=== PATIENT | male | born 1955 | race Caucasian/White ===

== ENCOUNTER 2017-05-02 22:32 | Emergency (ER) | payer OTHER ==
[~2017-05-02] VITALS: Ht 180.3 cm; Wt 87.6 kg
[2017-05-02 22:32] VITALS: Ht 180.3 cm; Wt 87.6 kg
[~2017-05-02 22:32] MED LIST: ASPEC325 PO; ATEN-173 PO; CLB200 PO
[2017-05-02] MEDS ORDERED: HYG/25 PO (23:12)
[2017-05-02] MEDS ORDERED: ATEN50TA PO (23:12)
[2017-05-02] MEDS ORDERED: GABA-113 PO (23:12)
[2017-05-02] MEDS ORDERED: FENTANYL CITRATE INJ 50 MCG/1 ML 2 ML VIAL IV STA (23:24)
[2017-05-02 23:48] VITALS: BP 122/68; PULSE 61; TEMP 36.6; O2SAT 94
[2017-05-03] MEDS ORDERED: MoRPHine SULFATE 4 MG/ML 1 ML CARP\\VIAL IV STA (01:00)
[2017-05-03] MEDS ORDERED: ONDANSETRON INJ 2 MG/ML 2 ML VIAL IV STA (01:00)
[2017-05-03] MEDS ORDERED: PROPOFOL IV EMULSION 10 MG/ML 20 ML VIAL IV STA (01:30)
--- NOTE | 2017-05-03 01:31 | EMERGENCY ROOM VISIT NOTE ---
Pre-Mod Sedation Assessment General Date of Moderate Sedation: May 03, 2017. Vital Signs: Vital Signs Past 12 Hours Date Time Temp Pulse Resp B/P (MAP) Pulse Ox O2 Delivery O2 Flow Rate FiO2 05/03/17 00:45 59 20 131/73 96 Room Air 05/02/17 23:48 36.6 61 16 122/68 94 Room Air 05/02/17 23:47 65 20 122/68 95 Room Air 05/02/17 22:37 60 05/02/17 22:32 36.6 63 12 142/79 94 Room Air Review Cardiovascular: regular rate, rhythm Abdomen: normal bowel sounds Lungs: normal breath sounds Airway Class: I Pre-Sedation Airway Assessment Oral Cavity: Dentures Short Thick Neck: No Hx of Sleep Apnea: No Smoking Status: Never Smoker Mallampati Classification: Class I (Sft palate,uvula,fauces,pillar) ASA Classification: Class I Procedure Planning Contraindications-for Mod Sed: None Notes The planned sedation has been discussed with the patient and consent obtained. I have identified the patient, determined the appropriateness of sedation and have assessed the patient immediately prior to the procedure. All medicine(s) and interventions are by my order.
[2017-05-03 01:51] VITALS: BP 114/59; PULSE 62; O2SAT 98
[2017-05-03 01:59] VITALS: BP 100/62; PULSE 59; O2SAT 99
[2017-05-03 02:01] VITALS: O2SAT 99
[2017-05-03 02:04] VITALS: BP 133/77; PULSE 62; O2SAT 99
[2017-05-03 02:10] VITALS: BP 152/80; PULSE 61; O2SAT 99
[2017-05-03 02:22] VITALS: BP 150/81; PULSE 66; PULSE 67; O2SAT 99
--- NOTE | 2017-05-03 02:57 | EMERGENCY ROOM VISIT NOTE ---
History First contact with patient: 22:50 Chief Complaint: HIP PAIN Stated Complaint: R HIP DISLOCATION History of Present Illness The patient is a 61 year old male who presents to the Emergency Room with complaints of severe right hip pain after he bent over and twisted to feed the dog. Patient heard a thump and was unable to get up. He lowered himself to the ground. He did not fall directly to the ground. He has had bilateral hip replacements by Dr. Hodge. No history of hip dislocation in the past. Patient arrived by EMS and was given fentanyl. Pain is currently 5 or 10. Worse with movement and better with rest. Patient denies numbness, tingling, chest pain, dyspnea, abdominal pain, back pain, fever, chills. No other complains per patient. Review of Systems See HPI for pertinent positives & negatives. A total of 10 systems reviewed and were otherwise negative. Past Medical/Surgical History hip replacement B Social History Smoking Status: Never Smoker Alcohol Use: occasionally Drug Use: none Marital Status: Housing Status: lives with family Occupation Status: retired Current/Historical Medications Scheduled Atenolol (Tenormin), 50 MG PO HS Chlorthalidone (Hygroton), 25 MG PO DAILY Gabapentin (Neurontin), 300 MG PO TID Physical Exam Vital Signs Date Time Temp Pulse Resp B/P (MAP) Pulse Ox O2 Delivery O2 Flow Rate FiO2 05/03/17 02:22 66 05/03/17 02:22 67 18 150/81 99 Room Air 05/03/17 02:10 61 18 152/80 99 Room Air 05/03/17 02:04 62 18 133/77 99 Room Air 05/03/17 02:01 59 18 109/69 99 Room Air 05/03/17 01:59 59 18 100/62 99 Room Air 05/03/17 01:51 99 Nasal Cannula 2.0 05/03/17 01:51 62 16 114/59 98 Nasal Cannula 4.0 05/03/17 01:49 99 Nasal Cannula 2.0 05/03/17 01:32 58 12 112/69 92 Room Air 05/03/17 00:45 59 20 131/73 96 Room Air 05/02/17 23:48 36.6 61 16 122/68 94 Room Air 05/02/17 23:47 65 20 122/68 95 Room Air 05/02/17 22:37 60 05/02/17 22:32 36.6 63 12 142/79 94 Room Air Physical Exam VITALS: Vitals are noted on the nurse's note and reviewed by myself. Vital signs stable. GENERAL: Pleasant male with right leg shortened and internally rotated, in no acute distress, nondiaphoretic, well-developed well-nourished. SKIN: The skin was without rashes, erythema, edema, or bruising. There is no tenting of the skin. Capillary reflex less than 2 seconds. HEAD: Normocephalic atraumatic. EARS: External auditory canals clear, tympanic membranes pearly james without erythema or effusion bilaterally. EYES: Pupils equal round and reactive to light and accommodation. Conjunctivae without injection, sclerae without icterus. NOSE: Patent, turbinates without inflammation or discharge. MOUTH: Mucous membranes moist. Pharynx without erythema or exudate. Uvula midline. Airway patent. Tongue does not deviate. NECK: Supple without nuchal rigidity. No lymphadenopathy. No thyromegaly. Cervical spine is nontender. No JVD. HEART: Regular rate and rhythm without murmurs gallops or rubs. LUNGS: Clear to auscultation bilaterally without wheezes, rales or rhonchi. No dullness to percussion. No retractions or accessory muscle use. ABDOMEN: Positive bowel sounds x 4. Normal tympanic percussion. Soft, nontender, without masses or organomegaly. Macdonald sign negative. No guarding or rebound tenderness. MUSCULOSKELETAL: No muscle atrophy, erythema, or edema noted. Right hip shortened and internally rotated and tender to palpation right femur, knee, lizarraga and foot nontender to palpation. Pedal pulses +2 equal present bilaterally. NEURO: Patient was alert and oriented to person place and time. Normal sensation to light and sharp touch. No focal neurological deficits. Medical Decision & Procedures Medications Administered Medications (Trade) Dose Ordered Sig/Stephen Route Start Time Stop Time Status Last Admin Dose Admin Fentanyl Citrate (Fentanyl Inj) 100 mcg NOW STAT IV 05/02/17 23:24 05/02/17 23:26 DC 05/02/17 23:30 100 MCG Morphine Sulfate (MoRPHine SULFATE INJ) 4 mg NOW STAT IV 05/03/17 01:00 05/03/17 01:01 DC 05/03/17 01:05 4 MG Ondansetron HCl (Zofran Inj) 4 mg NOW STAT IV 05/03/17 01:00 05/03/17 01:01 DC 05/03/17 01:05 4 MG Procedure Right prosthetic hip Dislocation Reduction Indication: Hip dislocation Verbal consent obtained. Conscious sedation was performed by my attending. Risks and benefits were explained with the usual customary discussion. A time out was taken. Neurovascular examination before the procedure revealed intact. The right hip dislocation was reduced by placing the patient supine and stabilizing the pelvis by grasping the bilateral anterior superior iliac spines and applying gentle posterior force by the nurse and I brought the hip to 90 of flexion while allowing the ipsilateral knee to flex passively. I Gently abducted, externally rotated, and extended the hip while distracting the femoral head anteriorly This resulted in an easy reduction without complication. Neurovascular examination after the procedure revealed intact. The patient had significant pain relief and tolerated the procedure well. ED Course Prior records/ancillary studies reviewed. Triage Nursing notes reviewed. Additional history obtained from family. The patient's history was concerning for right hip pain. Differential diagnosis: Etiologies such as dislocation, musculoskeletal, disc herniation, fracture, metastatic disease, cord compression, discitis, infection, acute exacerbation of chronic back pain, as well as others were entertained. Physical findings: As above. No focal neurologic findings noted. ER treatment provided: Hip was reduced as above On reassessment the patient felt better. Diagnostics interpreted by me: Imaging studies: Right hip x-ray showed dislocation of the prosthetic hip without fracture. Postreduction films show proper realignment per my interpretation This appears to be consistent with hip dislocation that was reduced. Patient tolerated procedure well. He was advised to use his walker for inhalation until cleared by his orthopedist. He is advised light activity only. He was advised to return to the ER immediately for severe pain, dyspnea dislocation, fevers, numbness, tingling, worsening signs or symptoms or as needed. Patient was neurovascularly neurologic intact. He is well-appearing.. By the evaluation outlined above emergent etiologies such as fracture, aortic disease, metastatic disease, infection, as well as others were deemed relatively unlikely. The pt informed about the findings as listed above. All questions were answered and pleased with the treatment. Return instructions were outlined and the patient was discharged in stable condition. Referral: The patient was referred back to his orthopedist, Dr. Hodge for follow-up in 2 to 3 days for a recheck of the current condition. Case reviewed with my attending Medical Decision As above Medication Reconcilliation Current Medication List: was personally reviewed by me Blood Pressure Screening Patient's blood pressure: Normal blood pressure Impression Primary Impression: Dislocation of hip, right, closed Departure Information Dispostion Home / Self-Care Condition GOOD Referrals Jacoby Jefferson M.D. (PCP) Forms WORK / SCHOOL INSTRUCTIONS, HOME CARE DOCUMENTATION FORM, IMPORTANT VISIT INFORMATION Patient Instructions Sedation Procedural, My [facility], ED Dislocation Hip Traumatic Redu Additional Instructions DO NOT drive, drink alcohol, operate machinery, or perform dangerous activities today. You were given medications in the ER that can affect your ability to safely function or operate a vehicle. Light activity only until cleared by orthopedic doctor. Ibuprofen(Motrin, Advil) may be used for fever or pain. Use 600mg every six hours as needed. Take with food. Avoid using more than 2400mg in a 24 hour period. Do not use 2400mg per day for more than three consecutive days without physician direction. Prolonged inappropriate use can lead to stomach upset or ulcers. This medication can be taken if you need to drive, work, or perform activities which may be dangerous when taking narcotic pain medication. (AND/OR) Acetaminophen(Tylenol) may be used for fever or pain. Use 1000mg every six hours as needed. Avoid using more than 3000mg in a 24 hour period. This medication can be taken if you need to drive, work, or perform activities which may be dangerous when taking narcotic pain medication. Ice compresses for 20 minutes at a time four times daily for 2-3 days. Use the walker until cleared by your orthopedic doctor. Rest and elevate your injury. Continue current medications. Return to the ER immediately for any numbness, tingling, severe pain, extreme swelling in the extremity or as needed. Call your Orthopedics tomorrow to arrange follow up for your injury. Problem Qualifiers Primary Impression: Dislocation of hip, right, closed Encounter type: initial encounter Qualified Codes: S73.004A - Unspecified dislocation of right hip, initial encounter
--- NOTE | 2017-05-03 04:01 | EMERGENCY ROOM VISIT NOTE ---
Post-Moderate Sedation Plan General Date of Moderate Sedation May 03, 2017. Vital Signs: Vital Signs Past 12 Hours Date Time Temp Pulse Resp B/P (MAP) Pulse Ox O2 Delivery O2 Flow Rate FiO2 05/03/17 02:22 66 05/03/17 02:22 67 18 150/81 99 Room Air 05/03/17 02:10 61 18 152/80 99 Room Air 05/03/17 02:04 62 18 133/77 99 Room Air 05/03/17 02:01 59 18 109/69 99 Room Air 05/03/17 01:59 59 18 100/62 99 Room Air 05/03/17 01:51 99 Nasal Cannula 2.0 05/03/17 01:51 62 16 114/59 98 Nasal Cannula 4.0 05/03/17 01:49 99 Nasal Cannula 2.0 05/03/17 01:32 58 12 112/69 92 Room Air 05/03/17 00:45 59 20 131/73 96 Room Air 05/02/17 23:48 36.6 61 16 122/68 94 Room Air 05/02/17 23:47 65 20 122/68 95 Room Air 05/02/17 22:37 60 05/02/17 22:32 36.6 63 12 142/79 94 Room Air Review - Discharge Plan Post Moderate Sedation Plan: On clinical assessment, the patient appears to have tolerated the conscious sedation without complications. Patient is recovering as anticipated. Patient will continue to be monitored by nursing and may be discharged when conscious sedation discharge criteria are met.
--- NOTE | 2017-05-03 04:04 | EMERGENCY ROOM VISIT NOTE ---
ED Visit Note First contact with patient: 23:26 I have personally seen and evaluated the patient with the PA. I agree with the diagnosis and management decisions and have been personally involved in the case. Please see Dana Joseph PA-C's notes for further details of the history, physical and visit. Procedural Sedation Indication right hip dislocation Total time: 16 minutes. Written consent was obtained after the risks and benefits were explained to the patient, including, but not limited to aspiration, allergic reaction, breathing difficulties, cardiac complications, vomiting, pain, event recall, bleeding, and /or infection. Pre-sedation examination and paperwork completed. The patient was on 100% oxygen via NRB prior to the procedure. Continuous end tidal CO2 monitoring, pulse oximetry, and cardiac monitoring were utilized. Suction, airway equipment, medications, respiratory equipment, and appropriate personnel were prepared prior to the initiation of the procedure. A time out was taken. Sedation was achieved utilizing a total of 100 mg of propofol, administered in 2 separate boluses. After I observed the patient had reached the appropriate level of sedation the hip reduction was performed by Dana Joseph PA-C without complication. Sedation was discontinued and the monitoring continued. The patient recovered quickly from the effects of the medication without complication or adverse event.
--- NOTE | 2017-05-03 06:38 | DIAGNOSTIC IMAGING REPORT ---
RIGHT HIP UNILATERAL 2 VIEWS CLINICAL HISTORY: post reduction Right COMPARISON: None. DISCUSSION: The bones and joint spaces appear intact. There is no evidence of fracture, dislocation or bony disease. Anatomic alignment status post closed reduction. Pre-existing total hip arthroplasty. IMPRESSION: Anatomic alignment status post closed reduction The above report was generated using voice recognition software. It may contain grammatical, syntax or spelling errors. Electronically signed by: Zain Penn M.D. 05/03/2017 6:37 AM Dictated Date/Time: 05/03/2017 6:35 AM
--- NOTE | 2017-05-03 06:45 | DIAGNOSTIC IMAGING REPORT ---
RIGHT HIP UNILATERAL 2 VIEWS CLINICAL HISTORY: right hip injury Right trauma. Pain. COMPARISON: None. DISCUSSION: Evidence for dislocation of the patient's hip arthroplasty. The acetabular prosthetic appears to be aligned appropriately. No evidence for acetabular protrusion. There is no evidence for soft tissue swelling. IMPRESSION: Dislocation right hip arthroplasty. The above report was generated using voice recognition software. It may contain grammatical, syntax or spelling errors. Electronically signed by: Zain Penn M.D. 05/03/2017 6:43 AM Dictated Date/Time: 05/03/2017 6:43 AM
== END 2017-05-03 02:46 | disposition home or self-care (01) ==
LOC: EDBD 22:32 → C.EDA 22:33 → C.EDB 05-03 02:46
DX: T84.020A Dislocation of internal right hip prosthesis, initial encounter (principal); X58.XXXA Exposure to other specified factors, initial encounter; Z96.643 Presence of artificial hip joint, bilateral; Z79.899 Other long term (current) drug therapy

== ENCOUNTER 2017-11-07 17:11 | Emergency (ER) | payer OTHER ==
[~2017-11-07] VITALS: Ht 182.9 cm; Wt 84.7 kg
[~2017-11-07 17:11] MED LIST changes: -ASPEC325 PO; -ATEN-173 PO; +ATEN50TA PO; -CLB200 PO; +GABA-113 PO; +HYG/25 PO
[2017-11-07 17:16] VITALS: Ht 182.9 cm; Wt 84.7 kg
[2017-11-07] MEDS ORDERED: ONDANSETRON INJ 2 MG/ML 2 ML VIAL IV STA (17:16)
--- NOTE | 2017-11-07 17:20 | EMERGENCY ROOM VISIT NOTE ---
History Report prepared by Nick: Wing Mckoy Under the Supervision of: Dr. Anibal Gloria D.O. First contact with patient: 17:14 Chief Complaint: HIP PAIN Stated Complaint: HIP OUT History of Present Illness The patient is a 62 year old male with a history of a right hip dislocation who presents to the Emergency Room with complaints of a sudden right hip dislocation that occurred prior to arrival this evening. He states that he was bending over to reach a box, and felt the right hip "pop out". The patient says that this happened to the same hip in 2013, and had to have surgery with Dr. Hodge. The patient says that the hip almost popped out a month ago, but he caught it and it did not happen. He states that he is currently in extreme pain , but denies falling or having any other injuries other than the right hip. The patient says that he is not on any blood thinners. 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 Denies any other pain or injuries. Review of Systems See HPI for pertinent positives & negatives. A total of 10 systems reviewed and were otherwise negative. Past Medical & Surgical Medical Problems: (1) HTN (hypertension) Family History No pertinent family history Social History Smoking Status: Never Smoker Alcohol Use: occasionally Drug Use: none Marital Status: Housing Status: lives with family Occupation Status: retired Current/Historical Medications Scheduled Atenolol (Tenormin), 50 MG PO HS Chlorthalidone (Hygroton), 25 MG PO HS Furosemide (Lasix), 10 MG PO QAM Gabapentin (Neurontin), 300 MG PO TID Allergies Coded Allergies: No Known Allergies (Verified , `, 11/07/17) Physical Exam Vital Signs Date Time Temp Pulse Resp B/P (MAP) Pulse Ox O2 Delivery O2 Flow Rate FiO2 11/07/17 19:43 71 20 137/77 96 11/07/17 18:39 36.8 67 20 152/75 97 Room Air 11/07/17 18:20 36.8 69 18 138/69 96 Room Air 11/07/17 18:18 36.8 69 18 142/78 96 Room Air 11/07/17 18:10 36.8 71 18 155/96 92 Room Air 11/07/17 18:02 70 16 94/61 97 Nasal Cannula 2.0 11/07/17 17:56 68 18 133/65 98 Room Air 11/07/17 17:25 71 11/07/17 17:16 36.8 77 20 130/69 98 Room Air Physical Exam GENERAL: Patient is awake, alert, very anxious appearing and appears to be in significant pain. EYES: The conjunctivae are clear. The pupils are round and reactive. EARS, NOSE, MOUTH AND THROAT: The nose is without any evidence of any deformity. Mucous membranes are moist tongue is midline NECK: The neck is nontender and supple. RESPIRATORY: Normal respiratory effort is noted there is no evidence of wheezing rhonchi or rales CARDIOVASCULAR: Regular rate and rhythm noted there no murmurs rubs or gallops normal S1 normal S2 GASTROINTESTINAL: The abdomen is soft. Bowel sounds are present in all quadrants. Abdomen is nontender MUSCULOSKELETAL/EXTREMITIES: Right lower extremity is internally rotated and shortened. Patient resists any range of motion testing with right hip. SKIN: There is no obvious evidence of any rash. There are no petechiae, pallor or cyanosis noted. NEUROLOGIC: Patient is awake alert and oriented x3. Medical Decision & Procedures ER Provider Diagnostic Interpretation: X-ray results as stated below per interpretation by me and the radiologist. R HIP UNILATERAL 2 VIEWS CLINICAL HISTORY: right hip pin pain COMPARISON: None. DISCUSSION: Dislocation right hip. Patient has a total right hip prosthetic. The femoral prosthetic is displaced superiorly in relation acetabular cup. No well-defined fracture. IMPRESSION: Dislocation of the patient's total right hip prosthetic. Mild superior migration of the right femoral shaft and femoral prosthetic. The above report was generated using voice recognition software. It may contain grammatical, syntax or spelling errors. Electronically signed by: Zain Penn M.D. 11/07/2017 5:38 PM Dictated Date/Time: 11/07/2017 5:37 PM R HIP UNILATERAL 2 VIEWS CLINICAL HISTORY: post reduction dislocation COMPARISON: 11/07/2017 5:21 PM DISCUSSION: Anatomic alignment status post closed reduction. No evidence for acetabular protrusion. Good contact between prosthetic and underlying bone. There is no evidence for soft tissue swelling. IMPRESSION: Anatomic alignment status post closed reduction. The above report was generated using voice recognition software. It may contain grammatical, syntax or spelling errors. Electronically signed by: Zain Penn M.D. 11/07/2017 6:45 PM Dictated Date/Time: 11/07/2017 6:42 PM Laboratory Results 11/07/17 17:20 Red Blood Count 4.25, Mean Corpuscular Volume 91.5, Mean Corpuscular Hemoglobin 33.6, Mean Corpuscular Hemoglobin Concent 36.8, Mean Platelet Volume 9.0, Neutrophils (%) (Auto) 71.3, Lymphocytes (%) (Auto) 12.5, Monocytes (%) (Auto) 14.5, Eosinophils (%) (Auto) 0.7, Basophils (%) (Auto) 0.2, Neutrophils # (Auto ) 7.56, Lymphocytes # (Auto) 1.32, Monocytes # (Auto) 1.53, Eosinophils # (Auto ) 0.07, Basophils # (Auto) 0.02 11/07/17 17:20 Test 11/07/17 17:20 White Blood Count 10.58 K/uL (4.8-10.8) Red Blood Count 4.25 M/uL (4.7-6.1) Hemoglobin 14.3 g/dL (14.0-18.0) Hematocrit 38.9 % (42-52) Mean Corpuscular Volume 91.5 fL (80-100) Mean Corpuscular Hemoglobin 33.6 pg (25-34) Mean Corpuscular Hemoglobin Concent 36.8 g/dl (32-36) Platelet Count 394 K/uL (130-400) Mean Platelet Volume 9.0 fL (7.4-10.4) Neutrophils (%) (Auto) 71.3 % Lymphocytes (%) (Auto) 12.5 % Monocytes (%) (Auto) 14.5 % Eosinophils (%) (Auto) 0.7 % Basophils (%) (Auto) 0.2 % Neutrophils # (Auto) 7.56 K/uL (1.4-6.5) Lymphocytes # (Auto) 1.32 K/uL (1.2-3.4) Monocytes # (Auto) 1.53 K/uL (0.11-0.59) Eosinophils # (Auto) 0.07 K/uL (0-0.5) Basophils # (Auto) 0.02 K/uL (0-0.2) RDW Standard Deviation 41.3 fL (36.4-46.3) RDW Coefficient of Variation 12.3 % (11.5-14.5) Immature Granulocyte % (Auto) 0.8 % Immature Granulocyte # (Auto) 0.08 K/uL (0.00-0.02) Prothrombin Time 10.4 SECONDS (9.0-12.0) Prothromb Time International Ratio 1.0 (0.9-1.1) Activated Partial Thromboplast Time 27.0 SECONDS (21.0-31.0) Partial Thromboplastin Ratio 1.0 Anion Gap 13.0 mmol/L (3-11) Est Creatinine Clear Calc Drug Dose 86.2 ml/min Estimated GFR () 94.4 Estimated GFR (Non- 81.4 BUN/Creatinine Ratio 11.5 (10-20) Calcium Level 9.4 mg/dl (8.5-10.1) Total Bilirubin 0.5 mg/dl (0.2-1) Direct Bilirubin 0.2 mg/dl (0-0.2) Aspartate Amino Transf (AST/SGOT) 20 U/L (15-37) Alanine Aminotransferase (ALT/SGPT) 47 U/L (12-78) Alkaline Phosphatase 103 U/L (45-117) Total Protein 7.6 gm/dl (6.4-8.2) Albumin 3.6 gm/dl (3.4-5.0) Laboratory results per my review. Medications Administered Medications (Trade) Dose Ordered Sig/Stephen Route Start Time Stop Time Status Last Admin Dose Admin Morphine Sulfate (MoRPHine SULFATE INJ) 4 mg Q15M PRN IV 11/07/17 17:30 11/07/17 20:01 DC 11/07/17 17:33 4 MG Ondansetron HCl (Zofran Inj) 4 mg NOW STAT IV 11/07/17 17:16 11/07/17 17:19 DC 11/07/17 17:32 4 MG Potassium Chloride (Klor-Con M10) 10 meq NOW STAT PO 11/07/17 18:26 11/07/17 18:27 DC 11/07/17 18:35 10 MEQ Procedure Procedure right hip reduction-closed Indication right hip dislocation-prosthetic Please see Dr. Casanova's note for sedation details The patient was properly sedated once the sedation was reached the patient was reevaluated. The right hip was brought into flexion and then internally rotated. The right lower extremity was then distracted with good reduction noted. Post reduction x-ray reveals anatomic alignment of right hip prosthesis. Patient tolerated procedure well. He was reevaluated multiple times. He was feeling much better. He already has an adduction pillow at home. ED Course 171: The patient was evaluated in room A1. A complete history and physical examination were performed. 171: Ordered Zofran Inj 4 mg IV. 173: Ordered Morphine Sulfate Inj 4 mg IV PRN. 1815: I discussed the patient with Dr. [facility]. 182: Ordered Klor-Con M10 10 meq PO. 184: Ordered Roxicodone Immediate Rel 5MG Home Pack 1 homepack PO. 1909: Upon reevaluation, the patient is resting. I discussed the results and treatment plan with him. He verbalized agreement of the treatment plan. He is ready for discharge. Medical Decision Differential diagnosis: Etiologies such as fracture, dislocation, intra-abdominal, pneumothorax, intrathoracic , intracranial, neurologic, as well as other traumatic pathologies were entertained. Nursing notes reviewed. Additional history is obtained for the patient's significant other. The patient is a 62-year-old male who presented to the emergency department with right hip pain. The patient had flexed forward to pick something up when he felt his right hip come out of place. He has had a similar episode in the past. He does have a hip replacement. The patient was sedated in the usual fashion. He met criteria for procedural sedation in the emergency department. I discussed his case with his covering orthopedic group. The patient was encouraged to continue all medications as prescribed. He was reevaluated multiple times. On final reevaluation he was awake alert and no longer sedated. He was discharged with his . He was encouraged to follow-up with his primary orthopedic physician soon as possible but return to the emergency department immediately if symptoms change or worsen or the need arises. Medication Reconcilliation Current Medication List: was personally reviewed by me Blood Pressure Screening Patient's blood pressure: Elevated blood pressure Blood pressure disposition: Elevated BP felt to be situational Consults Time Called: 1809 Consulting Physician: Dr. [facility] Returned Call: 1815 I discussed the patient with Dr. [facility]. Impression Primary Impression: Hip dislocation, right Additional Impression: Hypokalemia Scribe Attestation The scribe's documentation has been prepared under my direction and personally reviewed by me in its entirety. I confirm that the note above accurately reflects all work, treatment, procedures, and medical decision making performed by me. Departure Information Dispostion Home / Self-Care Referrals Jacoby Jefferson M.D. (PCP) Patient Instructions ED Dislocation Hip Traumatic Redu, ED Sedation Procedural Discon, [facility] Additional Instructions Call your primary care physician to schedule a follow-up appointment. Call your primary orthopedic physician to schedule a follow-up appointment as well. Continue using the pillow between her thighs as instructed. Continue all other medications as prescribed. Your potassium was low in the emergency department today. Be sure to have that rechecked with your family doctor. Return the emergency department immediately if symptoms change worsening the need arises. Problem Qualifiers Primary Impression: Hip dislocation, right Encounter type: initial encounter Qualified Codes: S73.004A - Unspecified dislocation of right hip, initial encounter
[2017-11-07] MEDS ORDERED: MoRPHine SULFATE 4 MG/ML 1 ML CARP\\VIAL IV PRN (17:30)
[2017-11-07 17:36] LABS: BASO % 0.2 %; BASO ABS # 0.02 K/uL (0-0.2); EOS % 0.7 %; EOS ABS # 0.07 K/uL (0-0.5); HEMATOCRIT 38.9 % (42-52); HEMOGLOBIN 14.3 g/dL (14.0-18.0); IG# 0.08 K/uL (0.00-0.02); LYMPH % 12.5 %; LYMPH ABS # 1.32 K/uL (1.2-3.4); MEAN CELL VOLUME 91.5 fL (80-100); MEAN CORPUSCULAR HEMOGLOBIN 33.6 pg (25-34); MEAN CORPUSCULAR HGB CONC 36.8 g/dl (32-36); MONO % 14.5 %; MONO ABS # 1.53 K/uL (0.11-0.59); NEUT % 71.3 %; NEUT ABS # 7.56 K/uL (1.4-6.5); PLATELET COUNT 394 K/uL (130-400); RED CELL DISTRIBUTION WIDTH CV 12.3 % (11.5-14.5); RED CELL DISTRIBUTION WIDTH SD 41.3 fL (36.4-46.3); WHITE BLOOD COUNT 10.58 K/uL (4.8-10.8)
--- NOTE | 2017-11-07 17:40 | DIAGNOSTIC IMAGING REPORT ---
R HIP UNILATERAL 2 VIEWS CLINICAL HISTORY: right hip pin pain COMPARISON: None. DISCUSSION: Dislocation right hip. Patient has a total right hip prosthetic. The femoral prosthetic is displaced superiorly in relation acetabular cup. No well-defined fracture. IMPRESSION: Dislocation of the patient's total right hip prosthetic. Mild superior migration of the right femoral shaft and femoral prosthetic. The above report was generated using voice recognition software. It may contain grammatical, syntax or spelling errors. Electronically signed by: Zain Penn M.D. 11/07/2017 5:38 PM Dictated Date/Time: 11/07/2017 5:37 PM
[2017-11-07] MEDS ORDERED: PROPOFOL IV EMULSION 10 MG/ML 20 ML VIAL IV ONE ×2 (17:41→18:00)
--- NOTE | 2017-11-07 17:53 | EMERGENCY ROOM VISIT NOTE ---
Pre-Mod Sedation Assessment General Date of Moderate Sedation: Nov 07, 2017. Vital Signs: Vital Signs Past 12 Hours Date Time Temp Pulse Resp B/P (MAP) Pulse Ox O2 Delivery O2 Flow Rate FiO2 11/07/17 17:25 71 11/07/17 17:16 36.8 77 20 130/69 98 Room Air Review Cardiovascular: regular rate, rhythm Abdomen: normal bowel sounds Lungs: lungs clear Pre-Sedation Airway Assessment Oral Cavity: Dentures Able to Visualize Vocal Cords: No Short Thick Neck: No Hx of Sleep Apnea: No Smoking Status: Former Smoker Mallampati Classification: Class II Procedure Planning Contraindications-for Mod Sed: None Yes Notes The planned sedation has been discussed with the patient and consent obtained. I have identified the patient, determined the appropriateness of sedation and have assessed the patient immediately prior to the procedure. All medicine(s) and interventions are by my order.
[2017-11-07 18:02] VITALS: BP 94/61; PULSE 70; O2SAT 97
[2017-11-07 18:10] VITALS: BP 155/96; PULSE 71; TEMP 36.8; O2SAT 92
--- NOTE | 2017-11-07 18:11 | EMERGENCY ROOM VISIT NOTE ---
Post-Moderate Sedation Plan General Date of Moderate Sedation Nov 07, 2017. Vital Signs: Vital Signs Past 12 Hours Date Time Temp Pulse Resp B/P (MAP) Pulse Ox O2 Delivery O2 Flow Rate FiO2 11/07/17 17:56 68 18 133/65 98 Room Air 11/07/17 17:25 71 11/07/17 17:16 36.8 77 20 130/69 98 Room Air Review - Discharge Plan Post Moderate Sedation Plan: Conscious sedation Conscious sedation was performed after consent. The patient was placed on a monitor that monitored rhythm, blood pressure, oxygen saturation and end tidal CO2. The patient has not eaten for > 8 hours. Propofol 125mg IV was given total. 50+25 (x3). Reason for conscious sedation: Hip dislocation right Total conscious sedation time: 20 minutes The patient tolerated the procedure well without any alteration in vital signs or issues with airway. The patient awoke without deficit or complaint. On clinical assessment, the patient appears to have tolerated the conscious sedation without complications. Patient is recovering as anticipated. Patient will continue to be monitored by nursing and may be discharged when conscious sedation discharge criteria are met.
[2017-11-07 18:18] VITALS: BP 142/78; PULSE 69; TEMP 36.8; O2SAT 96
[2017-11-07 18:20] VITALS: BP 138/69; PULSE 69; TEMP 36.8; O2SAT 96
[2017-11-07 18:25] LABS: ALBUMIN 3.6 gm/dl (3.4-5.0); CALCIUM 9.4 mg/dl (8.5-10.1); POTASSIUM 2.3 mmol/L (3.5-5.1); TOTAL PROTEIN 7.6 gm/dl (6.4-8.2)
[2017-11-07] MEDS ORDERED: FURO20TA PO (18:26)
[2017-11-07] MEDS ORDERED: POTASSIUM CHLORIDE 10 MEQ TABCR PO STA (18:26)
[2017-11-07 18:39] VITALS: BP 152/75; PULSE 67; TEMP 36.8; O2SAT 97
[2017-11-07] MEDS ORDERED: OXYCODONE IR HOME PACK PO ONE (18:45)
--- NOTE | 2017-11-07 18:47 | DIAGNOSTIC IMAGING REPORT ---
R HIP UNILATERAL 2 VIEWS CLINICAL HISTORY: post reduction dislocation COMPARISON: 11/07/2017 5:21 PM DISCUSSION: Anatomic alignment status post closed reduction. No evidence for acetabular protrusion. Good contact between prosthetic and underlying bone. There is no evidence for soft tissue swelling. IMPRESSION: Anatomic alignment status post closed reduction. The above report was generated using voice recognition software. It may contain grammatical, syntax or spelling errors. Electronically signed by: Zain Penn M.D. 11/07/2017 6:45 PM Dictated Date/Time: 11/07/2017 6:42 PM
[2017-11-07 19:43] VITALS: BP 137/77; PULSE 71; O2SAT 96
== END 2017-11-07 19:43 | disposition home or self-care (01) ==
LOC: C.EDB 17:12 → C.EDA 19:43
DX: T84.020A Dislocation of internal right hip prosthesis, initial encounter (principal); X50.9XXA Other and unspecified overexertion or strenuous movements or postures, initial encounter; E87.6 Hypokalemia; I10 Essential (primary) hypertension

== ENCOUNTER 2020-02-16 10:25 | Inpatient (IN) ==
--- NOTE | 2019-12-15 13:32 | Anesthesiology Consultation ---
Date of Service December 15, 2019 Assessment & Plan (1) Encounter for pre-operative examination: Chart Review Chart Review: Pending: Refer to Additional Notes / Consult section (updated/repeat labs, final PCP clearance, and possible repeat EKG) and Patient NOT seen in Pre Admission Testing Will await repeat labs (PCP repeating BMP) but patient will need updated preop labs due to surgery date change. Will await final PCP clearance. Will attempt to get repeat EKG Seen by PCP 12/07/19- seen for preop evaluation for previously scheduled surgery that was rescheduled. Initialy pre op labs showed Na of 125, K of 3.3 and Hgb of 13.2. Feels electrolyte abnormality secondary to chlorthalidone. Chlorthalidone d/c'ed. Has f/u in two weeks to recheck labs- unsure if abnormal labs affected EKG (next appt scheduled 12/21/19) History Surgery Operation Date: 02/16/20 07:15 Proposed Procedures p Left Total Hip Arthroplasty Revision - Jose Enrique Garza DO Height/Weight Height: 5 ft 11.5 in Weight: 82.4 kg Allergies Allergy/AdvReac Type Severity Reaction Status Date / Time No Known Allergies Allergy ` Verified 12/15/19 09:04 Medications Home Medications Medication Instructions Recorded Confirmed Last Taken atenolol-chlorthalidone 1 tab PO HS 03/13/19 12/15/19 08/11/19 20:30 gabapentin 400 mg PO TID 03/13/19 12/15/19 08/11/19 09:00 ibuprofen 800 mg PO TIDM PRN 08/12/19 12/15/19 Unknown meloxicam 15 mg PO PM 11/27/19 12/15/19 Unknown Potassium 1 tab PO DAILY 12/02/19 12/15/19 Unknown Past Medical History Medical History HTN (hypertension) (Chronic) Osteoarthritis Past Family History Family History Other No significant family history Past Surgical History Surgical History History of colonoscopy History of hip replacement (Chronic) R/L History of tonsillectomy History of tooth extraction Hx of inguinal hernia repair Social History Smoking Status: Former smoker Do You Dip or Chew Tobacco: No Smoking End Date: 13 yr ago Hx Alcohol Use: Yes Alcohol type: beer alcohol intake frequency: 3 or more drinks per day Hx Substance Use: No substance use type: does not use Testing Electrocardiogram Date: 12/02/19 SB at 56bpm. Peaked T waves (consider ischemia, hyperkalemia, etc). T waves more peaked, otherwise no significant change compared to 03/03/14 per cardiology. Potassium 3.3 on preop labs from same day. Chest X-Ray Date: 12/02/19 Findings: + NAD
--- NOTE | 2020-02-11 10:56 | Anesthesiology Consultation ---
Date of Service February 11, 2020 Travel assessment/history reviewed - low risk at this time - will be reviewed the morning of surgery. No preop covid testing done. Assessment & Plan Chart Review Chart Review: Acceptable Risk for Surgery and Patient NOT seen in Pre Admission Testing History Surgery Operation Date: 02/16/20 11:40 Proposed Procedures p Left Total Hip Arthroplasty Revision - Jose Enrique Garza DO Height/Weight Height: 5 ft 11.5 in Weight: 82.4 kg Allergies Allergy/AdvReac Type Severity Reaction Status Date / Time No Known Allergies Allergy ` Verified 02/10/20 12:21 Medications Home Medications Medication Instructions Recorded Confirmed Last Taken atenolol-chlorthalidone 1 tab PO HS 03/13/19 02/10/20 08/11/19 20:30 ibuprofen 800 mg PO TIDM PRN 08/12/19 02/10/20 Unknown meloxicam 15 mg PO PM 11/27/19 02/10/20 Unknown zsxnwqclsvzi-tgmblzru-kdwnem 1 tab PO QPM 02/10/20 02/10/20 Unknown [Multivitamin 50 Plus] potassium gluconate 595 mg PO QAM 02/10/20 02/10/20 Unknown Past Medical History Medical History Hip dislocation, left HTN (hypertension) (Chronic) Osteoarthritis Past Family History Family History Other No significant family history Past Surgical History Surgical History History of colonoscopy History of hip replacement (Chronic) R/L History of tonsillectomy History of tooth extraction Hx of inguinal hernia repair Social History Smoking Status: Former smoker tobacco type: cigarettes Do You Dip or Chew Tobacco: No Smoking End Date: 13 yr ago Hx Alcohol Use: Yes Alcohol type: beer alcohol intake frequency: 3 or more drinks per day Alcohol Intake Frequency Comment: 5-6 BEERS DAILY Hx Substance Use: No substance use type: does not use Testing Electrocardiogram Date: 12/02/19 SB at 56bpm. Peaked T waves (consider ischemia, hyperkalemia, etc). T waves more peaked, otherwise no significant change compared to 03/03/14 per cardiology. Potassium 3.3 on preop labs from same day. Chest X-Ray Date: 12/02/19 Findings: + NAD
--- NOTE | 2020-02-14 18:19 | History & Physical Report ---
Date of Service February 16, 2020 Assessment & Plan (1) Failure of left total hip arthroplasty with dislocation of hip: I have indicated the patient for revision left total hip replacement, head and liner exchange, constrained liner, possible revision acetabular and femoral components. The risks, benefits and complications of surgery were explained to the patient which include but not limited to infection, acute blood loss, DVT/PE, injury to nerves, vessels, bone, soft tissue, arthrofibrosis, chronic pain, failure of the prosthesis, hip dislocation, leg length discrepancy, need for additional surgery, cardiac and pulmonary events and . The patient wished to proceed with surgery and informed consent was obtained at this time. We will plan for ASA BID post-operatively for DVT prophylaxis. Upon discharge the patient will be discharged home with home health services. Appropriate clearances by PCP were obtained. 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 Most recent dislocation 08/12/2019. Principle surgery performed 04/01/[address] Hodge. The patient has failed outpatient conservative treatments to this point which included physical therapy, home exercise program, NSAIDS and bracing. The patient's pain and limited function have progressed to the point where they severely hinder their activities of daily living and they no longer tolerate exercise programs. They are requesting to proceed with revision total hip replacement surgery. Allergies Allergy/AdvReac Type Severity Reaction Status Date / Time No Known Allergies Allergy ` Verified 02/16/20 10:37 Home Medications Home Medications Medication Instructions Recorded Confirmed Type ibuprofen 800 mg PO TIDM PRN 08/12/19 02/16/20 History meloxicam 15 mg PO PM 11/27/19 02/16/20 History wbqvwlrjrmap-icfztgej-khjxll 1 tab PO QPM 02/10/20 02/16/20 History [Multivitamin 50 Plus] potassium gluconate 595 mg PO QAM 02/10/20 02/16/20 History atenolol 100 mg PO HS 02/16/20 02/16/20 History Past Med/Surg History Medical History Hip dislocation, left HTN (hypertension) (Chronic) Osteoarthritis Surgical History History of colonoscopy History of hip replacement (Chronic) R/L History of tonsillectomy History of tooth extraction Hx of inguinal hernia repair Family History Other No significant family history Social History Preferred Language: Greenlandic Communication Ability: Effective Trolley Car Operator Required: No Beliefs That Will Affect Care: None Current Living Situation: Significant Other Other Information That Helps Us Care for You: No Feels Safe at Home: Yes Safety Concerns: Feels Safe At This Time Smoking Status: Former smoker Tobacco Type: cigarettes ; Do You Dip or Chew Tobacco: No ; Smoking End Date: 13 yr ago ; Second Hand Exposure: Yes ; Tobacco Cessation Education Requested by Patient: No Hx Alcohol Use: Yes Alcohol type: beer Hx Substance Use: No Review of Systems Review of Systems: All systems reviewed & are unremarkable except as noted in HPI & below Constitutional: as per Subjective / HPI Physical Exam Physical Exam: LLE NVSI +EHL/FHL/TA/GS SILT grossly, +2 DP pulse, compartments soft NT, surgical scar cdi. Constitutional: WD/WN, vitals as above Eyes: PERRL, conjunctivae normal, anicteric sclerae ENMT: external ear and nose normal, oropharynx normal Neck: trachea midline, no thyromegaly Respiratory: normal respiratory effort, lungs clear to auscultation Cardiovascular: RRR, no murmur, no edema Gastrointestinal (Abdomen): normal bowel sounds, soft, nontender, no hepatosplenomegaly Musculoskeletal: no cyanosis or clubbing, extremities motor strength 5/5 Skin: no rashes, warm and dry Neurologic: patellar DTR's 2+ bilat, sensation intact Psychiatric: A+Ox3, euthymic affect Lymphatic: no cervical or axillary lymphadenopathy Results & Data Results & Data ([facility]) Diagnostic Findings XRs of the left hip demonstrates a well aligned well fixed total hip prothesis without loosening, subsidence, fracture or dislocation.
[~2020-02-16 10:25] MED LIST changes: +ACETAMINOPHEN 500 MG TAB PO SCH; -ATEN50TA PO; +BUPIVACAINE 0.5 % 5 MG/1 ML PF 10ML VIAL ONE; +CEFAZOLIN 2000MG 2,000 MG/15 ML SYR IV SCH; +CeleBREX 200 MG CAP PO SCH; +FAMOTIDINE 20 MG TAB PO SCH; -GABA-113 PO; +GABAPENTIN 600 MG DOSE PO SCH; -HYG/25 PO; +LR 500ML BOLUS, THEN 15ML/HR IV SCH; +METOCLOPRAMIDE HCL 10 MG TABLET PO SCH; +ROPIVACAINE 0.5% HCL/PF 150 MG, BUPIVACAINE 0.5% MPF 30 ML, EPINEPHrine 30MG/30ML (OR U... INFIL SCH; +TRANEXAMIC ACID 1,000 MG **IV Intra-op IV SCH; +TRANEXAMIC ACID 1,000 MG **IV Pre-op IV SCH; +dexAMETHasone 4 MG TAB PO SCH
[2020-02-16] MEDS ORDERED: PHENYLEPHRINE HCL 10 MG/ML VIAL ONE (10:29)
[2020-02-16] MEDS ORDERED: LIDOCAINE HCL 2% 2 ML VIAL/AMP(20MG/ML) INFIL ONE (10:29)
[2020-02-16] MEDS ORDERED: ePHEDrine sulfate 50 MG/ML SYR ONE (10:29)
[2020-02-16] MEDS ORDERED: PROPOFOL IV EMULSION 10 MG/ML 20 ML VIAL IV ONE ×2 (10:29→13:34)
[2020-02-16] MEDS ORDERED: MIDAZOLAM HCL 1 MG/ML 2ML VIAL ONE (10:30)
[2020-02-16] MEDS ORDERED: fentaNYL citrate 100 MCG/2 ML VIAL ONE (10:30)
[2020-02-16 11:01] LABS: BUN Creatinine Ratio 8.6 (10-20); Calcium 9.6 mg/dl (8.5-10.1); Creatinine Clr Calc Pharmacy 76.7 ml/min; Est GFR (African American) 84.8; Est GFR (Non-African American) 73.2; Potassium 4.4 mmol/L (3.5-5.1)
[2020-02-16] MEDS ORDERED: ATROPINE SULFATE 0.1 MG/ML 10ML SYR IV PRN (11:29)
[2020-02-16] MEDS ORDERED: ONDANSETRON INJ 2 MG/ML 2 ML VIAL IV PRN ×2 (11:29→16:06)
[2020-02-16] MEDS ORDERED: ePHEDrine sulfate 50 MG/ML AMP IV PRN (11:29)
[2020-02-16] MEDS ORDERED: fentaNYL citrate 100 MCG/2 ML VIAL IV PRN (11:29)
--- NOTE | 2020-02-16 12:13 | History & Physical Bridge Note ---
Date of Service February 16, 2020 History & Physical Bridge Note I have examined the patient, reviewed the History & Physical and in the interval since the performance of the History & Physical I have noted the following changes of clinical significance: no changes noted
[2020-02-16] MEDS ORDERED: ORTHO JOINT ANESTHETIC ONE (12:24)
[2020-02-16] MEDS ORDERED: BACITRACIN INJ 50,000 UNIT VIAL ONE (12:24)
--- NOTE | 2020-02-16 14:26 | Post Operative Brief Note ---
Immediate Post Op Note v1 Date of Surgery February 16, 2020 Pre & Post Diagnosis Operation Date: 02/16/20 12:30 Pre-Op Diagnosis: Failed left total hip arthroplasty, recurrent instability Post-Op Diagnosis: Failed left total hip arthroplasty, recurrent instability I identified the patient and participated in the time-out.: Yes Procedure Operation Date: 02/16/20 12:30 Actual Procedures p Left Total Hip Arthroplasty Revision(Left) - Jose Enrique Garza DO Surgeon Jose Enrique Garza DO Personal Financial Counselor Bhupinder Mckay Estimated Blood Loss 150 Findings Consistent with Post-Op Diagnosis Fluids 1600 cc LR Specimens liner, femoral head, trunion Anesthesia Type Spinal MAC Complications none Disposition Disposition: Recovery Room Overlapping Procedure I was present for: the critical portions of procedure. I was immediately available: during the entire case. Back up surgeon: was not required during procedure.
--- NOTE | 2020-02-16 14:27 | Operative Report ---
Post Operative Report Pre & Post Diagnosis Operation Date: 02/16/20 12:30 Pre-Op Diagnosis: Failed left total hip arthroplasty, recurrent instability Post-Op Diagnosis: Failed left total hip arthroplasty, recurrent instability I identified the patient and participated in the time-out.: Yes Procedure Operation Date: 02/16/20 12:30 Actual Procedures p Left Total Hip Arthroplasty Revision(Left) - Jose Enrique Garza DO Surgeon Jose Enrique Garza, Senior Java Software Engineer Bhupinder Mckay Estimated Blood Loss 150 Findings Consistent with Post-Op Diagnosis Specimens liner, femoral head, trunion Anesthesia Type Spinal MAC Disposition Disposition: Recovery Room Indications The patient is a 64 year old male who presents with complaints of long standing left total hip instability with history of multiple dislocations x 3. Most recent dislocation 08/12/2019. Principle surgery performed 04/01/[address] Hodge. The patient has failed outpatient conservative treatments to this point which included physical therapy, home exercise program, NSAIDS and bracing. The patient's pain and limited function have progressed to the point where they severely hinder their activities of daily living and they no longer tolerate exercise programs. They are requesting to proceed with revision total hip replacement surgery I have indicated the patient for revision left total hip replacement, head and liner exchange, constrained liner, possible revision acetabular and femoral comp onents. The risks, benefits and complications of surgery were explained to the patient which include but not limited to infection, acute blood loss, DVT/PE, injury to nerves, vessels, bone, soft tissue, arthrofibrosis, chronic pain, failure of the prosthesis, hip dislocation, leg length discrepancy, need for additional surgery, cardiac and pulmonary events and . The patient wished to proceed with surgery and informed consent was obtained at this time. We will plan for ASA BID post-operatively for DVT prophylaxis. Upon discharge the patient will be discharged home with home health services. Appropriate clearances by PCP were obtained. Description of Procedure Following induction of adequate Spinal anesthesia, the patient was transferred to the OR table and placed in lateral decubitus position with right hip down. The left hip was prepped and draped in the typical sterile fashion and a posterolateral/Thong-Langenbeck incision was made inline with the previous incision. Subcutaneous tissue was sharply dissected. Electrocautery was utilized for hemostasis. The fascia was incised throughout the length of the wound and retracted with the Charnley retractor. The bursa was taken down and the short external rotators and capsule were identified and tagged with two #1 Vicryl sutures. The short external rotators and capsule were divided from the posterior aspect of the femur using electrocautery. Both external rotators and posterior capsule were swept posterior and protected, along with protecting the sciatic nerve. Meticulous removal of intra-articular scar tissue was performed with bovie. The hip prosthesis was dislocated by flexion and internal rotation in a controlled manner. The femoral head was removed from the trunion, and the modular neck removed from the stem, which was clean and was without signs of wear or corrosion. The femoral stem stability assessed and found to be stable without signs of loosening. Next, exposure of the acetabulum was obtained. Additional scar tissue removal and debridement of the intra-articular soft tissue was performed. Utilizing the liner extraction tool the liner was removed. Acetabular cup stability was assessed and found to be stable and without signs of loosening. Next, a 56x32 trail liner was inserted and locked into place. A Kinectiv modu lar neck D and 32+0 femoral head was placed onto the stem and a trial reduction was carried out. The hip was found to be stable in all degrees of rotation with hip flexion and extension with no impingement and leg lengths were equal. The hip was dislocated once more, trial components were removed and access to the acetabulum was re-established. The trial liner was removed and the cup was irrigated to ensure all debris was removed. A final 56x32 mm Continuum trilogy constrained liner acetabular liner was inserted and properly seated. Access to the proximal femur was once more gained and the final Kinectiv Modular Neck D and 32+0 mm femoral head was impacted into place and the hip was reduced. Next the constraining ring was seated properly on the constrained liner and impacted into place, care was taken to ensure the ring was properly seated and well fixed. Range of motion was checked once again and found to be stable. Next we performed a Betadine soak for 3 minutes. The wound was copiously irrigated with sterile saline solution with bacitracin. The lainey-incisional soft tissue was injected utilizing [place] ortho mix which includes a combination of Ropivicaine 0.5% 150mg, Bupivicaine 0.5%/Epinephrine 1:200,000 30ml, Toradol 30mg, Dexamethasone 4mg, Ketamine 10mg, Clonidine 100mcg and NSS 30ml solution. The external rotators and capsule were repaired to the greater trochanter through bone tunnels using #5 FiberWire. The fascia was closed using #1 Vicryl, subcutaneous tissue was closed using 2-0 Vicryl, and skin was closed with yovani. Sterile dressings were applied which included Silverlon dressing. A abduction pillow was placed between the legs. The patient tolerated the procedure well and was transported to PACU in stable condition. Due to the complex nature of the procedure, the entire surgery was performed with the operational assistance of Bhupinder mckay PA-C. The assistant production editor, under direct supervision, was involved in the actual performance of all aspects of the surgical procedure including patient positioning, hemostasis, tissue retraction, instrument management and wound closure. I attest to the content of the Intraoperative Record and any orders documented therein. Any exceptions are noted below.
--- NOTE | 2020-02-16 14:58 | XRay Report ---
XR hip 1V LT w pelvis CLINICAL HISTORY: IN PACU - A/P PELVIS and LATERAL HIP COMPARISON: 02/08/2020 DISCUSSION: Interval revision of the left hip prosthetic. Could contact between prosthetic and underl shalom bone. Expected soft tissue postoperative change. IMPRESSION: Anatomic alignment posttotal left hip arthroplasty revision. ACT 112: Negative or not required by law. The above report was generated using voice recognition software. It may contain grammatical, syntax or spelling errors. Electronically signed by: Zain Penn M.D. 02/16/2020 2:57 PM
[2020-02-16] MEDS ORDERED: HydrALAZINE HCL 20 MG/ML VIAL IV STA (15:16)
--- NOTE | 2020-02-16 15:38 | Anesthesiology Progress Note ---
Date of Service February 16, 2020 Anesthesia Post Procedure Vital Signs Vital Signs: Temp Pulse Pulse Resp BP BP Pulse Ox 02/16/20 15:35 97.2 F L 62 20 166/75 H 99 02/16/20 15:25 59 L 18 163/74 H 97 02/16/20 15:15 55 L 12 180/82 H 97 02/16/20 15:05 60 16 181/79 H 97 02/16/20 14:55 56 L 18 175/76 H 99 02/16/20 14:45 56 L 14 173/78 H 96 02/16/20 14:38 96.8 F L 58 L 14 175/78 H 98 02/16/20 10:40 97.7 F 65 18 189/83 H 100 Transfer of Care Handoff Completed per policy Notes Mental Status: alert / awake / arousable and participated in evaluation Patient Amnestic to Procedure: Yes Nausea / Vomiting: adequately controlled Pain: adequately controlled Airway Patency, RR, SpO2: stable & adequate BP & HR: stable & adequate Hydration State: stable & adequate Neuraxial Anesthesia: was administered and sensory block is resolving Anesthetic Complications: no major complications apparent and Pt Satisfied with anesthetic care
[2020-02-16] MEDS ORDERED: NALOXONE HCL 0.4 MG/1 ML VIAL/CARP IV PRN (16:06)
[2020-02-16] MEDS ORDERED: HYDROmorphone INJ 0.5 MG/0.5 ML SYR IV PRN (16:06)
[2020-02-16] MEDS ORDERED: METOCLOPRAMIDE HCL INJ 5 MG/ML 2 ML VIAL IV PRN (16:06)
[2020-02-16] MEDS ORDERED: MAGNESIUM HYDROXIDE SUSP 30 ML UDC PO PRN (16:06)
[2020-02-16] MEDS ORDERED: SODIUM CHLORIDE 0.9% 1000ML 1,000 ML IV SCH (16:06)
[2020-02-16] MEDS ORDERED: bisacodyL 10 MG SUPP PR PRN (16:06)
[2020-02-16] MEDS ORDERED: KETOROLAC TROMETHAMINE 15 MG/ML VIAL IV SCH (18:00)
--- NOTE | 2020-02-16 20:02 | Orthopedic Progress Note ---
Date of Service February 16, 2020 Assessment & Plan (1) Failure of left total hip arthroplasty with dislocation of hip: s/p revision left DU -Ancef x24 -DVT ppx: SCDs, TEDS, ASA BID -WBAT LLE -PT/OT -PO XR demonstrates well aligned well fixed total hip prothesis without fracture/dislocation -am labs -DC planning Admission and Anticipated Discharge Date Admission Date: February 16, 2020 Subjective Post Operative Progress Note Patient seen in PACU, comfortable, denies complaints, pain well controlled, no acute issues. Still feeling effects of spinal anesthesia. Review of Systems Review of Systems: All systems reviewed & are unremarkable except as noted in HPI & below Constitutional: as per Subjective / HPI Physical Exam Physical Exam: Limited LLE exam secondary to spinal antethesia, +2 DP pulse, compartments soft NT, compartments soft NT, dressing CDI Constitutional: WD/WN, vitals as above Results & Data ([facility]) Vital Signs (Past 12 Hours) Vital Signs Temp Pulse Pulse Pulse Resp BP BP 02/16/20 19:10 36.5 C 67 16 170/90 H 02/16/20 18:07 36.4 C L 67 18 184/78 H 02/16/20 17:05 36.8 C 75 18 193/84 H 02/16/20 16:34 36.4 C L 57 L 18 184/63 H 02/16/20 16:05 36.7 C 54 L 18 178/94 H 02/16/20 15:55 36.2 C L 57 L 14 159/76 H 02/16/20 15:45 63 18 158/89 H 02/16/20 15:35 36.2 C L 62 20 166/75 H 02/16/20 15:25 59 L 18 163/74 H 02/16/20 15:15 55 L 12 180/82 H 02/16/20 15:05 60 16 181/79 H 02/16/20 14:55 56 L 18 175/76 H 02/16/20 14:45 56 L 14 173/78 H 02/16/20 14:38 36 C L 58 L 14 175/78 H 02/16/20 10:40 36.5 C 65 18 189/83 H Pulse Ox 02/16/20 19:10 100 02/16/20 18:07 100 02/16/20 17:05 90 02/16/20 16:34 97 02/16/20 16:05 99 02/16/20 15:55 96 02/16/20 15:45 97 02/16/20 15:35 99 02/16/20 15:25 97 02/16/20 15:15 97 02/16/20 15:05 97 02/16/20 14:55 99 02/16/20 14:45 96 02/16/20 14:38 98 02/16/20 10:40 100
[2020-02-16] MEDS: CEFAZOLIN 2000MG 2,000 MG/15 ML SYR IV SCH (20:32)
[2020-02-16] MEDS: SENNA 8.6 MG TAB PO SCH (20:36)
[2020-02-16] MEDS: DOCUSATE SODIUM 100 MG CAP PO SCH (20:39)
[2020-02-16] MEDS ORDERED: ATENOLOL 50 MG TABLET PO SCH (21:00)
[2020-02-16] MEDS: OXYCODONE HCL IR 5 MG TAB (IMMEDIATE RELEASE) PO PRN (21:05)
[2020-02-16] MEDS: ACETAMINOPHEN 500 MG TAB PO SCH (22:30)
[2020-02-16 23:22] LABS: Basophils # (auto) 0.01 K/uL (0-0.2); Basophils % (auto) 0.1 %; Hematocrit (blood only) 31.9 % (42-52); Hemoglobin 11.2 g/dL (14.0-18.0); Immature Granulocytes # (auto) 0.02 K/uL (0.00-0.02); Immature Granulocytes % (auto) 0.2 %; Lymphocytes # (auto) 0.42 K/uL (1.2-3.4); Lymphocytes % (auto) 3.7 %; Mean Corpuscular Hemoglobin 33.2 pg (25-34); Mean Corpuscular Hgb Conc 35.1 g/dL (32-36); Mean Corpuscular Volume 94.7 fL (80-100); Mean Platelet Volume 8.2 fL (7.4-10.4); Monocytes # (auto) 0.45 K/uL (0.11-0.59); Neutrophils # (auto) 10.33 K/uL (1.4-6.5); Platelet Count 299 K/uL (130-400); RDW Coefficient of Variation 13.3 % (11.5-14.5); RDW Standard Deviation 45.9 fL (36.4-46.3); Red Blood Count 3.37 M/uL (4.7-6.1); White Blood Count 11.23 K/uL (4.8-10.8)
[2020-02-16 23:23] LABS: Partial Thromboplastin Ratio 1.1; Partial Thromboplastin Time 30.7 Seconds (21.0-31.0)
[2020-02-16 23:37] LABS: Albumin Level 3.2 gm/dl (3.4-5.0); BUN Creatinine Ratio 10.3 (10-20); Calcium 8.6 mg/dl (8.5-10.1); Creatinine Clr Calc Pharmacy 61.3 ml/min; Est GFR (African American) 64.8; Est GFR (Non-African American) 55.9; Magnesium 1.8 mg/dl (1.8-2.4); Potassium 3.7 mmol/L (3.5-5.1)
--- NOTE | 2020-02-16 23:37 | Hospitalist Consultation ---
Date of Consultation February 16, 2020 Assessment & Plan (1) Failure of left total hip arthroplasty with dislocation of hip: Final Assessment and Recommendations as follows : Hypertensive urgency Multifactorial : NSAID rx Ongoing NSS IVF ? Alcohol withdrawal Acute on chronic hyponatremia IVF, NSAID Rx possibly contributory chronic anemia, hemoglobin at baseline Steroid-induced hyperglycemia, recent outpatient hemoglobin A1c of 5.1 this month past tobacco abuse Medical telemetry transfer for closer monitoring Hold IVF, NSAID Rx Continue patient's home beta-sean and ACEI Rx Lasix 1 dose now Fluid restriction 2 L daily Hyponatremia work-up Nephrology consult RE hyponatremia DT precautions DVT prophylaxis. Postop aspirin BID as per Ortho orders Case discussed with Dr. Zaman ([facility] surgeon elevator constructor electric) who is in agreement with plan of care. Thank you very much for this consultation. Dr. Norwood will follow patient's progress. Text document was generated using [employer] voice recognition software. It may contain grammatical or spelling errors. Kindly contact undersigned for clarification of any documentation item in question. History of Present Illness Reason for Consultation: Hypertension Requesting Physician: Dr. Garza Attending Physician: Jose Enrique Garza DO History of Present Illness PCP : Dr. Jefferson History obtained from patient and records. Medical history significant for hypertension, chronic hyponatremia, daily alcohol intake, chronic anemia (baseline hemoglobin 12), past tobacco abuse. Patient underwent revision left total hip surgery today. Perioperative SBP 1 50-1 80s. Postprocedure discomfort tolerable as per patient. No chest pain, no S OB, no headache. Usual SBP at home 120s as per patient Medical History as above Surgical History : Hip surgeries, hand wound surgery. Family History : Heart disease Personal/Social history : Past tobacco abuse, daily alcohol intake (8 beers a night ) although denies abuse, disabled Allergies Allergy/AdvReac Type Severity Reaction Status Date / Time No Known Allergies Allergy ` Verified 02/16/20 10:37 Home Medications Home Medications Medication Instructions Recorded Confirmed Type ibuprofen 800 mg PO TIDM PRN 08/12/19 02/16/20 History meloxicam 15 mg PO PM 11/27/19 02/16/20 History wjwkylithpcy-jsuhtyjx-jylvkf 1 tab PO QPM 02/10/20 02/16/20 History [Multivitamin 50 Plus] potassium gluconate 595 mg PO QAM 02/10/20 02/16/20 History acetaminophen 1,000 mg PO Q8 PRN #90 tab 02/16/20 Rx aspirin 325 mg PO BID #56 tab 02/16/20 Rx atenolol 100 mg PO HS 02/16/20 02/16/20 History celecoxib [Celebrex] 200 mg PO BID PRN #28 cap 02/16/20 Rx oxycodone 5 mg PO Q6H PRN #30 tab MDD 4 02/16/20 Rx sennosides [Senokot] 17.2 mg PO HS PRN #28 tab 02/16/20 Rx Patient History Medical History Hip dislocation, left HTN (hypertension) (Chronic) Osteoarthritis Surgical History History of colonoscopy History of hip replacement (Chronic) R/L History of tonsillectomy History of tooth extraction Hx of inguinal hernia repair Family History Other No significant family history Social History Preferred Language: Icelandic Communication Ability: Effective Frame Table Operator Required: No Beliefs That Will Affect Care: None Current Living Situation: Significant Other Other Information That Helps Us Care for You: No Feels Safe at Home: Yes Safety Concerns: Feels Safe At This Time Smoking Status: Former smoker Tobacco Type: cigarettes ; Do You Dip or Chew Tobacco: No ; Smoking End Date: 13 yr ago ; Second Hand Exposure: Yes ; Tobacco Cessation Education Requested by Patient: No Hx Alcohol Use: Yes Alcohol type: beer Hx Substance Use: No Review of Systems Review of Systems: As per HPI, all 10 systems reviewed, all other ROS negative Physical Exam Physical Exam: GENERAL: Comfortable, pleasant, jovial, no respiratory distress SKIN: Pallor , warm HEENT: Pale palpebral conjunctivae, no ptosis, dry buccal mucosa NECK : Supple, no tenderness CHEST : Decreased breath sounds, occasional expiratory wheezes , no tenderness HEART : RRR, no obvious murmurs ABDOMEN: Some distention, nontender EXTREMITIES : Left eft hip tenderness, no other conspicuous deformities noted NEUROLOGIC : Coherent, no facial asymmetry, no other gross focality Results & Data Results & [facility] ([facility]) Vital Signs (Past 12 Hours) Vital Signs Temp Pulse Pulse Pulse Resp BP BP 02/16/20 19:10 36.5 C 67 16 170/90 H 02/16/20 18:07 36.4 C L 67 18 184/78 H 02/16/20 17:05 36.8 C 75 18 193/84 H 02/16/20 16:34 36.4 C L 57 L 18 184/63 H 02/16/20 16:05 36.7 C 54 L 18 178/94 H 02/16/20 15:55 36.2 C L 57 L 14 159/76 H 02/16/20 15:45 63 18 158/89 H 02/16/20 15:35 36.2 C L 62 20 166/75 H 02/16/20 15:25 59 L 18 163/74 H 02/16/20 15:15 55 L 12 180/82 H 02/16/20 15:05 60 16 181/79 H 02/16/20 14:55 56 L 18 175/76 H 02/16/20 14:45 56 L 14 173/78 H 02/16/20 14:38 36 C L 58 L 14 175/78 H Pulse Ox 02/16/20 19:10 100 02/16/20 18:07 100 02/16/20 17:05 90 02/16/20 16:34 97 02/16/20 16:05 99 02/16/20 15:55 96 02/16/20 15:45 97 02/16/20 15:35 99 02/16/20 15:25 97 02/16/20 15:15 97 02/16/20 15:05 97 02/16/20 14:55 99 02/16/20 14:45 96 02/16/20 14:38 98 Laboratory Results Laboratory Results WBC 11.23 K/uL (4.8-10.8) H 02/16/20 23:01 RBC 3.37 M/uL (4.7-6.1) L 02/16/20 23:01 Hgb 11.2 g/dL (14.0-18.0) L 02/16/20 23:01 Hct 31.9 % (42-52) L 02/16/20 23:01 MCV 94.7 fL (80-100) 02/16/20 23:01 MCH 33.2 pg (25-34) 02/16/20 23: MCHC 35.1 g/dL (32-36) 02/16/20: RDW Std Deviation 45.9 fL (36.4-46.3) 02/16/20: RDW Coeff of Jamila 13.3 % (11.5-14.5) 02/16/20 Plt Count 299 K/uL (130-400) 02/16/20: MPV 8.2 fL (7.4-10.4) 02/16/20: Immature Gran % (Auto) 0.2 % 02/16/20: Neut % (Auto) 92.0 % 02/16/20: Lymph % (Auto) 3.7 % 02/16/20: [place] % (Auto) 4.0 % 02/16/20: Eos % (Auto) 0.0 % 02/16/20: Baso % (Auto) 0.1 % 02/16/20: Immature Gran # (Auto) 0.02 K/uL (0.00-0.02) 02/16/20: Neut # (Auto) 10.33 K/uL (1.4-6.5) H 02/16/20: Lymph # (Auto) 0.42 K/uL (1.2-3.4) L 02/16/20: [place] # (Auto) 0.45 K/uL (0.11-0.59) 02/16/20: Eos # (Auto) 0.00 K/uL (0-0.5) 02/16/20: Baso # (Auto) 0.01 K/uL (0-0.2) 02/16/20: APTT 30.7 Seconds (21.0-31.0) 02/16/20: PTT Ratio 1.1 02/16/20 23: Sodium 126 mmol/L (136-145) L 02/16/20: Potassium 3.7 mmol/L (3.5-5.1) D 02/16/20: Chloride 91 mmol/L (98-107) L 05/26/20 23:01 Carbon Dioxide 24 mmol/L (21-32) 02/16/20 23:01 Anion Gap 11.0 (3-11) 02/16/20 23:01 BUN 14 mg/dl (7-18) D 02/16/20 23:01 Creatinine 1.35 mg/dl (0.6-1.4) 02/16/20 23:01 Est Cr Clr Drug Dosing 61.3 ml/min 02/16/20 23:01 Est GFR ( Amer) 64.8 02/16/20 23:01 Est GFR (Non-Af Amer) 55.9 02/16/20 23:01 BUN/Creatinine Ratio 10.3 (10-20) 02/16/20 23: Glucose 155 mg/dl (70-99) H 02/16/20 23:01 Calcium 8.6 mg/dl (8.5-10.1) 02/16/20 23:01 Magnesium 1.8 mg/dl (1.8-2.4) 02/16/20 23:01 AST 27 U/L (15-37) 02/16/20 23:01 ALT 24 U/L (12-78) 02/16/20 23:01 Albumin 3.2 gm/dl (3.4-5.0) L 02/16/20 23:01 Hepatitis C Ab Screen Neg (Neg) 02/16/20 10:33 Blood Type A Positive 02/16/20 10:33 Antibody Screen NEGATIVE 02/16/20 10:33 Crossmatch See Detail 02/16/20 10:33 Diagnostic Findings Chest x-ray as per my interpretation cardiomegaly, congestion EKG as per my interpretation : Rate 60, NSR, normal axis, incomplete RBBB, no ischemia
[2020-02-16] MEDS ORDERED: THIAMINE HCL 100 MG in SYRINGE 9 ML IV STA (23:39)
[2020-02-16 23:45] LABS: Albumin Globulin Ratio 0.9 (0.9-2); Bilirubin,Total 0.3 mg/dl (0.2-1); Globulin 3.4 gm/dl (2.5-4.0); Thyroid Stimulating Hormone 0.944 uIu/ml (0.300-4.500); Total Protein 6.6 gm/dl (6.4-8.2)
[2020-02-17] MEDS ORDERED: FUROSEMIDE 20 MG in SYRINGE 0 ML IV ONE (00:28)
[2020-02-17 01:00] LABS: Appearance Urine Clear (Clear); Bacteria Urine Automated Negative (Negative); Bilirubin Urine Negative (Negative); Blood Urine Trace (Negative); Color Urine Yellow; Epithelial Cell Urine Auto 0-5 /lpf (0-5); Glucose Urine UA 1+ (Negative); Ketones Urine Negative (Negative); Leukocyte Esterase Urine Negative (Negative); Nitrite Urine Negative (Negative); Protein Urine Negative (Negative); RBC Urine Automated 0-4 /hpf (0-4); Urobilinogen Urine Negative (Negative); WBC Urine Automated 0 /hpf (0-5)
[2020-02-17 01:20] LABS: Amphetamines+Metham, Urine Neg (Neg); Barbiturates, Urine Neg (Neg); Benzodiazepine, Urine Pos (Neg); Cocaine, Urine Neg (Neg); MDMA (Ecstacy), Urine Neg (Neg); Methadone, Urine Neg (Neg); Opiate, Urine Neg (Neg); Phencyclidine, Urine Neg (Neg)
[2020-02-17] MEDS ORDERED: PROMETHAZINE HCL 12.5 MG in SODIUM CHLORIDE 0.9% 50 ML IV PRN (03:59)
[2020-02-17] MEDS ORDERED: LORazepam 2 MG/4 ML VIAL IV PRN (03:59)
[2020-02-17] MEDS ORDERED: ALBUT/IPRATROP 3MG/0.5MG NEB 3 ML VIAL NEB PRN (03:59)
[2020-02-17] MEDS ORDERED: GABAPENTIN 1200MG ALCOHOL WITHDRAWAL LOAD PO STA (03:59)
[2020-02-17] MEDS ORDERED: LORazepam 3 MG/6 ML VIAL IV PRN (03:59)
[2020-02-17] MEDS ORDERED: ATIVAN IV ALCOHOL WITHDRAWL IV PRN (03:59)
[2020-02-17] MEDS ORDERED: LORazepam 1 MG/2 ML VIAL IV PRN (03:59)
[2020-02-17] MEDS ORDERED: GABAPENTIN 600 MG TAB PO SCH (04:00)
[2020-02-17] MEDS: CEFAZOLIN 2000MG 2,000 MG/15 ML SYR IV SCH (04:12)
[2020-02-17] MEDS: OXYCODONE HCL IR 5 MG TAB (IMMEDIATE RELEASE) PO PRN ×2 (04:16→15:42)
[2020-02-17] MEDS: ACETAMINOPHEN 500 MG TAB PO SCH ×3 (05:59→21:03)
--- NOTE | 2020-02-17 06:59 | XRay Report ---
XR chest 1V portable CLINICAL HISTORY: wheeze dyspnea COMPARISON STUDY: 12/02/2019 FINDINGS: Unchanged superior mediastinal prominence. Mild cardiomegaly. Moderate prominence of pulmon andrew vasculature. No focal infiltrate. IMPRESSION: 1. Unchanged superior mediastinal prominence. 2. Mild pulmonary vascular congestion. ACT 112: Negative or not required by law. The above report was generated using voice recognition software. It may contain grammatical, syntax or spelling errors. Electronically signed by: Zain Penn M.D. 02/17/2020 6:58 AM
[2020-02-17 07:01] LABS: Basophils # (auto) 0.01 K/uL (0-0.2); Basophils % (auto) 0.1 %; Immature Granulocytes # (auto) 0.03 K/uL (0.00-0.02); Immature Granulocytes % (auto) 0.3 %; Lymphocytes % (auto) 6.1 %; Mean Corpuscular Hemoglobin 33.5 pg (25-34); Mean Corpuscular Hgb Conc 35.5 g/dL (32-36); Mean Corpuscular Volume 94.5 fL (80-100); Mean Platelet Volume 8.8 fL (7.4-10.4); Monocytes % (auto) 7.8 %; Neutrophils # (auto) 9.91 K/uL (1.4-6.5); Neutrophils % (auto) 85.7 %; Platelet Count 343 K/uL (130-400); RDW Coefficient of Variation 13.2 % (11.5-14.5); Red Blood Count 3.28 M/uL (4.7-6.1); White Blood Count 11.55 K/uL (4.8-10.8)
[2020-02-17 07:28] LABS: BUN Creatinine Ratio 10.1 (10-20); Calcium 8.8 mg/dl (8.5-10.1); Creatinine Clr Calc Pharmacy 67.9 ml/min; Est GFR (African American) 73.2; Est GFR (Non-African American) 63.1; Potassium 3.7 mmol/L (3.5-5.1)
--- NOTE | 2020-02-17 07:57 | Orthopedic Progress Note ---
Date of Service February 17, 2020 Assessment & Plan (1) Failure of left total hip arthroplasty with dislocation of hip: s/p revision left DU POD#1 -Medical recs for hypertensive urgency appreciated, blood pressure improved 156/76 overnight -Ancef x24 -DVT ppx: SCDs, TEDS, ASA BID -WBAT LLE -PT/OT -PO XR demonstrates well aligned well fixed total hip prothesis without fracture/dislocation -am labs -11.0 -DC planning -home with home health Admission and Anticipated Discharge Date Admission Date: February 16, 2020 Subjective Post Operative Progress Note Patient seen sitting in bed, comfortable, denies pain, denies fevers, chills, nausea, diarrhea, shortness of breath or chest pain. Patient experienced elevated blood pressure overnight and was seen by the medical hospitalist team and transferred to telemetry for further monitoring. Patient reports history of elevated blood pressure which is being treated by PCP, reports systolic flexures in the 200s previously. Current blood pressure 156/76. Review of Systems Review of Systems: All systems reviewed & are unremarkable except as noted in HPI & below Constitutional: as per Subjective / HPI Physical Exam Physical Exam: LLE NVSI +EHL/FHL/TA/GS SILT grossly, +2 DP pulse, compartments soft NT, moderate drainage under [place]. Constitutional: WD/WN, vitals as above Eyes: PERRL, conjunctivae normal, anicteric sclerae ENMT: external ear and nose normal, oropharynx normal Neck: trachea midline, no thyromegaly Respiratory: normal respiratory effort, lungs clear to auscultation Cardiovascular: RRR, no murmur, no edema Gastrointestinal (Abdomen): normal bowel sounds, soft, nontender, no hepatosplenomegaly Musculoskeletal: no cyanosis or clubbing, extremities motor strength 5/5 Skin: no rashes, warm and dry Neurologic: patellar DTR's 2+ bilat, sensation intact Psychiatric: A+Ox3, euthymic affect Lymphatic: no cervical or axillary lymphadenopathy Results & Data ([facility]) Vital Signs (Past 12 Hours) Vital Signs Temp Pulse Pulse Resp BP Pulse Ox 02/17/20 07:34 36.5 C 65 20 156/76 H 96 02/17/20 07:01 66 02/17/20 03:15 36.3 C L 70 67 18 176/72 H 98 02/16/20 23:15 36.4 C L 62 16 146/75 H 95 Laboratory Results 02/17/20 02/17/20 02/17/20 Range/Units 06:29 06:29 00:47 WBC 11.55 H (4.8-10.8) K/uL RBC 3.28 L (4.7-6.1) M/uL Hgb 11.0 L (14.0-18.0) g/dL Hct 31.0 L (42-52) % MCV 94.5 (80-100) fL MCH 33.5 (25-34) pg MCHC 35.5 (32-36) g/dL RDW Std Deviation 46.0 (36.4-46.3) fL RDW Coeff of Jamila 13.2 (11.5-14.5) % Plt Count 343 (130-400) K/uL MPV 8.8 (7.4-10.4) fL Immature Gran % (Auto) 0.3 % Neut % (Auto) 85.7 % Lymph % (Auto) 6.1 % [place] % (Auto) 7.8 % Eos % (Auto) 0.0 % Baso % (Auto) 0.1 % Immature Gran # (Auto) 0.03 H (0.00-0.02) K/uL Neut # (Auto) 9.91 H (1.4-6.5) K/uL Lymph # (Auto) 0.70 L (1.2-3.4) K/uL [place] # (Auto) 0.90 H (0.11-0.59) K/uL Eos # (Auto) 0.00 (0-0.5) K/uL Baso # (Auto) 0.01 (0-0.2) K/uL APTT (21.0-31.0) Seconds PTT Ratio Sodium 127 L (136-145) mmol/L Potassium 3.7 (3.5-5.1) mmol/L Chloride 92 L (98-107) mmol/L Carbon Dioxide 23 (21-32) mmol/L Anion Gap 12.0 H (3-11) BUN 12 (7-18) mg/dl Creatinine 1.22 (0.6-1.4) mg/dl Est Cr Clr Drug Dosing 67.9 ml/min Est GFR ( Amer) 73.2 Est GFR (Non-Af Amer) 63.1 BUN/Creatinine Ratio 10.1 (10-20) Glucose 117 H (70-99) mg/dl Osmolality (280-300) mOsm/kg Calcium 8.8 (8.5-10.1) mg/dl Magnesium (1.8-2.4) mg/dl Total Bilirubin (0.2-1) mg/dl AST (15-37) U/L ALT (12-78) U/L Alkaline Phosphatase (45-117) U/L NT-Pro-B Natriuret Pep (0-900) pg/ml Total Protein (6.4-8.2) gm/dl Albumin (3.4-5.0) gm/dl Globulin (2.5-4.0) gm/dl Albumin/Globulin Ratio (0.9-2) TSH (0.300-4.500) uIu/ml Urine Color Urine Appearance (Clear) Urine pH (4.5-7.5) Ur Specific [place] (1.000-1.030) Urine Protein (Negative) Urine Glucose (UA) (Negative) Urine Ketones (Negative) Urine Blood (Negative) Urine Nitrite (Negative) Urine Bilirubin (Negative) Urine Urobilinogen (Negative) Ur Leukocyte Esterase (Negative) Urine WBC (Auto) (0-5) /hpf Urine RBC (Auto) (0-4) /hpf U Hyaline Cast (Auto) (0-5) /lpf U Epithel Cells (Auto) (0-5) /lpf Urine Bacteria (Auto) (Negative) Urine Osmolality (500-800) mOsm/kg Ur Random Sodium mmol/L Urine Opiates Screen (Neg) Ur Methadone, Qual (Neg) Urine Barbiturates (Neg) Ur Phencyclidine (PCP) (Neg) U Amphetamin/Meth Scrn (Neg) MDMA (Ecstasy) Screen (Neg) U OH-Alprazolam Confrm Pending U Benzodiazepines Scrn (Neg) 7-Amino Clonazepam Pending Ur Nordiazepam Confirm Pending U OH-ethylflurazepam Pending U Lorazepam Cnf GC/MS Pending U Oxazepam Confm GC/MS Pending Ur Temazepam Confirm Pending U OH-Triazolam Confirm Pending U OH-Midazolam Confirm Pending Ur Cocaine Metabolite (Neg) U Marijuana (THC) Screen (Neg) U Marijuana THC Carboxy Pending Drug Screen Comment Pending Hepatitis C Ab Screen (Neg) Blood Type Antibody Screen Crossmatch 02/17/20 02/17/20 02/17/20 Range/Units 00:47 00:47 00:47 WBC (4.8-10.8) K/uL RBC (4.7-6.1) M/uL Hgb (14.0-18.0) g/dL Hct (42-52) % MCV (80-100) fL MCH (25-34) pg MCHC (32-36) g/dL RDW Std Deviation (36.4-46.3) fL RDW Coeff of Jamila (11.5-14.5) % Plt Count (130-400) K/uL MPV (7.4-10.4) fL Immature Gran % (Auto) % Neut % (Auto) % Lymph % (Auto) % [place] % (Auto) % Eos % (Auto) % Baso % (Auto) % Immature Gran # (Auto) (0.00-0.02) K/uL Neut # (Auto) (1.4-6.5) K/uL Lymph # (Auto) (1.2-3.4) K/uL [place] # (Auto) (0.11-0.59) K/uL Eos # (Auto) (0-0.5) K/uL Baso # (Auto) (0-0.2) K/uL APTT (21.0-31.0) Seconds PTT Ratio Sodium (136-145) mmol/L Potassium (3.5-5.1) mmol/L Chloride (98-107) mmol/L Carbon Dioxide (21-32) mmol/L Anion Gap (3-11) BUN (7-18) mg/dl Creatinine (0.6-1.4) mg/dl Est Cr Clr Drug Dosing ml/min Est GFR ( Amer) Est GFR (Non-Af Amer) BUN/Creatinine Ratio (10-20) Glucose (70-99) mg/dl Osmolality (280-300) mOsm/kg Calcium (8.5-10.1) mg/dl Magnesium (1.8-2.4) mg/dl Total Bilirubin (0.2-1) mg/dl AST (15-37) U/L ALT (12-78) U/L Alkaline Phosphatase (45-117) U/L NT-Pro-B Natriuret Pep (0-900) pg/ml Total Protein (6.4-8.2) gm/dl Albumin (3.4-5.0) gm/dl Globulin (2.5-4.0) gm/dl Albumin/Globulin Ratio (0.9-2) TSH (0.300-4.500) uIu/ml Urine Color Yellow Urine Appearance Clear (Clear) Urine pH 6.0 (4.5-7.5) Ur Specific [place] 1.010 (1.000-1.030) Urine Protein Negative (Negative) Urine Glucose (UA) 1+ H (Negative) Urine Ketones Negative (Negative) Urine Blood Trace H (Negative) Urine Nitrite Negative (Negative) Urine Bilirubin Negative (Negative) Urine Urobilinogen Negative (Negative) Ur Leukocyte Esterase Negative (Negative) Urine WBC (Auto) 0 (0-5) /hpf Urine RBC (Auto) 0-4 (0-4) /hpf U Hyaline Cast (Auto) 1-5 (0-5) /lpf U Epithel Cells (Auto) 0-5 (0-5) /lpf Urine Bacteria (Auto) Negative (Negative) Urine Osmolality 266 L (500-800) mOsm/kg Ur Random Sodium 41 mmol/L Urine Opiates Screen (Neg) Ur Methadone, Qual (Neg) Urine Barbiturates (Neg) Ur Phencyclidine (PCP) (Neg) U Amphetamin/Meth Scrn (Neg) MDMA (Ecstasy) Screen (Neg) U OH-Alprazolam Confrm U Benzodiazepines Scrn (Neg) 7-Amino Clonazepam Ur Nordiazepam Confirm U OH-ethylflurazepam U Lorazepam Cnf GC/MS U Oxazepam Confm GC/MS Ur Temazepam Confirm U OH-Triazolam Confirm U OH-Midazolam Confirm Ur Cocaine Metabolite (Neg) U Marijuana (THC) Screen (Neg) U Marijuana THC Carboxy Drug Screen Comment Hepatitis C Ab Screen (Neg) Blood Type Antibody Screen Crossmatch 02/17/20 02/16/20 02/16/20 Range/Units 00:47 23:01 23:01 WBC (4.8-10.8) K/uL RBC (4.7-6.1) M/uL Hgb (14.0-18.0) g/dL Hct (42-52) % MCV (80-100) fL MCH (25-34) pg MCHC (32-36) g/dL RDW Std Deviation (36.4-46.3) fL RDW Coeff of Jamila (11.5-14.5) % Plt Count (130-400) K/uL MPV (7.4-10.4) fL Immature Gran % (Auto) % Neut % (Auto) % Lymph % (Auto) % [place] % (Auto) % Eos % (Auto) % Baso % (Auto) % Immature Gran # (Auto) (0.00-0.02) K/uL Neut # (Auto) (1.4-6.5) K/uL Lymph # (Auto) (1.2-3.4) K/uL [place] # (Auto) (0.11-0.59) K/uL Eos # (Auto) (0-0.5) K/uL Baso # (Auto) (0-0.2) K/uL APTT (21.0-31.0) Seconds PTT Ratio Sodium 126 L (136-145) mmol/L Potassium 3.7 D (3.5-5.1) mmol/L Chloride 91 L (98-107) mmol/L Carbon Dioxide 24 (21-32) mmol/L Anion Gap 11.0 (3-11) BUN 14 D (7-18) mg/dl Creatinine 1.35 (0.6-1.4) mg/dl Est Cr Clr Drug Dosing 61.3 ml/min Est GFR ( Amer) 64.8 Est GFR (Non-Af Amer) 55.9 BUN/Creatinine Ratio 10.3 (10-20) Glucose 155 H (70-99) mg/dl Osmolality 317 H (280-300) mOsm/kg Calcium 8.6 (8.5-10.1) mg/dl Magnesium 1.8 (1.8-2.4) mg/dl Total Bilirubin 0.3 (0.2-1) mg/dl AST 27 (15-37) U/L ALT 24 (12-78) U/L Alkaline Phosphatase 99 (45-117) U/L NT-Pro-B Natriuret Pep 1010 H (0-900) pg/ml Total Protein 6.6 (6.4-8.2) gm/dl Albumin 3.2 L (3.4-5.0) gm/dl Globulin 3.4 (2.5-4.0) gm/dl Albumin/Globulin Ratio 0.9 (0.9-2) TSH 0.944 (0.300-4.500) uIu/ml Urine Color Urine Appearance (Clear) Urine pH (4.5-7.5) Ur Specific [place] (1.000-1.030) Urine Protein (Negative) Urine Glucose (UA) (Negative) Urine Ketones (Negative) Urine Blood (Negative) Urine Nitrite (Negative) Urine Bilirubin (Negative) Urine Urobilinogen (Negative) Ur Leukocyte Esterase (Negative) Urine WBC (Auto) (0-5) /hpf Urine RBC (Auto) (0-4) /hpf U Hyaline Cast (Auto) (0-5) /lpf U Epithel Cells (Auto) (0-5) /lpf Urine Bacteria (Auto) (Negative) Urine Osmolality (500-800) mOsm/kg Ur Random Sodium mmol/L Urine Opiates Screen Neg (Neg) Ur Methadone, Qual Neg (Neg) Urine Barbiturates Neg (Neg) Ur Phencyclidine (PCP) Neg (Neg) U Amphetamin/Meth Scrn Neg (Neg) MDMA (Ecstasy) Screen Neg (Neg) U OH-Alprazolam Confrm U Benzodiazepines Scrn Pos H (Neg) 7-Amino Clonazepam Ur Nordiazepam Confirm U OH-ethylflurazepam U Lorazepam Cnf GC/MS U Oxazepam Confm GC/MS Ur Temazepam Confirm U OH-Triazolam Confirm U OH-Midazolam Confirm Ur Cocaine Metabolite Neg (Neg) U Marijuana (THC) Screen Pos H (Neg) U Marijuana THC Carboxy Drug Screen Comment Hepatitis C Ab Screen (Neg) Blood Type Antibody Screen Crossmatch 02/16/20 02/16/20 02/16/20 Range/Units 23:01 23:01 10:33 WBC 11.23 H (4.8-10.8) K/uL RBC 3.37 L (4.7-6.1) M/uL Hgb 11.2 L (14.0-18.0) g/dL Hct 31.9 L (42-52) % MCV 94.7 (80-100) fL MCH 33.2 (25-34) pg MCHC 35.1 (32-36) g/dL RDW Std Deviation 45.9 (36.4-46.3) fL RDW Coeff of Jamila 13.3 (11.5-14.5) % Plt Count 299 (130-400) K/uL MPV 8.2 (7.4-10.4) fL Immature Gran % (Auto) 0.2 % Neut % (Auto) 92.0 % Lymph % (Auto) 3.7 % [place] % (Auto) 4.0 % Eos % (Auto) 0.0 % Baso % (Auto) 0.1 % Immature Gran # (Auto) 0.02 (0.00-0.02) K/uL Neut # (Auto) 10.33 H (1.4-6.5) K/uL Lymph # (Auto) 0.42 L (1.2-3.4) K/uL [place] # (Auto) 0.45 (0.11-0.59) K/uL Eos # (Auto) 0.00 (0-0.5) K/uL Baso # (Auto) 0.01 (0-0.2) K/uL APTT 30.7 (21.0-31.0) Seconds PTT Ratio 1.1 Sodium (136-145) mmol/L Potassium (3.5-5.1) mmol/L Chloride (98-107) mmol/L Carbon Dioxide (21-32) mmol/L Anion Gap (3-11) BUN (7-18) mg/dl Creatinine (0.6-1.4) mg/dl Est Cr Clr Drug Dosing ml/min Est GFR ( Amer) Est GFR (Non-Af Amer) BUN/Creatinine Ratio (10-20) Glucose (70-99) mg/dl Osmolality (280-300) mOsm/kg Calcium (8.5-10.1) mg/dl Magnesium (1.8-2.4) mg/dl Total Bilirubin (0.2-1) mg/dl AST (15-37) U/L ALT (12-78) U/L Alkaline Phosphatase (45-117) U/L NT-Pro-B Natriuret Pep (0-900) pg/ml Total Protein (6.4-8.2) gm/dl Albumin (3.4-5.0) gm/dl Globulin (2.5-4.0) gm/dl Albumin/Globulin Ratio (0.9-2) TSH (0.300-4.500) uIu/ml Urine Color Urine Appearance (Clear) Urine pH (4.5-7.5) Ur Specific [place] (1.000-1.030) Urine Protein (Negative) Urine Glucose (UA) (Negative) Urine Ketones (Negative) Urine Blood (Negative) Urine Nitrite (Negative) Urine Bilirubin (Negative) Urine Urobilinogen (Negative) Ur Leukocyte Esterase (Negative) Urine WBC (Auto) (0-5) /hpf Urine RBC (Auto) (0-4) /hpf U Hyaline Cast (Auto) (0-5) /lpf U Epithel Cells (Auto) (0-5) /lpf Urine Bacteria (Auto) (Negative) Urine Osmolality (500-800) mOsm/kg Ur Random Sodium mmol/L Urine Opiates Screen (Neg) Ur Methadone, Qual (Neg) Urine Barbiturates (Neg) Ur Phencyclidine (PCP) (Neg) U Amphetamin/Meth Scrn (Neg) MDMA (Ecstasy) Screen (Neg) U OH-Alprazolam Confrm U Benzodiazepines Scrn (Neg) 7-Amino Clonazepam Ur Nordiazepam Confirm U OH-ethylflurazepam U Lorazepam Cnf GC/MS U Oxazepam Confm GC/MS Ur Temazepam Confirm U OH-Triazolam Confirm U OH-Midazolam Confirm Ur Cocaine Metabolite (Neg) U Marijuana (THC) Screen (Neg) U Marijuana THC Carboxy Drug Screen Comment Hepatitis C Ab Screen Neg (Neg) Blood Type Antibody Screen Crossmatch 02/16/20 02/16/20 Range/Units 10:33 10:33 WBC (4.8-10.8) K/uL RBC (4.7-6.1) M/uL Hgb (14.0-18.0) g/dL Hct (42-52) % MCV (80-100) fL MCH (25-34) pg MCHC (32-36) g/dL RDW Std Deviation (36.4-46.3) fL RDW Coeff of Jamila (11.5-14.5) % Plt Count (130-400) K/uL MPV (7.4-10.4) fL Immature Gran % (Auto) % Neut % (Auto) % Lymph % (Auto) % [place] % (Auto) % Eos % (Auto) % Baso % (Auto) % Immature Gran # (Auto) (0.00-0.02) K/uL Neut # (Auto) (1.4-6.5) K/uL Lymph # (Auto) (1.2-3.4) K/uL [place] # (Auto) (0.11-0.59) K/uL Eos # (Auto) (0-0.5) K/uL Baso # (Auto) (0-0.2) K/uL APTT (21.0-31.0) Seconds PTT Ratio Sodium 128 L (136-145) mmol/L Potassium 4.4 (3.5-5.1) mmol/L Chloride 91 L (98-107) mmol/L Carbon Dioxide 32 (21-32) mmol/L Anion Gap 5.0 (3-11) BUN 9 (7-18) mg/dl Creatinine 1.08 (0.6-1.4) mg/dl Est Cr Clr Drug Dosing 76.7 ml/min Est GFR ( Amer) 84.8 Est GFR (Non-Af Amer) 73.2 BUN/Creatinine Ratio 8.6 L (10-20) Glucose 116 H (70-99) mg/dl Osmolality (280-300) mOsm/kg Calcium 9.6 (8.5-10.1) mg/dl Magnesium (1.8-2.4) mg/dl Total Bilirubin (0.2-1) mg/dl AST (15-37) U/L ALT (12-78) U/L Alkaline Phosphatase (45-117) U/L NT-Pro-B Natriuret Pep (0-900) pg/ml Total Protein (6.4-8.2) gm/dl Albumin (3.4-5.0) gm/dl Globulin (2.5-4.0) gm/dl Albumin/Globulin Ratio (0.9-2) TSH (0.300-4.500) uIu/ml Urine Color Urine Appearance (Clear) Urine pH (4.5-7.5) Ur Specific [place] (1.000-1.030) Urine Protein (Negative) Urine Glucose (UA) (Negative) Urine Ketones (Negative) Urine Blood (Negative) Urine Nitrite (Negative) Urine Bilirubin (Negative) Urine Urobilinogen (Negative) Ur Leukocyte Esterase (Negative) Urine WBC (Auto) (0-5) /hpf Urine RBC (Auto) (0-4) /hpf U Hyaline Cast (Auto) (0-5) /lpf U Epithel Cells (Auto) (0-5) /lpf Urine Bacteria (Auto) (Negative) Urine Osmolality (500-800) mOsm/kg Ur Random Sodium mmol/L Urine Opiates Screen (Neg) Ur Methadone, Qual (Neg) Urine Barbiturates (Neg) Ur Phencyclidine (PCP) (Neg) U Amphetamin/Meth Scrn (Neg) MDMA (Ecstasy) Screen (Neg) U OH-Alprazolam Confrm U Benzodiazepines Scrn (Neg) 7-Amino Clonazepam Ur Nordiazepam Confirm U OH-ethylflurazepam U Lorazepam Cnf GC/MS U Oxazepam Confm GC/MS Ur Temazepam Confirm U OH-Triazolam Confirm U OH-Midazolam Confirm Ur Cocaine Metabolite (Neg) U Marijuana (THC) Screen (Neg) U Marijuana THC Carboxy Drug Screen Comment Hepatitis C Ab Screen (Neg) Blood Type A Positive Antibody Screen NEGATIVE Crossmatch See Detail
[2020-02-17] MEDS: lisinopriL 10 MG TAB PO SCH (08:15)
[2020-02-17] MEDS: MULTIVITAMIN TAB PO SCH (08:15)
[2020-02-17] MEDS: DOCUSATE SODIUM 100 MG CAP PO SCH ×2 (08:15→20:09)
[2020-02-17] MEDS: ASPIRIN 325 MG ECTAB PO SCH ×2 (08:15→20:08)
[2020-02-17] MEDS: FOLIC ACID 1 MG TAB PO SCH (08:16)
[2020-02-17] MEDS: THIAMINE HCL 100 MG TAB PO SCH (08:16)
[2020-02-17] MEDS ORDERED: lisinopriL 10 MG TAB PO SCH (09:00)
[2020-02-17] MEDS ORDERED: NON-FORMULARY MEDICATION (Potassium Gluconate 595 MG) PO SCH (09:00)
[2020-02-17] MEDS: GABAPENTIN 600 MG TAB PO SCH ×2 (10:14→15:40)
--- NOTE | 2020-02-17 14:10 | Consultation Report ---
DATE OF CONSULTATION: 02/17/2020 NEPHROLOGY CONSULTATION REASON FOR CONSULT: Hyponatremia. HISTORY OF PRESENT ILLNESS: The patient is a 64-year-old male who has alcohol abuse disorder, who drinks at least 12 beers every evening and has history of chronic mild hyponatremia dating as far back as 2018 on our record. The patient was admitted yesterday for hip surgery, which he did have yesterday. sodium was 128, and since admission, he has had multiple blood tests done, which show pretty tight range of the serum sodium between 126 and 128. He briefly received normal saline, which has since been stopped. He is otherwise asymptomatic. His blood pressure is running high, but was not getting his medication as well as was getting IV fluid. Urine osmolality was 266 and a urine sodium of 41. Up until the surgery, he was having normal appetite. Did not have any nausea, vomiting, diarrhea or really any acute issues. He does take a lot of NSAIDs as well as Celebrex at home as well as, as an inpatient. PAST SURGICAL HISTORY: Hip surgery, hindfoot surgery. PAST MEDICAL HISTORY: Includes hypertension, chronic hyponatremia, alcohol abuse disorder with at least 12 beers every day, chronic anemia, past tobacco abuse. FAMILY HISTORY: Negative for renal disease. SOCIAL HISTORY: Past tobacco use, daily alcohol intake, admitted to drinking at least 12 beers every night. ALLERGIES: None. HOME MEDICATIONS: List was reviewed and is as per the reconciliation list. However, there seems to be a discrepancy as the patient keeps saying he does take a water pill every evening, but I do not see that in the medication list, patient history. REVIEW OF SYSTEMS: Unless detailed otherwise in HPI, full systems reviewed and negative. Total of 12 systems reviewed. PHYSICAL EXAMINATION: GENERAL: A middle-aged white male who is not in any distress. He is awake, alert and oriented. HEENT: Mucous membrane is moist. NECK: Supple. No jugular venous distention. CHEST: Bilaterally clear to auscultation. CARDIOVASCULAR: S1 and S2 regular. ABDOMEN: Soft, nontender. Did not appreciate ascites. EXTREMITIES: No edema noted. NEUROLOGICAL: Normal speech. Moving all 4 extremities. LABORATORY TESTS: Urine test showed urine osmolality of 266, urine sodium 41. Sodium 127, potassium 3.7, chloride 92, BUN 12, creatinine 1.22, glucose 117. Serum osmolality was 317 yesterday. Albumin 3.2. Chest x-ray was unremarkable. ASSESSMENT AND PLAN: A 64-year-old male with chronic mild hyponatremia with heavy daily alcohol use of at least 12 beers every night, admitted for elective hip surgery. I have been consulted for chronic mild hyponatremia. As stated, this is chronic and seems to be mild for at least 2-3 years. He is drinking a lot of liquids, about 8 liters per day including almost 4 liters of beer every day. This is a very massive amount of fluid intake. He definitely has some urinary dilution problem limiting the maximal urinary dilution, and as a result has chronic mild hyponatremia. Given that the hyponatremia is fairly mild, I would not recommend any special treatment other than decreasing his daily fluid intake by 50%. Since this is an ongoing problem both as an outpatient as well as inpatient for many years, I do not see the need of aggressive treatment. He can have normal diet with extra protein, but the pham thing is to limit the fluid intake. Unless he decreases the fluid intake by at least 50%, he will never have a normal serum sodium. Thank you very much. J LUIS
--- NOTE | 2020-02-17 14:20 | Electrocardiogram Report ---
Test Reason : Blood Pressure : / mmHG Vent. Rate : 059 BPM Atrial Rate : 059 BPM P-R Int : 206 ms QRS Dur : 094 ms QT Int : 462 ms P-R-T Axes : 075 060 059 degrees QTc Int : 457 ms Sinus bradycardia Otherwise normal ECG When compared with ECG of 02-DEC-2019 13:07, No significant change was found Confirmed by Anibal Garcia ([id number]) on 02/17/2020 2:20:14 PM Referred By: Jose Enrique Garza Confirmed By:Anibal Garcia
--- NOTE | 2020-02-17 16:35 | Hospitalist Progress Note ---
Date of Service February 17, 2020 Assessment & Plan (1) Failure of left total hip arthroplasty with dislocation of hip: Final Assessment and Recommendations as follows : Hypertensive urgency Multifactorial : NSAID rx Ongoing NSS IVF ? Alcohol withdrawal Acute on chronic hyponatremia IVF, NSAID Rx possibly contributory chronic anemia, hemoglobin at baseline Steroid-induced hyperglycemia, recent outpatient hemoglobin A1c of 5.1 this month past tobacco abuse Medical telemetry transfer for closer monitoring Hold IVF, NSAID Rx Continue patient's home beta-sean and ACEI Rx Lasix 1 dose now Fluid restriction 2 L daily Hyponatremia work-up Nephrology consult RE hyponatremia DT precautions DVT prophylaxis. Postop aspirin BID as per Ortho orders Case discussed with Dr. Zaman ([facility] [place] information technology professor[place] who is in agreement with plan of care. Labs checked ROS-No Headache, No Visual Changes, No Nausea, No Vomiting, No Fever, No Chills, No Neck Pain or Stiffness, No Chest Pain, No Palpitations, No SOB, No URENA, No Cough, No Sputum, No Wheezing, No Abdominal Pain, No Diarrhea, No Hematemesis, No Hemoptysis, No Unexpected Weight Loss, No Flank pain, No Melena, No Hematochezia, No Frequency, No Urgency, No Burning, No Hematuria, No Rashes, No Diaphoresis. Appetite is Normal, Sore Hip Physical Exam Gen-AAO x 3, NAD, Afebrile Head-NCAT, EOMI, PERRLA, Anicteric Sclera, No Posterior Pharyngeal Erythema Neck-Supple, No JVD, No Thyromegaly, No Masses, No LAD, No Bruits Lungs-Clear to Auscultation Bilaterally, No Rales, No Rhonchi, No Wheezing, No Crepitus Chest-No S4, +S1, +S2, No S3, No Murmurs, No Rubs, No Gallops, No Ectopy Abdomen-Soft, Bowel Sounds Present, Non Tender, Non Distended, No Hepatomegaly, No Splenomegaly, No Palpable Masses, No Rebound, No Rigidity, No Guarding Musculoskeletal-No CVAT Extremities-No Cyanosis, No Clubbing, No Edema Nuero-Cranial Nerves II-XII grossly intact, Motor WNL, DTRs WNL, Strength WNL, Non Focal Psych-Normal Mood Admission and Anticipated Discharge Date Admission Date: February 16, 2020 Results & Data Results & Data ([facility]) Vital Signs (Past 12 Hours) Vital Signs Temp Pulse Pulse Resp BP Pulse Ox 02/17/20 15:29 36.5 C 58 L 18 169/78 H 100 02/17/20 15:09 73 02/17/20 11:47 36.7 C 64 18 176/77 H 98 02/17/20 07:34 36.5 C 65 20 156/76 H 96 02/17/20 07:01 66
[2020-02-17] MEDS ORDERED: ATENOLOL 50 MG TABLET PO ONE (16:37)
[2020-02-17] MEDS: SENNA 8.6 MG TAB PO SCH (20:08)
[2020-02-17] MEDS ORDERED: CeleBREX 200 MG CAP PO SCH (21:00)
[2020-02-18] MEDS ORDERED: GABAPENTIN 600 MG TAB PO SCH
[2020-02-18] MEDS: ACETAMINOPHEN 500 MG TAB PO SCH ×2 (06:07→13:57)
[2020-02-18 07:00] LABS: Hematocrit (blood only) 32.3 % (42-52); Hemoglobin 11.1 g/dL (14.0-18.0); Mean Corpuscular Hemoglobin 33.4 pg (25-34); Mean Corpuscular Hgb Conc 34.4 g/dL (32-36); Mean Corpuscular Volume 97.3 fL (80-100); Mean Platelet Volume 8.6 fL (7.4-10.4); Platelet Count 317 K/uL (130-400); RDW Coefficient of Variation 13.7 % (11.5-14.5); RDW Standard Deviation 48.3 fL (36.4-46.3); Red Blood Count 3.32 M/uL (4.7-6.1)
[2020-02-18 07:28] LABS: BUN Creatinine Ratio 12.8 (10-20); Calcium 9.1 mg/dl (8.5-10.1); Est GFR (African American) 74.7; Est GFR (Non-African American) 64.4; Potassium 3.7 mmol/L (3.5-5.1)
[2020-02-18] MEDS: lisinopriL 10 MG TAB PO SCH (07:47)
[2020-02-18] MEDS: THIAMINE HCL 100 MG TAB PO SCH (07:49)
[2020-02-18] MEDS: ASPIRIN 325 MG ECTAB PO SCH (07:49)
[2020-02-18] MEDS: MULTIVITAMIN TAB PO SCH (07:49)
[2020-02-18] MEDS: FOLIC ACID 1 MG TAB PO SCH (07:50)
[2020-02-18] MEDS: DOCUSATE SODIUM 100 MG CAP PO SCH (07:51)
--- NOTE | 2020-02-18 08:51 | Hospitalist Progress Note ---
Date of Service February 18, 2020 Assessment & Plan (1) Failure of left total hip arthroplasty with dislocation of hip: Hypertensive urgency Multifactorial : NSAID rx Ongoing NSS IVF ? Alcohol withdrawal Add scheduled Ativan and DC later today on Serax 15 q6 for 4-5 days for Alcohol WD if BP comes down ~ 150 systolic Acute on chronic hyponatremia Decrease fluids by 50% Chronic anemia, hemoglobin at baseline Steroid-induced hyperglycemia, recent outpatient hemoglobin A1c of 5.1 this month Past tobacco abuse Hold IVF, NSAID Rx Continue patient's home beta-sean and ACEI Rx, Norvasc 5 mg added today DVT prophylaxis. Postop aspirin BID as per Ortho orders OK to DC later today from IM Standpoint if SBP~160 or less, Scripts sent and med rec filled out Oxazepam 15 mg PO Q6H x 4-5 days for Alcohol WD Norvasc 5 mg daily Atenolol 100 mg Daily ASA 325 BID x 6 weeks Hold Mobic/Celebrex Labs checked ROS-No Headache, No Visual Changes, No Nausea, No Vomiting, No Fever, No Chills, No Neck Pain or Stiffness, No Chest Pain, No Palpitations, No SOB, No URENA, No Cough, No Sputum, No Wheezing, No Abdominal Pain, No Diarrhea, No Hematemesis, No Hemoptysis, No Unexpected Weight Loss, No Flank pain, No Melena, No Hematochezia, No Frequency, No Urgency, No Burning, No Hematuria, No Rashes, No Diaphoresis. Appetite is Normal, Sore Hip Physical Exam Gen-AAO x 3, NAD, Afebrile Head-NCAT, EOMI, PERRLA, Anicteric Sclera, No Posterior Pharyngeal Erythema Neck-Supple, No JVD, No Thyromegaly, No Masses, No LAD, No Bruits Lungs-Clear to Auscultation Bilaterally, No Rales, No Rhonchi, No Wheezing, No Crepitus Chest-No S4, +S1, +S2, No S3, No Murmurs, No Rubs, No Gallops, No Ectopy Abdomen-Soft, Bowel Sounds Present, Non Tender, Non Distended, No Hepatomegaly, No Splenomegaly, No Palpable Masses, No Rebound, No Rigidity, No Guarding Musculoskeletal-No CVAT Extremities-No Cyanosis, No Clubbing, No Edema Nuero-Cranial Nerves II-XII grossly intact, Motor WNL, DTRs WNL, Strength WNL, Non Focal Psych-Normal Mood Admission and Anticipated Discharge Date Admission Date: February 16, 2020 Anticipated date of discharge: 02/18/20 Results & Data Results & Data ([facility]) Vital Signs (Past 12 Hours) Vital Signs Temp Pulse Pulse Resp BP Pulse Ox 02/18/20 07:40 36.5 C 52 L 16 175/83 H 100 02/18/20 04:00 36.6 C 61 18 152/64 H 98 02/18/20 00:28 59 L 02/17/20 23:56 36.6 C 60 18 173/72 H 100
[2020-02-18] MEDS ORDERED: AMLODIPINE BESYLATE 5 MG TAB PO SCH (09:00)
[2020-02-18] MEDS ORDERED: ATENOLOL 50 MG TABLET PO SCH (09:00)
--- NOTE | 2020-02-18 09:36 | Orthopedic Progress Note ---
Date of Service February 18, 2020 Assessment & Plan (1) Failure of left total hip arthroplasty with dislocation of hip: s/p revision left DU POD#1 -Medical recs for hypertensive urgency appreciated. Per Dr. Trotter, patient improved. If blood pressure remains 160 or less, plan for discharge today. -Progressing well with PT. -DVT ppx: SCDs, TEDS, ASA BID -WBAT LLE -PT/OT -am labs - hemoglobin 11.1 -DC planning -home with home health Admission and Anticipated Discharge Date Admission Date: February 16, 2020 Anticipated date of discharge: 02/18/20 Subjective Postop day 2 status post left total hip arthroplasty. Patient is currently sitting in his chair at the bedside. He easily gets out of his chair to check his incision. He has no complaints this morning and is hoping to go home today. Physical Exam Physical Exam: Silverlon dressing is saturated and has some reinforced ABDs on it. Thigh is soft and nontender. Calves are soft nontender. Neurovascular intact. Toes are mobile. Leg lengths appear equal. Results & Data ([facility]) Vital Signs (Past 12 Hours) Vital Signs Temp Pulse Pulse Resp BP Pulse Ox 02/18/20 07:40 36.5 C 52 L 16 175/83 H 100 02/18/20 04:00 36.6 C 61 18 152/64 H 98 02/18/20 00:28 59 L 02/17/20 23:56 36.6 C 60 18 173/72 H 100
[2020-02-18] MEDS: LORazepam 0.5 MG TAB PO SCH ×2 (09:55→13:57)
--- NOTE | 2020-02-18 14:00 | Orthopedic Progress Note ---
Date of Service February 18, 2020 Assessment & Plan (1) Failure of left total hip arthroplasty with dislocation of hip: s/p revision left DU POD#2 -Medical recs for hypertensive urgency appreciated. Per Dr. Trotter, patient improved. If blood pressure remains 160 or less, plan for discharge today. Nephrology recs appreciated, fluid restrictions, hyponatremia, chronic, mild, stable. -Progressing well with PT. -DVT ppx: SCDs, TEDS, ASA BID -WBAT LLE -PT/OT -am labs - hemoglobin 11.1 -DC planning -home with home health Admission and Anticipated Discharge Date Admission Date: February 16, 2020 Anticipated date of discharge: 02/18/20 Subjective Post Operative Progress Note Patient seen sitting in chair at bedside, comfortable, denies complaints, pain well controlled, no acute issues. Denies F/C/N/V/SOB/CP. Review of Systems Review of Systems: All systems reviewed & are unremarkable except as noted in HPI & below Constitutional: as per Subjective / HPI Physical Exam Physical Exam: LLE NVSI +EHL/FHL/TA/GS SILT grossly, +2 DP pulse, compartments soft NT, dressing cdi. Constitutional: WD/WN, vitals as above Results & Data ([facility]) Vital Signs (Past 12 Hours) Vital Signs Temp Pulse Resp BP Pulse Ox 02/18/20 07:40 36.5 C 52 L 16 175/83 H 100 02/18/20 04:00 36.6 C 61 18 152/64 H 98 Laboratory Results 02/18/20 02/18/20 02/17/20 Range/Units 06:41 06:41 17:56 WBC 12.80 H (4.8-10.8) K/uL RBC 3.32 L (4.7-6.1) M/uL Hgb 11.1 L (14.0-18.0) g/dL Hct 32.3 L (42-52) % MCV 97.3 (80-100) fL MCH 33.4 (25-34) pg MCHC 34.4 (32-36) g/dL RDW Std Deviation 48.3 H (36.4-46.3) fL RDW Coeff of Jamila 13.7 (11.5-14.5) % Plt Count 317 (130-400) K/uL MPV 8.6 (7.4-10.4) fL Sodium 130 L 128 L (136-145) mmol/L Potassium 3.7 (3.5-5.1) mmol/L Chloride 94 L (98-107) mmol/L Carbon Dioxide 30 (21-32) mmol/L Anion Gap 6.0 (3-11) BUN 15 (7-18) mg/dl Creatinine 1.20 (0.6-1.4) mg/dl Est Cr Clr Drug Dosing 69.0 ml/min Est GFR ( Amer) 74.7 Est GFR (Non-Af Amer) 64.4 BUN/Creatinine Ratio 12.8 (10-20) Glucose 104 H (70-99) mg/dl Calcium 9.1 (8.5-10.1) mg/dl Crossmatch 02/16/20 Range/Units 10:33 WBC (4.8-10.8) K/uL RBC (4.7-6.1) M/uL Hgb (14.0-18.0) g/dL Hct (42-52) % MCV (80-100) fL MCH (25-34) pg MCHC (32-36) g/dL RDW Std Deviation (36.4-46.3) fL RDW Coeff of Jamila (11.5-14.5) % Plt Count (130-400) K/uL MPV (7.4-10.4) fL Sodium (136-145) mmol/L Potassium (3.5-5.1) mmol/L Chloride (98-107) mmol/L Carbon Dioxide (21-32) mmol/L Anion Gap (3-11) BUN (7-18) mg/dl Creatinine (0.6-1.4) mg/dl Est Cr Clr Drug Dosing ml/min Est GFR ( Amer) Est GFR (Non-Af Amer) BUN/Creatinine Ratio (10-20) Glucose (70-99) mg/dl Calcium (8.5-10.1) mg/dl Crossmatch See Detail
--- NOTE | 2020-02-18 14:04 | Discharge Summary ---
Date of Service February 18, 2020 Admission HPI Per Admitting Provider The patient is a 64 year old male who presents with complaints of long standing left total hip instability with history of multiple dislocations x 3. Most recent dislocation 08/12/2019. Principle surgery performed 04/01/[address] Hodge. The patient has failed outpatient conservative treatments to this point which included physical therapy, home exercise program, NSAIDS and bracing. The patient's pain and limited function have progressed to the point where they severely hinder their activities of daily living and they no longer tolerate exercise programs. They are requesting to proceed with revision total hip replacement surgery. 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 Constitutional WD/WN, vitals as above Discharge Data Allergies Allergy/AdvReac Type Severity Reaction Status Date / Time No Known Allergies Allergy ` Verified 02/16/20 10:37 Consultations 02/16/20 22:46 Consult Hospitalist Routine 02/17/20 03:59 Consult Nephrology Routine 02/17/20 08:00 Consult Case Management - Discharge Planning Routine Procedures Performed Operation Date: 02/16/20 12:30 Actual Procedures p Left Total Hip Arthroplasty Revision(Left) - Jose Enrique Garza DO Hospital Course (1) Failure of left total hip arthroplasty with dislocation of hip: The patient is a 64 -year-old male who presents with long standing history of recurrent instability of left total hip with multiple dislocations x 3 and failed outpatient conservative treatments. The patient's symptoms have progressed to the point where it has been difficult to perform even normal activities of daily living. I indicated the patient for a revision left total hip arthroplasty, the risks, benefits and complications of the procedure include but not limited to infection, bleeding, damage to bone, nerves, vessels, surrounding soft tissue, may develop blood clots, loss of function, leg length discrepancy, dislocation, failure of the components, loosening of the components, the need for additional surgery and . The patient wished to proceed with surgery at this time and informed consent was obtained. Hospital Course: On 02/16/20 the patient was taken to the operating room, adequate anesthesia administered and underwent a revision left total hip arthroplasty. The patient tolerated the procedure well and was taken to the PACU in stable condition. Post-operatively the patient was started on a DVT ppx medication and given appropriate IV antibiotics. Consults were placed to medical hospitalist, nephrology, physical therapy, occupational therapy and case management. Patient had elevated BP upon admission ranging from 140's-190's systolic over 70's-90's diastolic. The patients blood pressure medication was adjusted by the medical hospitalist team, nephrology was consulted for work up for chronic hyponatremia, patent was transferred to [facility] for close monitoring due to reporting 12 alcoholic beverages per day. The patient reported 5-6 beers per week on his pre-operative medical history questionnaire. On POD#1, the patient did well overnight and their pain was well controlled. Labs were drawn and the Hgb was 11.0, Na 128. Nephrology rec fluid restriction, did not see any need for further work up or intervention at this time due to mild chronic nature of patient's hyponatremia. BP 150s-170s/70s-80s. The patient progressed well with PT. On POD#2, The patient continued to progress well with PT. Labs were drawn, hgb 11.1, Na 130. BP continued to improve to patient's baseline. Dressings were changed at this time and the incision was clean, dry and intact. The patient was deemed stable by the orthopedic team and consultants to be discharged home with on 02/18/20. Discharge Instructions: Upon discharge the patient may weight bear as tolerates through their operative extremity. They were instructed to keep the incision clean and dry at all times. The patient may shower but should not submerge the incision, avoid bathing, pools and hot tubes. The patient was given a script for pain medication and should take as instructed. The patient was given a script for DVT ppx ASA 325mg BID and should take as directed. The patient was instructed to not drive or travel for long distances until cleared to do so. If the patient develops any symptoms of fevers, chills, nausea, vomiting, increased redness, swelling, pain or drainage from the surgical site, they should notify the office and/or proceed to the nearest emergency room. The patient should follow up in 10-14 days after surgery for their routine post-operative follow-up appointment and should call the office to confirm the date and time. s/p revision left DU POD#2 -Medical recs for hypertensive urgency appreciated. Per Dr. Trotter, patient improved. If blood pressure remains 160 or less, plan for discharge today. Nephrology recs appreciated, fluid restrictions, hyponatremia, chronic, mild, stable. -Progressing well with PT. -DVT ppx: SCDs, TEDS, ASA BID -WBAT LLE -PT/OT -am labs - hemoglobin 11.1 -DC planning -home with home health POD#1 -Medical recs for hypertensive urgency appreciated, blood pressure improved 156/76 overnight -Ancef x24 -DVT ppx: SCDs, TEDS, ASA BID -WBAT LLE -PT/OT -PO XR demonstrates well aligned well fixed total hip prothesis without fracture/dislocation -am labs -11.0 -DC planning -home with home health Total Time Total Time Spent Total Time Spent (In Minutes): 60 Discharge Plan Discharge Items Patient Disposition: Home - Home Health Services Reason For Visit: Failed left total hip arthroplastyrecurrent instability Discharge Diagnosis: Revision left total hip replacement -Failed left total hip with recurrent instability Condition on Discharge: Good Health Concerns: Be careful taking narcotics and Oxazepam-May be too sedating Activity: Per Instructions section Lifting: Wait until after follow-up appointment Bathing: Keep incision dry Bathing Comment: No bathing, pools or hot tubs Sexual Activity: Wait until after follow-up appointment Exercise/Sports: Wait until after follow-up appointment Driving/Machine Use: No driving Weightbearing: Full weightbearing Non-emergency contact: Surgeon Call non-emergency contact if: you have any medication questions, your symptoms worsen, your pain is not controlled, your pain is worsening, your pain is unusual for you, your pain is concerning for you, you have a fever, your temperature is above 101, your wound has increased redness, your wound has increased drainage and your wound pain has increased Follow-up/Referrals: Jacoby Jefferson MD [Primary Care Provider] - Diet: Regular Addtl Attending Provider Instructions: ACTIVITY RECOMMENDATIONS: SELF CARE INSTRUCTIONS AFTER TOTAL HIP REPLACEMENT Until the incision and soft tissues around your hip have healed, there is a possibility that the hip prosthesis could dislocate. A. Observe the following precautions to prevent dislocation: 1. Don't bend your hip greater than 90 degrees. 2. Avoid crossing your legs or ankles while standing or lying. 3. Sit with your feet placed 6 inches apart. 4. When sitting, keep your knees below your hips. Sit on a firm surface, avoid deep, soft chairs and couches. Use an elevated toilet seat in the bathroom. 5. Don't bend over at the waist. Use a long handled shoehorn and a sock aid to help you put on your shoes and socks. A dipper and drier can help you pickle sorter objects that are too high or too low to reach. 6. Keep car riding to a minimum for at least one month after surgery. B. Your balance may be shaky for a while. Use crutches or a walker until directed by your doctor. C. Use hand rails when walking on stairs. D. Wear low heeled shoes with non-slip soles. E. Be sure that your floors are free of things that could trip you - throw rugs, electrical cords, small objects. Avoid wet and waxed floors, especially with crutches and canes. F. Try to walk several times a day with rest periods between. G. Continue with all the exercises taught to you in the hospital. Again, make walking a part of your daily routine. SPECIAL CARE INSTRUCTIONS: VERY IMPORTANT TO READ AND REVIEW A. You may still be at risk for phlebitis and blood clots. 1. Wear surgical stockings (JESUS hose) for 2 weeks after surgery to improve circulation and reduce swelling. 2. Take Aspirin 325mg twice daily for 4 weeks or as directed by your doctor. This is your blood thinner. 3. High risk patients may be prescribed a stronger blood thinner if necessary. 4. If you are on Coumadin normally, your family doctor/deliverer pharmacy should monitor your blood work. Expect a phone call the day of or the day after bloodwork is drawn to adjust your dosage. B. You must take antibiotics before having dental work, bladder, bowel and other surgery. Your doctor will provide you with a permanent card to carry describing precautions. C. Call [facility] if you have a fever, redness or swelling around the incision, cloudy drainage from incision, or sudden increase in pain in your hip, not relieved by your regular pain medication. D. Please call the office at if you have any concerns or questions about your operation or recovery. * YOU MAY SHOWER, NO TUB BATHS UNTIL CLEARED BY YOUR DOCTOR. * WEAR JESUS HOSE 20 HOURS PER DAY FOR 2 WEEKS. * YOU SHOULD USE A WALKER OR CRUTCHES FOR 2-4 WEEKS. THIS WILL HELP PREVENT STRAIN ON YOUR HIP MUSCLE AND ALLOW IT TO HEAL PROPERLY. YOU MAY WEAN TO A CANE TOLERATED. * MOST PATIENTS WILL HAVE HOME NURSING FOR THERAPY. IF YOU DECIDE TO DO OUTPATIENT PHYSICAL THERAPY, PLEASE SCHEDULE THIS 3 TIMES PER WEEK. * YOU MAY HAVE A LARGE, BAND-LUZMARIA LIKE DRESSING (SILVERON). THIS WILL REMAIN ON YOUR INCISION FOR 7 DAYS, THEN CAN BE REMOVED. IF INCISION IS LEAKING THROUGH DRESSING, PLEASE CALL THE OFFICE . FOLLOW UP VISIT: If appointment is not already scheduled: Please call [facility] to make a follow-up appointment for 2 weeks after your surgery at . Please follow up with your PCP within 7 days of discharge regarding hypertension and changes to your blood pressure medication. Do not take multiple pain medications together Do no drink alcohol and take your pain medications at the same time. Pending Studies at Discharge: No Stand-Alone Forms: [facility] Medications and DC Order Prescriptions: New acetaminophen 500 mg Tablet 1,000 mg PO Q8 PRN (Reason: pain and/or fevers) Qty: 90 RF: 0 aspirin 325 mg Tablet,Delayed Release (Dr/Ec) 325 mg PO BID Qty: 56 RF: 0 oxycodone 5 mg Tablet 5 mg PO Q6H MDD 4 PRN (Reason: pain) Qty: 30 RF: 0 sennosides [Senokot] 8.6 mg Tablet 17.2 mg PO HS PRN (Reason: constipation) Qty: 28 RF: 0 amlodipine [Norvasc] 5 mg Tablet 5 mg PO QAM Qty: 30 RF: 0 lisinopril 10 mg Tablet 10 mg PO QAM Qty: 30 RF: 0 multivitamin [Daily-Eric] Tablet 1 tab PO QAM Qty: 100 RF: 0 thiamine HCl (vitamin B1) [Vitamin B-1] 100 mg Tablet 100 mg PO QAM Qty: 10 RF: 0 folic acid 1 mg Tablet 1 mg PO QAM Qty: 10 RF: 0 oxazepam 15 mg capsule 15 mg PO Q6H Qty: 20 RF: 0 Continued Multivitamin 50 Plus Tablet 1 tab PO QPM RF: 0 potassium gluconate 595 mg (99 mg) Tablet 595 mg PO QAM RF: 0 atenolol 100 mg Tablet 100 mg PO HS RF: 0 Discontinued ibuprofen 800 mg tablet 800 mg PO TIDM PRN (Reason: Pain) RF: 0 meloxicam 15 mg Tablet 15 mg PO PM RF: 0 Discharge Orders: Discharge Order (Routine); Ordered 02/18/20 Ordered By: Jose Enrique Garza Admission Data Admit Date/Time: 02/16/20 14:41 Attending Provider: Jose Enrique Garza Admit Provider: Jose Enrique Garza Primary Care Provider: Jacoby Jefferson Other Providers: Dawn Morin ; Kan Vaughan ; Yi Harrington ; Myriam Montesinos Japheth E. ; Corey Norwood Other Interventions: Discharge Summary Assessment (RN) Last Done: 02/18/20 14:13 DC Date/Time DO NOT enter until pt leaves facility: 02/18/20 15:30
[2020-02-19] MEDS ORDERED: GABAPENTIN 600 MG TAB PO SCH (04:00)
[2020-02-19 05:55] LABS: 7-Aminoclonaz, Confirm NEGATIVE ng/mL (<25); Hydro-Alp Ur, GC/MS NEGATIVE ng/mL (<25); Hydroxyethylflurazepam, Conf NEGATIVE ng/mL (<50); Hydroxymidazolam Ur, GC/MS 1180 ng/mL (<50); Hydroxytriazolam NEGATIVE ng/mL (<50); Lorazepam, Ur GC/MS NEGATIVE ng/mL (<50); Marijuana Quant, GCMS Urine 278 ng/mL (<5); Nordiazepam, Confirm NEGATIVE ng/mL (<50); Oxazepam Ur, GC/MS NEGATIVE ng/mL (<50); Temazepam, Confirm NEGATIVE ng/mL (<50)
[2020-02-20] MEDS ORDERED: GABAPENTIN 600 MG TAB PO SCH (16:00)
== END 2020-02-18 15:30 | disposition home health service (06) | DRG 467 ==
LOC: ASU 10:25 → 3N 14:41 → 2N 02-17 03:14

== ENCOUNTER 2020-05-24 11:14 | Inpatient (IN) ==
--- NOTE | 2020-05-13 15:26 | Anesthesiology Consultation ---
Date of Service May 13, 2020 Assessment & Plan (1) Encounter for pre-operative examination: Chart Review Chart Review: Acceptable Risk for Surgery (pending 05/19 preop Covid test results ) and Patient NOT seen in Pre Admission Testing Per nursing assessment 05/13/2020, patient resides in [facility]. Travels to [facility] for medical appointments. Wears mask in public. No known Covid positive contacts or Covid related symptoms. Scheduled for preop Covid testing 05/19/20. Revision of left total hip arthroplasty 02/16/2020 = done under MAC with SAB. Spinal block placed at L3-4. One attempt. History Surgery Operation Date: 05/24/20 10:45 Proposed Procedures p Right Total Hip Revision Head and Liner/Constrained, Possible Cup, Possible Femur - Jose Enrique Garza DO Height/Weight Height: 6 ft Weight: 79.379 kg Allergies Allergy/AdvReac Type Severity Reaction Status Date / Time No Known Allergies Allergy ` Verified 05/13/20 11:14 Medications Home Medications Medication Instructions Recorded Confirmed Last Taken potassium gluconate 595 mg PO QAM 02/10/20 05/13/20 02/15/20 08:00 acetaminophen 1,000 mg PO Q8 PRN #90 tab 02/16/20 05/13/20 Unknown atenolol 100 mg PO HS 02/16/20 05/13/20 02/15/20 22:00 multivitamin [Daily-Eric] 1 tab PO QAM #100 tab 02/18/20 05/13/20 Unknown thiamine HCl (vitamin B1) [Vitamin 100 mg PO QAM #10 tab 02/18/20 05/13/20 Unknown B-1] aspirin 325 mg PO BID PRN 05/13/20 05/13/20 Unknown Past Medical History Medical History History of gout right foot HTN (hypertension) Osteoarthritis Peripheral neuropathy Past Family History Family History Other No significant family history Past Surgical History Surgical History (Updated 05/13/20 @ 15:37 by Judit Armstrong PA-C) History of colonoscopy 2014 History of hip replacement R/L History of revision of total hip arthroplasty Left- 01/2020 History of tonsillectomy History of tooth extraction all teeth on top, only six teeth on bottom Hx of inguinal hernia repair Social History Smoking Status: Former smoker tobacco type: cigarettes Do You Dip or Chew Tobacco: No Smoking End Date: quit 12 years ago Hx Alcohol Use: Yes Alcohol type: beer alcohol intake frequency: 3 or more drinks per day Hx Substance Use: No substance use type: marijuana Last Used Substance Other:: used to smoke marijuana Testing Laboratory Results Laboratory Tests 05/09/20 05/09/20 05/09/20 12:04 12:04 12:04 WBC 9.88 Hgb 12.3 L Hct 36.4 L Plt Count 425 H PT 10.5 INR 1.0 APTT 31.5 H Sodium 131 L Potassium 3.9 Chloride 94 L Carbon Dioxide 30 BUN 6 L Creatinine 1.08 Glucose 89 Hemoglobin A1c 05/09/20 12:04 WBC Hgb Hct Plt Count PT INR APTT Sodium Potassium Chloride Carbon Dioxide BUN Creatinine Glucose Hemoglobin A1c 5.0 05/09/20= UA: 1+blood, 10-20 epithel cells Chronic hyponatremia- stable/mildly improved from previous Electrocardiogram Date: 02/17/20 Findings: + SB @ (59) Otherwise normal EKG Chest X-Ray Date: 02/16/20 Compared to study from 12/02/2019unchanged superior mediastinal prominence. Mild cardiomegaly. Mild pulmonary vascular congestion. No focal infiltrate.
--- NOTE | 2020-05-22 10:41 | History & Physical Report ---
Date of Service May 24, 2020 Assessment & Plan (1) Failure of right total hip arthroplasty with dislocation of hip: I have indicated the patient for revision right total hip replacement, head and liner exchange, constrained liner, possible revision acetabular and femoral components. The risks, benefits and complications of surgery were explained to the patient which include but not limited to infection, acute blood loss, DVT/PE, injury to nerves, vessels, bone, soft tissue, arthrofibrosis, chronic pain, failure of the prosthesis, hip dislocation, leg length discrepancy, need for additional surgery, cardiac and pulmonary events and . The patient wished to proceed with surgery and informed consent was obtained at this time. We will plan for ASA BID post-operatively for DVT prophylaxis. Upon discharge the patient will be discharged home with home health services. Appropriate clearances by PCP were obtained. History of Present Illness Chief Complaint: Failed right DU with recurrant instability Primary Care Provider: Jacoby Jefferson MD The patient is a 64 year old male who presents with complaints of 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 Principle surgery performed 07/09/[address] Hodge. The patient has failed outpatient conservative treatments to this point which included physical therapy, home exercise program, NSAIDS and bracing. The patient's pain and limited function have progressed to the point where they severely hinder their activities of daily living and they no longer tolerate exercise programs. They are requesting to proceed with revision total hip replacement surgery. Allergies Allergy/AdvReac Type Severity Reaction Status Date / Time No Known Allergies Allergy ` Verified 05/24/20 11:55 Home Medications Home Medications Medication Instructions Recorded Confirmed Type potassium gluconate 595 mg PO QAM 02/10/20 05/24/20 History acetaminophen 1,000 mg PO Q8 PRN #90 tab 02/16/20 05/24/20 Rx atenolol 100 mg PO HS 02/16/20 05/24/20 History multivitamin [Daily-Eric] 1 tab PO QAM #100 tab 02/18/20 05/24/20 Rx thiamine HCl (vitamin B1) [Vitamin 100 mg PO QAM #10 tab 02/18/20 05/24/20 Rx B-1] aspirin 325 mg PO BID PRN 05/13/20 05/24/20 History Past Med/Surg History Medical History History of gout right foot HTN (hypertension) Osteoarthritis Peripheral neuropathy Surgical History History of colonoscopy 2014 History of hip replacement R/L History of revision of total hip arthroplasty Left- 01/2020 History of tonsillectomy History of tooth extraction all teeth on top, only six teeth on bottom Hx of inguinal hernia repair Family History Other No significant family history Social History Smoking Status: Former smoker Smoking End Date: quit 12 years ago; Second Hand Exposure: Yes; Do You Dip or Chew Tobacco: No; Hx Alcohol Use: Yes Alcohol type: beer Hx Substance Use: No Preferred Language: Serbian Communication Ability: Effective Civil Defense Director Required: No Beliefs That Will Affect Care: None Current Living Situation: Significant Other Feels Safe at Home: Yes Safety Concerns: Feels Safe At This Time Review of Systems Review of Systems: All systems reviewed & are unremarkable except as noted in HPI & below Constitutional: as per Subjective / HPI Physical Exam Physical Exam: RLE NVSI +EHL/FHL/TA/GS SILT grossly, +2 DP pulse, compartments soft NT. Constitutional: WD/WN, vitals as above Eyes: PERRL, conjunctivae normal, anicteric sclerae ENMT: external ear and nose normal, oropharynx normal Neck: trachea midline, no thyromegaly Respiratory: normal respiratory effort, lungs clear to auscultation Cardiovascular: RRR, no murmur, no edema Gastrointestinal (Abdomen): normal bowel sounds, soft, nontender, no hepatosplenomegaly Musculoskeletal: no cyanosis or clubbing, extremities motor strength 5/5 Skin: no rashes, warm and dry Neurologic: patellar DTR's 2+ bilat, sensation intact Psychiatric: A+Ox3, euthymic affect Lymphatic: no cervical or axillary lymphadenopathy Results & Data Results & Data ([facility]) Diagnostic Findings XRs of right hip demonstrate well aligned well fixed total hip prothesis without fracture/dislocation/loosening.
[~2020-05-24 11:14] MED LIST changes: -ROPIVACAINE 0.5% HCL/PF 150 MG, BUPIVACAINE 0.5% MPF 30 ML, EPINEPHrine 30MG/30ML (OR U... INFIL SCH; +ROPIVACAINE 0.5% HCL/PF 150 MG, BUPIVACAINE 0.5% MPF 30 ML, EPINEPHrine 30MG/30ML (OR U... INSTIL SCH
[2020-05-24] MEDS ORDERED: ePHEDrine sulfate 50 MG/ML AMP IV PRN (11:50)
[2020-05-24] MEDS ORDERED: ATROPINE SULFATE 0.1 MG/ML 10ML SYR IV PRN (11:50)
[2020-05-24] MEDS ORDERED: fentaNYL citrate 100 MCG/2 ML VIAL IV PRN (11:50)
[2020-05-24] MEDS ORDERED: HYDROmorphone INJ 1 MG/ML SYRINGE IV PRN (11:50)
[2020-05-24] MEDS ORDERED: ONDANSETRON INJ 2 MG/ML 2 ML VIAL IV PRN ×2 (11:50→17:02)
--- NOTE | 2020-05-24 12:04 | History & Physical Bridge Note ---
Date of Service May 24, 2020 History & Physical Bridge Note I have examined the patient, reviewed the History & Physical and in the interval since the performance of the History & Physical I have noted the following changes of clinical significance: no changes noted
[2020-05-24] MEDS ORDERED: BACITRACIN INJ 50,000 UNIT VIAL ONE (12:14)
[2020-05-24] MEDS ORDERED: ORTHO JOINT ANESTHETIC ONE (12:15)
[2020-05-24] MEDS ORDERED: fentaNYL citrate 100 MCG/2 ML VIAL ONE (12:28)
[2020-05-24] MEDS ORDERED: PROPOFOL IV EMULSION 10 MG/ML 20 ML VIAL IV ONE ×2 (12:28→14:36)
[2020-05-24] MEDS ORDERED: LIDOCAINE HCL 2% 2 ML VIAL/AMP(20MG/ML) INFIL ONE (12:28)
[2020-05-24] MEDS ORDERED: MIDAZOLAM HCL 1 MG/ML 2ML VIAL ONE ×2 (12:29)
[2020-05-24] MEDS ORDERED: PHENYLEPHRINE 100MCG/ML 5ML SYR ONE (13:51)
[2020-05-24] MEDS ORDERED: ePHEDrine sulfate 50 MG/ML SYR ONE (13:51)
--- NOTE | 2020-05-24 15:35 | Post Operative Brief Note ---
Immediate Post Op Note v1 Date of Surgery May 24, 2020 Pre & Post Diagnosis Operation Date: 05/24/20 13:10 Pre-Op Diagnosis: Failure of Right Total Hip Arthroplasty with Dislocation of Hip Post-Op Diagnosis: Failure of Right Total Hip Arthroplasty with Dislocation of Hip I identified the patient and participated in the time-out.: Yes Procedure Operation Date: 05/24/20 13:10 Actual Procedures p Right Total Hip Revision Arthroplasty Head and Liner/Constrained(Right) - Jose Enrique Garza DO Surgeon Jose Enrique Garza DO Voice Studies Director Jasson Holland Estimated Blood Loss 150 Findings Consistent with Post-Op Diagnosis Fluids 1700 cc LR Anesthesia Type Spinal MAC Complications none Disposition Disposition: Recovery Room Overlapping Procedure I was present for: the critical portions of procedure. I was immediately available: during the entire case. Back up surgeon: was not required during procedure.
--- NOTE | 2020-05-24 15:36 | Operative Report ---
Post Operative Report Pre & Post Diagnosis Operation Date: 05/24/20 13:10 Pre-Op Diagnosis: Failure of Right Total Hip Arthroplasty with Dislocation of Hip Post-Op Diagnosis: Failure of Right Total Hip Arthroplasty with Dislocation of Hip I identified the patient and participated in the time-out.: Yes Procedure Operation Date: 05/24/20 13:10 Actual Procedures p Right Total Hip Revision Arthroplasty Head and Liner/Constrained(Right) - Jose Enrique Garza DO Surgeon Jose Enrique Garza DO Knitting Machine Fixer Head Jasson Holland Estimated Blood Loss 150 Findings Consistent with Post-Op Diagnosis Fluids 1700 cc LR Specimens none Anesthesia Type Spinal MAC Complications none Disposition Disposition: Recovery Room Indications The patient is a 64 year old male who presents with complaints of 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 Principle surgery performed 07/09/[address] Hodge. The patient has failed outpatient conservative treatments to this point which included physical therapy, home exercise program, NSAIDS and bracing. The patient's pain and limited function have progressed to the point where they severely hinder their activities of daily living and they no longer tolerate exercise programs. They are requesting to proceed with revision total hip replacement surgery. I have indicated the patient for revision right total hip replacement, head and liner exchange, constrained liner, possible revision acetabular and femoral components. The risks, benefits and complications of surgery were explained to the patient which include but not limited to infection, acute blood loss, DVT/PE, injury to nerves, vessels, bone, soft tissue, arthrofibrosis, chronic pain, failure of the prosthesis, hip dislocation, leg length discrepancy, need for additional surgery, cardiac and pulmonary events and . The patient wished to proceed with surgery and informed consent was obtained at this time. We will plan for ASA BID post-operatively for DVT prophylaxis. Upon discharge the patient will be discharged home with home health services. Appropriate clearances by PCP were obtained. Description of Procedure Following induction of adequate Spinal anesthesia, the patient was transferred to the OR table and placed in lateral decubitus position with right hip down. The right hip was prepped and draped in the typical sterile fashion. A timeout was performed, patient identified and site valencia verified. Appropriate IV antibiotics were verified and given. A posterolateral/Thong-Langenbeck incision was made inline with the previous incision. Subcutaneous tissue was sharply dissected. Electrocautery was utilized for hemostasis. The fascia was incised throughout the length of the wound and retracted with the Charnley retractor. The bursa was taken down and the short external rotators and capsule were identified and tagged with two #1 Vicryl sutures. The short external rotators and capsule were divided from the posterior aspect of the femur using electrocautery. Both external rotators and posterior capsule were swept posterior and protected, along with protecting the sciatic nerve. Meticulous removal of intra-articular scar tissue was performed with bovie. The hip prosthesis was dislocated by flexion and internal rotation in a controlled manner. The femoral head was removed from the trunion, and the modular neck removed from the stem, which was clean and was without signs of wear or corrosion. The femoral stem stability assessed and found to be stable without signs of loosening. Next, exposure of the acetabulum was obtained. Additional scar tissue removal and debridement of the intra-articular soft tissue was performed. Utilizing the liner extraction tool the liner was removed. Acetabular cup stability was assessed and found to be stable and without signs of loosening. Next, a 58x32 trail liner was inserted and locked into place. A Kinectiv modular neck D and 32+0 femoral head was placed onto the stem and a trial reduction was carried out. The hip was found to be stable in all degrees of rotation with hip flexion and extension with no impingement and leg lengths were equal. The hip was dislocated once more, trial components were removed and access to the acetabulum was re-established. The trial liner was removed and the cup was irrigated to ensure all debris was removed. A final 58x32 mm Continuum trilogy constrained acetabular liner was inserted and properly seated. Access to the proximal femur was once more gained and the final Kinectiv Modular Neck D and 32+0 mm femoral head was impacted into place and the hip was reduced. Next the constraining ring was seated properly on the constrained liner and impacted into place, care was taken to ensure the ring was properly seated and well fixed. Range of motion was checked once again and found to be stable. Next we performed a Betadine soak for 3 minutes. The wound was copiously irrigated with sterile saline solution with bacitracin. The lainey- incisional soft tissue was injected utilizing [place] ortho mix which includes a combination of Ropivicaine 0.5% 150mg, Bupivicaine 0.5%/Epinephrine 1:200,000 30ml, Toradol 30mg, Dexamethasone 4mg, Ketamine 10mg, Clonidine 100mcg and NSS 30ml solution. The external rotators and capsule were repaired to the greater trochanter through bone tunnels using #5 FiberWire. The fascia was closed using #1 Vicryl, subcutaneous tissue was closed using 2-0 Vicryl, and skin was closed with yovani. Sterile dressings were applied which included Silverlon dressing. A abduction pillow was placed between the legs. The patient tolerated the procedure well and was transported to PACU in stable condition. Due to the complex nature of the procedure, the entire surgery was performed with the operational assistance of Jasson Holland PA-C. The melter assistant, under direct supervision, was involved in the actual performance of all aspects of the surgical procedure including patient positioning, hemostasis, tissue retraction, instrument management and wound closure. I attest to the content of the Intraoperative Record and any orders documented therein. Any exceptions are noted below.
--- NOTE | 2020-05-24 16:15 | XRay Report ---
XR hip 1V RT w pelvis HISTORY: 64 years-old Male IN PACU - A/P PELVIS and LATERAL HIP right hip total joint arthroplasty COMPARISON: Pelvis and left hip radiographs 02/16/2020 TECHNIQUE: AP view of the pelvis with crosstable lateral view of the right hip FINDINGS: Right hip total joint arthroplasty appears to be in satisfactory alignment. There is no acute fractur e or unexpected retained foreign body. Expected postsurgical soft tissue swelling and deep tissue air with lateral skin yovani. Arterial calcifications. Unchanged left hip total joint arthroplasty. IMPRESSION: Right hip total joint arthroplasty with expected postoperative changes. ACT 112: Negative or not required by law. The above report was generated using voice recognition software. It may contain grammatical, syntax o r spelling errors. Electronically signed by: Hunter Tanner M.D. 05/24/2020 4:13 PM
--- NOTE | 2020-05-24 16:34 | Anesthesiology Progress Note ---
Date of Service May 24, 2020 Anesthesia Post Procedure Vital Signs Vital Signs: Temp Pulse Pulse Resp BP Pulse Ox 05/24/20 16:25 36.8 C 63 15 146/71 H 98 05/24/20 16:15 36.8 C 66 16 146/79 H 99 05/24/20 16:05 66 20 144/71 H 100 05/24/20 15:55 71 15 153/80 H 100 05/24/20 15:48 36.5 C 67 14 137/72 100 05/24/20 13:01 37.1 C 05/24/20 12:53 65 20 152/74 H 98 05/24/20 12:01 36.5 C 68 20 168/76 H 99 Pain Intensity Right Hip: Pain Intensity: 0 Transfer of Care Handoff Completed per policy Notes Mental Status: alert / awake / arousable and participated in evaluation Patient Amnestic to Procedure: Yes Nausea / Vomiting: adequately controlled Pain: adequately controlled Airway Patency, RR, SpO2: stable & adequate BP & HR: stable & adequate Hydration State: stable & adequate Neuraxial Anesthesia: was administered and sensory block is resolving Anesthetic Complications: no major complications apparent and Pt Satisfied with anesthetic care
[2020-05-24] MEDS ORDERED: METOCLOPRAMIDE HCL INJ 5 MG/ML 2 ML VIAL IV PRN (17:02)
[2020-05-24] MEDS ORDERED: NALOXONE HCL 0.4 MG/1 ML VIAL/CARP IV PRN (17:02)
[2020-05-24] MEDS ORDERED: HYDROmorphone INJ 0.5 MG/0.5 ML SYR IV PRN (17:02)
[2020-05-24] MEDS ORDERED: MAGNESIUM HYDROXIDE SUSP 30 ML UDC PO PRN (17:02)
[2020-05-24] MEDS ORDERED: bisacodyL 10 MG SUPP PR PRN (17:02)
[2020-05-24] MEDS: SODIUM CHLORIDE 0.9% 1000ML 1,000 ML IV SCH (17:59)
[2020-05-24] MEDS: CEFAZOLIN 2000MG 2,000 MG/15 ML SYR IV SCH (18:52)
[2020-05-24] MEDS: KETOROLAC TROMETHAMINE 15 MG/ML VIAL IV SCH ×2 (18:53→23:17)
[2020-05-24] MEDS ORDERED: ATENOLOL 50 MG TABLET PO SCH ×2 (19:00→21:00)
--- NOTE | 2020-05-24 19:50 | Orthopedic Progress Note ---
Date of Service May 24, 2020 Assessment & Plan (1) Failure of right total hip arthroplasty with dislocation of hip: Status post revision right total hip arthroplasty, constrained head and liner -Ancef x24 DVT prophylaxis: SCDs, teds, ASA twice daily Weight-bear as tolerated right lower extremity Posterior hip precautions Postoperative x-ray demonstrates a well aligned well fixed prosthesis without evidence of fracture or dislocation A.m. labs Discharge planning Admission and Anticipated Discharge Date Admission Date: May 24, 2020 Subjective Post Operative Progress Note Patient seen sitting up in bed, comfortable, denies complaints, pain well controlled, no acute issues. Review of Systems Review of Systems: All systems reviewed & are unremarkable except as noted in HPI & below Constitutional: as per Subjective / HPI Physical Exam Physical Exam: RLE NVSI +EHL/FHL/TA/GS SILT grossly, +2 DP pulse, compartments soft NT, dressing cdi. Constitutional: WD/WN, vitals as above Results & Data ([facility]) Vital Signs (Past 12 Hours) Vital Signs Temp Pulse Pulse Pulse Resp BP Pulse Ox 05/24/20 18:48 36.3 C L 65 16 158/79 H 100 05/24/20 17:51 36.3 C L 65 18 176/77 H 100 05/24/20 17:15 36.2 C L 65 16 180/82 H 2 L 05/24/20 16:45 36.6 C 65 16 161/77 H 05/24/20 16:35 36.8 C 65 17 135/70 99 05/24/20 16:25 36.8 C 63 15 146/71 H 98 05/24/20 16:15 36.8 C 66 16 146/79 H 99 05/24/20 16:05 66 20 144/71 H 100 05/24/20 15:55 71 15 153/80 H 100 05/24/20 15:48 36.5 C 67 14 137/72 100 05/24/20 13:01 37.1 C 05/24/20 12:53 65 20 152/74 H 98 05/24/20 12:01 36.5 C 68 20 168/76 H 99
[2020-05-24] MEDS: DOCUSATE SODIUM 100 MG CAP PO SCH (20:23)
[2020-05-24] MEDS: OXYCODONE HCL IR 5 MG TAB (IMMEDIATE RELEASE) PO PRN (20:30)
[2020-05-24] MEDS ORDERED: CeleBREX 200 MG CAP PO SCH (21:00)
[2020-05-24] MEDS ORDERED: SENNA 8.6 MG TAB PO SCH (21:00)
[2020-05-24] MEDS: ACETAMINOPHEN 500 MG TAB PO SCH (21:54)
[2020-05-25] MEDS: CEFAZOLIN 2000MG 2,000 MG/15 ML SYR IV SCH (01:28)
[2020-05-25] MEDS: SODIUM CHLORIDE 0.9% 1000ML 1,000 ML IV SCH (03:12)
[2020-05-25] MEDS: ACETAMINOPHEN 500 MG TAB PO SCH ×2 (05:40→13:36)
[2020-05-25] MEDS: KETOROLAC TROMETHAMINE 15 MG/ML VIAL IV SCH ×2 (05:41→11:37)
[2020-05-25 06:08] LABS: Eosinophils # (auto) 0.01 K/uL (0-0.5); Eosinophils % (auto) 0.1 %; Hemoglobin 11.7 g/dL (14.0-18.0); Immature Granulocytes # (auto) 0.05 K/uL (0.00-0.02); Immature Granulocytes % (auto) 0.4 %; Lymphocytes # (auto) 0.65 K/uL (1.2-3.4); Lymphocytes % (auto) 4.9 %; Mean Corpuscular Hemoglobin 32.2 pg (25-34); Mean Corpuscular Hgb Conc 33.4 g/dL (32-36); Mean Corpuscular Volume 96.4 fL (80-100); Mean Platelet Volume 8.8 fL (7.4-10.4); Monocytes # (auto) 1.06 K/uL (0.11-0.59); Neutrophils # (auto) 11.46 K/uL (1.4-6.5); Neutrophils % (auto) 86.6 %; Platelet Count 388 K/uL (130-400); RDW Coefficient of Variation 12.3 % (11.5-14.5); RDW Standard Deviation 43.3 fL (36.4-46.3); Red Blood Count 3.63 M/uL (4.7-6.1); White Blood Count 13.23 K/uL (4.8-10.8)
[2020-05-25 06:41] LABS: BUN Creatinine Ratio 9.8 (10-20); Calcium 8.7 mg/dl (8.5-10.1); Creatinine Clr Calc Pharmacy 62.7 ml/min; Est GFR (African American) 65.3; Est GFR (Non-African American) 56.4; Potassium 3.1 mmol/L (3.5-5.1)
[2020-05-25] MEDS: OXYCODONE HCL IR 5 MG TAB (IMMEDIATE RELEASE) PO PRN (07:27)
[2020-05-25] MEDS: DOCUSATE SODIUM 100 MG CAP PO SCH (08:08)
--- NOTE | 2020-05-25 08:31 | Orthopedic Progress Note ---
Date of Service May 25, 2020 Assessment & Plan (1) Failure of right total hip arthroplasty with dislocation of hip: Status post revision right total hip arthroplasty, constrained head and liner POD#1 -Ancef x24 DVT prophylaxis: SCDs, teds, ASA twice daily Weight-bear as tolerated right lower extremity Posterior hip precautions Postoperative x-ray demonstrates a well aligned well fixed prosthesis without evidence of fracture or dislocation A.m. labs - as above, hgb 11.7 Discharge planning - home with Admission and Anticipated Discharge Date Admission Date: May 24, 2020 Subjective Post Operative Progress Note Patient seen sitting up in bed, comfortable, denies complaints, pain well controlled, no acute issues. Denies F/C/N/V/SOB/CP. Review of Systems Review of Systems: All systems reviewed & are unremarkable except as noted in HPI & below Constitutional: as per Subjective / HPI Physical Exam Physical Exam: RLE NVSI +EHL/FHL/TA/GS SILT grossly, +2 DP pulse, compartments soft NT, dressing cdi. Constitutional: WD/WN, vitals as above Results & Data ([facility]) Vital Signs (Past 12 Hours) Vital Signs Temp Pulse Resp BP Pulse Ox 05/25/20 07:59 36.6 C 60 16 160/73 H 99 05/25/20 03:43 36.4 C L 73 20 152/67 H 100 05/24/20 22:56 36.3 C L 59 L 15 160/72 H 98 Laboratory Results 05/25/20 05/25/20 05/24/20 Range/Units 05:12 05:12 11:49 WBC 13.23 H (4.8-10.8) K/uL RBC 3.63 L (4.7-6.1) M/uL Hgb 11.7 L (14.0-18.0) g/dL Hct 35.0 L (42-52) % MCV 96.4 (80-100) fL MCH 32.2 (25-34) pg MCHC 33.4 (32-36) g/dL RDW Std Deviation 43.3 (36.4-46.3) fL RDW Coeff of Jamila 12.3 (11.5-14.5) % Plt Count 388 (130-400) K/uL MPV 8.8 (7.4-10.4) fL Immature Gran % (Auto) 0.4 % Neut % (Auto) 86.6 % Lymph % (Auto) 4.9 % Winston % (Auto) 8.0 % Eos % (Auto) 0.1 % Baso % (Auto) 0.0 % Neut # (Auto) 11.46 H (1.4-6.5) K/uL Lymph # (Auto) 0.65 L (1.2-3.4) K/uL Winston # (Auto) 1.06 H (0.11-0.59) K/uL Eos # (Auto) 0.01 (0-0.5) K/uL Baso # (Auto) 0.00 (0-0.2) K/uL Immature Gran # (Auto) 0.05 H (0.00-0.02) K/uL Sodium 127 L (136-145) mmol/L Potassium 3.1 L (3.5-5.1) mmol/L Chloride 88 L (98-107) mmol/L Carbon Dioxide 29 (21-32) mmol/L Anion Gap 10.0 (3-11) BUN 13 (7-18) mg/dl Creatinine 1.34 (0.6-1.4) mg/dl Est Cr Clr Drug Dosing 62.7 ml/min Est GFR ( Amer) 65.3 Est GFR (Non-Af Amer) 56.4 BUN/Creatinine Ratio 9.8 L (10-20) Glucose 135 H (70-99) mg/dl Calcium 8.7 (8.5-10.1) mg/dl Blood Type A Positive Antibody Screen NEGATIVE Crossmatch See Detail
[2020-05-25] MEDS ORDERED: MULTIVITAMIN TAB PO SCH (09:00)
[2020-05-25] MEDS ORDERED: THIAMINE HCL 100 MG TAB PO SCH (09:00)
[2020-05-25] MEDS ORDERED: NON-FORMULARY MEDICATION (Potassium Gluconate 595 MG) PO SCH (09:00)
[2020-05-25] MEDS ORDERED: ASPIRIN 325 MG ECTAB PO SCH (09:00)
--- NOTE | 2020-05-25 19:50 | Discharge Summary ---
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 Principle surgery performed 07/09/[address] Hodge. The patient has failed outpatient conservative treatments to this point which included physical therapy, home exercise program, NSAIDS and bracing. The patient's pain and limited function have progressed to the point where they severely hinder their activities of daily living and they no longer tolerate exercise programs. They are requesting to proceed with revision total hip replacement surgery. 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 Constitutional WD/WN, vitals as above Discharge Data Allergies Allergy/AdvReac Type Severity Reaction Status Date / Time No Known Allergies Allergy ` Verified 05/24/20 11:55 Consultations 05/25/20 08:00 Consult Case Management - Discharge Planning Routine Procedures Performed Operation Date: 05/24/20 13:10 Actual Procedures p Right Total Hip Revision Arthroplasty Head and Liner/Constrained(Right) - Jose Enrique Garza DO Ordered Studies 05/24/20 11:51 US - OR guided needle placemen Routine Hospital Course (1) Failure of right total hip arthroplasty with dislocation of hip: Hospital Course: On 05/24/20 the patient was taken to the operating room, adequate anesthesia administered and underwent a revision right total hip arthroplasty, constrained head and liner. The patient tolerated the procedure well and was taken to the PACU in stable condition. Post-operatively the patient was started on a DVT ppx medication and given appropriate IV antibiotics. Consults were placed to physical therapy, occupational therapy and case management. On POD#1, the patient did well overnight and their pain was well controlled. Labs were drawn and the Hgb was 11.7. The patient progressed well with PT. Dressings were changed at this time and the incision was clean, dry and intact. The patients hospital stay was relatively uneventful and they were deemed stable by the orthopedic team and consultants to be discharged home with on 05/25/20. Discharge Instructions: Upon discharge the patient may weight bear as tolerates through their operative extremity. They were instructed to keep the incision clean and dry at all times. The patient may shower but should not submerge the incision, avoid bathing, pools and hot tubes. The patient was given a script for pain medication and should take as instructed. The patient was given a script for DVT ppx 325mg ASA BID and should take as directed. The patient was instructed to not drive or travel for long distances until cleared to do so. If the patient develops any symptoms of fevers, chills, nausea, vomiting, increased redness, swelling, pain or drainage from the surgical site, they should notify the office and/or proceed to the nearest emergency room. The patient should follow up in 10-14 days after surgery for their routine post-operative follow-up appointment and should call the office to confirm the date and time. Status post revision right total hip arthroplasty, constrained head and liner POD#1 -Ancef x24 DVT prophylaxis: SCDs, teds, ASA twice daily Weight-bear as tolerated right lower extremity Posterior hip precautions Postoperative x-ray demonstrates a well aligned well fixed prosthesis without evidence of fracture or dislocation A.m. labs - as above, hgb 11.7 Discharge planning - home with Total Time Total Time Spent Total Time Spent (In Minutes): 30 Discharge Plan Discharge Items Patient Disposition: Home - Home Health Services Reason For Visit: Failed right total hip arthroplasty, instability Discharge Diagnosis: Revision right total hip replacement, constrained head and liner Condition on Discharge: Good Activity: Per Instructions section Lifting: Wait until after follow-up appointment Bathing: Keep incision dry Sexual Activity: Wait until after follow-up appointment Exercise/Sports: Wait until after follow-up appointment Driving/Machine Use: No driving Weightbearing: Full weightbearing Non-emergency contact: Primary Care Provider and Surgeon Call non-emergency contact if: you have any medication questions, your symptoms worsen, your pain is not controlled, your pain is worsening, your pain is unusual for you, your pain is concerning for you, you have a fever, your temperature is above 101, your wound has increased redness, your wound has increased drainage and your wound pain has increased Follow-up/Referrals: Jacoby Jefferson MD [Primary Care Provider] - Diet: Regular Addtl Attending Provider Instructions: ACTIVITY RECOMMENDATIONS: SELF CARE INSTRUCTIONS AFTER REVISION TOTAL HIP REPLACEMENT Until the incision and soft tissues around your hip have healed, there is a possibility that the hip prosthesis could dislocate. A. Observe the following precautions to prevent dislocation: 1. Don't bend your hip greater than 90 degrees. 2. Avoid crossing your legs or ankles while standing or lying. 3. Sit with your feet placed 6 inches apart. 4. When sitting, keep your knees below your hips. Sit on a firm surface, avoid deep, soft chairs and couches. Use an elevated toilet seat in the bathroom. 5. Don't bend over at the waist. Use a long handled shoehorn and a sock aid to help you put on your shoes and socks. A administrative analyst can help you vegetable picker objects that are too high or too low to reach. 6. Keep car riding to a minimum for at least one month after surgery. B. Your balance may be shaky for a while. Use crutches or a walker until directed by your doctor. C. Use hand rails when walking on stairs. D. Wear low heeled shoes with non-slip soles. E. Be sure that your floors are free of things that could trip you - throw rugs, electrical cords, small objects. Avoid wet and waxed floors, especially with crutches and canes. F. Try to walk several times a day with rest periods between. G. Continue with all the exercises taught to you in the hospital. Again, make walking a part of your daily routine. SPECIAL CARE INSTRUCTIONS: VERY IMPORTANT TO READ AND REVIEW A. You may still be at risk for phlebitis and blood clots. 1. Wear surgical stockings (JESUS hose) for 2 weeks after surgery to improve circulation and reduce swelling. 2. Take Aspirin 325mg twice daily for 4 weeks or as directed by your doctor. This is your blood thinner. 3. High risk patients may be prescribed a stronger blood thinner if necessary. 4. If you are on Coumadin normally, your family doctor/digital sales assistant should monitor your blood work. Expect a phone call the day of or the day after bloodwork is drawn to adjust your dosage. B. You must take antibiotics before having dental work, bladder, bowel and other surgery. Your doctor will provide you with a permanent card to carry describing precautions. C. Call [facility] if you have a fever, redness or swelling around the incision, cloudy drainage from incision, or sudden increase in pain in your hip, not relieved by your regular pain medication. D. Please call the office at if you have any concerns or questions about your operation or recovery. * YOU MAY SHOWER, NO TUB BATHS UNTIL CLEARED BY YOUR DOCTOR. * WEAR JESUS HOSE 20 HOURS PER DAY FOR 2 WEEKS. * YOU SHOULD USE A WALKER OR CRUTCHES FOR 2-4 WEEKS. THIS WILL HELP PREVENT STRAIN ON YOUR HIP MUSCLE AND ALLOW IT TO HEAL PROPERLY. YOU MAY WEAN TO A CANE TOLERATED. * MOST PATIENTS WILL HAVE HOME NURSING FOR THERAPY. IF YOU DECIDE TO DO OUTPATIENT PHYSICAL THERAPY, PLEASE SCHEDULE THIS 3 TIMES PER WEEK. * YOU MAY HAVE A LARGE, BAND-LUZMARIA LIKE DRESSING (SILVERON). THIS WILL REMAIN ON YOUR INCISION FOR 7 DAYS, THEN CAN BE REMOVED. IF INCISION IS LEAKING THROUGH DRESSING, PLEASE CALL THE OFFICE . FOLLOW UP VISIT: If appointment is not already scheduled: Please call [facility] to make a follow-up appointment for 2 weeks after your surgery at . Please follow up with your PCP within 1 week of discharge. Pending Studies at Discharge: No Stand-Alone Forms: My [facility] [employer], Smoking Cessation Medications and DC Order Prescriptions: New celecoxib [Celebrex] 200 mg Capsule 200 mg PO BID PRN (Reason: pain/inflammation) Qty: 28 RF: 0 acetaminophen 500 mg Tablet 1,000 mg PO Q8 PRN (Reason: pain/fevers) Qty: 90 RF: 0 aspirin [Ecotrin] 325 mg Tablet,Delayed Release (Dr/Ec) 325 mg PO BID Qty: 56 RF: 0 oxycodone 5 mg Tablet 5 mg PO Q6H MDD 4 PRN (Reason: pain) Qty: 30 RF: 0 sennosides [Senokot] 8.6 mg Tablet 17.2 mg PO HS PRN (Reason: constipation) Qty: 28 RF: 0 Continued potassium gluconate 595 mg (99 mg) Tablet 595 mg PO QAM RF: 0 atenolol 100 mg Tablet 100 mg PO HS RF: 0 multivitamin [Daily-Eric] Tablet 1 tab PO QAM Qty: 100 RF: 0 thiamine HCl (vitamin B1) [Vitamin B-1] 100 mg Tablet 100 mg PO QAM Qty: 10 RF: 0 Discontinued aspirin 325 mg tablet,delayed release (DR/EC) 325 mg PO BID PRN (Reason: Pain) RF: 0 ibuprofen 800 mg Tablet 800 mg PO QID PRN (Reason: Pain) RF: 0 acetaminophen 500 mg Tablet 1,000 mg PO Q8 PRN (Reason: pain and/or fevers) Qty: 90 RF: 0 Discharge Orders: Discharge Order (Routine); Ordered 05/25/20 Ordered By: Jose Enrique Garza Admission Data Admit Date/Time: 05/24/20 15:53 Attending Provider: Jose Enrique Garza Admit Provider: Jose Enrique Garza Primary Care Provider: Jacoby Jefferson Other Providers: [facility],Home Health Other Interventions: Discharge Summary Assessment (RN) Last Done: 05/25/20 13:33
[2020-05-25] MEDS ORDERED: CeleBREX 200 MG CAP PO SCH (21:00)
== END 2020-05-25 14:40 | disposition home health service (06) | DRG 468 ==
LOC: ASU 11:14 → 3E 15:53

== ENCOUNTER 2020-11-11 09:42 | Observation (INO) ==
[2020-11-11] MEDS ORDERED: MIDAZOLAM HCL 5 MG/ML 1 ML VIAL ONE ×2 (11:02→12:42)
[2020-11-11] MEDS ORDERED: HEPARIN (PORCINE) 1000 UNIT/ML 10 ML (CATH LAB USE ONLY) ONE ×2 (11:02→13:23)
[2020-11-11] MEDS ORDERED: fentaNYL citrate 100 MCG/2 ML VIAL ONE ×3 (11:02→14:07)
[2020-11-11] MEDS ORDERED: NITROGLYCERIN/D5W 100MCG/ML 20ML SYR ONE (11:03)
--- NOTE | 2020-11-11 11:12 | Pre Anesthesia Assessment ---
Date of Service November 11, 2020 Pre Sedation Assessment Vital Signs Temp Pulse Resp BP Pulse Ox 11/11/20 10:04 36.8 C 60 18 177/81 H 100 Cardiovascular RRR, no murmur, no edema Respiratory normal respiratory effort, lungs clear to auscultation Pre-Sedation Airway Assessment Smoking Status: Former smoker Hx Sleep Apnea: No Hx Difficult Intubation: No Short, Thick Neck: No Thyromental Distance: > or= 3.5 Finger Breadths Oral Cavity: + WNL Mallampati Class: II ASA: ASA2 NPO Status Date of Last Intake of Fluids: 11/11/20 Time of Last Intake of Fluids: 06:00 Date of Last Intake of Solid Food: 11/10/20 Time of Last Intake of Solid Foods: 18:00 Procedure Planning Contraindications for Sedation: none Current Medications Reviewed: Yes Notes The planned sedation has been discussed with the patient. Informed Consent was obtained. I have identified the patient, determined the appropriateness of sedation and have assessed the patient immediately prior to the procedure. All medicine(s) and interventions are by my order.
--- NOTE | 2020-11-11 11:12 | History & Physical Bridge Note ---
Date of Service November 11, 2020 History & Physical Bridge Note I have examined the patient, reviewed the History & Physical and in the interval since the performance of the History & Physical I have noted the following changes of clinical significance: no changes noted
[2020-11-11] MEDS ORDERED: CLOPIDOGREL BISULFATE 300 MG TAB ONE (14:12)
[2020-11-11] MEDS ORDERED: hydrALAZINE HCL 20 MG/ML VIAL ONE (14:33)
[2020-11-11] MEDS ORDERED: HYDROCODONE/ACETAMOPHEN 5/325MG TAB PO PRN (16:14)
[2020-11-11] MEDS ORDERED: ACETAMINOPHEN 325 MG TAB PO PRN (16:17)
[2020-11-11] MEDS ORDERED: ONDANSETRON INJ 2 MG/ML 2 ML VIAL IV PRN (16:17)
[2020-11-11] MEDS ORDERED: SODIUM CHLORIDE 0.9% 1000ML 1,000 ML IV SCH (16:30)
[2020-11-11] MEDS: amLODIPine BESYLATE 5 MG TAB PO SCH (17:21)
--- NOTE | 2020-11-11 17:49 | Endovascular Procedure Note ---
PG Endovascular Procedure Rpt Pre & Post Diagnosis Peripheral arterial disease I identified the patient and participated in the time-out.: Yes Procedure Operation Date: 11/11/20 11:00 Actual Procedures p Angio Extremity Unilateral - MD wilberto Ag Tibial Peroneal Balloon - MD wilberto Ag Femoral Popliteal Balloon - MD wilbetro Ag Ultrasound Vascular Access - MD wilberto Ag Placement Art Occlusive Device - MD wilberto Ag SC Select Cath ALEP 3rd Order - Fernando Mayorga MD Surgeon Lion Mayorga MD Cross Roller Adriana Tilley Estimated Blood Loss 20 Findings See Below Aortadistal ascending aorta without significant aneurysmal or stenotic disease Right lower extremity Common iliac, external, internal iliac without significant disease SAMPLE PASTER heavily calcified with 50-60% diffuse disease. Profunda with mild diffuse disease SFA calcified mild diffuse disease up to 40% in the distal segment Popliteal calcified, 100% mid segment occlusion. Distal popliteal at bifurcation with KARI reconstitutes via collaterals. KARI widely patent to the foot. Peroneal patent to the ankle. HOUSEKEEPING ROOM ATTENDANT occluded proximally DPA patent to the toes. Collaterals partially fill HOUSEKEEPING ROOM ATTENDANT in the foot. Deep plantar arch occluded. Left lower extremity Common iliac, external, internal iliac calcified without significant disease SAMPLE PASTER heavily calcified with mild to moderate disease. Suitable for closure device. Anesthesia Type RN Sedation Radiation Exposure (mGv) Radiation (mGy): 477 Contrast Contrast: 135 Complications none Disposition Accompanied Patient To Recovery: Yes Disposition: Functional Analyst Holding Description of Procedure Left common femoral access obtained with micropuncture needle under ultrasound guidance, short 5Fr sheath placed Aortogram and right lower extremity proximal angiogram performed with RIM catheter Quick cross catheter placed to mid SFA to visualize distal extremity 6 Fr 65 cm destination sheath placed from left SAMPLE PASTER to right SFA Attempted to cross mid popliteal occlusion with V 18 wire and 0.18 support catheter but unable to cross calcified aspect of mid occlusion Right anterior tibial artery access obtained at the level of the ankle under ultrasound guidance with placement of 4 Fr sheath 014 command wire and 0.18 support catheter navigated through KARI to popliteal occlusion Eventually able to cross popliteal occlusion retrograde via V 18 wire V 18 wire directed into angled glide catheter and SFA and externalized through left SAMPLE PASTER sheath V18 exchanged for 0.14 command wire From antegrade direction 3.0 balloon used to dilate popliteal occlusion 4.0 x 120 mm Lutonix drug-eluting balloon used to treat KARI ostial disease and popliteal artery Moderate residual stenosis and proximal popliteal redilated with 5.0 balloon Post angioplasty, popliteal well-expanded with no flow-limiting dissection. Had brisk single-vessel runoff via KARI to foot. Pulsatile waveforms via KARI sheath with systolic pressures in the mid 70s. Contrast used: 135 Access closure: Star close Summary: 1. Right lower [id number] to 60% heavily calcified SAMPLE PASTER, mild diffuse SFA disease, 100% mid popliteal occlusion with reconstitution via collaterals at takeoff of KARI. Occluded HOUSEKEEPING ROOM ATTENDANT. KARI widely patent into the foot with direct flow to ulcer bed. 2. Left lower extremitywidely patent iliacs, heavily calcified SAMPLE PASTER with mild to moderate disease 3. Successful angioplasty of occluded popliteal into anterior tibial artery with 4.0 x 120 mm Lutonix drug-eluting balloon. Proximal popliteal post-dilated with 5.0 compliant balloon. Recommendations: Continue DAPT with ASA/Clopidogrel for 1 months Transition to PAD dose to Xarelto 2.5 mg BID on follow-up Follow-up non-invasive vascular testing 2-3 weeks. I attest to the content of the Intraoperative Record and any orders documented therein. Any exceptions are noted below. Vascular Charges Angiography/Venography Procedure 1: Angiography/Venography charges: [id number] Initial 3rd order or selective abd, pelvic, or LE branch Procedure 2: Angiography/Venography charges: [id number] Aortography, abd + b/l iliofem LE, catheter, radiological S&I Lower Extremity Interventions Procedure 1: Lower Extremity Intervention charges: [id number] Angioplasty, femoral, popliteal artery(s), unilateral Procedure 2: Lower Extremity Intervention charges: [id number] Angioplasty, tibial, peroneal artery, unilateral, initial vessel Additional Services Procedure 1: Additional Services Charges: 69262 Ultrasound guidance - vascular access Procedure 2: Additional Services Charges: 53052 Ultrasound guidance - vascular access Procedure 3: Additional Services Charges: 14211 Moderate sedation initial 15 min Procedure 4: Additional Services Charges: 32341 Moderate sedation, each additional 15 min
[2020-11-11] MEDS: GABAPENTIN 400 MG CAP PO SCH (20:28)
[2020-11-11] MEDS ORDERED: ATENOLOL 50 MG TABLET PO SCH (21:00)
[2020-11-11] MEDS ORDERED: ATORVASTATIN 40 MG TAB PO SCH (21:00)
[2020-11-12] MEDS ORDERED: ASPIRIN 81 MG ECTAB PO SCH (09:00)
[2020-11-12] MEDS ORDERED: VITAMIN B COMPLEX TAB PO SCH (09:00)
[2020-11-12] MEDS ORDERED: CALCIUM 600MG + VIT D 400 IU TAB PO SCH (09:00)
[2020-11-12] MEDS ORDERED: MULTIVITAMIN TAB PO SCH (09:00)
[2020-11-12] MEDS ORDERED: CLOPIDOGREL BISULFATE 75 MG TAB PO SCH (09:00)
[2020-11-12] MEDS: amLODIPine BESYLATE 5 MG TAB PO SCH (09:38)
[2020-11-12] MEDS: GABAPENTIN 400 MG CAP PO SCH (09:38)
[2020-11-12] MEDS ORDERED: ENOXAPARIN INJ 30 MG/0.3 ML SYR SQ SCH (12:00)
--- NOTE | 2020-11-12 14:36 | Discharge Summary ---
Date of Service November 12, 2020 Admission HPI Per Admitting Provider Mr. Richmond Rosenberg is a-year-old man referred by the wound clinic lower extremity ulceration in the setting of PAD. Prior medical history remarkable for hypertension, dyslipidemia, osteoarthritis post bilateral hip replacement. Former smoker, quit 12 years ago, [id number] history. No prior vascular interventions. Reports progressive, intermittent pain in his right foot over the last year. Describes symptoms worse when he lies flat sometimes making it difficult for him to sleep. Has been associated with swelling since the summer. Reports first noted skin breakdown about 3 months ago. Initially diagnosed and treated for gout. More recently has been treated at the [facility] wound care center starting 10/31/2020 in the setting of right second toe ulceration. Wound culture growing MRSA, currently on Bactrim. Plain film suggestive of osteomyelitis involving second metatarsal head. Recent vascular testing: Arterial duplex 10/26/2020: Right PATSY FITNESS SPECIALIST 0.59 (DP 0.71), left PATSY 1.09. Short mid to distal popliteal occlusion. Severe right HAND SPRING REPAIRER stenosis, occluded FITNESS SPECIALIST with distal reconstitution Discharge Data Procedures Performed Operation Date: 11/11/20 11:00 Actual Procedures p Angio Extremity Unilateral - Fernando Mayorga MD s Tibial Peroneal Balloon - Fernando Mayorga MD s Femoral Popliteal Balloon - Fernando Mayorga MD s Ultrasound Vascular Access - Fernando Mayorga MD s Placement Art Occlusive Device - Fernando Mayorga MD s SC Select Cath ALEP 3rd Order - Fernando Mayorga MD Hospital Course (1) Peripheral arterial disease: Patient underwent right lower extremity angiography and endovascular intervention 11/11/2020: 1. Right lower [id number] to 60% heavily calcified HAND SPRING REPAIRER, mild diffuse SFA disease, 100% mid popliteal occlusion with reconstitution via collaterals at takeoff of KARI. Occluded FITNESS SPECIALIST. KARI widely patent into the foot with direct flow to ulcer bed. 2. Left lower extremitywidely patent iliacs, heavily calcified HAND SPRING REPAIRER with mild to moderate disease 3. Successful angioplasty of occluded popliteal into anterior tibial artery with 4.0 x 120 mm Lutonix drug-eluting balloon. Proximal popliteal post-dilated with 5.0 compliant balloon. Post procedure admitted for observation. Noted to have palpable popliteal, anterior tibial pulse. No apparent left HAND SPRING REPAIRER access site complications. Initially hypertensive overnight but blood pressures improved on home antihypert ensive regimen. Discharged to home on hospital day 2. Plan to continue DAPT with aspirin, clopidogrel for least 1 month. Likely transition to PAD Xarelto at that time. Scheduled follow-up with wound clinic on Saturday. Follow-up with me with repeat noninvasive vascular testing in 1 to 2 weeks. Discharge Instructions Home Medications potassium gluconate 595 mg PO QAM 02/10/20 [History Confirmed 11/11/20] atenolol 100 mg PO HS 02/16/20 [History Confirmed 11/11/20] multivitamin [Daily-Eric] 1 tab PO QAM #100 tab 02/18/20 [Rx Confirmed 11/11/20] amlodipine 5 mg tablet 5 mg PO DAILY #90 tab 10/19/20 [Rx Confirmed 11/11/20] gabapentin 400 mg capsule 400 mg PO TID 10/19/20 [History Confirmed 11/11/20] vitamin B complex 1 tab PO DAILY 10/19/20 [History Confirmed 11/11/20] aspirin 81 mg tablet,delayed release 81 mg PO DAILY #30 tab 10/28/20 [Rx Confirmed 11/11/20] atorvastatin 40 mg tablet 40 mg PO QPM #30 tab 10/28/20 [Rx Confirmed 11/11/20] calcium carb-vit D3-minerals 600 mg calcium-400 unit tablet 1 tab PO DAILY tab 10/31/20 [History Confirmed 11/11/20] hydrocodone 5 mg-acetaminophen 325 mg tablet 1 tab PO Q8H PRN #30 tab 11/01/20 [Rx Confirmed 11/11/20] clopidogrel 75 mg PO QAM #30 tab 11/12/20 [Rx] Coding Level of Care Code 65998 OBS Care - Discharge Diagnoses Peripheral arterial disease I73.9
== END 2020-11-12 13:31 | disposition home or self-care (01) ==
LOC: 2S 09:42 → CC 09:42 → 2S 11-12 07:48
PROC: CLB.AEU (2020-11-11 11:00)

== ENCOUNTER 2020-12-14 08:42 | Inpatient (IN) ==
--- NOTE | 2020-12-07 16:12 | PAT Medication Instructions ---
Medication Instructions Date of Service December 07, 2020 Home Medications Medication Instructions Recorded clopidogrel 75 mg PO QAM #30 tab 11/12/20 hydrocodone 5 mg-acetaminophen 325 1 tab PO DAILY PRN 30 Days #30 tab 11/16/20 mg tablet potassium gluconate 595 mg PO QPM atenolol 100 mg PO HS gabapentin 400 mg capsule 400 mg PO TID vitamin B complex 1 tab PO QPM calcium carb-vit D3-minerals 600 mg calcium-400 unit tablet 1 tab PO QDL clopidogrel 75 mg PO QAM hydrocodone 5 mg-acetaminophen 325 mg tablet 1 tab PO DAILY PRN amlodipine 5 mg PO QAM aspirin [Aspirin Low Dose] 81 mg PO QDL atorvastatin 40 mg PO HS doxycycline hyclate 100 mg PO BID multivitamin [Daily-Eric] 1 tab PO QPM ASK your surgeon for instructions clopidogrel 75 mg PO QAM aspirin [Aspirin Low Dose] 81 mg PO QDL Take morning of surgery With a small sip of water, OTHERWISE NOTHING TO EAT OR DRINK AFTER MIDNIGHT: gabapentin 400 mg capsule 400 mg PO TID hydrocodone 5 mg-acetaminophen 325 mg tablet 1 tab PO DAILY PRN (if needed, may be taken up to four hours before surgery) amlodipine 5 mg PO QAM Take evening before surgery potassium gluconate 595 mg PO QPM atenolol 100 mg PO HS gabapentin 400 mg capsule 400 mg PO TID vitamin B complex 1 tab PO QPM calcium carb-vit D3-minerals 600 mg calcium-400 unit tablet 1 tab PO QDL hydrocodone 5 mg-acetaminophen 325 mg tablet 1 tab PO DAILY PRN (if needed) atorvastatin 40 mg PO HS doxycycline hyclate 100 mg PO BID multivitamin [Daily-Eric] 1 tab PO QPM Other Notes If you have any questions please call us at [phone] or [phone] or [phone] or [phone]
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
--- NOTE | 2020-12-09 15:14 | XRay Report ---
XR chest Pre-admission PA/Lat HISTORY: Preop. COMPARISON: 02/16/2020. FINDINGS: There is again noted a right-sided aortic arch. The heart is normal in size. No pleural eff usions. No pneumothorax. The lungs are clear. Mild degenerative disc disease within the thoracic spin e with minimal anterior wedging at the mid thoracic spine. This remains unchanged. IMPRESSION: No significant change compared to the prior study. No acute process. A right-sided aortic arch is aga in noted. ACT 112: Negative or not required by law. Electronically signed by: Nilton Del Toro M.D. 12/09/2020 3:12 PM
[2020-12-09 15:15] LABS: Basophils # (auto) 0.04 K/uL (0-0.2); Basophils % (auto) 0.6 %; Eosinophils # (auto) 0.16 K/uL (0-0.5); Eosinophils % (auto) 2.3 %; Hematocrit (blood only) 34.7 % (42-52); Hemoglobin 12.4 g/dL (14.0-18.0); Immature Granulocytes # (auto) 0.01 K/uL (0.00-0.02); Immature Granulocytes % (auto) 0.1 %; Lymphocytes % (auto) 14.6 %; Mean Corpuscular Hemoglobin 35.2 pg (25-34); Mean Corpuscular Hgb Conc 35.7 g/dL (32-36); Mean Corpuscular Volume 98.6 fL (80-100); Monocytes # (auto) 1.11 K/uL (0.11-0.59); Monocytes % (auto) 16.2 %; Neutrophils # (auto) 4.52 K/uL (1.4-6.5); Neutrophils % (auto) 66.2 %; Platelet Count 331 K/uL (130-400); RDW Standard Deviation 46.7 fL (36.4-46.3); Red Blood Count 3.52 M/uL (4.7-6.1); White Blood Count 6.84 K/uL (4.8-10.8)
[2020-12-09 15:24] LABS: BUN Creatinine Ratio 10.5 (10-20); Calcium 9.5 mg/dl (8.5-10.1); Creatinine Clr Calc Pharmacy 81.4 ml/min; Est GFR (African American) 90.2; Est GFR (Non-African American) 77.9; Potassium 3.9 mmol/L (3.5-5.1)
[2020-12-09 15:33] LABS: INR 1.1 (0.9-1.1); Partial Thromboplastin Ratio 1.1; Partial Thromboplastin Time 28.1 Seconds (21.0-31.0)
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
[~2020-12-14 08:42] MED LIST changes: -ACETAMINOPHEN 500 MG TAB PO SCH; -BUPIVACAINE 0.5 % 5 MG/1 ML PF 10ML VIAL ONE; +CEFAZOLIN 2,000 MG/15 ML SYR IV SCH; -CEFAZOLIN 2000MG 2,000 MG/15 ML SYR IV SCH; -CeleBREX 200 MG CAP PO SCH; -FAMOTIDINE 20 MG TAB PO SCH; -GABAPENTIN 600 MG DOSE PO SCH; +LACTATED RINGER'S 1,000 ML IV SCH; -LR 500ML BOLUS, THEN 15ML/HR IV SCH; -METOCLOPRAMIDE HCL 10 MG TABLET PO SCH; -ROPIVACAINE 0.5% HCL/PF 150 MG, BUPIVACAINE 0.5% MPF 30 ML, EPINEPHrine 30MG/30ML (OR U... INSTIL SCH; -TRANEXAMIC ACID 1,000 MG **IV Intra-op IV SCH; -TRANEXAMIC ACID 1,000 MG **IV Pre-op IV SCH; -dexAMETHasone 4 MG TAB PO SCH
--- NOTE | 2020-12-14 09:00 | History & Physical Bridge Note ---
Date of Service December 14, 2020 History & Physical Bridge Note I have examined the patient, reviewed the History & Physical and in the interval since the performance of the History & Physical I have noted the following changes of clinical significance: no changes noted
[2020-12-14] MEDS ORDERED: ONDANSETRON INJ 2 MG/ML 2 ML VIAL IV PRN ×2 (09:41→15:10)
[2020-12-14] MEDS ORDERED: ePHEDrine sulfate 50 MG/ML AMP IV PRN (09:41)
[2020-12-14] MEDS ORDERED: ATROPINE SULFATE 0.1 MG/ML 10ML SYR IV PRN (09:41)
[2020-12-14] MEDS ORDERED: MIDAZOLAM HCL 1 MG/ML 2ML VIAL ONE ×2 (10:42→12:25)
[2020-12-14] MEDS ORDERED: LIDOCAINE HCL 2% 2 ML VIAL/AMP(20MG/ML) INFIL ONE (10:42)
[2020-12-14] MEDS ORDERED: fentaNYL citrate 100 MCG/2 ML VIAL ONE ×3 (10:42→14:28)
[2020-12-14] MEDS ORDERED: ONDANSETRON INJ 2 MG/ML 2 ML VIAL ONE (10:42)
[2020-12-14] MEDS ORDERED: PROPOFOL IV EMULSION 10 MG/ML 20 ML VIAL IV ONE ×2 (10:42→12:35)
[2020-12-14] MEDS ORDERED: HEPARIN (PORCINE) 1000 UNIT/ML 10 ML (CATH LAB USE ONLY) ONE (12:07)
[2020-12-14] MEDS ORDERED: BUPIVACAINE/EPINEPHRINE 0.5% MPF 1:200,000 30 ML VIAL ONE (12:07)
[2020-12-14] MEDS ORDERED: PAPAVERINE HCL INJ 30 MG/ML 2 ML VIAL ONE (12:07)
[2020-12-14] MEDS ORDERED: LIDOCAINE HCL 1% 20 ML VIAL ONE (12:07)
[2020-12-14] MEDS ORDERED: THROMBIN 5000 UNITS KIT ONE (12:08)
[2020-12-14] MEDS ORDERED: GELATIN SPONGE SZ 100 ONE (12:08)
[2020-12-14] MEDS ORDERED: THROMBIN FOR SOLN 20000 UNIT KIT ONE (12:09)
[2020-12-14] MEDS ORDERED: HEPARIN SOD (PORCINE) 1000 UNIT/ML ONE ×3 (12:17→14:02)
[2020-12-14] MEDS ORDERED: ROCURONIUM BROMIDE 10 MG/ML 5 ML VIAL IV ONE ×2 (12:17→12:51)
[2020-12-14] MEDS ORDERED: VISIPAQUE IV ONE (14:43)
[2020-12-14] MEDS ORDERED: NEOSTIGMINE METHYLSULFATE 5 MG/5 ML SYR ONE (15:08)
[2020-12-14] MEDS ORDERED: GLYCOPYRROLATE 0.2 MG/ML VIAL ONE (15:08)
[2020-12-14] MEDS ORDERED: MoRPHine SULFATE 4 MG/ML 1 ML CARP\\VIAL IV PRN (15:10)
[2020-12-14] MEDS ORDERED: SURGICEL ABSORB HEMOSTAT 2IN X 14IN TOP ONE (15:13)
--- NOTE | 2020-12-14 15:18 | Post Operative Brief Note ---
Immediate Post Op Note v1 Date of Surgery December 14, 2020 Pre & Post Diagnosis Operation Date: 12/14/20 10:30 Pre-Op Diagnosis: Right Common Femoral Artery Stenosis with Non Healing Ulcer Post-Op Diagnosis: Right Common Femoral Artery Stenosis with Non Healing Ulcer I identified the patient and participated in the time-out.: Yes Procedure Operation Date: 12/14/20 10:30 Actual Procedures p Right Common Femoral Artery Endarterectomy(Right) - Sachin Valencia MD s Right Lower Extremity Angiogram(Right) - Sachin Valencia MD Surgeon Sachin Valencia MD Back Facer MD Karol LIvetteMinarchemperatriz,PAC Estimated Blood Loss 50 Findings Consistent with Post-Op Diagnosis Drains Story Catheter Anesthesia Type General Complications none Disposition Accompanied Patient To Recovery: No Disposition: Recovery Room
--- NOTE | 2020-12-14 15:33 | Procedure Note ---
Angiogram Post Procedure Fluoroscopy Time (minutes): 0.1 Radiation (mGy): 0 Contrast: 8cc Post Operative Report Pre & Post Diagnosis Operation Date: 12/14/20 10:30 Pre-Op Diagnosis: Right Common Femoral Artery Stenosis Post-Op Diagnosis: Right Common Femoral Artery Stenosis with Non Healing Ulcer I identified the patient and participated in the time-out.: Yes Procedure Operation Date: 12/14/20 10:30 Actual Procedures p Right Common Femoral Artery Endarterectomy(Right) - Sachin Valencia MD s Right Lower Extremity Angiogram(Right) - Sachin Valencia MD Surgeon Sachin Valencia MD Lead Sales Consultant MD Kavya [facility],PAC Estimated Blood Loss 50 Findings See Below Specimens Right common femoral endarterectomy plaque sent for pathology. Right groin lymph nodes also sent for pathology. Anesthesia Type General Complications none Disposition Accompanied Patient To Recovery: No Disposition: Recovery Room Indications This is a 65-year-old male with history of critical limb ischemia with non- healing wounds of the right foot. He presents for right femoral endarterectomy and right lower extremity angiography. Description of Procedure The patient was taken to the operating suite. The patient's name and surgical procedure were verified. The patient was transferred to the operating room table and placed in the supine position. He was placed under general anesthesia by our anesthesia colleagues. His bilateral groins were prepped and draped in the usual sterile fashion. A team timeout was performed, including confirmation of the patient's identity, surgical procedure, and surgical site. A longitudinal incision was made in the right groin over the right common femoral artery. The common femoral artery was dissected out and controlled with vessel loops. The proximal superficial femoral artery and proximal profunda femoris arteries were dissected out and controlled with vessel loops. During the dissection, several large, matted lymph nodes were encountered. We carefully dissected around these and tied off the surrounding tissue as we were dissecting around these areas in order to help prevent lymph leak. We did send one mat of lymph nodes (2-3 lymph nodes which were densely adhesed) for pathology. The common femoral artery was dissected throughout its length as there was dense calcific plaque present along its length. We ultimately had to free up the distal external iliac artery for an area that was adequate for clamping. For this, we dissected under and retracted the inguinal ligament, but we did not divide the inguinal ligament. The patient was heparinized. The distal external iliac artery, superficial femoral artery, and profunda femoris arteries were closed with vascular clamps. Sidebranches were closed off with the aid of vessel loops. An 11-blade was used to create an arteriotomy in the anterior aspect of the common femoral artery. This was extended proximally and distally using Rod scissors, such that the arteriotomy extended the entire length of the common femoral artery and into the proximal first few centimeters of the superficial femoral artery. Endarterectomy was performed along the length of the opened artery. In the superficial femoral artery we did get to a point past the dense calcifications at the origin of the vessel, but there was no nice feathering endpoint so the endarterectomy plaque was incised transversely at its distal endpoint. This was fixed in place with several 7-0 prolene sutures. We did remove the calcific plaque that we could reach in the proximal profunda from our arteriotomy. Along the remaining surface of the endarterectomized artery we removed the debris that was loose. A 9x2cm bovine pericardial patch was trimmed down a bit in terms of width. This was sewn into place over our arteriotomy with 6-0 prolene suture. Prior to completion of our anastomosis all clamped vessels were flushed and the vessel was flushed with heparinized saline. After the anastomosis was completed, a few 7-0 prolene repair sutures were repaired, and our patch was hemostatic. Using a micropuncture needle we then accessed the mid-portion of the patch. A mandrel wire was advanced through the needle, then a micropuncture sheath was placed. Using hand injection the patient's above and below knee popliteal artery were examined with arteriography. This was the area of the patient's prior endovascular interventions. The popliteal artery was patent through its length. A 6-0 prolene was used to repair our access site in the patch. Hemostasis was obtained and the wound was closed with 2-0 vicryl for the femoral sheath, 3-0 vicryl for the dermis, and 4-0 vicryl for the subcuticular layer. Surgical glue was applied over the incision. At the conclusion of the case, all instrument, sponge, and needle counts were correct. The patient tolerated the procedure without immediate complication and was taken to the recovery room in satisfactory condition. Dr. Valencia was present and scrubbed for the entire procedure. I attest to the content of the Intraoperative Record and any orders documented therein. Any exceptions are noted below.
[2020-12-14 16:21] LABS: Basophils # (auto) 0.03 K/uL (0-0.2); Basophils % (auto) 0.4 %; Eosinophils # (auto) 0.16 K/uL (0-0.5); Eosinophils % (auto) 2.2 %; Hemoglobin 10.1 g/dL (14.0-18.0); Immature Granulocytes # (auto) 0.01 K/uL (0.00-0.02); Immature Granulocytes % (auto) 0.1 %; Lymphocytes # (auto) 0.83 K/uL (1.2-3.4); Lymphocytes % (auto) 11.4 %; Mean Corpuscular Hemoglobin 34.5 pg (25-34); Mean Platelet Volume 8.6 fL (7.4-10.4); Monocytes # (auto) 0.93 K/uL (0.11-0.59); Monocytes % (auto) 12.8 %; Neutrophils # (auto) 5.33 K/uL (1.4-6.5); Neutrophils % (auto) 73.1 %; Platelet Count 248 K/uL (130-400); RDW Coefficient of Variation 13.3 % (11.5-14.5); RDW Standard Deviation 47.8 fL (36.4-46.3); Red Blood Count 2.93 M/uL (4.7-6.1); White Blood Count 7.29 K/uL (4.8-10.8)
[2020-12-14] MEDS: fentaNYL citrate 100 MCG/2 ML VIAL IV PRN ×2 (16:23→16:31)
--- NOTE | 2020-12-14 16:59 | Anesthesiology Progress Note ---
Date of Service December 14, 2020 Anesthesia Post Procedure Vital Signs Vital Signs: Temp Pulse Pulse Resp BP Pulse Ox 12/14/20 16:50 63 15 133/57 L 100 12/14/20 16:40 36.2 C L 69 18 119/52 L 100 12/14/20 16:30 67 15 125/55 L 100 12/14/20 16:20 69 15 130/62 95 12/14/20 16:10 72 12 123/63 95 12/14/20 16:00 69 12 128/78 100 12/14/20 15:51 36.1 C L 75 15 151/66 H 100 12/14/20 09:26 37 C 73 20 153/69 H 99 Pain Intensity Right Foot: Pain Intensity: 5 Right Groin: Pain Intensity: 4 Transfer of Care Handoff Completed per policy Notes Mental Status: alert / awake / arousable Patient Amnestic to Procedure: Yes Nausea / Vomiting: adequately controlled Pain: adequately controlled Airway Patency, RR, SpO2: stable & adequate BP & HR: stable & adequate Hydration State: stable & adequate Anesthetic Complications: no major complications apparent and see Notes below Notes: iv site was noted to be infiltrated on induction. some induction medications had been pushed thru the infiltrated IV. a warm compressed had been placed on the arm and there was no erythema, swelling, or distal perfusion issues noted in pacu.
[2020-12-14 17:55] LABS: Mean Corpuscular Hgb Conc 34.8 g/dL (32-36)
[2020-12-14] MEDS: D5W AND 1/2NSS 1,000 ML IV SCH (18:29)
[2020-12-14] MEDS: oxyCODONE/ACETAMINOPHEN 5mg/325mg TAB PO PRN (20:50)
[2020-12-14] MEDS: GABAPENTIN 400 MG CAP PO SCH (20:51)
[2020-12-14] MEDS: DOXYCYCLINE HYCLATE 100 MG CAP PO SCH (20:51)
[2020-12-14] MEDS ORDERED: ATORVASTATIN 40 MG TAB PO SCH (21:00)
[2020-12-14] MEDS ORDERED: MULTIVITAMIN TAB PO SCH (21:00)
[2020-12-14] MEDS ORDERED: ATENOLOL 50 MG TABLET PO SCH (21:00)
[2020-12-14] MEDS ORDERED: NON-FORMULARY MEDICATION (Potassium Gluconate 595 mg (99 mg) Tablet) PO SCH (21:00)
[2020-12-14] MEDS ORDERED: VITAMIN B COMPLEX TAB PO SCH (21:00)
[2020-12-14] MEDS: ceFAZolin 1000MG 1,000 MG/7.5 ML SYR IV SCH (23:38)
[2020-12-15] MEDS: D5W AND 1/2NSS 1,000 ML IV SCH ×2 (02:37→10:31)
[2020-12-15] MEDS: oxyCODONE/ACETAMINOPHEN 5mg/325mg TAB PO PRN ×3 (02:38→14:39)
[2020-12-15] MEDS: ceFAZolin 1000MG 1,000 MG/7.5 ML SYR IV SCH (06:01)
[2020-12-15] MEDS ORDERED: ENOXAPARIN INJ 30 MG/0.3 ML SYR SQ SCH (08:00)
[2020-12-15 08:17] LABS: Basophils # (auto) 0.02 K/uL (0-0.2); Basophils % (auto) 0.3 %; Eosinophils # (auto) 0.47 K/uL (0-0.5); Hematocrit (blood only) 27.6 % (42-52); Hemoglobin 9.4 g/dL (14.0-18.0); Immature Granulocytes # (auto) 0.02 K/uL (0.00-0.02); Immature Granulocytes % (auto) 0.3 %; Lymphocytes # (auto) 0.59 K/uL (1.2-3.4); Lymphocytes % (auto) 8.8 %; Mean Corpuscular Hemoglobin 34.3 pg (25-34); Mean Corpuscular Hgb Conc 34.1 g/dL (32-36); Mean Corpuscular Volume 100.7 fL (80-100); Mean Platelet Volume 9.2 fL (7.4-10.4); Monocytes # (auto) 0.91 K/uL (0.11-0.59); Monocytes % (auto) 13.6 %; Neutrophils # (auto) 4.69 K/uL (1.4-6.5); Platelet Count 246 K/uL (130-400); RDW Coefficient of Variation 13.5 % (11.5-14.5); RDW Standard Deviation 49.6 fL (36.4-46.3); Red Blood Count 2.74 M/uL (4.7-6.1)
[2020-12-15] MEDS: DOXYCYCLINE HYCLATE 100 MG CAP PO SCH (08:29)
[2020-12-15] MEDS: GABAPENTIN 400 MG CAP PO SCH ×2 (08:29→14:34)
--- NOTE | 2020-12-15 08:56 | Anesthesiology Progress Note ---
Date of Service December 15, 2020 Anesthesia Post Procedure Vital Signs Vital Signs: Temp Pulse Pulse Resp BP Pulse Ox 12/15/20 05:59 36.3 C L 58 L 16 122/75 99 12/15/20 02:36 36.3 C L 54 L 16 105/63 94 12/14/20 23:21 36.5 C 55 L 16 122/65 97 12/14/20 20:48 36.6 C 62 20 154/77 H 93 12/14/20 19:28 36.4 C L 63 18 148/77 H 100 12/14/20 18:25 36.5 C 59 L 16 145/74 H 94 12/14/20 17:55 36.5 C 66 18 134/74 98 12/14/20 17:38 36.8 C 64 18 116/67 98 12/14/20 16:50 63 15 133/57 L 100 12/14/20 16:40 36.2 C L 69 18 119/52 L 100 12/14/20 16:30 67 15 125/55 L 100 12/14/20 16:20 69 15 130/62 95 12/14/20 16:10 72 12 123/63 95 12/14/20 16:00 69 12 128/78 100 12/14/20 15:51 36.1 C L 75 15 151/66 H 100 12/14/20 09:26 37 C 73 20 153/69 H 99 Pain Intensity Right Foot: Pain Intensity: 3 Right Groin: Pain Intensity: 3 Notes Mental Status: alert / awake / arousable and participated in evaluation Patient Amnestic to Procedure: Yes Nausea / Vomiting: adequately controlled Pain: adequately controlled Airway Patency, RR, SpO2: stable & adequate BP & HR: stable & adequate Hydration State: stable & adequate Anesthetic Complications: no major complications apparent
[2020-12-15 08:58] LABS: Calcium 8.2 mg/dl (8.5-10.1); Est GFR (African American) 92.4; Est GFR (Non-African American) 79.7; Potassium 3.2 mmol/L (3.5-5.1)
[2020-12-15] MEDS ORDERED: CLOPIDOGREL BISULFATE 75 MG TAB PO SCH (09:00)
[2020-12-15] MEDS ORDERED: amLODIPine BESYLATE 5 MG TAB PO SCH (09:00)
[2020-12-15] MEDS ORDERED: CALCIUM 600MG + VIT D 400 IU TAB PO SCH (11:30)
[2020-12-15] MEDS ORDERED: ASPIRIN 81 MG ECTAB PO SCH (11:30)
--- NOTE | 2020-12-15 14:50 | Surgery Progress Note ---
Date of Service December 15, 2020 Assessment & Plan (1) Peripheral arterial disease: Patient POD #1 from a right femoral artery endarterectomy. Doing well. He is ready to go home from vascular standpoint. If voids, will d/c today. If has difficulty may place shetty with a leg bag and d/c with a urology follow up Admission and Anticipated Discharge Date Admission Date: December 14, 2020 Subjective Patient with no complaints other than difficulty urinating post catheter removal. Physical Exam Constitutional: WD/WN, vitals as above Cardiovascular: Extremities: normal capillary refill good distal flow in right lower extremity Skin: + incision (dry and clean) Results & Data ([facility]) Vital Signs (Past 12 Hours) Vital Signs Temp Pulse Resp BP Pulse Ox 12/15/20 05:59 36.3 C L 58 L 16 122/75 99
--- NOTE | 2020-12-16 09:04 | Discharge Summary ---
Date of Service December 16, 2020 Admission HPI Per Admitting Provider Chief Complaint Room 5 new pt for PAD right foot ulceration History of Present Illness I the pleasure of seeing Guero today for evaluation of his right lower extremity. 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 He was found to have a popliteal artery occlusion and significant stenosis of his right common femoral artery. The popliteal artery was treated with balloon angioplasty with good results. He was sent here for possible endarterectomies, femoral artery. He did smoke in the past but no longer. He does have hypertension. Review of Systems 10 systems were reviewed. Only positive findings are as as the history of present illness. He denies any claudication. He denies any symptoms of cerebrovascular insufficiency. Physical Exam Vitals & Measurements HR: 56 (Monitored) BP: 120/66 SpO2: 98% WT: 83 kg Input and Output - Last 24 hours (Last 8 hours) No I/O Data Found: On exam he is awake and alert and oriented x3. He is in no apparent distress. His lungs are clear and his heart is a regular rate and rhythm. M exam shows the radials carotids and supratemporal are 3+2 bilaterally. Abdominal exam benign. No abnormal dilatation is appreciated. Examination right lower extremity showed a weak femoral and popliteal pulse. The right foot and lower leg was reversed as well as left. There is a large amount exfoliating skin on both lower extremities on the feet. There is a nonacute healing ulceration between the first and second toe of the right lower extremity. Assessment/Plan 1. Femoral artery stenosis, right In view of the continued ulceration of the right lower extremity and the significant stenosis of the right common femoral artery, and endarterectomy of the right common femoral artery was recommended. Being that the artery will be opened at that time we also recommended we do an arteriogram of the right lower extremity to make sure no other intervention is needed at that time of his lower extremity arterial system. We will keep you informed as to his results. Thank you very much for letting us participate in the care of this patient. Sincerely, Ambrocio Valencia MD Problem List/Past Medical History Ongoing Femoral artery stenosis, right Historical No qualifying data Procedure/Surgical History Revision of hip arthroplasty (05/24/2020) Revision of total hip arthroplasty (01/2020) Total hip replacement (03/2014) Total replacement of right hip joint (06/2013) Repair of inguinal hernia Tonsillectomy Medications Inpatient No active inpatient medications Home acetaminophen-HYDROcodone 325 mg-5 mg oral tablet amLODIPine 5 mg oral tablet, 5 mg= 1 tab, PO, Daily aspirin 81 mg oral delayed release tablet, 81 mg= 1 tab, PO, Daily atenolol 100 mg oral tablet, 100 mg= 1 tab, PO, Daily atorvastatin 20 mg oral tablet, 20 mg= 1 tab, PO, qhs calcium (as carbonate)-vitamin D 600 mg-400 intl units (10 mcg) oral tablet, 1 tab, PO, Daily clopidogrel 75 mg oral tablet, 75 mg= 1 tab, PO, Daily doxycycline hyclate 100 mg oral capsule, 100 mg= 1 cap, PO, bid gabapentin 400 mg oral capsule, 400 mg= 1 cap, PO, tid multivitamin, 1 tab, PO, Daily potassium gluconate 595 mg (99 mg elemental potassium) oral tablet, See Instructions Vitamin D3 50,000 intl units (1250 mcg) oral capsule Allergies NKA Social History Smoking Status Former Smoker, quit > 1 yr Tobacco Former smoker Family History Breast cancer: Unknown. Cancer of colon: Unknown. Cancer of ovary: Unknown. Heart attack: Unknown. Prostate carcinoma: Unknown. 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 [place], [address] [place] [address] EJS Result Type: Physician Consult Date of Service: November 24, 2020 10:08 EST Authorization Status: Final Subject: Consult Note Author or Import Date: MD Valencia Eugene J on November 24, 2020 10:10 EST Verified By: MD Valencia Eugene J on November 24, 2020 10:10 EST Encounter info: [id number], [place] [address], Clinic, 11/24/2020 - 11/24/2020 Admission Exam Per Admitting Provider On exam he is awake and alert and oriented x3. He is in no apparent distress. His lungs are clear and his heart is a regular rate and rhythm. M exam shows the radials carotids and supratemporal are 3+2 bilaterally. Abdominal exam benign. No abnormal dilatation is appreciated. Examination right lower extremity showed a weak femoral and popliteal pulse. The right foot and lower leg was reversed as well as left. There is a large amount exfoliating skin on both lower extremities on the feet. There is a nonacute healing ulceration between the first and second toe of the right lower extremity. Principal Diagnosis 1. s/p R common femoral endarterectomy with bovine patch and RLE angio without intervention 2. RLE severe PAD with rest pain/ulcers Discharge Exam Constitutional WD/WN, vitals as above Respiratory normal respiratory effort Auscultation: lungs clear to auscultation bilaterally and + diminished lung sounds Cardiovascular Rate/Rhythm: regular rate and regular rhythm Extremities: normal capillary refill Skin + incision (dry and clean) Discharge Data Allergies Allergy/AdvReac Type Severity Reaction Status Date / Time No Known Drug Allergies Allergy Mild Verified 12/14/20 09:20 Procedures Performed Operation Date: 12/14/20 10:30 Actual Procedures p Right Common Femoral Artery Endarterectomy(Right) - Sachin Valencia MD s Right Lower Extremity Angiogram(Right) - Sachin Valencia MD Ordered Studies 12/14/20 07:12 EV angio LE RT Routine Hospital Course (1) Peripheral arterial disease: Patient POD #1 from a right femoral artery endarterectomy. Doing well. He is ready to go home from vascular standpoint. If voids, will d/c today. If has difficulty may place shetty with a leg bag and d/c with a urology follow up Total Time Total Time Spent Total Time Spent (In Minutes): 0 Discharge Plan Discharge Items Patient Disposition: Home - Self-Care Reason For Visit: Right Common Femoral Artery Stenosis Discharge Diagnosis: Right common femoral artery stenosis, right common femoral artery endarterectomy Activity: Per Instructions section Bathing: May shower/bathe in 3 days Non-emergency contact: Surgeon Call non-emergency contact if: your temperature is above 101.5, your wound has increased redness, your wound has increased drainage and your wound pain has increased Follow-up/Referrals: Wing Tracey CRNP [Primary Care Provider] - 12/21/20 1:40 pm Diet: Heart Healthy Addtl Attending Provider Instructions: ACTIVITY RECOMMENDATIONS: Will send home with leg bag Call my office tomorrow so they can arrange a Urology appointment for urinary retention SPECIAL CARE INSTRUCTIONS: Call your doctor if: * Temperature above 101 degrees * Pain not relieved by pain medicine ordered * There is increased drainage or redness from any incision * You have any unanswered questions or concerns. Call [phone] to schedule a follow up appointment if one not already scheduled. Pending Studies at Discharge: No Stand-Alone Forms: My [facility] Medications and DC Order Prescriptions: New oxycodone-acetaminophen [Percocet] 5-325 mg tablet 1 tab PO Q4H PRN (Reason: pain) Qty: 30 RF: 0 tamsulosin [Flomax] 0.4 mg capsule 0.4 mg PO DAILY Qty: 20 RF: 0 Continued calcium carbonate-vit D3-min 600 mg calcium- 400 unit tablet 1 tab PO QDL RF: 0 vitamin B complex [B Complex-Vitamin B12] Tablet 1 tab PO QPM RF: 0 gabapentin 400 mg capsule 400 mg PO TID RF: 0 hydrocodone-acetaminophen 5-325 mg tablet 1 tab PO Q8H PRN (Reason: pain) Qty: 30 RF: 0 clopidogrel 75 mg Tablet 75 mg PO QAM Qty: 30 RF: 1 potassium gluconate 595 mg (99 mg) Tablet 595 mg PO QPM RF: 0 atenolol 100 mg Tablet 100 mg PO HS RF: 0 multivitamin [Daily-Eric] Tablet 1 tab PO QPM RF: 0 atorvastatin 40 mg tablet 40 mg PO HS RF: 0 amlodipine 5 mg tablet 5 mg PO QAM RF: 0 aspirin [Aspirin Low Dose] 81 mg tablet,delayed release (DR/EC) 81 mg PO QDL RF: 0 doxycycline hyclate 100 mg tablet 100 mg PO BID RF: 0 Discharge Orders: Discharge Order (Routine); Ordered 12/15/20 Ordered By: Sachin Leiva/Other Patient Handouts: Acetaminophen Oxycodone tablets, Tamsulosin capsules Admission Data Admit Date/Time: 12/14/20 15:11 Attending Provider: Sachin Valencia Admit Provider: Sachin Valencia Primary Care Provider: Wing Tracey. Other Interventions: Discharge Summary Assessment (RN) Last Done: 12/15/20 15:52
== END 2020-12-15 16:36 | disposition home or self-care (01) | DRG 253 ==
LOC: ASU 08:42 → 3N 17:38

== ENCOUNTER 2021-11-17 13:13 | Inpatient (IN) ==
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
[2021-11-17 14:30] LABS: Hematocrit (blood only) 38.4 % (42-52); Hemoglobin 13.2 g/dL (14.0-18.0); Mean Corpuscular Hemoglobin 32.6 pg (25-34); Mean Corpuscular Hgb Conc 34.4 g/dL (32-36); Mean Corpuscular Volume 94.8 fL (80-100); Platelet Count 532 K/uL (130-400); RDW Coefficient of Variation 12.9 % (11.5-14.5); RDW Standard Deviation 45.1 fL (36.4-46.3); Red Blood Count 4.05 M/uL (4.7-6.1)
[2021-11-17] MEDS ORDERED: SODIUM CHLORIDE 0.9% 1000ML 500 ML IV ONE (14:35)
[2021-11-17] MEDS ORDERED: MoRPHine SULFATE 4 MG/ML 1 ML CARP\\VIAL IV STA ×2 (14:37→17:09)
[2021-11-17 14:50] LABS: INR 1.1 (0.9-1.1)
[2021-11-17 14:55] LABS: Basophils # (auto) 0.04 K/uL (0-0.2); Basophils % (auto) 0.3 %; Eosinophils # (auto) 0.15 K/uL (0-0.5); Immature Granulocytes # (auto) 0.02 K/uL (0.00-0.02); Immature Granulocytes % (auto) 0.1 %; Lymphocytes # (auto) 1.73 K/uL (1.2-3.4); Monocytes # (auto) 1.04 K/uL (0.11-0.59); Monocytes % (auto) 7.2 %; Neutrophils # (auto) 11.42 K/uL (1.4-6.5); Neutrophils % (auto) 79.4 %
[2021-11-17 14:57] LABS: Bilirubin,Total 0.4 mg/dl (0.2-1.0); Calcium 9.5 mg/dl (8.5-10.1); Creatinine Clr Calc Pharmacy 81.9 ml/min; Est GFR (African American) 91.8 ml/min; Est GFR (Non-African American) 79.2 ml/min; Globulin 3.9 gm/dl (2.5-4.0); Potassium 3.8 mmol/L (3.5-5.1); Total Protein 7.9 gm/dl (6.0-8.3)
[2021-11-17] MEDS ORDERED: OPTIRAY 320 125ml IV ONE (16:15)
--- NOTE | 2021-11-17 16:51 | CT Scan Report ---
CTA OF THE RIGHT LOWER EXTREMITY CLINICAL HISTORY: Pain. History of peripheral vascular disease. COMPARISON STUDY: CTA with lower extremity runoff and right lower extremity arterial Doppler ultraso und December 31, 2020. MRI of the right foot April 04, 2021. Right foot radiographs October 26, 2020. TECHNIQUE: Helical axial images of the right lower extremity were obtained during arterial phase foll owing intravenous injection 116 cc of Optiray 320 IV. Sagittal and coronal reconstructions were viewe d as well as maximal intensity projections on an independent 3-D workstation. Automated exposure cont rol was utilized for the study. A dose lowering technique was utilized adhering to the principles of ALARA. FINDINGS: Images of the pelvis are degraded by streak artifact from bilateral hip arthroplasties. Lance dder wall thickening is unchanged since CT of December 31, 2020. Mildly enlarged right inguinal lymph no doreen have slightly decreased in size since prior examination. No acute fracture within the right lower extremity is noted. Amputation of the right second toe is noted. Note is made of a wound of the plan tar medial aspect of the right first toe at the level of the metatarsal head. There is associated sof t tissue thickening. No fluid collection to suggest an abscess is noted. Fragmentation of the sesamoi ds is unchanged since prior CT. Soft tissue gas adjacent to the right first metatarsal head is noted as well as a small amount of gas within the right first metatarsal head. No definite bony destruction is present. There is moderate calcified plaque within the right common iliac and external iliac arteries. There i s mild stenosis of the proximal right external iliac artery. Moderate plaque of the right common femo ral artery is noted. Vessels suboptimally assessed due to artifact. A graft within the right superfic ial femoral artery is noted. There is severe stenosis of the proximal right superficial femoral arter y. This has developed since prior CT of December 31, 2020. There is occlusion of the proximal right prof unda with distal reconstitution. Additional moderate multifocal stenoses within the right superficial femoral artery are noted. Occlusion of the right popliteal artery is noted with distal reconstitutio n at the level of the trifurcation. There is occlusion of the proximal right anterior tibial artery w ith severe multifocal stenoses within the right anterior tibial artery, suboptimally assessed given s mall vessel size. Right dorsalis pedis is also patent. There are multifocal occlusions of the right p osterior tibial artery. There is extensive atherosclerotic plaque within the right calf vessels. Thes e vessels are suboptimally assessed due to their small size. Metallic density of the medial right ank le is noted, unchanged. IMPRESSION: 1. Extensive atherosclerotic plaque within the right lower extremity, as described above. Severe sten osis of the proximal right superficial femoral artery which has developed since prior CT of December 22, 2020. Additional moderate multifocal stenosis within the right superficial femoral artery. 2. Occlusion of the right popliteal artery with reconstitution at the level of the trifurcation, incr eased in extent since prior exam. 3. Occlusion of the proximal right anterior tibial artery with reconstitution. Multifocal occlusion o f the right posterior tibial artery. Right calf vessels suboptimally assessed on this exam. 4. Wound of the plantar medial aspect of the right first toe overlying the first metatarsal head. Ass ociated cellulitis. No abscess. Gas within the adjacent osseous structures could be degenerative. How ever, an infectious process cannot be excluded. No clear bony destruction. ACT 112: Negative or not required by law. Electronically signed by: Star Dos Santos M.D. 11/17/2021 4:50 PM
[2021-11-17] MEDS ORDERED: VANCOMYCIN HCL 1,500 MG in SODIUM CHLORIDE 0.9% 500 ML IV ONE (16:59)
[2021-11-17] MEDS ORDERED: ACETAMINOPHEN 1000 MG/100 ML IV IV ONE (16:59)
[2021-11-17] MEDS ORDERED: VANCOMYCIN CONSULT ACTIVE PRN ×2 (16:59→21:35)
[2021-11-17] MEDS ORDERED: PIPERACILL/TAZOBAC CONSULT ACTIVE PRN ×2 (17:00→21:35)
[2021-11-17] MEDS ORDERED: PIPERACILLIN/TAZOBACTAM 4.5 GM/120 ML BAG IV ONE (17:00)
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
--- NOTE | 2021-11-17 18:23 | Ultrasound Report ---
RIGHT LOWER EXTREMITY VENOUS DOPPLER HISTORY: Right leg swelling eval for dvt COMPARISON STUDY: None. FINDINGS: There is normal compressibility, flow, and augmentation within the right lower extremity de ep venous system. IMPRESSION: No DVT within the right lower extremity ACT 112: Negative or not required by law. Electronically signed by: Nilton Del Toro M.D. 11/17/2021 6:22 PM
[2021-11-17] MEDS ORDERED: POLYETHYLENE (MIRALAX) 17 GM PACK PO PRN (21:35)
[2021-11-17] MEDS ORDERED: ACETAMINOPHEN 325 MG TAB PO PRN (21:35)
[2021-11-17] MEDS: MoRPHine SULFATE 2 MG/ML CARP IV PRN (22:35)
[2021-11-17 22:40] LABS: Appearance Urine Clear (Clear); Bacteria Urine Automated Negative (Negative); Bilirubin Urine Negative (Negative); Blood Urine 1+ (Negative); Cast Urine Automated 0 /lpf (0-5); Color Urine Yellow; Epithelial Cell Urine Auto 0-5 /lpf (0-5); Glucose Urine UA Negative (Negative); Ketones Urine Negative (Negative); Leukocyte Esterase Urine Negative (Negative); Nitrite Urine Negative (Negative); Protein Urine Negative (Negative); Specific Gravity Urine 1.023 (1.000-1.030); Urobilinogen Urine Negative (Negative); WBC Urine Automated 0 /hpf (0-5)
[2021-11-17] MEDS: ATORVASTATIN 40 MG TAB PO SCH (23:13)
[2021-11-17] MEDS: GABAPENTIN 600 MG TAB PO SCH (23:14)
[2021-11-17] MEDS: CLOTRIMAZOLE/BETAMETHASONE CR 15 GM TUBE EXT SCH (23:14)
[2021-11-17] MEDS: HEPARIN SOD 5,000 UNIT/0.5 ML VIAL SQ SCH (23:15)
[2021-11-17] MEDS: PIPERACILLIN/TAZOBACTAM 3.375 GM in DEXTROSE 5% 100 ML IV SCH (23:16)
[2021-11-18] MEDS: HYDROCODONE/ACETAMOPHEN 5/325MG TAB PO PRN ×3 (03:01→16:30)
[2021-11-18] MEDS: VANCOMYCIN HCL 750 MG in SODIUM CHLORIDE 0.9% 250 ML IV SCH ×2 (05:58→17:58)
[2021-11-18] MEDS: MoRPHine SULFATE 2 MG/ML CARP IV PRN ×2 (06:01→10:11)
[2021-11-18] MEDS: HEPARIN SOD 5,000 UNIT/0.5 ML VIAL SQ SCH ×2 (08:09→20:18)
[2021-11-18] MEDS: GABAPENTIN 600 MG TAB PO SCH ×3 (08:09→20:17)
[2021-11-18] MEDS: CLOPIDOGREL BISULFATE 75 MG TAB PO SCH (08:09)
[2021-11-18] MEDS: PIPERACILLIN/TAZOBACTAM 3.375 GM in DEXTROSE 5% 100 ML IV SCH ×3 (08:10→23:23)
[2021-11-18] MEDS: lisinopril 10 MG TAB PO SCH (08:11)
[2021-11-18] MEDS: CLOTRIMAZOLE/BETAMETHASONE CR 15 GM TUBE EXT SCH ×2 (08:13→20:17)
--- NOTE | 2021-11-18 08:32 | Pharmacy Report ---
Pharmacy Vanc AUC Short Note - Date of Service November 18, 2021 - Assessment & Plan Assessment 66 year old M receiving Vancomycin + Zosyn for treatment of cellulitis Day #2 of antimicrobial therapy WBC 14.4, Temp 38.3C on admission Blood cultures pending May need further imaging to r/o osteo Plan Vancomycin * AUC/KENDALL is the preferred PK/PD target for vancomycin * AUC guided dosing is effective and associated with decreased risk of nephrotoxicity compared to traditional trough targets * Vancomycin 750mg IV q12h is predicted to achieve target AUC/KENDALL of 400-600 mg/L.hr and may be associated with a 10 % risk of nephrotoxicity * Trough ordered for 11/19 @1730 Zosyn * 4.5g bolus followed by 3.375g IV q8h for eCrCl >20 ml/min Pharmacy will continue to follow and will adjust dose/frequency as necessary. Thank you.
--- NOTE | 2021-11-18 10:23 | Electrocardiogram Report ---
Test Reason : Blood Pressure : / mmHG Vent. Rate : 080 BPM Atrial Rate : 080 BPM P-R Int : 162 ms QRS Dur : 078 ms QT Int : 380 ms P-R-T Axes : 068 059 066 degrees QTc Int : 438 ms Poor data quality, interpretation may be adversely affected Normal sinus rhythm Anteroseptal infarct (cited on or before 31-DEC-2020) Abnormal ECG When compared with ECG of 31-DEC-2020 14:11, ST no longer depressed in Anterior leads T wave inversion no longer evident in Anterior leads Confirmed by Anibal Garcia ([id number]) on 11/18/2021 10:23:18 AM Referred By: REFERRED SELF Confirmed By:Anibal Garcia
[2021-11-18 12:43] LABS: Basophils # (auto) 0.03 K/uL (0-0.2); Basophils % (auto) 0.3 %; Eosinophils # (auto) 0.25 K/uL (0-0.5); Eosinophils % (auto) 2.4 %; Hematocrit (blood only) 34.4 % (42-52); Hemoglobin 11.5 g/dL (14.0-18.0); Immature Granulocytes # (auto) 0.02 K/uL (0.00-0.02); Immature Granulocytes % (auto) 0.2 %; Lymphocytes # (auto) 1.76 K/uL (1.2-3.4); Mean Corpuscular Hemoglobin 31.9 pg (25-34); Mean Corpuscular Hgb Conc 33.4 g/dL (32-36); Mean Corpuscular Volume 95.3 fL (80-100); Mean Platelet Volume 9.1 fL (7.4-10.4); Monocytes # (auto) 0.71 K/uL (0.11-0.59); Monocytes % (auto) 6.9 %; Neutrophils # (auto) 7.58 K/uL (1.4-6.5); Neutrophils % (auto) 73.2 %; Platelet Count 488 K/uL (130-400); RDW Coefficient of Variation 12.9 % (11.5-14.5); RDW Standard Deviation 44.9 fL (36.4-46.3); Red Blood Count 3.61 M/uL (4.7-6.1); White Blood Count 10.35 K/uL (4.8-10.8)
[2021-11-18 13:02] LABS: BUN Creatinine Ratio 8.9 (10-20); C Reactive Protein 22.01 mg/dl (0-0.5); Est GFR (African American) 104.2 ml/min; Est GFR (Non-African American) 89.9 ml/min; Magnesium 1.8 mg/dl (1.7-2.4); Potassium 3.5 mmol/L (3.5-5.1)
[2021-11-18] MEDS: HYDROmorphone INJ 0.5 MG/0.5 ML SYR IV PRN ×2 (13:53→19:58)
[2021-11-18] MEDS: POTASSIUM CHLORIDE CRTAB 20 MEQ TABCR PO SCH (16:31)
--- NOTE | 2021-11-18 17:20 | Hospitalist Progress Note ---
Date of Service November 18, 2021 Assessment & Plan (1) Cellulitis: Plan: Plantar medial aspect of the right first toe overlying the first metatarsal head. Associated cellulitis. No abscess. Febrile and with leukocytosis With sepsis, POA - Continue with Zosyn 3.375 GM q8 IV (day #2) - Continue with Vancomycin daily IV -Blood cultures are negative for growth x2. Procalcitonin negative is 0.16 ng/mL - Wound culture not likely to yield useful data as no overt drainage or fluctuance - CRP elevated at 22.01 and ESR elevated at 76 - PCT q72 hours and trend inflammatory markers - Tylenol, Gabapentin, Percocet, Morphine for pain - Lower extremity Doppler negative for DVT -Previous MRI of the right foot in March 2021 showed pathologic marrow edema and cortical destructive changes involving the proximal and middle phalanges of the second toe indicative of osteomyelitis -Right second toe amputation for osteomyelitis [address] Nick Cochran. -We will repeat MRI of the right foot to look for new changes (2) Right foot pain: Plan: Acute on chronic - ? plantar wart- either there is surrounding cellulitis that needs treated - Pain is more on the dorsal and lateral surface - Plantar surface with pain to the first and second metatarsal - Venous Doppler negative - CTA of the right leg as above and below. -Previous amputation of second right toe. -Repeat MRI of the right foot to rule out infectious etiology (3) Peripheral arterial disease: Plan: A graft within the right superficial femoral artery is noted. There is severe stenosis of the proximal right superficial femoral artery. There is occlusion of the proximal right profunda with distal reconstitution . Additional moderate multifocal stenoses within the right superficial femoral artery are noted. Occlusion of the right popliteal artery is noted with distal reconstitution at the level of the trifurcation. There is occlusion of the proximal right anterior tibial artery with severe multifocal stenoses within the right anterior tibial artery, here are multifocal occlusions of the right posterior tibial artery. There is extensive atherosclerotic plaque within the right calf vessels Severe PAD as noted above CT results- appreciate vascular surgery evaluation and assistance - Continue plavix - Keep legs up - Doppler with pulse checks q8 - Continue with walking - Congratulated on stop smoking - continue efforts -Vascular surgery consulted (4) MRSA (methicillin resistant staph aureus) culture positive: Plan: HX of in 2020- no other culture details since that time - Continue with MRSA precautions - Continue Vaoncomycin -Check MRSA screening (5) Hypercholesterolemia: Plan: continue atorvastatin- 40mg (6) HTN (hypertension): Plan: Cotninue ELIZABETH (7) Hyponatremia: Plan: Chronic, typically around 133, slightly low here at 131 Received 500 mL normal saline Follow BMP Admission and Anticipated Discharge Date Admission Date: November 17, 2021 Subjective Attending: Dr. Nichols Patient seen and examined in room 361. He was admitted with right foot ulceration and pain with failed outpatient treatment with oral antibiotics. CT angiogram with no acute ischemia. He reports that pain is mildly controlled with morphine. He was changed to Dilaudid 0.5 mg IV every 6 hours for pain relief. He denies any fever, chills, sweats, rigors. No chest pain or tightness. No shortness of breath. No other acute complaints. Review of Systems Review of Systems: All systems reviewed & are unremarkable except as noted in Subjective Physical Exam Physical Exam: GENERAL : No acute distress EYES: No icterus, gaze conjugate NOSE: No evidence of epistaxis MOUTH: No lesions or candidiasis NECK: Supple LUNGS: CTA B/L, no wheezes, rales or rhonchi HEART: Regular, rate controlled ABDOMEN: Soft, NT, ND, BS Present EXTREMITIES: Trace LE edema, pedal pulses intact bilaterally but weak to palpation. Doppler used to confirm pulses. Right foot remains erythematous but patient states that it seems better than yesterday. No gastrocnemius pain bilaterally. NEURO: A&OX3 Results & Data Results & Data ([facility]) Vital Signs (Past 12 Hours) Vital Signs Temp Pulse Resp BP Pulse Ox 11/18/21 16:45 37.1 C 68 18 148/77 H 97 11/18/21 09:09 36.7 C 62 18 166/70 H 97 Critical Care Results & Data Vital Signs (Past 12 Hours) Vital Signs Temp Pulse Resp BP Pulse Ox 11/18/21 16:45 37.1 C 68 18 148/77 H 97 11/18/21 09:09 36.7 C 62 18 166/70 H 97 Lab & Micro Results (Past 24 Hours) RBC 3.61 M/uL (4.7-6.1) L 11/18/21 WBC 10.35 K/uL (4.8-10.8) 11/18/21 Hgb 11.5 g/dL (14.0-18.0) L 11/18/21 Hct 34.4 % (42-52) L 11/18/21 MCV 95.3 fL (80-100) 11/18/21 MCH 31.9 pg (25-34) 11/18/21 MCHC 33.4 g/dL (32-36) 11/18/21 RDW Standard Deviation 44.9 fL (36.4-46.3) 11/18/21 RDW Coefficient of Variation 12.9 % (11.5-14.5) 11/18/21 Plt Count 488 K/uL (130-400) H 11/18/21 MPV 9.1 fL (7.4-10.4) 11/18/21 Neutrophils (%) (Auto) 73.2 % 11/18/21 Lymphocytes (%) (Auto) 17.0 % 11/18/21 Monocytes # (Auto) 0.71 K/uL (0.11-0.59) H 11/18/21 Eosinophils # (Auto) 0.25 K/uL (0-0.5) 11/18/21 Immature Granulocyte % (Auto) 0.2 % 11/18/21 Neutrophils # (Auto) 7.58 K/uL (1.4-6.5) H 11/18/21 Lymphocytes # (Auto) 1.76 K/uL (1.2-3.4) 11/18/21 Monocytes # (Auto) 0.71 K/uL (0.11-0.59) H 11/18/21 Eosinophils # (Auto) 0.25 K/uL (0-0.5) 11/18/21 Basophils # (Auto) 0.03 K/uL (0-0.2) 11/18/21 Immature Granulocyte # (Auto) 0.02 K/uL (0.00-0.02) 11/18/21 Na 132 mmol/L (136-145) L 11/18/21 K 3.5 mmol/L (3.5-5.1) 11/18/21 Cl 96 mmol/L (98-107) L 11/18/21 CO2 29 mmol/L (21-32) 11/18/21 Anion Gap 7 (3-11) 11/18/21 BUN 8 mg/dl (6-23) 11/18/21 Creatinine 0.90 mg/dl (0.6-1.4) 11/18/21 Estimated GFR ( Amer) 104.2 ml/min 11/18/21 Estimated GFR (Non-Af Amer) 89.9 ml/min 11/18/21 BUN/Creatinine Ratio 8.9 (10-20) L 11/18/21 Glu 112 mg/dl (70-99(Fasting)) H 11/18/21 Ca 9.0 mg/dl (8.5-10.1) 11/18/21 Mg 1.8 mg/dl (1.7-2.4) 11/18/21 11:46 11/18/21 Calcium Level 9.0 mg/dl (8.5-10.1) 11/18/21 11:46 11/18/21 Microbiology 11/17/21 14:55 Aerobic Blood Culture - Preliminary Blood No growth in Aerobic bottle after 24 hours. Anaerobic Blood Culture - Preliminary No growth in Anaerobic bottle after 24 hours. 11/17/21 14:51 Aerobic Blood Culture - Preliminary Blood No growth in Aerobic bottle after 24 hours. Anaerobic Blood Culture - Preliminary No growth in Anaerobic bottle after 24 hours. Diagnostic Findings (Past 24 Hours) Venous Doppler Study 11/17/21 15:22 RIGHT LOWER EXTREMITY VENOUS DOPPLER HISTORY: Right leg swelling eval for dvt COMPARISON STUDY: None. FINDINGS: There is normal compressibility, flow, and augmentation within the right lower extremity deep venous system. IMPRESSION: No DVT within the right lower extremity ACT 112: Negative or not required by law. Electronically signed by: Nilton Del Toro M.D. 11/17/2021 6:22 PM I & O Totals 24 Hours 11/17/21 11/18/21 11/19/21 06:59 06:59 06:59 Intake Total 1265 / 1265 380 / 380 Output Total 1200 / 1200 Balance 65 / 65 380 / 380 Cumulative 11/17/21 13:13 thru 11/18/21 15:33 Intake Total 1645 Output Total 1200 Balance 445 RT Ventilator Mngmt (Last Documented) Ventilator Ordered Settings Respiratory Rate 18 11/18/21 16:45 Ventilator - PT Measurements Respiratory Rate 18 PG Care Time/CCT Total # of Minutes Spent Total Time Spent with Patient: Total time spent is greater than 50% in coordination of care (as documented) at patient's floor/unit and/or counseling patient: 25 minutes Coding Level of Care Code 29008 Subseq Hosp Care Lvl 2 Diagnoses Cellulitis L03.115 Laterality: right Site of cellulitis: extremity Site of cellulitis of extremity: lower extremity Right foot pain M79.671 Peripheral arterial disease I73.9 MRSA (methicillin resistant staph aureus) culture positive Z22.322 Hypercholesterolemia E78.00 HTN (hypertension) I10 Hyponatremia E87.1 Time Spent (min) 25 (1) Cellulitis Laterality: right Site of cellulitis: extremity Site of cellulitis of extremity: lower extremity Qualified Code(s): L03.115 - Cellulitis of right lower limb
[2021-11-18] MEDS: TAMSULOSIN HCL 0.4 MG CAP PO SCH (17:58)
[2021-11-18] MEDS ORDERED: VANCOMYCIN HCL 1 MG in DEXTROSE 5% 100 ML IV SCH (18:00)
[2021-11-18] MEDS: ATORVASTATIN 40 MG TAB PO SCH (20:17)
[2021-11-18] MEDS ORDERED: HYDROCODONE/ACETAMOPHEN 5/325MG TAB PO ONE (22:58)
[2021-11-19] MEDS: HYDROmorphone INJ 0.5 MG/0.5 ML SYR IV PRN ×5 (02:01→21:04)
[2021-11-19] MEDS: VANCOMYCIN HCL 750 MG in SODIUM CHLORIDE 0.9% 250 ML IV SCH ×2 (06:00→18:26)
[2021-11-19] MEDS: HYDROCODONE/ACETAMOPHEN 5/325MG TAB PO PRN ×3 (07:25→23:09)
[2021-11-19 08:04] LABS: Basophils # (auto) 0.05 K/uL (0-0.2); Basophils % (auto) 0.5 %; Eosinophils # (auto) 0.24 K/uL (0-0.5); Eosinophils % (auto) 2.6 %; Hematocrit (blood only) 37.3 % (42-52); Hemoglobin 12.5 g/dL (14.0-18.0); Immature Granulocytes # (auto) 0.02 K/uL (0.00-0.02); Immature Granulocytes % (auto) 0.2 %; Lymphocytes # (auto) 0.82 K/uL (1.2-3.4); Lymphocytes % (auto) 8.7 %; Mean Corpuscular Hemoglobin 31.6 pg (25-34); Mean Corpuscular Hgb Conc 33.5 g/dL (32-36); Mean Corpuscular Volume 94.2 fL (80-100); Mean Platelet Volume 9.1 fL (7.4-10.4); Monocytes # (auto) 1.15 K/uL (0.11-0.59); Monocytes % (auto) 12.2 %; Neutrophils # (auto) 7.12 K/uL (1.4-6.5); Neutrophils % (auto) 75.8 %; Platelet Count 511 K/uL (130-400); RDW Coefficient of Variation 12.9 % (11.5-14.5); Red Blood Count 3.96 M/uL (4.7-6.1)
[2021-11-19 08:34] LABS: BUN Creatinine Ratio 9.5 (10-20); C Reactive Protein 16.1 mg/dl (0-0.5); Calcium 8.8 mg/dl (8.5-10.1); Creatinine Clr Calc Pharmacy 97.5 ml/min; Est GFR (African American) 107.2 ml/min; Est GFR (Non-African American) 92.5 ml/min; Magnesium 1.7 mg/dl (1.7-2.4); Potassium 3.9 mmol/L (3.5-5.1)
[2021-11-19] MEDS: PIPERACILLIN/TAZOBACTAM 3.375 GM in DEXTROSE 5% 100 ML IV SCH ×2 (08:48→15:12)
[2021-11-19] MEDS: CLOPIDOGREL BISULFATE 75 MG TAB PO SCH (08:50)
[2021-11-19] MEDS: lisinopril 10 MG TAB PO SCH (08:50)
[2021-11-19] MEDS: GABAPENTIN 600 MG TAB PO SCH ×3 (08:50→21:09)
[2021-11-19] MEDS: HEPARIN SOD 5,000 UNIT/0.5 ML VIAL SQ SCH ×2 (08:50→21:09)
[2021-11-19] MEDS: CLOTRIMAZOLE/BETAMETHASONE CR 15 GM TUBE EXT SCH ×2 (08:51→21:12)
[2021-11-19] MEDS ORDERED: GADOBUTROL 65ML VIAL IV ONE (10:14)
--- NOTE | 2021-11-19 11:06 | Magnetic Resonance Report ---
MR foot RT wo/w con HISTORY: Right foot wound. Vascular disease of right leg. R/O osteomyelitis TECHNIQUE: Multiplanar multisequence MRI of the right forefoot was performed both before and after th e intravenous administration of 7.5 cc of Gadavist contrast. COMPARISON STUDY: Right foot MRI 04/04/2021. FINDINGS: Interval right second toe amputation. Nondisplaced fracture within the head of the fifth me tatarsal with mild marrow edema. This may represent a subacute injury. Focal skin ulceration at the p lantar surface of the first MTP joint measuring 2 cm. Deep to the skin ulceration there is abnormal m arrow signal and enhancement within the medial sesamoid bone at the head of the first metatarsal. The refore, this is concerning for an osteomyelitis. Small focus of marrow edema at the base of the proxi mal phalanx of the first toe without abnormal T1 signal or enhancement. This is nonspecific and could be due to an osteitis. This is new from the prior study. No loculated fluid collections to suggest a n abscess. Bone infarct again noted within the first metatarsal. 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 Muscle atrophy and edema within the intrinsic musculature of the foot is similar to the p rior study. IMPRESSION: 1. There is a 2 cm skin ulceration along the plantar surface of the first MTP joint. Deep to the skin ulceration there is abnormal marrow signal and enhancement within the medial sesamoid bone at the he ad of the first metatarsal. This is concerning for osteomyelitis. 2. Small focus of marrow edema at the base of the proximal phalanx of the first toe which is nonspeci fic but may represent an osteitis. This is new from the prior study. 3. Nondisplaced fracture at the head of the fifth metatarsal. This appears to be acute to subacute. ACT 112: Negative or not required by law. Electronically signed by: Nilton Del Toro M.D. 11/19/2021 11:05 AM
[2021-11-19] MEDS: POTASSIUM CHLORIDE CRTAB 20 MEQ TABCR PO SCH (15:10)
[2021-11-19] MEDS: TAMSULOSIN HCL 0.4 MG CAP PO SCH (15:11)
[2021-11-19] MEDS ORDERED: VANCOMYCIN TROUGH ONE (17:30)
[2021-11-19] MEDS ORDERED: VANCOMYCIN HCL 500 MG in 0.9 % SODIUM CHLORIDE 100 ML IV SCH (20:00)
--- NOTE | 2021-11-19 20:29 | Hospitalist Progress Note ---
Date of Service November 19, 2021 Assessment & Plan (1) Cellulitis: Plan: Plantar medial aspect of the right first toe overlying the first metatarsal head. Associated cellulitis. No abscess. Febrile and with leukocytosis With sepsis, POA - Continue with Zosyn 3.375 GM q8 IV (day #2) - Continue with Vancomycin daily IV -Blood cultures are negative for growth x2. Procalcitonin negative is 0.16 ng/mL - Wound culture not likely to yield useful data as no overt drainage or fluctuance - CRP elevated at 22.01 and ESR elevated at 76 - PCT q72 hours and trend inflammatory markers - Tylenol, Gabapentin, Percocet, Morphine for pain - Lower extremity Doppler negative for DVT -Previous MRI of the right foot in March 2021 showed pathologic marrow edema and cortical destructive changes involving the proximal and middle phalanges of the second toe indicative of osteomyelitis -Right second toe amputation for osteomyelitis [address] Nick Cochran. -We will repeat MRI of the right foot to look for new changes (2) Right foot pain: Plan: Acute on chronic - ? plantar wart- either there is surrounding cellulitis that needs treated - Pain is more on the dorsal and lateral surface - Plantar surface with pain to the first and second metatarsal - Venous Doppler negative - CTA of the right leg as above and below. -Previous amputation of second right toe. -Repeat MRI of the right foot to rule out infectious etiology: this is showing osteomyelitis, will consult ortho.increase pain frequency. (3) Peripheral arterial disease: Plan: A graft within the right superficial femoral artery is noted. There is severe stenosis of the proximal right superficial femoral artery. There is occlusion of the proximal right profunda with distal reconstitution . Additional moderate multifocal stenoses within the right superficial femoral artery are noted. Occlusion of the right popliteal artery is noted with distal reconstitution at the level of the trifurcation. There is occlusion of the proximal right anterior tibial artery with severe multifocal stenoses within the right anterior tibial artery, here are multifocal occlusions of the right posterior tibial artery. There is extensive atherosclerotic plaque within the right calf vessels Severe PAD as noted above CT results- appreciate vascular surgery evaluation and assistance - Continue plavix - Keep legs up - Doppler with pulse checks q8 - Continue with walking - Congratulated on stop smoking - continue efforts -Vascular surgery consulted (4) MRSA (methicillin resistant staph aureus) culture positive: Plan: HX of in 2020- no other culture details since that time - Continue with MRSA precautions - Continue Vaoncomycin -Check MRSA screening (5) Hypercholesterolemia: Plan: continue atorvastatin- 40mg (6) HTN (hypertension): Plan: Cotninue ELIZABETH (7) Hyponatremia: Plan: Chronic, typically around 133, slightly low here at 131 Received 500 mL normal saline Follow BMP Admission and Anticipated Discharge Date Admission Date: November 17, 2021 Subjective Patient reports no new symptoms. Patient continues to have pain in his affected foot. Review of Systems Review of Systems: All systems reviewed & are unremarkable except as noted in HPI & below Physical Exam Physical Exam: PHYSICAL EXAM: General: awake, alert, no apparent distress Head: Normocephalic, atraumatic ENT: PERRL, EOMI, no pharyngeal exudate, mucous membranes moist Neuro: AAO x 3, speech clear and appropriate, strength intact bilaterally 5/5, sensation intact and equal all extremities and dermatomes, no pronator drift Chest: equal rise and fall of the chest, no accessory muscle use, no heaves or thrills, Clear to auscultation, on room air, Cardiac: Regular rate and rhythm, telemetry reviewed-NSR, skin warm dry, cap refill <3 seconds, peripheral pulses +2 no JVD, no murmur,+1 edema to right foot, dependant rubor to right lower leg, DP palpable PT dopllerable, femoral and popliteal palpable 2+ and strong. GI: NABS x 4 quadrants, soft, nontender to palpation, no rebound, guarding or tenderness : Spontaneously voiding, no pain, no CVA tenderness, Extremities: Normal inspection, no peripheral edema or erythema, calfs nontender to palpation Psych: Normal mood and affect Skin: no rash or erythema PG Care Time/CCT Total # of Minutes Spent Total Time Spent with Patient: Total time spent is greater than 50% in coordination of care (as documented) at patient's floor/unit and/or counseling patient: Coding Level of Care Code 30783 Subseq Hosp Care Lvl 2 Diagnoses Cellulitis L03.115 Laterality: right Site of cellulitis: extremity Site of cellulitis of extremity: lower extremity Right foot pain M79.671 Peripheral arterial disease I73.9 MRSA (methicillin resistant staph aureus) culture positive Z22.322 Hypercholesterolemia E78.00 HTN (hypertension) I10 Hyponatremia E87.1 (1) Cellulitis Laterality: right Site of cellulitis: extremity Site of cellulitis of extremity: lower extremity Qualified Code(s): L03.115 - Cellulitis of right lower limb
[2021-11-19] MEDS ORDERED: ACETAMINOPHEN 325 MG TAB PO PRN (20:32)
--- NOTE | 2021-11-19 20:56 | Pharmacy Report ---
Pharmacy Abx Dose Short Note - Date of Service November 19, 2021 - Assessment & Plan Assessment 66 year old M receiving [] for treatment of [] Day # []/[] of antimicrobial therapy. Plan Laboratory Tests 11/19/21 17:27 Vancomycin Trough 6.9 L Vancomycin * Trough level of [] mcg/mL is [therapeutic][subtherapeutic][supratherapeutic] * Continue dose of [] mg IV every [] hours OR Change to [] mg IV every [] hours * Goal trough level for [] : [] to [] mcg/mL * Trough or random level ordered for: []/[]/[] Pharmacy will continue to follow and will adjust dose/frequency as necessary. Thank you.
--- NOTE | 2021-11-19 21:00 | Pharmacy Report ---
Pharmacy Vanc AUC Short Note - Date of Service November 19, 2021 - Assessment & Plan Assessment 66 year old M receiving Vancomycin for treatment of cellulitis. Pertinent microbiologic data includes: Day # 3 of antimicrobial therapy. * Foot xray shows concern for osteomyelitis. Plan Laboratory Tests 11/19/21 17:27 Vancomycin Trough 6.9 L Vancomycin * AUC/KENDALL is the preferred PK/PD target for vancomycin * AUC guided dosing is effective and associated with decreased risk of nephrotoxicity compared to traditional trough targets * Trough level of 14.0 mcg/mL is predicted to achieve target AUC/KENDALL of 400-600 mg/L.hr and may be associated with a 9 % risk of nephrotoxicity * Patient had been on Vancomycin 750 mg q12h with trough level as above. * Patient had already received 750mg dose prior to assessment. I sent additional Vancomcyin 500mg to floor for total dose of 1250mg this evening. * Change to 1250 mg IV every 12 hours * Trough or random level ordered for: 11/21/21 @ 0730 Pharmacy will continue to follow and will adjust dose/frequency as necessary. Thank you.
[2021-11-19] MEDS: ATORVASTATIN 40 MG TAB PO SCH (21:09)
[2021-11-20] MEDS: HYDROmorphone INJ 0.5 MG/0.5 ML SYR IV PRN ×7 (00:29→21:26)
[2021-11-20] MEDS: PIPERACILLIN/TAZOBACTAM 3.375 GM in DEXTROSE 5% 100 ML IV SCH ×3 (00:29→16:20)
[2021-11-20] MEDS: HYDROCODONE/ACETAMOPHEN 5/325MG TAB PO PRN ×3 (06:40→20:17)
[2021-11-20 08:03] LABS: Basophils # (auto) 0.03 K/uL (0-0.2); Basophils % (auto) 0.3 %; Eosinophils % (auto) 2.1 %; Hematocrit (blood only) 37.9 % (42-52); Hemoglobin 12.6 g/dL (14.0-18.0); Immature Granulocytes # (auto) 0.04 K/uL (0.00-0.02); Immature Granulocytes % (auto) 0.4 %; Lymphocytes # (auto) 0.76 K/uL (1.2-3.4); Mean Corpuscular Hemoglobin 31.3 pg (25-34); Mean Corpuscular Hgb Conc 33.2 g/dL (32-36); Monocytes # (auto) 1.69 K/uL (0.11-0.59); Monocytes % (auto) 17.8 %; Neutrophils # (auto) 6.76 K/uL (1.4-6.5); Neutrophils % (auto) 71.4 %; Platelet Count 503 K/uL (130-400); RDW Coefficient of Variation 12.9 % (11.5-14.5); RDW Standard Deviation 44.3 fL (36.4-46.3); Red Blood Count 4.03 M/uL (4.7-6.1); White Blood Count 9.48 K/uL (4.8-10.8)
[2021-11-20] MEDS: HEPARIN SOD 5,000 UNIT/0.5 ML VIAL SQ SCH ×2 (08:06→20:17)
[2021-11-20] MEDS: GABAPENTIN 600 MG TAB PO SCH ×3 (08:06→20:18)
[2021-11-20] MEDS: CLOTRIMAZOLE/BETAMETHASONE CR 15 GM TUBE EXT SCH ×2 (08:06→20:18)
[2021-11-20] MEDS: VANCOMYCIN HCL 1,250 MG in SODIUM CHLORIDE 0.9% 250 ML IV SCH ×2 (08:07→19:55)
[2021-11-20] MEDS: CLOPIDOGREL BISULFATE 75 MG TAB PO SCH (08:15)
[2021-11-20] MEDS: lisinopril 10 MG TAB PO SCH (08:15)
[2021-11-20 08:42] LABS: BUN Creatinine Ratio 10.5 (10-20); C Reactive Protein 15.38 mg/dl (0-0.5); Calcium 8.9 mg/dl (8.5-10.1); Creatinine Clr Calc Pharmacy 86.2 ml/min; Est GFR (African American) 97.7 ml/min; Est GFR (Non-African American) 84.3 ml/min; Magnesium 1.7 mg/dl (1.7-2.4)
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
--- NOTE | 2021-11-20 15:17 | Ultrasound Report ---
BILATERAL LOWER EXTREMITY VENOUS MAPPING CLINICAL HISTORY: For femoral peroneal bypass. COMPARISON STUDY: No previous studies for comparison. TECHNIQUE: Sonography of the bilateral greater and lesser saphenous veins was performed for venous ma pping. FINDINGS: Detailed vessel calibers and depths are located within the PACS system. The right greater s aphenous vein is patent. It ranges in caliber from 3 to 4 mm. Depth ranges from 2 to 11 mm. The right lesser saphenous vein is patent. It ranges in caliber from 2 to 4 mm. Depth ranges from 1 to 3 mm. The left greater saphenous vein is patent. It ranges in caliber from 3 mm to 4 mm. The depth ranges f rom 2 mm to 7 mm. The left lesser saphenous vein is patent. It is 3 mm in caliber. Depth ranges from 2 to 11 mm. IMPRESSION: Patent bilateral greater and lesser saphenous veins, as described above. Detailed vessel calibers and depths within the PACS system. ACT 112: Negative or not required by law. Electronically signed by: Star Dos Santos M.D. 11/20/2021 3:15 PM
[2021-11-20] MEDS: POTASSIUM CHLORIDE CRTAB 20 MEQ TABCR PO SCH (16:13)
[2021-11-20] MEDS: TAMSULOSIN HCL 0.4 MG CAP PO SCH (16:13)
[2021-11-20] MEDS: ATORVASTATIN 40 MG TAB PO SCH (20:18)
--- NOTE | 2021-11-20 20:18 | Hospitalist Progress Note ---
Date of Service November 20, 2021 Assessment & Plan (1) Cellulitis: Plan: Plantar medial aspect of the right first toe overlying the first metatarsal head. Associated cellulitis. No abscess. Febrile and with leukocytosis With sepsis, POA - Continue with Zosyn 3.375 GM q8 IV (day #2) - Continue with Vancomycin daily IV -Blood cultures are negative for growth x2. Procalcitonin negative is 0.16 ng/mL - Wound culture not likely to yield useful data as no overt drainage or fluctuance - CRP elevated at 22.01 and ESR elevated at 76 - PCT q72 hours and trend inflammatory markers - Tylenol, Gabapentin, Percocet, Morphine for pain - Lower extremity Doppler negative for DVT -Previous MRI of the right foot in March 2021 showed pathologic marrow edema and cortical destructive changes involving the proximal and middle phalanges of the second toe indicative of osteomyelitis -Right second toe amputation for osteomyelitis [address] Nick Cochran. -repeat MRI showing evidence of osteomyelitis. -Consulted ortho. Plan for revascularization tomorrow. (2) Right foot pain: Plan: Acute on chronic - ? plantar wart- either there is surrounding cellulitis that needs treated - Pain is more on the dorsal and lateral surface - Plantar surface with pain to the first and second metatarsal - Venous Doppler negative - CTA of the right leg as above and below. -Previous amputation of second right toe. -Repeat MRI of the right foot to rule out infectious etiology: -this is showing osteomyelitis, will consult ortho. -increase pain frequency. (3) Peripheral arterial disease: Plan: A graft within the right superficial femoral artery is noted. There is severe stenosis of the proximal right superficial femoral artery. There is occlusion of the proximal right profunda with distal reconstitution . Additional moderate multifocal stenoses within the right superficial femoral artery are noted. Occlusion of the right popliteal artery is noted with distal reconstitution at the level of the trifurcation. There is occlusion of the proximal right anterior tibial artery with severe multifocal stenoses within the right anterior tibial artery, here are multifocal occlusions of the right posterior tibial artery. There is extensive atherosclerotic plaque within the right calf vessels Severe PAD as noted above CT results- appreciate vascular surgery evaluation and assistance - Continue plavix - Keep legs up - Doppler with pulse checks q8 - Continue with walking - Congratulated on stop smoking - continue efforts -Vascular surgery consulted (4) MRSA (methicillin resistant staph aureus) culture positive: Plan: HX of in 2020- no other culture details since that time - Continue with MRSA precautions - Continue Vaoncomycin -Check MRSA screening (5) Hypercholesterolemia: Plan: continue atorvastatin- 40mg (6) HTN (hypertension): Plan: Cotninue ELIZABETH (7) Hyponatremia: Plan: Chronic, typically around 133, slightly low here at 131 Received 500 mL normal saline Follow BMP Admission and Anticipated Discharge Date Admission Date: November 17, 2021 Subjective Patient reports no new symptoms today. Review of Systems Review of Systems: All systems reviewed & are unremarkable except as noted in HPI & below Physical Exam Physical Exam: General: awake, alert, no apparent distress Head: Normocephalic, atraumatic ENT: PERRL, EOMI, no pharyngeal exudate, mucous membranes moist Neuro: AAO x 3, speech clear and appropriate, strength intact bilaterally 5/5, sensation intact and equal all extremities and dermatomes, no pronator drift Chest: equal rise and fall of the chest, no accessory muscle use, no heaves or thrills, Clear to auscultation, on room air, Cardiac: Regular rate and rhythm, telemetry reviewed-NSR, skin warm dry, cap refill <3 seconds, peripheral pulses +2 no JVD, no murmur,+1 edema to right foot, dependant rubor to right lower leg, DP palpable PT dopllerable, femoral and popliteal palpable 2+ and strong. GI: NABS x 4 quadrants, soft, nontender to palpation, no rebound, guarding or tenderness : Spontaneously voiding, no pain, no CVA tenderness, Extremities: Normal inspection, no peripheral edema or erythema, calfs nontender to palpation Psych: Normal mood and affect Skin: no rash or erythema Results & Data Results & Data ([facility]) Vital Signs (Past 12 Hours) Vital Signs Temp Pulse Resp BP Pulse Ox 11/20/21 15:52 36.6 C 72 16 155/71 H 98 PG Care Time/CCT Total # of Minutes Spent Total Time Spent with Patient: Total time spent is greater than 50% in coordination of care (as documented) at patient's floor/unit and/or counseling patient: Coding Level of Care Code 31108 Subseq Hosp Care Lvl 2 Diagnoses Cellulitis L03.115 Laterality: right Site of cellulitis: extremity Site of cellulitis of extremity: lower extremity Right foot pain M79.671 Peripheral arterial disease I73.9 MRSA (methicillin resistant staph aureus) culture positive Z22.322 Hypercholesterolemia E78.00 HTN (hypertension) I10 Hyponatremia E87.1 (1) Cellulitis Laterality: right Site of cellulitis: extremity Site of cellulitis of extremity: lower extremity Qualified Code(s): L03.115 - Cellulitis of right lower limb
[2021-11-21] MEDS: PIPERACILLIN/TAZOBACTAM 3.375 GM in DEXTROSE 5% 100 ML IV SCH ×4 (00:25→23:23)
[2021-11-21] MEDS: HYDROmorphone INJ 0.5 MG/0.5 ML SYR IV PRN ×7 (00:25→23:36)
[2021-11-21] MEDS: HYDROCODONE/ACETAMOPHEN 5/325MG TAB PO PRN ×3 (05:39→18:50)
[2021-11-21] MEDS ORDERED: VANCOMYCIN TROUGH ONE (07:30)
[2021-11-21 08:08] LABS: Creatinine Clr Calc Pharmacy 81.1 ml/min; Est GFR (African American) 90.7 ml/min; Est GFR (Non-African American) 78.2 ml/min
[2021-11-21] MEDS: HEPARIN SOD 5,000 UNIT/0.5 ML VIAL SQ SCH ×2 (08:20→20:38)
[2021-11-21] MEDS: GABAPENTIN 600 MG TAB PO SCH ×3 (08:21→20:42)
[2021-11-21] MEDS: CLOTRIMAZOLE/BETAMETHASONE CR 15 GM TUBE EXT SCH ×2 (08:22→20:36)
[2021-11-21] MEDS: CLOPIDOGREL BISULFATE 75 MG TAB PO SCH (08:22)
[2021-11-21] MEDS: VANCOMYCIN HCL 1,250 MG in SODIUM CHLORIDE 0.9% 250 ML IV SCH ×2 (08:23→19:43)
[2021-11-21] MEDS: lisinopril 10 MG TAB PO SCH (08:23)
--- NOTE | 2021-11-21 09:09 | Pharmacy Report ---
Pharmacy Vanc AUC Short Note - Date of Service November 21, 2021 - Assessment & Plan Assessment 66 year old M receiving Vancomycin and Zosyn for treatment of right foot osteomyelitis. * Pertinent microbiologic data includes: * h/o MRSA in right foot (09/2020, 10/2020, 12/2020, 03/2021) * 11/17/21 blood cultures: no growth to date * Day #5 of antimicrobial therapy * To OR today for revascularization procedure Plan Vancomycin * AUC/KENDALL is the preferred PK/PD target for vancomycin * AUC guided dosing is effective and associated with decreased risk of nephrotoxicity compared to traditional trough targets * Trough level of 12 mcg/mL is predicted to achieve target AUC/KENDALL of 400-600 mg/L.hr and may be associated with a 10% risk of nephrotoxicity * Continue dose of 1250 mg IV every 12 hours * Trough level ordered for Saturday (11/25/21) Zosyn * Continue 3.375 g IV every 8 hours Pharmacy will continue to follow and will adjust dose/frequency as necessary. Thank you.
--- NOTE | 2021-11-21 09:37 | Hospitalist Progress Note ---
Date of Service November 21, 2021 Assessment & Plan (1) Cellulitis: Plan: Plantar medial aspect of the right first toe overlying the first metatarsal head. Associated cellulitis. No abscess. Febrile and with leukocytosis With sepsis, POA - Continue with Zosyn 3.375 GM q8 IV - Continue with Vancomycin daily IV -Blood cultures are negative for growth x2. Procalcitonin negative is 0.16 ng/mL - Wound culture not likely to yield useful data as no overt drainage or fluctu ance - CRP was elevated at 22.01 and ESR elevated at 76 - PCT q72 hours and trend inflammatory markers - Tylenol, Gabapentin, Percocet, Morphine for pain - Lower extremity Doppler negative for DVT -Previous MRI of the right foot in March 2021 showed pathologic marrow edema and cortical destructive changes involving the proximal and middle phalanges of the second toe indicative of osteomyelitis -Right second toe amputation for osteomyelitis [address] Nick Cochran. -repeat MRI showing evidence of osteomyelitis. -Consulted ortho: initially recommended surgery, however Erik will try femoral popliteal bypass first. -Plan is for an arteriogram today. Update: this was completed and showed that viable vessel with adequate size was patent and available for bypass tomorrow. (2) Right foot pain: Plan: Acute on chronic - ? plantar wart- either there is surrounding cellulitis that needs treated - Pain is more on the dorsal and lateral surface - Plantar surface with pain to the first and second metatarsal - Venous Doppler negative - CTA of the right leg as above and below. -Previous amputation of second right toe. -Repeat MRI of the right foot to rule out infectious etiology: -this is showing osteomyelitis, will consult ortho. -currently hoping that vascular intervention will help perfusion to the affected tissue so that amputation may be averted. (3) Peripheral arterial disease: Plan: A graft within the right superficial femoral artery is noted. There is severe stenosis of the proximal right superficial femoral artery. There is occlusion of the proximal right profunda with distal reconstitution . Additional moderate multifocal stenoses within the right superficial femoral artery are noted. Occlusion of the right popliteal artery is noted with distal reconstitution at the level of the trifurcation. There is occlusion of the proximal right anterior tibial artery with severe multifocal stenoses within the right anterior tibial artery, here are multifocal occlusions of the right posterior tibial artery. There is extensive atherosclerotic plaque within the right calf vessels Severe PAD as noted above CT results- appreciate vascular surgery evaluation and assistance - Continue plavix - Keep legs up - Doppler with pulse checks q8 - Continue with walking - Congratulated on stop smoking - continue efforts -Vascular surgery consulted (4) MRSA (methicillin resistant staph aureus) culture positive: Plan: HX of in 2020- no other culture details since that time - Continue with MRSA precautions - Continue Vaoncomycin -Check MRSA screening: negative. (5) Hypercholesterolemia: Plan: continue atorvastatin- 40mg (6) HTN (hypertension): Plan: Cotninue ELIZABETH (7) Hyponatremia: Plan: Chronic, typically around 133, slightly low here at 131 Received 500 mL normal saline Follow BMP Admission and Anticipated Discharge Date Admission Date: November 17, 2021 Subjective Patient is anxious about his upcoming procedure. He still has discomfort in his affected foot. He is also asking for a pizza and a beer once his procedure is done. Review of Systems Review of Systems: All systems reviewed & are unremarkable except as noted in HPI & below Physical Exam Physical Exam: General: awake, alert, no apparent distress Head: Normocephalic, atraumatic ENT: PERRL, EOMI, no pharyngeal exudate, mucous membranes moist Neuro: AAO x 3, speech clear and appropriate, strength intact bilaterally 5/5, sensation intact and equal all extremities and dermatomes, no pronator drift Chest: equal rise and fall of the chest, no accessory muscle use, no heaves or thrills, Clear to auscultation, on room air, Cardiac: Regular rate and rhythm, telemetry reviewed-NSR, skin warm dry, cap refill <3 seconds, peripheral pulses +2 no JVD, no murmur,+1 edema to right foot, dependant rubor to right lower leg, DP palpable PT dopllerable, femoral and popliteal palpable 2+ and strong. GI: NABS x 4 quadrants, soft, nontender to palpation, no rebound, guarding or tenderness : Spontaneously voiding, no pain, no CVA tenderness, Extremities: Normal inspection, no peripheral edema or erythema, calfs nontender to palpation Psych: Normal mood and affect Skin: no rash or erythema Results & Data Results & Data ([facility]) Vital Signs (Past 12 Hours) Vital Signs Temp Pulse Resp BP Pulse Ox 11/21/21 07:40 36.4 C L 69 16 136/73 100 11/20/21 22:40 36.8 C 71 20 129/74 99 PG Care Time/CCT Total # of Minutes Spent Total Time Spent with Patient: Total time spent is greater than 50% in coordination of care (as documented) at patient's floor/unit and/or counseling patient: Coding Level of Care Code 43802 Subseq Hosp Care Lvl 2 Diagnoses Cellulitis L03.115 Laterality: right Site of cellulitis: extremity Site of cellulitis of extremity: lower extremity Right foot pain M79.671 Peripheral arterial disease I73.9 MRSA (methicillin resistant staph aureus) culture positive Z22.322 Hypercholesterolemia E78.00 HTN (hypertension) I10 Hyponatremia E87.1 (1) Cellulitis Laterality: right Site of cellulitis: extremity Site of cellulitis of extremity: lower extremity Qualified Code(s): L03.115 - Cellulitis of right lower limb
--- NOTE | 2021-11-21 10:19 | History & Physical Bridge Note ---
Date of Service November 21, 2021 History & Physical Bridge Note Patient for a left lower extremity arteriogram with possible intervention. I have discussed the risks options and benefits of the procedure with the patient. The patient understands the risks options and benefits and agrees to the procedure. I have examined the patient, reviewed the History & Physical and in the interval since the performance of the History & Physical I have noted the following changes of clinical significance: no changes noted
[2021-11-21] MEDS ORDERED: fentaNYL citrate 100 MCG/2 ML VIAL ONE (10:36)
[2021-11-21] MEDS ORDERED: MIDAZOLAM HCL 1 MG/ML 2ML VIAL ONE (10:36)
[2021-11-21] MEDS ORDERED: HEPARIN SOD (PORCINE) 1000 UNIT/ML ONE (10:36)
--- NOTE | 2021-11-21 11:11 | Pre Anesthesia Assessment ---
Date of Service November 21, 2021 Pre Sedation Assessment Vital Signs Temp Pulse Pulse Resp BP Pulse Ox 11/21/21 10:58 72 20 157/70 H 100 11/21/21 10:19 36.9 C 76 18 163/95 H 11/21/21 07:40 36.4 C L 69 16 136/73 100 11/20/21 22:40 36.8 C 71 20 129/74 99 11/20/21 15:52 36.6 C 72 16 155/71 H 98 Cardiovascular RRR, no murmur, no edema Respiratory normal respiratory effort, lungs clear to auscultation Pre-Sedation Airway Assessment Smoking Status: Former smoker Hx Sleep Apnea: No Hx Difficult Intubation: No Short, Thick Neck: No Thyromental Distance: > or= 3.5 Finger Breadths Oral Cavity: + Dentures and + Dental Abnormalities Mallampati Class: II ASA: ASA3 NPO Status Date of Last Intake of Fluids: 11/21/21 Time of Last Intake of Fluids: 08:20 Last Oral Intake of Fluids Comment: sip with medication Date of Last Intake of Solid Food: 11/20/21 Time of Last Intake of Solid Foods: 13:00 Procedure Planning Contraindications for Sedation: none Current Medications Reviewed: Yes Notes The planned sedation has been discussed with the patient. Informed Consent was obtained. I have identified the patient, determined the appropriateness of sedation and have assessed the patient immediately prior to the procedure. All medicine(s) and interventions are by my order.
[2021-11-21] MEDS: fentaNYL citrate 100 MCG/2 ML VIAL ONE ×2 (11:36→11:45)
[2021-11-21] MEDS ORDERED: LIDOCAINE 1% LOCAL 20 ML VIAL INJ ONE (11:37)
[2021-11-21] MEDS ORDERED: VISIPAQUE IV PRN (11:37)
--- NOTE | 2021-11-21 11:42 | Post Operative Brief Note ---
Immediate Post Op Note v1 Date of Surgery November 21, 2021 Pre & Post Diagnosis Operation Date: 11/21/21 11:20 Pre-Op Diagnosis: Gangrene Right Great Toe Post-Op Diagnosis: Gangrene Right Great Toe Operation Date: 11/21/21 12:30 <No data on this case meets the specified criteria> Operation Date: 11/22/21 12:10 <No data on this case meets the specified criteria> I identified the patient and participated in the time-out.: Yes Procedure Operation Date: 11/21/21 11:20 Actual Procedures p Right Leg Arteriorgram, Ultrasound Localization of Left Femoral Artery, Moderate Sedation [id number](Left) - Sachin Valencia MD Operation Date: 11/21/21 12:30 <No data on this case meets the specified criteria> Operation Date: 11/22/21 12:10 <No data on this case meets the specified criteria> Surgeon Sachin Valencia MD Crisis Clinician MD Karol Estimated Blood Loss 5 Findings Consistent with Post-Op Diagnosis Anesthesia Type RN Sedation Complications none Disposition Accompanied Patient To Recovery: No Disposition: Recovery Room
--- NOTE | 2021-11-21 11:52 | Procedure Note ---
Angiogram Post Procedure Fluoroscopy Time (minutes): 1.7 Conscious Sedation Time (minutes): 40 Radiation (mGy): 21 Contrast: 35cc visipaque Post Operative Report Pre & Post Diagnosis Operation Date: 11/21/21 11:20 Pre-Op Diagnosis: Gangrene Right Great Toe Post-Op Diagnosis: Gangrene Right Great Toe Operation Date: 11/21/21 12:30 <No data on this case meets the specified criteria> Operation Date: 11/22/21 12:10 <No data on this case meets the specified criteria> I identified the patient and participated in the time-out.: Yes Procedure Operation Date: 11/21/21 11:20 Actual Procedures p Right Leg Arteriorgram, Ultrasound Localization of Left Femoral Artery, Moderate Sedation 1112-(Left) - Sachin Valencia MD Operation Date: 11/21/21 12:30 <No data on this case meets the specified criteria> Operation Date: 11/22/21 12:10 <No data on this case meets the specified criteria> Surgeon Sachin Valencia MD Publicity Expert MD Karol Estimated Blood Loss 20 Findings Consistent with Post-Op Diagnosis Specimens none Anesthesia Type RN Sedation Complications none Disposition Accompanied Patient To Recovery: No Disposition: Recovery Room Indications Mr. Guero Fragoso is a 66 year old male with history of peripheral arterial disease. He previously underwent right common femoral endarterectomy with bovine pericardial patch angioplasty. Subsequent to this he underwent balloon angioplasty with our cardiology colleagues. He has critical limb ischemia with non healing wounds of the right foot. He presents for diagnostic angiography in anticipation of bypass. Description of Procedure The patient was taken to the operating suite. The patient's identity and surgical procedure were verified. The patient was transferred over to the operating room table and placed in the supine position. The bilateral groins were prepped and draped in the usual sterile fashion. A team timeout was performed including confirmation of the patient's identity, surgical site, and surgical procedure. Lidocaine were administered to the subcutaneous tissues in the left groin in the intended puncture site. A 19G needle was used to access the common femoral artery on the left. This was diseased with both anterior and posterior plaque but there was one small segment that had less plaque burden on the anterior surface so we accessed there. A J-wire was advanced. The needle was removed and a 5Fr sheath was placed. The J-wire was removed and a glidewire was advanced into the aorta. A rim catheter was advanced over the wire into the di stal aorta. The wire was removed and aortoiliac angiography was performed. No flow-limiting stenosis was identified in the distal aorta or bilateral common or external iliac arteries. The bilateral hypogastric arteries appeared patent. The glidewire was replaced and the wire and catheter were advanced so that the catheter tip was just above the femoral head on the right. From here we obtained angiographic imaging of the rest of the right leg. This demonstrated a widely patent common femoral artery at the area of the patch. just distal to the patch the proximal SFA had a very tight stenosis. The rest of the SFA had atherosclerotic disease and calcifications but no flow-limiting stenoses. The popliteal artery also had disease and appeared to either occlude or have a very tight stenosis in the segment behind the knee. A large geniculate collateral arose just proximal to this area of narrowing and went down to the proximal AT. The distal below knee popliteal artery was patent. The anterior tibial artery was patent down to the foot. The size appeared adequate for bypass. The peroneal artery was occluded proximally but reconstituted at the mid leg and continued down to the ankle. The PT was not visualized. All wires, catheters, and sheaths were removed and manual pressure was held over the puncture site. Hemostasis was obtained. The patient tolerated the procedure well and without immediate complication. The patient was taken to the recovery room in satisfactory condition. Dr. Valencia was present and scrubbed for the entirety of the procedure. I attest to the content of the Intraoperative Record and any orders documented therein. Any exceptions are noted below.
[2021-11-21] MEDS: POTASSIUM CHLORIDE CRTAB 20 MEQ TABCR PO SCH (15:43)
[2021-11-21] MEDS: TAMSULOSIN HCL 0.4 MG CAP PO SCH (15:43)
[2021-11-21] MEDS: ATORVASTATIN 40 MG TAB PO SCH (20:42)
[2021-11-22] MEDS: HYDROCODONE/ACETAMOPHEN 5/325MG TAB PO PRN ×3 (03:26→22:25)
--- NOTE | 2021-11-22 07:38 | History & Physical Bridge Note ---
Date of Service November 22, 2021 History & Physical Bridge Note Patient for a right femoral anterior tibial bypass. I have discussed the risks options and benefits of the procedure with the patient. The patient understands the risks options and benefits and agrees to the procedure. I have examined the patient, reviewed the History & Physical and in the interval since the performance of the History & Physical I have noted the following changes of clinical significance: no changes noted
[2021-11-22] MEDS ORDERED: HEPARIN (PORCINE) 1000 UNIT/ML 10 ML (CATH LAB USE ONLY) ONE (07:53)
[2021-11-22] MEDS ORDERED: PAPAVERINE HCL INJ 30 MG/ML 2 ML VIAL ONE (07:54)
[2021-11-22] MEDS ORDERED: ceFAZolin 330 MG/ML 1 GM VIAL ONE (07:54)
[2021-11-22] MEDS ORDERED: LIDOCAINE 1% LOCAL 20 ML VIAL ONE (07:54)
[2021-11-22] MEDS ORDERED: GELATIN SPONGE SZ 100 ONE (07:54)
[2021-11-22] MEDS ORDERED: THROMBIN FOR SOLN 20000 UNIT KIT ONE (07:55)
[2021-11-22] MEDS ORDERED: EPINEPHrine INJ 1 MG/ML AMP ONE (07:55)
[2021-11-22] MEDS ORDERED: BUPIVACAINE 0.5 % 5 MG/1 ML MPF 30ML VIAL ONE (07:55)
[2021-11-22] MEDS ORDERED: MIDAZOLAM HCL 1 MG/ML 2ML VIAL ONE (08:01)
[2021-11-22] MEDS ORDERED: fentaNYL citrate 100 MCG/2 ML VIAL ONE (08:01)
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
[2021-11-22] MEDS: VANCOMYCIN HCL 1,250 MG in SODIUM CHLORIDE 0.9% 250 ML IV SCH ×2 (08:49→20:13)
[2021-11-22] MEDS: CLOTRIMAZOLE/BETAMETHASONE CR 15 GM TUBE EXT SCH ×3 (09:02→20:17)
[2021-11-22] MEDS: CLOPIDOGREL BISULFATE 75 MG TAB PO SCH ×2 (09:02→10:43)
[2021-11-22] MEDS: GABAPENTIN 600 MG TAB PO SCH ×4 (09:02→20:14)
[2021-11-22] MEDS: HEPARIN SOD 5,000 UNIT/0.5 ML VIAL SQ SCH ×3 (09:02→20:14)
[2021-11-22 09:11] LABS: BUN Creatinine Ratio 12.4 (10-20); Creatinine Clr Calc Pharmacy 84.4 ml/min; Est GFR (African American) 95.2 ml/min; Est GFR (Non-African American) 82.2 ml/min; Potassium 3.9 mmol/L (3.5-5.1)
[2021-11-22] MEDS ORDERED: HYDROmorphone INJ 1 MG/ML SYRINGE IV STA (09:29)
[2021-11-22] MEDS: PIPERACILLIN/TAZOBACTAM 3.375 GM in DEXTROSE 5% 100 ML IV SCH ×2 (10:40→16:36)
[2021-11-22] MEDS: lisinopril 10 MG TAB PO SCH (10:44)
[2021-11-22] MEDS ORDERED: SODIUM CHLORIDE 1 GM TABLET PO ONE (11:54)
[2021-11-22] MEDS: HYDROmorphone INJ 0.5 MG/0.5 ML SYR IV PRN ×5 (11:56→22:25)
[2021-11-22] MEDS: TAMSULOSIN HCL 0.4 MG CAP PO SCH (14:56)
[2021-11-22] MEDS: POTASSIUM CHLORIDE CRTAB 20 MEQ TABCR PO SCH (16:38)
--- NOTE | 2021-11-22 20:04 | Hospitalist Progress Note ---
Date of Service November 22, 2021 Assessment & Plan (1) Cellulitis: Plan: -Plantar medial aspect of the right first toe overlying the first metatarsal head. Associated cellulitis. No abscess -- With sepsis, POA - Continue with Zosyn and Vancomycin -- Has grown MRSA in the past -- currently BCx with NGTD; Procal negative - Wound culture not likely to yield useful data as no overt drainage or fluctuance - CRP was elevated at 22.01 and ESR elevated at 76 on admission -- CRP/ESR slightly improved; - Continue pain control - Lower extremity Doppler negative for DVT -Previous MRI of the right foot in March 2021 showed pathologic marrow edema and cortical destructive changes involving the proximal and middle phalanges of the second toe indicative of osteomyelitis -Right second toe amputation for osteomyelitis [address] Nick Cochran. -repeat MRI showing evidence of osteomyelitis. -Consulted ortho: initially recommended surgery, however Erik will try femoral popliteal bypass first. -- Vascular surgery canceled due to hyponatremia with plans to try on Saturday -- Arteriogram -- viable vessel with adequate size was patient and available for bypass (2) Peripheral arterial disease: Plan: A graft within the right superficial femoral artery is noted. There is severe stenosis of the proximal right superficial femoral artery. There is occlusion of the proximal right profunda with distal reconstitution . Additional moderate multifocal stenoses within the right superficial femoral artery are noted. Occlusion of the right popliteal artery is noted with distal reconstitution at t he level of the trifurcation. There is occlusion of the proximal right anterior tibial artery with severe multifocal stenoses within the right anterior tibial artery, here are multifocal occlusions of the right posterior tibial artery. There is extensive atherosclerotic plaque within the right calf vessels Severe PAD as noted above CT results- appreciate vascular surgery evaluation and assistance - Plavix held for surgical intervention - Keep legs up - Doppler with pulse checks q8 (3) MRSA (methicillin resistant staph aureus) culture positive: Plan: HX of in 2020- no other culture details since that time - Continue with MRSA precautions - Continue Vaoncomycin -Check MRSA screening: negative. (4) Hypercholesterolemia: Plan: continue atorvastatin- 40mg (5) HTN (hypertension): Plan: Continue ELIZABETH (6) Hyponatremia: Plan: Chronic, typically around 133, slightly low here at 128 Received 500 mL normal saline previously. Has stated he has been taking in more free water - appears euvolemic Add daily salt tabs and patient reports will be mindful of free water - can hold on formal fluid restriction for now Follow BMP Plan: Vascular intervention on Saturday pending Na; may need ID consultation Admission and Anticipated Discharge Date Admission Date: November 17, 2021 Subjective Patient noted to have a Na of 128 on AM labs. Asymptomatic and does tend to chronically be a bit lower. However re-vascularization surgery canceled. Patient reports he has noted taking in more free water than normal. Did discuss this and he will be mindful of his intact and only take sips when thirsty and will add salt tabs to assist. Did have worsening pain this AM but did improve in the afternoon. Review of Systems Review of Systems: All systems reviewed & are unremarkable except as noted in Subjective Physical Exam Physical Exam: PHYSICAL EXAM General Appearance: WDWN in NAD who is A&O x 3 HEENT: Head is normocephalic/atraumatic; Hearing grossly intact; Mucous mem branes moist Neck: Supple; Trachea midline; Neg JVD Heart: RRR with no M/G/R Lungs: CTA in all lung carter bilaterally; Respirations unlabored; Neg accessory muscle use Abdomen: Soft, non-tender, non-distended; Positive BS x 4 quadrants Extremities: R foot with ulcer to the R plantar 1st MTP; R great toe purple with poor refill; +some level of cyanosis more prevent with dependent hanging of R foot Neurological: Speech clear; Gross motor/sensory function intact; Neg focal neurologic deficits Psychiatric: Appropriate mood/affect Skin: Normal Color; Warm/Dry; other than mentioned above Results & Data Results & Data ([facility]) Vital Signs (Past 12 Hours) Vital Signs Temp Pulse Resp BP Pulse Ox 11/22/21 15:10 36.8 C 83 16 163/69 H 98 11/22/21 10:42 163/69 H 11/22/21 10:08 74 163/69 H 11/22/21 08:03 36.8 C 68 20 138/69 98 PG Care Time/CCT Total # of Minutes Spent Total Time Spent with Patient: Total time spent is greater than 50% in coordination of care (as documented) at patient's floor/unit and/or counseling patient: Coding Level of Care Code 87438 Subseq Hosp Care Lvl 3 Diagnoses Cellulitis L03.115 Laterality: right Site of cellulitis: extremity Site of cellulitis of extremity: lower extremity Peripheral arterial disease I73.9 MRSA (methicillin resistant staph aureus) culture positive Z22.322 Hypercholesterolemia E78.00 HTN (hypertension) I10 Hyponatremia E87.1 (1) Cellulitis Laterality: right Site of cellulitis: extremity Site of cellulitis of extremity: lower extremity Qualified Code(s): L03.115 - Cellulitis of right lower limb
[2021-11-22] MEDS: ATORVASTATIN 40 MG TAB PO SCH (20:14)
[2021-11-23] MEDS: HYDROmorphone INJ 0.5 MG/0.5 ML SYR IV PRN ×10 (00:26→21:58)
[2021-11-23] MEDS: PIPERACILLIN/TAZOBACTAM 3.375 GM in DEXTROSE 5% 100 ML IV SCH ×4 (00:30→23:36)
[2021-11-23] MEDS: HYDROCODONE/ACETAMOPHEN 5/325MG TAB PO PRN ×4 (03:52→21:18)
[2021-11-23 07:56] LABS: Hematocrit (blood only) 37.5 % (42-52); Hemoglobin 12.6 g/dL (14.0-18.0); Mean Corpuscular Hemoglobin 31.7 pg (25-34); Mean Corpuscular Hgb Conc 33.6 g/dL (32-36); Mean Corpuscular Volume 94.2 fL (80-100); Mean Platelet Volume 8.8 fL (7.4-10.4); Platelet Count 577 K/uL (130-400); RDW Coefficient of Variation 12.9 % (11.5-14.5); Red Blood Count 3.98 M/uL (4.7-6.1); White Blood Count 10.47 K/uL (4.8-10.8)
[2021-11-23] MEDS: VANCOMYCIN HCL 1,250 MG in SODIUM CHLORIDE 0.9% 250 ML IV SCH ×2 (08:14→19:57)
[2021-11-23 08:17] LABS: BUN Creatinine Ratio 13.1 (10-20); Calcium 9.2 mg/dl (8.5-10.1); Creatinine Clr Calc Pharmacy 82.7 ml/min; Est GFR (African American) 92.9 ml/min; Est GFR (Non-African American) 80.2 ml/min; Potassium 3.8 mmol/L (3.5-5.1)
[2021-11-23] MEDS: CLOPIDOGREL BISULFATE 75 MG TAB PO SCH (08:20)
[2021-11-23] MEDS: CLOTRIMAZOLE/BETAMETHASONE CR 15 GM TUBE EXT SCH ×2 (08:20→21:21)
[2021-11-23] MEDS: GABAPENTIN 600 MG TAB PO SCH ×3 (08:20→21:22)
[2021-11-23] MEDS: lisinopril 10 MG TAB PO SCH (08:20)
[2021-11-23] MEDS: SODIUM CHLORIDE 1 GM TABLET PO SCH (08:20)
[2021-11-23] MEDS: HEPARIN SOD 5,000 UNIT/0.5 ML VIAL SQ SCH ×2 (08:21→21:21)
--- NOTE | 2021-11-23 11:52 | Hospitalist Progress Note ---
Date of Service November 23, 2021 Assessment & Plan (1) Cellulitis: Plan: -Plantar medial aspect of the right first toe overlying the first metatarsal head. Associated cellulitis. No abscess -- With sepsis, POA - Continue with Zosyn and Vancomycin -- may benefit from ID consultation to see what the best option would be Abx given the concern for osteo on MRI -- ultimately if ortho does choose amputation that would be ultimate source control and without suspect 6 weeks IV Abx and likely would need MRSA coverage given history -- Has grown MRSA in the past -- currently BCx with NGTD; Procal negative - Wound culture not likely to yield useful data as no overt drainage or fluctuance at ulceration of great toe - CRP was elevated at 22.01 and ESR elevated at 76 on admission -- CRP/ESR slightly improved - Continue pain control - Lower extremity Doppler negative for DVT - Previous MRI of the right foot in March 2021 showed pathologic marrow edema and cortical destructive changes involving the proximal and middle phalanges of the second toe indicative of osteomyelitis - Right second toe amputation for osteomyelitis [address] Nick Cochran. - Repeat MRI showing evidence of osteomyelitis. - Consulted ortho/vascular: initially recommended surgery, however Dr. Valencia will try femoral popliteal bypass first. -- Vascular surgery planned for Saturday -- Arteriogram -- viable vessel with adequate size was patient and available for bypass (2) Peripheral arterial disease: Plan: A graft within the right superficial femoral artery is noted; There is severe stenosis of the proximal right superficial femoral artery; There is occlusion of the proximal right profunda with distal reconstitution; Additional moderate multifocal stenoses within the right superficial femoral artery are noted; Occlusion of the right popliteal artery is noted with distal reconstitution at the level of the trifurcation; There is occlusion of the proximal right anterior tibial artery with severe multifocal stenoses within the right anterior tibial artery, here are multifocal occlusions of the right posterior tibial artery. There is extensive atherosclerotic plaque within the right calf vessels Severe PAD as noted above CT results- appreciate vascular surgery evaluation and assistance - Plavix held for surgical intervention - Keep legs up - Doppler with pulse checks q8 (3) MRSA (methicillin resistant staph aureus) culture positive: Plan: HX of in 2020- no other culture details since that time - Continue with MRSA precautions; MRSA swap negative on this admission - Continue Vancomycin (4) Hypercholesterolemia: Plan: continue atorvastatin 40 mg daily (5) HTN (hypertension): Plan: Continue ELIZABETH (6) Hyponatremia: Plan: Chronic, typically around 133, currently at 130 Received 500 mL normal saline previously. Has stated he has been taking in more free water - appears euvolemic Add daily salt tabs and patient reports will be mindful of free water - can hold on formal fluid restriction for now Follow BMP Plan: Vascular intervention on Saturday; may need ID consultation Admission and Anticipated Discharge Date Admission Date: November 17, 2021 Subjective No acute events overnight. Reports his pain remains but is manageable with the Dilaudid. Feels the erythema of his leg is much better and the rubor improves when he is laying down. He is tolerating a diet without issue. His Na is trending up. Vascular surgery is anticipated tomorrow. Verbalizes no new complaints. Review of Systems Review of Systems: All systems reviewed & are unremarkable except as noted in Subjective Physical Exam Physical Exam: PHYSICAL EXAM General Appearance: WDWN in NAD who is A&O x 3 HEENT: Head is normocephalic/atraumatic; Hearing grossly intact; Mucous membranes moist Neck: Supple; Trachea midline; Neg JVD Heart: RRR with no M/G/R Lungs: CTA in all lung carter bilaterally; Respirations unlabored; Neg accessory muscle use Abdomen: Soft, non-tender, non-distended; Positive BS x 4 quadrants Extremities: R foot with ulcer to the R plantar 1st MTP; R great toe purple with poor refill; +some level of cyanosis more prevent with dependent hanging of R foot; not warm to touch Neurological: Speech clear; Gross motor/sensory function intact; Neg focal neurologic deficits Psychiatric: Appropriate mood/affect Skin: Normal Color; Warm/Dry; other than mentioned above Results & Data Results & Data ([facility]) Vital Signs (Past 12 Hours) Vital Signs Temp Pulse Resp BP Pulse Ox 11/23/21 07:50 36.4 C L 68 14 110/58 L 98 PG Care Time/CCT Total # of Minutes Spent Total Time Spent with Patient: Total time spent is greater than 50% in coordination of care (as documented) at patient's floor/unit and/or counseling patient: Coding Level of Care Code 77045 Subseq Hosp Care Lvl 3 Diagnoses Cellulitis L03.115 Laterality: right Site of cellulitis: extremity Site of cellulitis of extremity: lower extremity Peripheral arterial disease I73.9 MRSA (methicillin resistant staph aureus) culture positive Z22.322 Hypercholesterolemia E78.00 HTN (hypertension) I10 Hyponatremia E87.1 (1) Cellulitis Laterality: right Site of cellulitis: extremity Site of cellulitis of extremity: lower extremity Qualified Code(s): L03.115 - Cellulitis of right lower limb
--- NOTE | 2021-11-23 13:07 | Surgery Progress Note ---
Date of Service November 23, 2021 Assessment & Plan (1) Peripheral arterial disease: Plan: Patient for right femoral to ant tib bypass tomorrow. Sodium up a little from yesterday. Admission and Anticipated Discharge Date Admission Date: November 17, 2021 Subjective Patient claims pain somewhat better controlled. Physical Exam Constitutional: WD/WN, vitals as above Musculoskeletal: Right great toe unchanged on exam Results & Data ([facility]) Vital Signs (Past 12 Hours) Vital Signs Temp Pulse Resp BP Pulse Ox 11/23/21 07:50 36.4 C L 68 14 110/58 L 98
[2021-11-23] MEDS: TAMSULOSIN HCL 0.4 MG CAP PO SCH (14:14)
[2021-11-23] MEDS: POTASSIUM CHLORIDE CRTAB 20 MEQ TABCR PO SCH (16:07)
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
[2021-11-23] MEDS ORDERED: HYDROmorphone INJ 1 MG/ML SYRINGE IV STA (17:39)
[2021-11-23] MEDS: ATORVASTATIN 40 MG TAB PO SCH (21:22)
[2021-11-23] MEDS: HYDROmorphone INJ 1 MG/ML SYRINGE IV PRN (23:34)
[2021-11-24] MEDS: HYDROCODONE/ACETAMOPHEN 5/325MG TAB PO PRN ×3 (01:20→20:54)
[2021-11-24] MEDS: HYDROmorphone INJ 1 MG/ML SYRINGE IV PRN ×7 (02:19→19:25)
[2021-11-24] MEDS ORDERED: VANCOMYCIN TROUGH ONE (07:30)
[2021-11-24 08:05] LABS: Hematocrit (blood only) 37.6 % (42-52); Hemoglobin 12.4 g/dL (14.0-18.0); Mean Corpuscular Hemoglobin 31.2 pg (25-34); Mean Corpuscular Volume 94.5 fL (80-100); Mean Platelet Volume 8.8 fL (7.4-10.4); Platelet Count 600 K/uL (130-400); RDW Coefficient of Variation 12.9 % (11.5-14.5); Red Blood Count 3.98 M/uL (4.7-6.1); White Blood Count 11.67 K/uL (4.8-10.8)
[2021-11-24] MEDS: PIPERACILLIN/TAZOBACTAM 3.375 GM in DEXTROSE 5% 100 ML IV SCH ×2 (08:23→21:14)
[2021-11-24 08:30] LABS: BUN Creatinine Ratio 15.2 (10-20); Calcium 9.2 mg/dl (8.5-10.1); Est GFR (African American) 101.5 ml/min; Est GFR (Non-African American) 87.6 ml/min; Potassium 3.8 mmol/L (3.5-5.1)
[2021-11-24] MEDS: lisinopril 10 MG TAB PO SCH (08:32)
[2021-11-24] MEDS: SODIUM CHLORIDE 1 GM TABLET PO SCH (08:33)
[2021-11-24] MEDS: GABAPENTIN 600 MG TAB PO SCH ×3 (08:33→21:13)
[2021-11-24] MEDS: CLOTRIMAZOLE/BETAMETHASONE CR 15 GM TUBE EXT SCH ×2 (08:33→23:14)
--- NOTE | 2021-11-24 09:35 | History & Physical Bridge Note ---
Date of Service November 24, 2021 History & Physical Bridge Note Patient for right femoral to ant tib bypass. I have discussed the risks options and benefits of the procedure with the patient. The patient understands the risks options and benefits and agrees to the procedure. I have examined the patient, reviewed the History & Physical and in the interval since the performance of the History & Physical I have noted the following changes of clinical significance: no changes noted
[2021-11-24] MEDS ORDERED: LIDOCAINE 2% 2 ML VIAL/AMP(20MG/ML) INFIL ONE (09:47)
[2021-11-24] MEDS ORDERED: PROPOFOL IV EMULSION 10 MG/ML 20 ML VIAL IV ONE (09:47)
[2021-11-24] MEDS ORDERED: MIDAZOLAM HCL 1 MG/ML 2ML VIAL ONE (09:48)
[2021-11-24] MEDS ORDERED: fentaNYL citrate 100 MCG/2 ML VIAL ONE ×3 (09:48→14:51)
[2021-11-24] MEDS ORDERED: HEPARIN (PORCINE) 1000 UNIT/ML 10 ML (CATH LAB USE ONLY) ONE (10:06)
[2021-11-24] MEDS ORDERED: PAPAVERINE HCL INJ 30 MG/ML 2 ML VIAL ONE (10:06)
[2021-11-24] MEDS ORDERED: ceFAZolin 330 MG/ML 1 GM VIAL ONE (10:07)
[2021-11-24] MEDS ORDERED: GELATIN SPONGE SZ 100 ONE (10:07)
[2021-11-24] MEDS ORDERED: THROMBIN FOR SOLN 20000 UNIT KIT ONE (10:08)
[2021-11-24] MEDS ORDERED: BUPIVACAINE 0.5 % 5 MG/1 ML MPF 30ML VIAL ONE (10:08)
[2021-11-24] MEDS ORDERED: EPINEPHrine INJ 1 MG/ML AMP ONE (10:08)
[2021-11-24] MEDS ORDERED: HEPARIN SOD (PORCINE) 1000 UNIT/ML ONE (12:54)
[2021-11-24] MEDS: VANCOMYCIN HCL 1,250 MG in SODIUM CHLORIDE 0.9% 250 ML IV SCH (13:00)
[2021-11-24] MEDS ORDERED: ePHEDrine sulfate 50 MG/ML AMP ONE ×2 (13:06→16:45)
[2021-11-24] MEDS ORDERED: PHENYLEPHRINE HCL 10 MG/ML VIAL ONE (13:06)
[2021-11-24] MEDS ORDERED: SURGICEL ABSORB HEMOSTAT 2IN X 14IN TOP ONE (14:54)
[2021-11-24 15:13] LABS: iSTAT Creatinine 0.8 mg/dl (0.6-1.3); iSTAT Hemoglobin 11.6 g/dl (14.0-18.0); iSTAT Ionized Calcium 1.26 mmol/l (1.12-1.32); iSTAT Potassium 4.1 mmol/L (3.3-5.0)
--- NOTE | 2021-11-24 15:27 | Pharmacy Report ---
Pharmacy Vanc AUC Short Note - Date of Service November 24, 2021 - Assessment & Plan Assessment 66 year old M receiving Vancomycin 1250 mg IV Q12h for treatment of Osteomyelitis. Pertinent microbiologic data includes: History of MRSA Day #8 of antimicrobial therapy. Trough level obtained this AM before dose at 8 AM was 15.3 mcg/ml Plan Vancomycin * AUC/KENDALL is the preferred PK/PD target for vancomycin * AUC guided dosing is effective and associated with decreased risk of nephrotoxicity compared to traditional trough targets * Extrapolated Vancomycin trough level was 13 mcg/ml on current regimen with AUC/KENDALL of 453 mg/l.hr. * Since patient is being treated for Osteo, Vancomycin dose is increased to 1500 mg IV Q12h to target higher trough and AUC. * Expecting trough between 15-20 mcg/ml which is predicted to achieve target AUC/KENDALL of 400-600 mg/L.hr and may be associated with a 10% risk of nephrotoxicity * Trough level ordered for: 11/26/21 before dose at 08:30 AM after 3 maintenance doses. Pharmacy will continue to follow and will adjust dose/frequency as necessary. Thank you.
[2021-11-24] MEDS: TAMSULOSIN HCL 0.4 MG CAP PO SCH (16:45)
[2021-11-24] MEDS: HEPARIN SOD 5,000 UNIT/0.5 ML VIAL SQ SCH ×2 (16:45→21:13)
[2021-11-24] MEDS: LIDOCAINE 1% LOCAL 20 ML VIAL ONE ×2 (16:58→17:39)
--- NOTE | 2021-11-24 17:13 | Post Operative Brief Note ---
Immediate Post Op Note v1 Date of Surgery November 24, 2021 Pre & Post Diagnosis Operation Date: 11/21/21 11:20 Pre-Op Diagnosis: Gangrene Right Great Toe Post-Op Diagnosis: Gangrene Right Great Toe Operation Date: 11/21/21 12:30 <No data on this case meets the specified criteria> Operation Date: 11/22/21 10:40 <No data on this case meets the specified criteria> Operation Date: 11/24/21 11:55 Pre-Op Diagnosis: Peripheral arterial disease Right popliteal artery occlusion and Superficial femoral artery stenosis Post-Op Diagnosis: Peripheral arterial disease Right popliteal artery occlusion and Superficial femoral artery stenosis I identified the patient and participated in the time-out.: Yes Procedure Operation Date: 11/21/21 11:20 Actual Procedures p Right Leg Arteriorgram, Ultrasound Localization of Left Femoral Artery, Moderate Sedation [id number](Left) - Sachin Valencia MD Operation Date: 11/21/21 12:30 <No data on this case meets the specified criteria> Operation Date: 11/22/21 10:40 <No data on this case meets the specified criteria> Operation Date: 11/24/21 11:55 Actual Procedures p Right Leg Femoral to Anterior Tibial Prosthetic Bypass Graft, Proximal superficial femoral artery endarterectomy with bovine patch(Right) - Sachin Valencia MD Surgeon Sachin Valencia MD Deployment Technician MD Karol Estimated Blood Loss 300 Findings Consistent with Post-Op Diagnosis Drains Shetty Catheter (16 Fr shetty catheter inserted by Rae Collins RN without difficulty. Draining clear yellow urine. Anesthesia to monitor urine output. ) Anesthesia Type General Complications none Disposition Accompanied Patient To Recovery: No Disposition: Recovery Room
[2021-11-24] MEDS ORDERED: ATROPINE SULFATE 0.1 MG/ML 10ML SYR IV PRN (18:01)
[2021-11-24] MEDS ORDERED: ePHEDrine sulfate 50 MG/ML AMP IV PRN (18:01)
[2021-11-24] MEDS ORDERED: FLUMAZENIL 0.1 MG/1 ML 10 ML VIAL IV PRN (18:01)
[2021-11-24] MEDS ORDERED: LABETALOL HCL IV 5 MG/ML 20ML IV PRN (18:01)
[2021-11-24] MEDS ORDERED: ONDANSETRON INJ 2 MG/ML 2 ML VIAL IV PRN (18:01)
[2021-11-24] MEDS ORDERED: NALOXONE HCL 0.4 MG/1 ML VIAL/CARP IV PRN (18:01)
[2021-11-24] MEDS ORDERED: PROMETHAZINE HCL 12.5 MG in SODIUM CHLORIDE 0.9% 50 ML IV PRN (18:01)
--- NOTE | 2021-11-24 18:23 | Anesthesiology Progress Note ---
Date of Service November 24, 2021 Anesthesia Post Procedure Vital Signs Vital Signs: Temp Pulse Pulse Resp BP Pulse Ox 11/24/21 18:10 107 H 16 108/67 100 11/24/21 18:00 118 H 16 129/71 100 11/24/21 17:54 36.7 C 120 H 16 120/76 100 11/24/21 10:12 36.9 C 71 18 133/73 96 11/24/21 07:38 36.7 C 62 14 168/68 H 96 11/23/21 21:22 36.8 C 66 16 120/64 99 Pain Intensity Right Leg: Pain Intensity: 4 Transfer of Care Handoff Completed per policy Notes Mental Status: alert / awake / arousable Patient Amnestic to Procedure: Yes Nausea / Vomiting: adequately controlled Pain: adequately controlled Airway Patency, RR, SpO2: stable & adequate BP & HR: stable & adequate Hydration State: stable & adequate Anesthetic Complications: no major complications apparent
[2021-11-24 18:28] LABS: Basophils # (auto) 0.02 K/uL (0-0.2); Basophils % (auto) 0.1 %; Eosinophils # (auto) 0.01 K/uL (0-0.5); Eosinophils % (auto) 0.1 %; Hematocrit (blood only) 32.7 % (42-52); Hemoglobin 11.1 g/dL (14.0-18.0); Immature Granulocytes # (auto) 0.07 K/uL (0.00-0.02); Immature Granulocytes % (auto) 0.4 %; Lymphocytes # (auto) 0.93 K/uL (1.2-3.4); Lymphocytes % (auto) 4.9 %; Mean Corpuscular Hemoglobin 31.5 pg (25-34); Mean Corpuscular Volume 92.9 fL (80-100); Mean Platelet Volume 8.5 fL (7.4-10.4); Monocytes # (auto) 0.32 K/uL (0.11-0.59); Monocytes % (auto) 1.7 %; Neutrophils # (auto) 17.81 K/uL (1.4-6.5); Neutrophils % (auto) 92.8 %; Platelet Count 604 K/uL (130-400); RDW Coefficient of Variation 13.2 % (11.5-14.5); RDW Standard Deviation 44.9 fL (36.4-46.3); Red Blood Count 3.52 M/uL (4.7-6.1); White Blood Count 19.16 K/uL (4.8-10.8)
[2021-11-24 18:34] LABS: Mean Corpuscular Hgb Conc 33.9 g/dL (32-36)
[2021-11-24 18:50] LABS: Calcium 9.1 mg/dl (8.5-10.1); Creatinine Clr Calc Pharmacy 101.1 ml/min; Est GFR (African American) 108.9 ml/min; Est GFR (Non-African American) 93.9 ml/min; Potassium 3.8 mmol/L (3.5-5.1)
--- NOTE | 2021-11-24 19:18 | Hospitalist Progress Note ---
Date of Service November 24, 2021 Assessment & Plan (1) Cellulitis: Plan: -Plantar medial aspect of the right first toe overlying the first metatarsal head. Associated cellulitis. No abscess; uncertain of viability of great toe -- With sepsis, POA - Continue with Zosyn and Vancomycin -- may benefit from ID consultation to see what the best option would be Abx given the concern for osteo on MRI -- ultimately if ortho does choose amputation that would be ultimate source control and without suspect 6 weeks IV Abx and likely would need MRSA coverage given history -- Has grown MRSA in the past -- currently BCx with NGTD; Procal negative - Wound culture not likely to yield useful data as no overt drainage or fluctuance at ulceration of great toe - CRP was elevated at 22.01 and ESR elevated at 76 on admission -- CRP/ESR slightly improved - Continue pain control - Lower extremity Doppler negative for DVT - Previous MRI of the right foot in March 2021 showed pathologic marrow edema and cortical destructive changes involving the proximal and middle phalanges of the second toe indicative of osteomyelitis - Right second toe amputation for osteomyelitis [address] Nick Cochran. - Repeat MRI showing evidence of osteomyelitis. - Consulted ortho/vascular: initially recommended surgery, however Dr. Valencia will try femoral popliteal bypass first. -- Vascular surgery -- S/P R Leg Femoral to Anterior Tibial Prosthetic Bypass Graft, Proximal superficial femoral artery endarterectomy with bovine patch on 11/24 -- Arteriogram -- viable vessel with adequate size was patient and available for bypass (2) Peripheral arterial disease: Plan: A graft within the right superficial femoral artery is noted; There is severe stenosis of the proximal right superficial femoral artery; There is occlusion of the proximal right profunda with distal reconstitution; Additional moderate multifocal stenoses within the right superficial femoral artery are noted; Occlusion of the right popliteal artery is noted with distal reconstitution at the level of the trifurcation; There is occlusion of the proximal right anterior tibial artery with severe multifocal stenoses within the right anterior tibial artery, here are multifocal occlusions of the right posterior tibial artery. There is extensive atherosclerotic plaque within the right calf vessels Severe PAD as noted above CT results- appreciate vascular surgery evaluation and assistance - Resume Plavix - Keep legs up - Doppler with pulse checks q8 (3) MRSA (methicillin resistant staph aureus) culture positive: Plan: HX of in 2020- no other culture details since that time - Continue with MRSA precautions; MRSA swap negative on this admission - Continue Vancomycin (4) Hypercholesterolemia: Plan: continue atorvastatin 40 mg daily (5) HTN (hypertension): Plan: Continue ELIZABETH (6) Hyponatremia: Plan: Chronic, typically around 133, currently at 132 - Suspect lows from free water intake -- improved with 2 days of salt tabs -- can hold for now and monitor Follow BMP Plan: Will place ID consultation to be completed Saturday; will need to see if Ortho has plans for operative measures Anticipate IV Abx on D/C Admission and Anticipated Discharge Date Admission Date: November 17, 2021 Subjective Pt seen post-operatively. Reports feeling stiff and sore. Also reporting a dry mouth. Physical Exam Physical Exam: PHYSICAL EXAM General Appearance: WDWN in NAD who is A&O x 3 HEENT: Head is normocephalic/atraumatic; Hearing grossly intact; Mucous membranes moist Neck: Supple; Trachea midline; Neg JVD Heart: RRR with no M/G/R Lungs: CTA in all lung carter bilaterally; Respirations unlabored; Neg accessory muscle use Abdomen: Soft, non-tender, non-distended; Positive BS x 4 quadrants Extremities: R foot with ulcer to the R plantar 1st MTP; R great toe purple with poor refill; +some level of cyanosis more prevent with dependent hanging of R foot; not warm to touch Neurological: Speech clear; Gross motor/sensory function intact; Neg focal neurologic deficits Psychiatric: Appropriate mood/affect Skin: Normal Color; Warm/Dry; other than mentioned above Results & Data Results & Data ([facility]) Vital Signs (Past 12 Hours) Vital Signs Temp Pulse Resp BP Pulse Ox 11/24/21 18:20 36.5 C 99 H 16 118/64 100 11/24/21 18:10 107 H 16 108/67 100 11/24/21 18:00 118 H 16 129/71 100 11/24/21 17:54 36.7 C 120 H 16 120/76 100 11/24/21 10:12 36.9 C 71 18 133/73 96 11/24/21 07:38 36.7 C 62 14 168/68 H 96 PG Care Time/CCT Total # of Minutes Spent Total Time Spent with Patient: Total time spent is greater than 50% in coordination of care (as documented) at patient's floor/unit and/or counseling patient: Coding Level of Care Code 44923 Subseq Hosp Care Lvl 3 Diagnoses Cellulitis L03.115 Laterality: right Site of cellulitis: extremity Site of cellulitis of extremity: lower extremity Peripheral arterial disease I73.9 MRSA (methicillin resistant staph aureus) culture positive Z22.322 Hypercholesterolemia E78.00 HTN (hypertension) I10 Hyponatremia E87.1 (1) Cellulitis Laterality: right Site of cellulitis: extremity Site of cellulitis of extremity: lower extremity Qualified Code(s): L03.115 - Cellulitis of right lower limb
[2021-11-24] MEDS: D5W AND 1/2NSS 1,000 ML IV SCH (20:54)
[2021-11-24] MEDS: POTASSIUM CHLORIDE CRTAB 20 MEQ TABCR PO SCH (20:54)
[2021-11-24] MEDS: ATORVASTATIN 40 MG TAB PO SCH (21:13)
[2021-11-24] MEDS: VANCOMYCIN HCL 1,500 MG in SODIUM CHLORIDE 0.9% 500 ML IV SCH (21:14)
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
[2021-11-24] MEDS ORDERED: HYDROmorphone INJ 0.5 MG/0.5 ML SYR IV STA (22:35)
[2021-11-25] MEDS: PIPERACILLIN/TAZOBACTAM 3.375 GM in DEXTROSE 5% 100 ML IV SCH ×4 (01:39→22:02)
[2021-11-25] MEDS: HYDROmorphone INJ 1 MG/ML SYRINGE IV PRN ×3 (01:39→09:16)
[2021-11-25 04:42] LABS: Hematocrit (blood only) 28.4 % (42-52); Hemoglobin 9.4 g/dL (14.0-18.0); Mean Corpuscular Hemoglobin 31.3 pg (25-34); Mean Corpuscular Hgb Conc 33.1 g/dL (32-36); Mean Corpuscular Volume 94.7 fL (80-100); Mean Platelet Volume 8.4 fL (7.4-10.4); Platelet Count 490 K/uL (130-400); RDW Coefficient of Variation 13.4 % (11.5-14.5); RDW Standard Deviation 46.8 fL (36.4-46.3); White Blood Count 13.85 K/uL (4.8-10.8)
[2021-11-25 05:04] LABS: BUN Creatinine Ratio 16.9 (10-20); Calcium 7.8 mg/dl (8.5-10.1); Creatinine Clr Calc Pharmacy 98.7 ml/min; Est GFR (African American) 107.8 ml/min; Magnesium 1.6 mg/dl (1.7-2.4); Potassium 3.9 mmol/L (3.5-5.1)
[2021-11-25 05:18] LABS: Basophils # (auto) 0.01 K/uL (0-0.2); Basophils % (auto) 0.1 %; Eosinophils # (auto) 0.03 K/uL (0-0.5); Eosinophils % (auto) 0.2 %; Immature Granulocytes # (auto) 0.04 K/uL (0.00-0.02); Immature Granulocytes % (auto) 0.3 %; Lymphocytes % (auto) 13.7 %; Monocytes # (auto) 0.98 K/uL (0.11-0.59); Monocytes % (auto) 7.1 %; Neutrophils # (auto) 10.89 K/uL (1.4-6.5); Neutrophils % (auto) 78.6 %
[2021-11-25] MEDS ORDERED: MAGNESIUM SULFATE / D5W 1 GM/100 ML BAG IV ONE (06:03)
[2021-11-25] MEDS: D5W AND 1/2NSS 1,000 ML IV SCH (06:18)
[2021-11-25] MEDS: CLOPIDOGREL BISULFATE 75 MG TAB PO SCH (08:26)
[2021-11-25] MEDS: HEPARIN SOD 5,000 UNIT/0.5 ML VIAL SQ SCH ×2 (08:26→20:39)
[2021-11-25] MEDS: GABAPENTIN 600 MG TAB PO SCH ×3 (08:26→20:29)
[2021-11-25] MEDS: VANCOMYCIN HCL 1,500 MG in SODIUM CHLORIDE 0.9% 500 ML IV SCH ×2 (08:26→20:39)
[2021-11-25] MEDS: lisinopril 10 MG TAB PO SCH (08:26)
--- NOTE | 2021-11-25 09:05 | Surgery Progress Note ---
Date of Service November 25, 2021 Assessment & Plan (1) S/P femoral-tibial bypass: Plan: POD#1. Doing well. Excellent perfusion to right foot. Will tansfer to floor. Increase activity. Can have ortho do amputation this coming week. After will place on Eliquis 2.5 BID (2) Acute blood loss anemia: Plan: Hgb 9.4 post op. This is due to blood loss during surgery as well as hydration. Will follow H/H post op Admission and Anticipated Discharge Date Admission Date: November 17, 2021 Subjective Patient states his foot is feeling better than pre op. Pain controlled. Foot feel warm Physical Exam Constitutional: WD/WN, vitals as above Respiratory: normal respiratory effort, lungs clear to auscultation Cardiovascular: RRR, no murmur, no edema Vessels: posterior tibial pulses present (excellent right foot to doppler) and dorsalis pedis pulses present (excellent right foot to doppler) Extremities: normal capillary refill (except to right great toe which is unchanged) Gastrointestinal (Abdomen): Inspection/Auscultation: abdomen normal to inspection Percussion/Palpation: abdomen soft; abdomen nontender Musculoskeletal: Extremities: strength 5/5 throughout gangrene of right great toe Skin: + incision (dressing on lower leg intact. Vac on groin incision with good seal) Neurologic: CN's II-XI intact bilaterally and moves all extremities Psychiatric: Orientation: alert and oriented x 3 Results & Data ([facility]) Vital Signs (Past 12 Hours) Vital Signs Temp Pulse Resp BP Pulse Ox Pulse Ox 11/25/21 06:00 36.6 C 67 15 121/57 L 100 11/25/21 05:00 66 12 111/55 L 100 11/25/21 04:00 68 16 108/54 L 100 11/25/21 03:00 36.6 C 72 14 102/55 L 98 11/25/21 01:00 73 15 102/54 L 98 11/25/21 00:00 36.6 C 87 14 106/51 L 87 L 11/24/21 23:59 100 11/24/21 23:00 90 17 103/52 L 100 11/24/21 22:00 79 15 114/52 L 98 11/24/21 21:00 90 17 119/66 99
[2021-11-25] MEDS: HYDROCODONE/ACETAMOPHEN 5/325MG TAB PO PRN ×3 (09:16→20:22)
[2021-11-25] MEDS: CLOTRIMAZOLE/BETAMETHASONE CR 15 GM TUBE EXT SCH ×2 (10:35→20:47)
[2021-11-25] MEDS: SODIUM CHLORIDE 1 GM TABLET PO SCH (10:35)
[2021-11-25] MEDS: HYDROmorphone INJ 0.5 MG/0.5 ML SYR IV PRN ×5 (11:51→22:05)
--- NOTE | 2021-11-25 12:03 | Hospitalist Progress Note ---
Date of Service November 25, 2021 Assessment & Plan (1) Cellulitis: Plan: -Plantar medial aspect of the right first toe overlying the first metatarsal head. Associated cellulitis. No abscess; uncertain of viability of great toe and suspect ultimately needs amputation -- With sepsis, POA - Continue with Zosyn and Vancomycin -- may benefit from ID consultation to see what the best option would be Abx given the concern for osteo on MRI -- ultimately if ortho does choose amputation that would be ultimate source control and without suspect 6 weeks IV Abx and likely would need MRSA coverage given history -- Has grown MRSA in the past -- currently BCx with NGTD; Procal negative - Wound culture not likely to yield useful data as no overt drainage or fluctuance at ulceration of great toe - CRP was elevated at 22.01 and ESR elevated at 76 on admission -- CRP/ESR slightly improved - Continue pain control - Lower extremity Doppler negative for DVT - Previous MRI of the right foot in March 2021 showed pathologic marrow edema and cortical destructive changes involving the proximal and middle phalanges of the second toe indicative of osteomyelitis - Right second toe amputation for osteomyelitis [address] Nick Cochran. - Repeat MRI showing evidence of osteomyelitis. - Consulted ortho/vascular: initially recommended surgery, however Dr. Valencia will try femoral popliteal bypass first. -- Vascular surgery -- S/P R Leg Femoral to Anterior Tibial Prosthetic Bypass Graft, Proximal superficial femoral artery endarterectomy with bovine patch on 11/24 -- Arteriogram -- viable vessel with adequate size was patient and available for bypass -- Sent message to provider contracting consultant ortho to provide update to Dr. Cochran (2) Acute blood loss anemia: Plan: - In setting of vascular surgery which is to be expected -- Hgb currently 9.4 down from 11.1 - Will monitor Hbg and transfuse as necessary - no indication at this time for transfusion (3) Peripheral arterial disease: Plan: A graft within the right superficial femoral artery is noted; There is severe stenosis of the proximal right superficial femoral artery; There is occlusion of the proximal right profunda with distal reconstitution; Additional moderate multifocal stenoses within the right superficial femoral artery are noted; Occlusion of the right popliteal artery is noted with distal reconstitution at the level of the trifurcation; There is occlusion of the proximal right anterior tibial artery with severe multifocal stenoses within the right anterior tibial artery, here are multifocal occlusions of the right posterior tibial artery. There is extensive atherosclerotic plaque within the right calf vessels Severe PAD as noted above CT results- appreciate vascular surgery evaluation and assistance - Resume Plavix (will need to discuss when to stop this if surgery is anticipated) - Keep legs up - Doppler with pulse checks q8 (4) MRSA (methicillin resistant staph aureus) culture positive: Plan: HX of in 2020- no other culture details since that time - Continue with MRSA precautions; MRSA swap negative on this admission - Continue Vancomycin (5) Hypercholesterolemia: Plan: continue atorvastatin 40 mg daily (6) HTN (hypertension): Plan: Continue ELIZABETH (7) Hyponatremia: Plan: Chronic, typically around 133, currently at 128 again but is post-operative - Suspect lows from free water intake/maybe component of SIADH especially post- operatively -- can monitor with sodium tabs Follow BMP Plan: Will place ID consultation to be completed Saturday; will need to see if Ortho has plans for operative measures (message sent) Anticipate IV Abx on D/C Admission and Anticipated Discharge Date Admission Date: November 17, 2021 Subjective No acute events overnight. Doing well post-operatively. Still having pain which oral medications do not seem to help. Slightly anemic on AM labs in setting of surgical intervention but asymptomatic. He verbalizes no new complaints. Review of Systems Review of Systems: All systems reviewed & are unremarkable except as noted in Subjective Physical Exam Physical Exam: PHYSICAL EXAM General Appearance: WDWN in NAD who is A&O x 3 HEENT: Head is normocephalic/atraumatic; Hearing grossly intact; Mucous membranes moist Neck: Supple; Trachea midline; Neg JVD Heart: RRR with no M/G/R Lungs: CTA in all lung carter bilaterally; Respirations unlabored; Neg accessory muscle use Abdomen: Soft, non-tender, non-distended; Positive BS x 4 quadrants Extremities: R foot with ulcer to the R plantar 1st MTP; R great toe purple with poor refill; +some level of cyanosis more prevent with dependent hanging of R foot; not warm to touch Neurological: Speech clear; Gross motor/sensory function intact; Neg focal neurologic deficits Psychiatric: Appropriate mood/affect Skin: Normal Color; Warm/Dry; other than mentioned above Results & Data Results & Data ([facility]) Vital Signs (Past 12 Hours) Vital Signs Temp Pulse Resp BP Pulse Ox 11/25/21 10:00 68 15 118/57 L 99 11/25/21 09:00 75 21 122/57 L 100 11/25/21 08:00 78 14 108/63 99 11/25/21 07:00 65 14 91/50 L 100 11/25/21 06:45 70 15 99 11/25/21 06:00 36.6 C 67 15 121/57 L 100 11/25/21 05:00 66 12 111/55 L 100 11/25/21 04:00 68 16 108/54 L 100 11/25/21 03:00 36.6 C 72 14 102/55 L 98 11/25/21 01:00 73 15 102/54 L 98 11/25/21 00:00 36.6 C 87 14 106/51 L 87 L PG Care Time/CCT Total # of Minutes Spent Total Time Spent with Patient: Total time spent is greater than 50% in coordination of care (as documented) at patient's floor/unit and/or counseling patient: Coding Level of Care Code 59874 Subseq Hosp Care Lvl 3 Diagnoses Cellulitis L03.115 Laterality: right Site of cellulitis: extremity Site of cellulitis of extremity: lower extremity Peripheral arterial disease I73.9 MRSA (methicillin resistant staph aureus) culture positive Z22.322 Hypercholesterolemia E78.00 HTN (hypertension) I10 Hyponatremia E87.1 Acute blood loss anemia D62 (1) Cellulitis Laterality: right Site of cellulitis: extremity Site of cellulitis of extremity: lower extremity Qualified Code(s): L03.115 - Cellulitis of right lower limb
[2021-11-25] MEDS: TAMSULOSIN HCL 0.4 MG CAP PO SCH (13:46)
[2021-11-25] MEDS: POTASSIUM CHLORIDE CRTAB 20 MEQ TABCR PO SCH (13:46)
[2021-11-25] MEDS ORDERED: BACLOFEN 10 MG TAB PO STA (15:32)
[2021-11-25] MEDS: BACLOFEN 10 MG TAB PO PRN (20:27)
[2021-11-25] MEDS: ATORVASTATIN 40 MG TAB PO SCH (20:29)
[2021-11-25] MEDS ORDERED: NALOXONE HCL 0.4 MG/1 ML VIAL/CARP IV PRN (22:28)
[2021-11-25] MEDS: HYDROmorphone PCA 30 MG/30 ML IV PRN (23:43)
[2021-11-26] MEDS: SODIUM CHLORIDE 0.9% 1000ML 1,000 ML IV SCH (00:19)
[2021-11-26] MEDS: DOCUSATE SODIUM 100 MG CAP PO SCH ×3 (00:19→21:27)
[2021-11-26] MEDS: HYDROCODONE/ACETAMOPHEN 5/325MG TAB PO PRN ×3 (02:58→19:56)
[2021-11-26] MEDS: BACLOFEN 10 MG TAB PO PRN ×2 (05:32→19:57)
[2021-11-26] MEDS: PIPERACILLIN/TAZOBACTAM 3.375 GM in DEXTROSE 5% 100 ML IV SCH ×3 (05:44→21:25)
[2021-11-26] MEDS: HYDROmorphone PCA 30 MG/30 ML IV PRN ×4 (07:19→18:51)
--- NOTE | 2021-11-26 07:47 | Orthopedic Progress Note ---
Date of Service November 26, 2021 Assessment & Plan (1) Right foot ulcer: I will reach out to Dr. Valencia's team. He had a successful femoral bypass 2 days ago. The foot is improved but is still very dusky and gangrenous around the right great toe. This will likely need an amputation. It would be difficult to do a partial first ray amputation with the color of the soft tissue in the area. We may be able to do a transmetatarsal amputation if the skin quality looks good this week or if he continues to improve. I also talked to him briefly about a below-knee amputation. I told him this would be our best chance for healing and he can be more functional with a prosthesis. He certainly wanted to think about it. We will see how the foot revascularize his over the next few days. We will try to limit our level of amputation, however, we want to ensure that we get rid of the infection and we have good soft tissue healing with a functional limb. Surya Jack was seen and examined at bedside this morning. He just had his femoral bypass done on Saturday. The vascular surgeon states he got excellent perfusion to the foot. He is doing fairly well with his femoral bypass. He has a Prevena VAC dressing in place. His right foot is better since the perfusion but it still dusky around the right great toe. An amputation may still be necessary. Review of Systems All systems reviewed & are unremarkable except as noted in HPI & below. Physical Exam On physical examination of the right great toe, there is gangrene involving the entire great toe from the MTP joint to the distal tip. There is a dusky appearance of the soft tissue around that as well. He already lost his second toe to an amputation. He has a chronic ulceration on the plantar aspect of the MTP joint of the great toe and no ulcerations on his heel. The majority of the forefoot looks either red or dusky. The hindfoot and the ankle looks fine. Results & Data Results & Data Laboratory Results . Diagnostic Findings . PG Care Time/CCT Total # of Minutes Spent Total Time Spent with Patient: Total time spent is greater than 50% in coordination of care (as documented) at patient's floor/unit and/or counseling patient: Coding Level of Care Code 37694 Subseq Hosp Care Lvl 2 Diagnoses Right foot ulcer L97.519
[2021-11-26] MEDS ORDERED: VANCOMYCIN TROUGH ONE (08:30)
[2021-11-26 08:44] LABS: BUN Creatinine Ratio 13.3 (10-20); Calcium 8.4 mg/dl (8.5-10.1); Est GFR (African American) 104.2 ml/min; Est GFR (Non-African American) 89.9 ml/min; Potassium 3.8 mmol/L (3.5-5.1)
[2021-11-26 08:46] LABS: Basophils # (auto) 0.04 K/uL (0-0.2); Basophils % (auto) 0.3 %; Eosinophils # (auto) 0.31 K/uL (0-0.5); Eosinophils % (auto) 2.2 %; Hematocrit (blood only) 29.1 % (42-52); Hemoglobin 9.3 g/dL (14.0-18.0); Immature Granulocytes # (auto) 0.07 K/uL (0.00-0.02); Immature Granulocytes % (auto) 0.5 %; Lymphocytes # (auto) 1.34 K/uL (1.2-3.4); Lymphocytes % (auto) 9.6 %; Mean Corpuscular Hemoglobin 30.5 pg (25-34); Mean Corpuscular Volume 95.4 fL (80-100); Mean Platelet Volume 8.8 fL (7.4-10.4); Monocytes # (auto) 1.86 K/uL (0.11-0.59); Monocytes % (auto) 13.3 %; Neutrophils # (auto) 10.36 K/uL (1.4-6.5); Neutrophils % (auto) 74.1 %; Platelet Count 541 K/uL (130-400); RDW Coefficient of Variation 13.4 % (11.5-14.5); RDW Standard Deviation 47.3 fL (36.4-46.3); Red Blood Count 3.05 M/uL (4.7-6.1); White Blood Count 13.98 K/uL (4.8-10.8)
[2021-11-26] MEDS: VANCOMYCIN HCL 1,500 MG in SODIUM CHLORIDE 0.9% 500 ML IV SCH ×2 (09:05→21:23)
[2021-11-26] MEDS: CLOTRIMAZOLE/BETAMETHASONE CR 15 GM TUBE EXT SCH ×2 (09:06→21:28)
[2021-11-26] MEDS: GABAPENTIN 600 MG TAB PO SCH ×3 (09:06→21:26)
[2021-11-26] MEDS: lisinopril 10 MG TAB PO SCH (09:06)
[2021-11-26] MEDS: CLOPIDOGREL BISULFATE 75 MG TAB PO SCH (09:07)
[2021-11-26] MEDS: SODIUM CHLORIDE 1 GM TABLET PO SCH ×2 (09:07→21:28)
[2021-11-26] MEDS: HEPARIN SOD 5,000 UNIT/0.5 ML VIAL SQ SCH ×2 (09:07→21:27)
--- NOTE | 2021-11-26 11:30 | Pharmacy Report ---
Pharmacy Vanc AUC Short Note - Date of Service November 26, 2021 - Assessment & Plan Assessment 66 year old M receiving Vancomycin 1500 mg IV Q12h for treatment of Osteomyelitis. Pertinent microbiologic data includes: History of MRSA Day #10 of antimicrobial therapy. Trough level obtained this AM before dose at 9 AM was 17.1 mcg/ml Plan Vancomycin * AUC/KENDALL is the preferred PK/PD target for vancomycin * AUC guided dosing is effective and associated with decreased risk of nephrotoxicity compared to traditional trough targets * Continue current regimen of Vancomycin 1500mg IV Q12H * Expecting trough between 15-20 mcg/ml which is predicted to achieve target AUC/KENDALL of 400-600 mg/L.hr and may be associated with a 13% risk of nephrotoxicity Pharmacy will continue to follow and will adjust dose/frequency as necessary. Thank you.
--- NOTE | 2021-11-26 13:34 | Operative Report ---
Post Operative Report Pre & Post Diagnosis Operation Date: 11/21/21 11:20 Pre-Op Diagnosis: Gangrene Right Great Toe Post-Op Diagnosis: Gangrene Right Great Toe Operation Date: 11/21/21 12:30 <No data on this case meets the specified criteria> Operation Date: 11/22/21 10:40 <No data on this case meets the specified criteria> Operation Date: 11/24/21 11:55 Pre-Op Diagnosis: Peripheral arterial disease Right popliteal artery occlusion and Superficial femoral artery stenosis Post-Op Diagnosis: Peripheral arterial disease Right popliteal artery occlusion and Superficial femoral artery stenosis I identified the patient and participated in the time-out.: Yes Procedure Operation Date: 11/21/21 11:20 Actual Procedures p Right Leg Arteriorgram, Ultrasound Localization of Left Femoral Artery, Moderate Sedation [id number](Left) - Sachin Valencia MD Operation Date: 11/21/21 12:30 <No data on this case meets the specified criteria> Operation Date: 11/22/21 10:40 <No data on this case meets the specified criteria> Operation Date: 11/24/21 11:55 Actual Procedures p Right Leg Femoral to Anterior Tibial Bypass Graft(Right) - Sachin Valencia MD Surgeon Sachin Valencia MD Senior Wind Turbine Technician MD Karol ; Park Vázquez PA-C Estimated Blood Loss 300 Findings Consistent with Post-Op Diagnosis Specimens none Anesthesia Type General Complications none Disposition Accompanied Patient To Recovery: No Disposition: Recovery Room Indications This is a 66-year-old male with critical limb ischemia with tissue loss on the right foot. He previously underwent right common femoral endarterectomy, with post-operative course complicated by infection requiring washout and healing with wound vac placement at the surgical site. He underwent angiography a few days ago which demonstrated distal superficial femoral artery occlusion with reconstitution of tibioperoneal trunk distally and single vessel runoff to foot via the anterior tibial artery. We discussed bypass of the right lower extremity to improve blood flow to the foot to allow him to heal an amputation of the non- salvageable tissue. The patient wishes to proceed. Description of Procedure The patient was taken to the operating room and placed on the operating table in the supine position. The patient's identity, procedure site, and procedure were verified. The patient was placed under general anesthesia and underwent intubation by our anesthesia colleagues. The right leg and bilateral groins were prepped and draped in the usual sterile fashion. A team timeout was performed. A longitudinal incision was made in the anterolateral mid right leg midway between the tibia and fibula. The crural fascia was incised along the lateral border of the tibialis anterior muscle. A plane was developed between the tibialis anterior and extensor digitorum longus muscles. The neurovascular bundle containing the anterior tibial artery was encountered. There was what appeared to be a duplicated anterior tibial vein lying just anterior to the artery, a larger anterior vein was also noted running posterior to the artery. The vein overlying the anterior tibial artery was dissected away from the artery and a vessel loop was placed around this to allow the vessel to be retracted downward. The anterior artery was carefully freed up from the vein running behind it and the deep peroneal nerve. The artery was of adequate size for bypass and adequate clamp sites without significant calcification were present. Another longitudinal incision was made in the right thigh, its proximal aspect including the distal one third of the previous femoral incision, extending this downward along the thigh. In the more proximal aspect of the incision, dense sc ar tissue was encountered. The superficial femoral artery was dissected out, the most proximal part of this incision included the distal aspect of the prior endarterectomy patch. Along the medial aspect of the leg below the knee, an incision was made over the greater saphenous vein just below where it could be seen running underneath the skin on the patients surface anatomy. The greater saphenous vein was dissected out from about 10cm from the level of the medial malleolus up to about 5cm from the tibial tuberosity. The vein did appear sclerotic and the rod felt thicker than expected. The branches along this segment were ligated and at the distal aspect the vein was transected. We did try to dilate up the vein with heparin saline introduced via syringe at this distal aspect but unfortunately the vein did not dilate up. We also did explore the greater saphenous vein in the thigh however this still appeared sclerotic and small, and did not appear to be an adequate conduit. Thus we abandoned use of the vein as conduit and decided to use prosthetic conduit instead. The proximal aspect of the dissected vein in the calf was clipped and the segment of vein that had been dissected out was resected. The patient was heparinized and additional boluses were given throughout the case to mantain anticoagulation. The superficial femoral artery was clamped proximally and distally. An 11 blade was used to make a longitudinal arteriotomy in the anterior aspect of the superficial femoral artery. The arteriotomy was extended proximally and distally along the exposed segment of the superficial femoral artery. Proximally, this extended through the area of the prior endarterectomy patch, and this segment was heavily involved in scar tissue. As we did cut through the suture line from the prior patch, on either side of the arteriotomy we dissected out the end of the prolene from the patch, and used an additional 5-0 prolene to fix each of the ends to the artery. Endarterectomy was performed, and a shelf of thickened wall consistent with intimal hyperplasia was present proximally. This did appear to be well fixed however a few 6-0 prolene tacking sutures were placed. Distally, the intima lifted off the artery circumferentially. This dissection plane was tacked down using several tacking sutures. Following this, backbleeding from the superficial femoral artery was confirmed. A bovine pericardium patch was used to perform patch angioplasty on the superficial femoral artery, sewn in place in continuous fashion using 5-0 prolene suture. A tunnel was created in an anatomic plane from the anterior tibial artery to the superficial femoral artery. For this, an incision in the interosseous membrane was created and this was widened using digital manipulation so that two fingers could easily fit through the space. A 6mm ringed PTFE was passed through the tunneler. The proximal anastomosis to the newly placed endarterectomy patch was performed using 6-0 prolene in a running fashion. The clamps were removed and a few repair sutures were placed but the bypass had pulsatile outflow through its distal aspect. Additionally, a pulse was palpated along the superficial femoral artery distal to the patch. We then turned our attention to the anterior tibial artery anastomosis. Vascular clamps were placed proximally and distally along our intended arteriotomy site. Then, a 3.0 mm flow rester was passed proximally and distally inside the vessel and the clamps were removed. The distal anastomosis was performed in an end-to-side fashion using a running 7-0 prolene suture. Prior to completion of the anastomosis the graft was flushed and the flow rester was removed, with brief replacement of vascular clamps for the last few stitches. The anastomosis was completed. Pulsatile flow was palpable along the graft and distal along the anterior tibial artery. A palpable anterior tibial pulse was present and this was confirmed with excellent triphasic waveform on doppler insonation over this area. The foot felt warm. The medial calf incision was closed with interrupted 2-0 vicryl for the deep dermis and the dermis was closed with a running 3-0 vicryl. The skin was closed with yovani. The lateral calf incision was closed using interrupted 2-0 vicryl in a interrupted horizontal mattress fashion for the fascia. The dermis was closed with running 3-0 vicryl, and the skin was closed with yovani. The femoral incision was closed with several interrupted 2-0 vicryls to close down the space in the area where the greater saphenous vein was explored, and also for the femoral sheath. Two additional layers of interrupted 2-0 vicryl sutures were used to close down any space above the level of the femoral sheath given the patient's history of prior infection and presence of prosthetic material. The dermis was closed with 3-0 vicryl in a running fashion. The skin was closed with yovani. A provena wound vac was placed over the incision. Dry gauze were placed over the calf incisions and the calf was wrapped with kerlix gauze. The patient tolerated the procedure well and without immediate complication. All instrument, sponge, and needle counts were correct. At the conclusion of the case the patient had a palpable anterior tibial pulse. Dr. Valencia was present and scrubbed for the duration of the procedure. The patient was taken to the recovery room in satisfactory condition. I attest to the content of the Intraoperative Record and any orders documented therein. Any exceptions are noted below.
--- NOTE | 2021-11-26 13:46 | Hospitalist Progress Note ---
Date of Service November 26, 2021 Assessment & Plan (1) Cellulitis: Plan: -Plantar medial aspect of the right first toe overlying the first metatarsal head. Associated cellulitis. No abscess; uncertain of viability of great toe and suspect ultimately needs amputation -- With sepsis, POA - Continue with Zosyn and Vancomycin -- may benefit from ID consultation to see what the best option would be Abx given the concern for osteo on MRI -- ultimately if ortho does choose amputation that would be ultimate source control and without suspect 6 weeks IV Abx and likely would need MRSA coverage given history -- Has grown MRSA in the past -- currently BCx with NGTD; Procal negative - Wound culture not likely to yield useful data as no overt drainage or fluctuance at ulceration of great toe - CRP was elevated at 22.01 and ESR elevated at 76 on admission -- CRP/ESR slightly improved on recheck - Continue pain control -- currently on COLLECTOR monitor for oversedation - Lower extremity Doppler negative for DVT - Previous MRI of the right foot in March 2021 showed pathologic marrow edema and cortical destructive changes involving the proximal and middle phalanges of the second toe indicative of osteomyelitis - Right second toe amputation for osteomyelitis [address] Nick Cochran. - Repeat MRI showing evidence of osteomyelitis. - Consulted ortho/vascular: initially recommended surgery, however Dr. Valencia will try femoral popliteal bypass first. -- Vascular surgery -- S/P R Leg Femoral to Anterior Tibial Prosthetic Bypass Graft, Proximal superficial femoral artery endarterectomy with bovine patch on 11/24 -- Arteriogram -- viable vessel with adequate size was patient and available for bypass -- Spoke to Dr. Valerio - considering transmetatarsal amputation vs BKA -- did discuss with Dr. Valencia as well that he was able to get good perfusion and likely would not need BKA and could proceed with orthopedic procedure but recommends no tourniquet -- Per Dr. Valerio - Dr. Cochran will be out of area until but if plan for surgical intervention it could be performed by Dr. Valerio if needed; patient is also thinking about his options -- Plan to initiate Eliquis 2.5 mg BID once orthopedic procedure completed (2) Acute blood loss anemia: Plan: - In setting of vascular surgery which is to be expected -- Hgb currently 9.4 down from 11.1 and stable on AM labs at 9.3 - Will monitor Hbg and transfuse as necessary - no indication at this time for transfusion (3) Peripheral arterial disease: Plan: A graft within the right superficial femoral artery is noted; There is severe stenosis of the proximal right superficial femoral artery; There is occlusion of the proximal right profunda with distal reconstitution; Additional moderate multifocal stenoses within the right superficial femoral artery are noted; Occlusion of the right popliteal artery is noted with distal reconstitution at the level of the trifurcation; There is occlusion of the proximal right anterior tibial artery with severe multifocal stenoses within the right anterior tibial artery, here are multifocal occlusions of the right posterior tibial artery. There is extensive atherosclerotic plaque within the right calf vessels Severe PAD as noted above CT results- appreciate vascular surgery evaluation and assistance - Resume Plavix (will need to discuss when to stop this if ortho surgery is anticipated) - Keep legs up - Doppler with pulse checks q8 (4) MRSA (methicillin resistant staph aureus) culture positive: Plan: HX of in 2020- no other culture details since that time - Continue with MRSA precautions; MRSA swap negative on this admission - Continue Vancomycin (5) Hypercholesterolemia: Plan: continue atorvastatin 40 mg daily (6) HTN (hypertension): Plan: Continue ELIZABETH (7) Hyponatremia: Plan: Chronic, typically around 133, currently at 127 -- asymptomatic - Suspect lows from free water intake/maybe component of SIADH especially post- operatively -- can monitor with sodium tabs Follow BMP -- Also noticed frequent low sodiums on multiple patients - lab issue? Plan: Will place ID consultation to be completed Saturday; will need to see if Ortho has plans for operative measures based on patient preference and timing Anticipate IV Abx on D/C Admission and Anticipated Discharge Date Admission Date: November 17, 2021 Subjective No acute events overnight. Pt was started on a COLLECTOR overnight and reports pain is doing better. Was a bit worse early in morning likely due to some pain catch up. Doing better into the afternoon. Hgb is stable. Spoke with orthopedics who discussed possible options for the foot such as transmetatarsal vs BKA. Review of Systems Review of Systems: All systems reviewed & are unremarkable except as noted in Subjective Physical Exam Physical Exam: PHYSICAL EXAM General Appearance: WDWN in NAD who is A&O x 3 HEENT: Head is normocephalic/atraumatic; Hearing grossly intact; Mucous membranes moist Neck: Supple; Trachea midline; Neg JVD Heart: RRR with no M/G/R Lungs: CTA in all lung carter bilaterally; Respirations unlabored; Neg accessory muscle use Abdomen: Soft, non-tender, non-distended; Positive BS x 4 quadrants Extremities: R foot with ulcer to the R plantar 1st MTP; R great toe purple with poor refill; pulses dopplerable Neurological: Speech clear; Gross motor/sensory function intact; Neg focal neurologic deficits Psychiatric: Appropriate mood/affect Skin: Normal Color; Warm/Dry; other than mentioned above Results & Data Results & Data ([facility]) Vital Signs (Past 12 Hours) Vital Signs Temp Pulse Resp BP Pulse Ox Pulse Ox 11/26/21 11:46 36.7 C 61 14 121/67 100 11/26/21 07:29 36.4 C L 82 18 144/69 H 99 11/26/21 04:05 36.8 C 68 12 97/58 L 95 11/26/21 02:57 36.9 C 85 14 129/68 100 11/26/21 02:05 96 11/26/21 01:56 74 12 101/59 L 97 PG Care Time/CCT Total # of Minutes Spent Total Time Spent with Patient: Total time spent is greater than 50% in coordination of care (as documented) at patient's floor/unit and/or counseling patient: Coding Level of Care Code 10308 Subseq Hosp Care Lvl 3 Diagnoses Cellulitis L03.115 Laterality: right Site of cellulitis: extremity Site of cellulitis of extremity: lower extremity Acute blood loss anemia D62 Peripheral arterial disease I73.9 MRSA (methicillin resistant staph aureus) culture positive Z22.322 Hypercholesterolemia E78.00 HTN (hypertension) I10 Hyponatremia E87.1 (1) Cellulitis Laterality: right Site of cellulitis: extremity Site of cellulitis of extremity: lower extremity Qualified Code(s): L03.115 - Cellulitis of right lower limb
[2021-11-26] MEDS: TAMSULOSIN HCL 0.4 MG CAP PO SCH (15:12)
[2021-11-26] MEDS: POTASSIUM CHLORIDE CRTAB 20 MEQ TABCR PO SCH (16:48)
[2021-11-26] MEDS: ATORVASTATIN 40 MG TAB PO SCH (21:26)
[2021-11-27] MEDS: SODIUM CHLORIDE 0.9% 1000ML 1,000 ML IV SCH (01:27)
[2021-11-27] MEDS: PIPERACILLIN/TAZOBACTAM 3.375 GM in DEXTROSE 5% 100 ML IV SCH ×2 (05:28→16:45)
[2021-11-27 07:48] LABS: Basophils # (auto) 0.07 K/uL (0-0.2); Basophils % (auto) 0.6 %; Eosinophils # (auto) 0.43 K/uL (0-0.5); Eosinophils % (auto) 3.5 %; Hematocrit (blood only) 29.4 % (42-52); Hemoglobin 9.7 g/dL (14.0-18.0); Immature Granulocytes # (auto) 0.04 K/uL (0.00-0.02); Immature Granulocytes % (auto) 0.3 %; Lymphocytes # (auto) 1.11 K/uL (1.2-3.4); Lymphocytes % (auto) 9.1 %; Mean Corpuscular Hemoglobin 31.3 pg (25-34); Mean Corpuscular Volume 94.8 fL (80-100); Mean Platelet Volume 8.8 fL (7.4-10.4); Monocytes # (auto) 1.66 K/uL (0.11-0.59); Monocytes % (auto) 13.5 %; Neutrophils # (auto) 8.95 K/uL (1.4-6.5); Platelet Count 622 K/uL (130-400); RDW Coefficient of Variation 13.4 % (11.5-14.5); RDW Standard Deviation 46.8 fL (36.4-46.3); White Blood Count 12.26 K/uL (4.8-10.8)
[2021-11-27 08:06] LABS: BUN Creatinine Ratio 13.9 (10-20); Calcium 8.8 mg/dl (8.5-10.1); Creatinine Clr Calc Pharmacy 103.7 ml/min; Est GFR (Non-African American) 94.9 ml/min; Potassium 4.1 mmol/L (3.5-5.1)
--- NOTE | 2021-11-27 08:33 | Hospitalist Progress Note ---
Date of Service November 27, 2021 Assessment & Plan (1) Osteomyelitis: Plan: In patient with previous MRI of the right foot in March 2021 showed pathologic marrow edema and cortical destructive changes involving the proximal and middle phalanges of the second toe indicative of osteomyelitis - Right second toe amputation for osteomyelitis [address] Nick Cochran. Presented initially with cellulitis, --> Plantar medial aspect of the right first toe overlying the first metatarsal head. Associated cellulitis. No abscess; uncertain of viability of great toe and suspect ultimately needs amputation-- With sepsis, POA Repeat MRI showing evidence of osteomyelitis. 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 If residual bone, anticipate 4-6 weeks IV abx therapy * To obtain Cx from OR/bone cx as well Vascular surgery consulted * POD# 3 S/P R Leg Femoral to Anterior Tibial Prosthetic Bypass Graft, Proximal superficial femoral artery endarterectomy with bovine patch on 3/4 * POD #1 s/p Right Leg Arteriorgram, Ultrasound Localization of Left Femoral Artery, Moderate Sedation [id number](Left) - Sachin Valencia MD * Arteriogram -- viable vessel with adequate size was patient and available for bypass Per Dr Valencia, able to get good perfusion Today, NPO for R foot transmetatarsal amputation -- official report not yet in system Plan to initiate Eliquis 2.5 mg BID once orthopedic procedure completed Await OR cultures/OP report CM following, aware of possible need for continued IV abx therapy PT/OT consulted to be undertaken post-operatively as well (2) Cellulitis: Plan: presented w/ cellulitis,imaging with evidence for AOM on MRI (3) Acute blood loss anemia: Plan: In setting of vascular surgery which is to be expected -- Hgb currently 9.4 down from 11.1 Repeat improved to 9.7 Monitor CBC post-op (4) Peripheral arterial disease: Plan: A graft within the right superficial femoral artery is noted; There is severe stenosis of the proximal right superficial femoral artery; There is occlusion of the proximal right profunda with distal reconstitution; Additional moderate multifocal stenoses within the right superficial femoral artery are noted; Occlusion of the right popliteal artery is noted with distal reconstitution at the level of the trifurcation; There is occlusion of the proximal right anterior tibial artery with severe multifocal stenoses within the right anterior tibial artery, here are multifocal occlusions of the right posterior tibial artery. There is extensive atherosclerotic plaque within the right calf vessels Severe PAD as noted above CT results- appreciate vascular surgery evaluation and assistance - Resume Plavix (will need to discuss when to stop this if ortho surgery is anticipated -- held this morning prior to surgery) - Keep legs up - Doppler with pulse checks q8 (5) MRSA (methicillin resistant staph aureus) culture positive: Plan: HX of in 2020- no other culture details since that time - Continue with MRSA precautions; MRSA swap negative on this admission - Continue Vancomycin (6) Hypercholesterolemia: Plan: continue atorvastatin 40 mg daily (7) HTN (hypertension): Plan: Continue ELIZABETH (8) Hyponatremia: Plan: Chronic, typically around 133, currently at 127 -- asymptomatic - Suspect lows from free water intake/maybe component of SIADH especially post- operatively -- can monitor with sodium tabs Follow BMP -- Also noticed frequent low sodiums on multiple patients - lab issue? repeat improved to 134 today, ? lab error (9) S/P femoral-tibial bypass: (10) Sepsis: Plan: 2nd to above tx as outlined (11) Hypomagnesemia: Plan: low / 1.6, no replacement ordered ordered 1gm IV now this morning prior to surgery as labs pending, 1.6 and additional 1gm ordered this afternoon monitor labs in AM Plan: s/p transmetatarsal amputation today Cx from OR pending Per ID, if no ashlee residual, could consider 7-14 days tx, otherwise would need full 4-6 weeks of therapy DVT Prophylaxis --> Discussed with Dr Valerio, and will place on Eliquis 2.5mg BID starting tonight for DVT prophylaxis and discontinue Heparin SQ Also spoke with pharmacy as Cipro/Bactrim ordered by Ortho to ensure not just home meds/resume and to continue Vanco/Zosyn for now Admission and Anticipated Discharge Date Admission Date: November 17, 2021 Supervising Physician Co-Signing Physician Notes PILAR Supervision Note: I did not personally see or examine the patient today, but I verified all pham points of PILAR Castro's assessment and plan with the following exceptions/additions: None Subjective patient evaluated this afternoon following surgery in room 322. patient doing well. compared to 10 pain prior, he reports current pain 7/10, controlled with BLANKBOOK STITCHING MACHINE OPERATOR at present time. Yet to eat, but is hungry. Asked RN to call for tray. Would like ordered out and a 6pak of beer jokingly when asked. No fever/chills, chest pain, shortness of breath, abdominal pain, nausea or vomiting at this time. Last BM 3/5 and reports this isn't unusual and typically depends on what he eats. Will work on bowel regimen given pain medications and to alert of any changes/symptoms. Reviewed ID consult -- if orthopedics felt complete removal, can consider reduction in duration of treatment to 7-14 days and to monitor OR bacterial/bone culture. If residual bone infection at closure, rec 4-6 weeks IV abx. Questions/concerns addressed. Review of Systems Review of Systems: All systems reviewed & are unremarkable except as noted in HPI & below Physical Exam Physical Exam: General: WN/WD male sitting up in chair post-op, NAD HEENT: head normocephalic, atraumatic, pupils equal/reactive, mm slightly dry Neck: trachea midline, no JVD Resp: CTAB, no w/c/r, on 3L NC with SpO2 100% CV: RRR, no m/r/g, no edema/calf tenderness GI: +BS, soft, non-tender MSK/Ext: R foot with elizabeth wrap/boot post-operatively. pulses to be checked with doppler. NVI Neuro/psych: speech clear, follows commands, no focal deficit, alert/oriented x 3 Results & Data Results & Data ([facility]) Vital Signs (Past 12 Hours) Vital Signs Temp Pulse Resp BP Pulse Ox 11/27/21 07:09 36.6 C 69 12 127/70 100 11/27/21 04:00 36.6 C 65 10 L 119/64 100 11/26/21 23:39 36.5 C 70 12 111/67 100 Laboratory Results 11/27/21 11/27/21 11/26/21 Range/Units 06:41 06:41 08:08 WBC 12.26 H (4.8-10.8) K/uL RBC 3.10 L (4.7-6.1) M/uL Hgb 9.7 L (14.0-18.0) g/dL Hct 29.4 L (42-52) % MCV 94.8 (80-100) fL MCH 31.3 (25-34) pg MCHC 33.0 (32-36) g/dL RDW Std Deviation 46.8 H (36.4-46.3) fL RDW Coeff of Jamila 13.4 (11.5-14.5) % Plt Count 622 H (130-400) K/uL MPV 8.8 (7.4-10.4) fL Immature Gran % (Auto) 0.3 % Neut % (Auto) 73.0 % Lymph % (Auto) 9.1 % Chilton % (Auto) 13.5 % Eos % (Auto) 3.5 % Baso % (Auto) 0.6 % Neut # (Auto) 8.95 H (1.4-6.5) K/uL Lymph # (Auto) 1.11 L (1.2-3.4) K/uL Chilton # (Auto) 1.66 H (0.11-0.59) K/uL Eos # (Auto) 0.43 (0-0.5) K/uL Baso # (Auto) 0.07 (0-0.2) K/uL Immature Gran # (Auto) 0.04 H (0.00-0.02) K/uL Sodium 134 L (136-145) mmol/L Potassium 4.1 (3.5-5.1) mmol/L Chloride 99 (98-107) mmol/L Carbon Dioxide 27 (21-32) mmol/L Anion Gap 8 (3-11) BUN 11 (6-23) mg/dl Creatinine 0.79 (0.6-1.4) mg/dl Est Cr Clr Drug Dosing 103.7 ml/min Est GFR ( Amer) 110.0 ml/min Est GFR (Non-Af Amer) 94.9 ml/min BUN/Creatinine Ratio 13.9 (10-20) Glucose 107 H (70-99(Fasting)) mg/dl Calcium 8.8 (8.5-10.1) mg/dl Vancomycin Trough 17.1 (10-20) mcg/ml 11/26/21 11/26/21 Range/Units 08:08 08:08 WBC 13.98 H (4.8-10.8) K/uL RBC 3.05 L (4.7-6.1) M/uL Hgb 9.3 L (14.0-18.0) g/dL Hct 29.1 L (42-52) % MCV 95.4 (80-100) fL MCH 30.5 (25-34) pg MCHC 32.0 (32-36) g/dL RDW Std Deviation 47.3 H (36.4-46.3) fL RDW Coeff of Jamila 13.4 (11.5-14.5) % Plt Count 541 H (130-400) K/uL MPV 8.8 (7.4-10.4) fL Immature Gran % (Auto) 0.5 % Neut % (Auto) 74.1 % Lymph % (Auto) 9.6 % Chilton % (Auto) 13.3 % Eos % (Auto) 2.2 % Baso % (Auto) 0.3 % Neut # (Auto) 10.36 H (1.4-6.5) K/uL Lymph # (Auto) 1.34 (1.2-3.4) K/uL Chilton # (Auto) 1.86 H (0.11-0.59) K/uL Eos # (Auto) 0.31 (0-0.5) K/uL Baso # (Auto) 0.04 (0-0.2) K/uL Immature Gran # (Auto) 0.07 H (0.00-0.02) K/uL Sodium 127 L (136-145) mmol/L Potassium 3.8 (3.5-5.1) mmol/L Chloride 96 L (98-107) mmol/L Carbon Dioxide 27 (21-32) mmol/L Anion Gap 4 (3-11) BUN 12 (6-23) mg/dl Creatinine 0.90 (0.6-1.4) mg/dl Est Cr Clr Drug Dosing 91.0 ml/min Est GFR ( Amer) 104.2 ml/min Est GFR (Non-Af Amer) 89.9 ml/min BUN/Creatinine Ratio 13.3 (10-20) Glucose 114 H (70-99(Fasting)) mg/dl Calcium 8.4 L (8.5-10.1) mg/dl Vancomycin Trough (10-20) mcg/ml PG Care Time/CCT Total # of Minutes Spent Total Time Spent with Patient: Total time spent is greater than 50% in coordination of care (as documented) at patient's floor/unit and/or counseling patient: Coding Level of Care Code 04094 Subseq Hosp Care Lvl 3 Diagnoses Cellulitis L03.115 Laterality: right Site of cellulitis: extremity Site of cellulitis of extremity: lower extremity Acute blood loss anemia D62 Peripheral arterial disease I73.9 MRSA (methicillin resistant staph aureus) culture positive Z22.322 Hypercholesterolemia E78.00 HTN (hypertension) I10 Hyponatremia E87.1 S/P femoral-tibial bypass Z98.890 Osteomyelitis M86.9 Sepsis A41.9 Hypomagnesemia E83.42 (1) Cellulitis Laterality: right Site of cellulitis: extremity Site of cellulitis of extremity: lower extremity Qualified Code(s): L03.115 - Cellulitis of right lower limb
[2021-11-27] MEDS ORDERED: MAGNESIUM SULFATE / D5W 1 GM/100 ML BAG IV ONE ×2 (09:00→14:00)
[2021-11-27] MEDS: CLOTRIMAZOLE/BETAMETHASONE CR 15 GM TUBE EXT SCH ×2 (09:25→21:29)
[2021-11-27] MEDS: DOCUSATE SODIUM 100 MG CAP PO SCH ×2 (09:25→21:28)
[2021-11-27] MEDS: CLOPIDOGREL BISULFATE 75 MG TAB PO SCH (09:25)
[2021-11-27] MEDS: HEPARIN SOD 5,000 UNIT/0.5 ML VIAL SQ SCH (09:26)
[2021-11-27] MEDS: GABAPENTIN 600 MG TAB PO SCH ×3 (09:26→21:28)
[2021-11-27] MEDS: SODIUM CHLORIDE 1 GM TABLET PO SCH ×2 (09:27→21:27)
[2021-11-27] MEDS: VANCOMYCIN HCL 1,500 MG in SODIUM CHLORIDE 0.9% 500 ML IV SCH ×2 (09:47→21:28)
[2021-11-27] MEDS: lisinopril 10 MG TAB PO SCH (09:48)
--- NOTE | 2021-11-27 10:12 | Surgery Progress Note ---
Date of Service November 27, 2021 Assessment & Plan (1) S/P femoral-tibial bypass: Plan: POD#3. Doing well. Excellent perfusion to right foot. Will tansfer to floor. Increase activity. Will need d/c on Eliquis 2.5 BID (2) Acute blood loss anemia: Plan: This is due to blood loss during surgery as well as hydration. Will follow H/H post op Admission and Anticipated Discharge Date Admission Date: November 17, 2021 Subjective 66 yo m POD #3 after RLE femoral to ant tib prosthetic bypass graft and femoral artery endarterectomy, seen in f/u today. Pt admits pain in incisions, and states is scheduled for R foot surgery by orthopedics today. Denies JOINER, fever, chest pain, SOB, abd pain, N/V, other new concerns. Review of Systems Review of Systems: All systems reviewed & are unremarkable except as noted in HPI & below Physical Exam Constitutional: WD/WN, vitals as above comfortable Cardiovascular: Vessels: posterior tibial pulses present (dopplerable LLE, excellent doppler RLE), dorsalis pedis pulses present (excellent dopper RLE, +1 LLE) and radial pulses present Extremities: + edema; + abnormal capillary refill (R great toe no refill) Musculoskeletal: Extremities: + cyanosis (R great toe purple, poor refill.) Psychiatric: A+Ox3, euthymic affect Results & Data ([facility]) Vital Signs (Past 12 Hours) Vital Signs Temp Pulse Resp BP Pulse Ox 11/27/21 07:09 36.6 C 69 12 127/70 100 11/27/21 04:00 36.6 C 65 10 L 119/64 100 11/26/21 23:39 36.5 C 70 12 111/67 100
[2021-11-27] MEDS ORDERED: fentaNYL citrate 100 MCG/2 ML VIAL ONE ×2 (12:36→13:21)
[2021-11-27] MEDS ORDERED: LIDOCAINE 2% 2 ML VIAL/AMP(20MG/ML) INFIL ONE (12:36)
[2021-11-27] MEDS ORDERED: DEXAMETHASONE SOD INJ 4 MG/ML VIAL ONE (12:36)
[2021-11-27] MEDS ORDERED: MIDAZOLAM HCL 1 MG/ML 2ML VIAL ONE (12:36)
[2021-11-27] MEDS ORDERED: ONDANSETRON INJ 2 MG/ML 2 ML VIAL ONE (12:36)
[2021-11-27] MEDS ORDERED: PROPOFOL IV EMULSION 10 MG/ML 20 ML VIAL IV ONE (12:36)
[2021-11-27] MEDS ORDERED: ePHEDrine sulfate 50 MG/ML AMP ONE (13:21)
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
--- NOTE | 2021-11-27 13:28 | History & Physical Bridge Note ---
Date of Service November 27, 2021 History & Physical Bridge Note I have examined the patient, reviewed the History & Physical and in the interval since the performance of the History & Physical I have noted the following changes of clinical significance: no changes noted
[2021-11-27] MEDS ORDERED: ONDANSETRON INJ 2 MG/ML 2 ML VIAL IV PRN (13:29)
[2021-11-27] MEDS ORDERED: ePHEDrine sulfate 50 MG/ML AMP IV PRN (13:29)
[2021-11-27] MEDS ORDERED: ATROPINE SULFATE 0.1 MG/ML 10ML SYR IV PRN (13:29)
[2021-11-27] MEDS ORDERED: HYDROmorphone INJ 2 MG/ML SYR/VIAL IV PRN (13:29)
[2021-11-27] MEDS ORDERED: PROMETHAZINE HCL 12.5 MG in SODIUM CHLORIDE 0.9% 50 ML IV PRN (13:29)
[2021-11-27] MEDS: BUPIVACAINE 0.25% 30 ML VIAL ONE ×2 (14:38→14:52)
[2021-11-27] MEDS: fentaNYL citrate 100 MCG/2 ML VIAL IV PRN ×2 (15:30→15:35)
--- NOTE | 2021-11-27 16:08 | Orthopedic Progress Note ---
Date of Service November 27, 2021 Assessment & Plan (1) Right foot ulcer: His right great toe is gangrenous. He understands he will need a right foot amputation. I discussed the case was Dr. Valencia personally and he feels he has good blood flow to the right foot. I think I will try to just do a first ray amputation and possible partial second metatarsal amputation. He understands the risk, benefits, and alternatives to procedures like to proceed. Questions were answered at bedside and consents were signed. Time was spent scribed procedure and postop expectations. We will proceed with a right partial foot amputation later today. Surya Jack was seen and examined at bedside this morning. Overall he is doing fairly well. He still in some pain in the right foot. The status of his foot is relatively unchanged. He has been n.p.o. since midnight. He is scheduled for an amputation later today. Review of Systems All systems reviewed & are unremarkable except as noted in HPI & below. Physical Exam On physical examination of his right foot, there is gangrene throughout the entire right great toe. There is some dusky appearance to the skin around the first metatarsal head. The second digit is missing from previous amputation. There is an open ulceration on the plantar aspect of his right great toe. He has good dorsalis pedis pulses. Constitutional WD/WN, vitals as above Eyes PERRL, conjunctivae normal, anicteric sclerae ENMT external ear and nose normal, oropharynx normal Neck trachea midline, no thyromegaly Respiratory normal respiratory effort Cardiovascular RRR, no murmur, no edema Gastrointestinal (Abdomen) normal bowel sounds, soft, nontender, no hepatosplenomegaly Psychiatric A+Ox3, euthymic affect Results & Data Results & Data Laboratory Results . Diagnostic Findings . PG Care Time/CCT Total # of Minutes Spent Total Time Spent with Patient: Total time spent is greater than 50% in coordination of care (as documented) at patient's floor/unit and/or counseling patient: Coding Level of Care Code 69145 Subseq Hosp Care Lvl 2 (57 - DECISION FOR SURGERY) Diagnoses Right foot ulcer L97.519
--- NOTE | 2021-11-27 16:08 | Anesthesiology Progress Note ---
Date of Service November 27, 2021 Anesthesia Post Procedure Vital Signs Vital Signs: Temp Pulse Pulse Resp BP BP Pulse Ox 11/27/21 16:00 83 16 127/55 L 100 11/27/21 15:50 36.3 C L 84 14 128/52 L 100 11/27/21 15:40 95 H 24 122/66 98 11/27/21 15:30 91 H 16 120/56 L 100 11/27/21 15:20 78 12 123/62 100 11/27/21 15:12 36.6 C 82 14 122/53 L 100 11/27/21 11:44 37.2 C 66 20 142/68 H 100 11/27/21 11:20 36.6 C 69 12 155/73 H 100 11/27/21 09:00 11/27/21 07:09 36.6 C 69 12 127/70 100 11/27/21 04:00 36.6 C 65 10 L 119/64 100 11/26/21 23:39 36.5 C 70 12 111/67 100 11/26/21 20:00 36.7 C 79 12 126/67 100 Pulse Ox 11/27/21 16:00 11/27/21 15:50 11/27/21 15:40 11/27/21 15:30 11/27/21 15:20 11/27/21 15:12 11/27/21 11:44 11/27/21 11:20 11/27/21 09:00 98 11/27/21 07:09 11/27/21 04:00 11/26/21 23:39 11/26/21 20:00 Pain Intensity Right Leg: Pain Intensity: 7 Right Toe: Pain Intensity: 6 Transfer of Care Handoff Completed per policy Notes Mental Status: alert / awake / arousable and participated in evaluation Patient Amnestic to Procedure: Yes Nausea / Vomiting: adequately controlled Pain: adequately controlled Airway Patency, RR, SpO2: stable & adequate BP & HR: stable & adequate Hydration State: stable & adequate Anesthetic Complications: no major complications apparent
[2021-11-27] MEDS ORDERED: HYDROCODONE/ACETAMOPHEN 5/325MG TAB PO PRN (16:19)
[2021-11-27] MEDS ORDERED: HYDROmorphone INJ 0.5 MG/0.5 ML SYR IV PRN (16:19)
[2021-11-27] MEDS ORDERED: AMMONIUM LACTATE 12% LOTION 225 GM BTL EXT PRN (16:19)
--- NOTE | 2021-11-27 16:38 | Operative Report ---
PG Post Operative Report Pre & Post Diagnosis Operation Date: 11/21/21 11:20 Pre-Op Diagnosis: Gangrene Right Great Toe Post-Op Diagnosis: Gangrene Right Great Toe Operation Date: 11/21/21 12:30 <No data on this case meets the specified criteria> Operation Date: 11/22/21 10:40 <No data on this case meets the specified criteria> Operation Date: 11/24/21 11:55 Pre-Op Diagnosis: Peripheral arterial disease Right popliteal artery occlusion and Superficial femoral artery stenosis Post-Op Diagnosis: Peripheral arterial disease Right popliteal artery occlusion and Superficial femoral artery stenosis Operation Date: 11/27/21 09:40 Pre-Op Diagnosis: Gangrene right great toe Post-Op Diagnosis: Gangrene right great toe I identified the patient and participated in the time-out.: Yes Procedure Operation Date: 11/21/21 11:20 Actual Procedures p Right Leg Arteriorgram, Ultrasound Localization of Left Femoral Artery, Moderate Sedation [id number](Left) - Sachin Valencia MD Operation Date: 11/21/21 12:30 <No data on this case meets the specified criteria> Operation Date: 11/22/21 10:40 <No data on this case meets the specified criteria> Operation Date: 11/24/21 11:55 Actual Procedures p Right Leg Femoral to Anterior Tibial Bypass Graft(Right) - Sachin Valencia MD Operation Date: 11/27/21 09:40 Actual Procedures p Right Great Toe, first ray and partial second Metatarsal Amputation(Right) - Dimitry Valerio DO Surgeon Dimitry Valerio DO [employer] Dimitry Medina PA-C Estimated Blood Loss 100 Findings Consistent with Post-Op Diagnosis Specimens Cultures Anesthesia Type General Complications none Disposition Accompanied Patient To Recovery: No Disposition: Recovery Room Description of Procedure On November 27, 2021 time was brought on from his hospital room to the preoperative holding area. The operative extremity was identified and signed. He was taken back to the operating room and laid on the table in supine position. He was put under general anesthesia. The right foot was prepped and draped in sterile fashion. A timeout was done. The patient and the operative extremity was properly identified. An elliptical incision was made around the gangrenous area of the great toe. There was minimal bleeding around this area. I was able to easily disarticulate the toe at the MTP joint. The metatarsal head was exposed and I was unable to get any soft tissue coverage. I then extended the incision up proximally along the length of the first ray. I then carefully disarticulated the first ray. There was much better bleeding when I went proximally. He does have a history of a right second toe amputation in the past. I was unable to close the distal aspect of the wound without removing half of the second metatarsal. An oscillating saw was used to resect the second metatarsal at midshaft. The second metatarsal was easily removed. Hemostasis was obtained. There was a much better bleeding bed at this point. At this point I had enough soft tissue to close. Several 2-0 Vicryl sutures were placed to close the deep fascial layer. A 2-0 nylon suture was used in a mattress fashion to close the skin. I was able to get a low tension closure on the skin. The surrounding soft tissues were injected with Marcaine without epinephrine. He was then placed in a soft dressing in a [place] shoe. He was then extubated and transferred to a [facility]. He was taken to the post anesthesia care unit in stable condition. He tolerated the procedure well. Dimitry Alarcon PA-C, was present for the entire procedure. He was critical for patient positioning, prepping, draping, retraction exposure, wound closure and application of sterile dressing. I attest to the content of the Intraoperative Record and any orders documented therein. Any exceptions are noted below.
[2021-11-27] MEDS ORDERED: Nursing to Pharmacy Communication SCH (16:45)
[2021-11-27] MEDS: TAMSULOSIN HCL 0.4 MG CAP PO SCH (16:47)
[2021-11-27] MEDS: VITAMIN B COMPLEX TAB PO SCH (18:00)
[2021-11-27] MEDS: CALCIUM 600MG + VIT D 400 IU TAB PO SCH (18:00)
[2021-11-27] MEDS: MULTIVITAMIN TAB PO SCH (18:01)
[2021-11-27] MEDS: POTASSIUM CHLORIDE CRTAB 20 MEQ TABCR PO SCH (18:04)
[2021-11-27] MEDS: HYDROmorphone PCA 30 MG/30 ML IV PRN (19:33)
[2021-11-27] MEDS ORDERED: SULFAMETHOXAZOLE/TRIMETHOPRIM DS 800/160MG TAB PO SCH (21:00)
[2021-11-27] MEDS ORDERED: CIPROFLOXACIN 500 MG TAB PO SCH (21:00)
[2021-11-27] MEDS: APIXABAN 2.5 MG TAB PO SCH (21:27)
[2021-11-27] MEDS: ATORVASTATIN 40 MG TAB PO SCH (21:27)
[2021-11-28] MEDS: SODIUM CHLORIDE 0.9% 1000ML 1,000 ML IV SCH (00:14)
[2021-11-28] MEDS: PIPERACILLIN/TAZOBACTAM 3.375 GM in DEXTROSE 5% 100 ML IV SCH ×3 (01:01→16:50)
[2021-11-28] MEDS: BACLOFEN 10 MG TAB PO PRN (01:35)
[2021-11-28] MEDS: HYDROmorphone PCA 30 MG/30 ML IV PRN (02:55)
[2021-11-28 06:02] LABS: Basophils # (auto) 0.01 K/uL (0-0.2); Basophils % (auto) 0.1 %; Eosinophils # (auto) 0.02 K/uL (0-0.5); Eosinophils % (auto) 0.1 %; Hematocrit (blood only) 28.7 % (42-52); Hemoglobin 9.2 g/dL (14.0-18.0); Immature Granulocytes # (auto) 0.07 K/uL (0.00-0.02); Immature Granulocytes % (auto) 0.4 %; Lymphocytes # (auto) 0.69 K/uL (1.2-3.4); Lymphocytes % (auto) 4.3 %; Mean Corpuscular Hemoglobin 30.3 pg (25-34); Mean Corpuscular Hgb Conc 32.1 g/dL (32-36); Mean Corpuscular Volume 94.4 fL (80-100); Mean Platelet Volume 8.7 fL (7.4-10.4); Monocytes # (auto) 1.47 K/uL (0.11-0.59); Monocytes % (auto) 9.2 %; Neutrophils # (auto) 13.65 K/uL (1.4-6.5); Neutrophils % (auto) 85.9 %; Platelet Count 651 K/uL (130-400); RDW Coefficient of Variation 13.3 % (11.5-14.5); RDW Standard Deviation 46.2 fL (36.4-46.3); Red Blood Count 3.04 M/uL (4.7-6.1); White Blood Count 15.91 K/uL (4.8-10.8)
--- NOTE | 2021-11-28 06:36 | Orthopedic Progress Note ---
Date of Service November 28, 2021 Assessment & Plan (1) Status post partial amputation of right foot: Overall is doing fairly well. He can be weightbearing as tolerated in a hard sole shoe. He is currently on Plavix and Eliquis. He is on vancomycin and Zosyn for antimicrobial prophylaxis. He is orthopedically stable for discharge when medically ready. Full orthopedic discharge instructions were placed in the discharge summary. He will follow-up with orthopedics in 2 weeks for suture rem oval. Subjective Rubens was seen and examined at bedside this morning. Overall is doing fairly well. Is not having too much pain in the right foot. He was able to get some sleep last night. He has no complaints. Review of Systems All systems reviewed & are unremarkable except as noted in HPI & below. Physical Exam On physical examination of the right foot, the dressing is clean and dry. He does have some range of motion of his ankle. Results & Data Results & Data Laboratory Results . Diagnostic Findings . PG Care Time/CCT Total # of Minutes Spent Total Time Spent with Patient: Total time spent is greater than 50% in coordination of care (as documented) at patient's floor/unit and/or counseling patient: Coding Level of Care Code 47066 Post Operative Follow-Up Diagnoses Status post partial amputation of right foot Z89.431
[2021-11-28 06:44] LABS: Albumin Level 3.1 gm/dl (3.4-5.0); BUN Creatinine Ratio 16.8 (10-20); Bilirubin Direct 0.1 mg/dl (0-0.2); Bilirubin,Total 0.3 mg/dl (0.2-1.0); C Reactive Protein 13.02 mg/dl (0-0.5); Calcium 8.9 mg/dl (8.5-10.1); Creatinine Clr Calc Pharmacy 86.2 ml/min; Est GFR (African American) 97.7 ml/min; Est GFR (Non-African American) 84.3 ml/min; Magnesium 1.9 mg/dl (1.7-2.4); Potassium 4.2 mmol/L (3.5-5.1); Total Protein 6.3 gm/dl (6.0-8.3)
--- NOTE | 2021-11-28 08:16 | Hospitalist Progress Note ---
Date of Service November 28, 2021 Assessment & Plan (1) Osteomyelitis: Plan: In patient with previous MRI of the right foot in March 2021 showed pathologic marrow edema and cortical destructive changes involving the proximal and middle phalanges of the second toe indicative of osteomyelitis - Right second toe amputation for osteomyelitis [address] Nick Cochran. Presented initially with cellulitis, --> Plantar medial aspect of the right first toe overlying the first metatarsal head. Associated cellulitis. No abscess; uncertain of viability of great toe and suspect ultimately needs amputation-- With sepsis, POA Repeat MRI showing evidence of osteomyelitis. LLE US doppler NEGATIVE for DVT Vascular surgery consulted * POD# 4 S/P R Leg Femoral to Anterior Tibial Prosthetic Bypass Graft, Proximal superficial femoral artery endarterectomy with bovine patch on 3/4 * POD #2 s/p Right Leg Arteriorgram, Ultrasound Localization of Left Femoral Artery, Moderate Sedation [id number](Left) - Sachin Valencia MD * Arteriogram -- viable vessel with adequate size was patient and available for bypass Per Dr Valencia, able to get good perfusion ID consulted (hx MRSA in past, Bcx currently NGTD, procal negative on admit)- ultimately if ortho does choose amputation that would be ultimate source control and without suspect 6 weeks IV Abx and likely would need MRSA coverage given history * OP report pending, but per ID, if no residual bone infection, rec 7-14 days ab x for possible residual soft tissue infection. If residual bone, anticipate 4- 6 weeks IV abx therapy * To obtain Cx from OR/bone cx as well Orthopedics on consult * POD #1 p Right Great Toe, first ray and partial second Metatarsal Amputation(Right) - Dimitry Valerio DO. EBL 100cc. * On eliquis 2.5mg BID for DVT prophylaxis since last evening, Heparin SQ discontinued --> will need eliquis 2.5mg BID at discharge * WBAT with hard boot * Vit D 20.2 --> started caltrate plus -- continue supplementation at discharge * Cx from OR pending --> NO GROWTH ON PRELIM * PT/OT post-op evals. CM following --> recommending home Need f/u 2 weeks for suture removal Abx: Zosyn and Vancomycin (day 11) WBC 19k--> 12.2k, elevated 2nd to surgery currently 15.9k, afebrile Pain control --> discontinuing [employer] 11/28, ordered hydrocodone PO prn, IV available for breakthrough if needed as patient wishing to ultimately go home and discussed would need to make sure able to control pain with oral agents +BM / Per Ortho, NO RESIDUAL BONE, can discontinue IV abx at this time as has received 11 days today, but will discuss with supervising provider prior to discontinuing Monitor labs in AM, but if stable could consider discharge (2) Cellulitis: Plan: presented w/ cellulitis,imaging with evidence for AOM on MRI (3) Acute blood loss anemia: Plan: In setting of vascular surgery which is to be expected Repeat improved to 9.7 --> EBL 100cc from surgery 11/27 and hgb currently 9.2 but stable Monitor (4) Peripheral arterial disease: Plan: A graft within the right superficial femoral artery is noted; There is severe stenosis of the proximal right superficial femoral artery; There is occlusion of the proximal right profunda with distal reconstitution; Additional moderate multifocal stenoses within the right superficial femoral artery are noted; Occlusion of the right popliteal artery is noted with distal reconstitution at the level of the trifurcation; There is occlusion of the proximal right anterior tibial artery with severe multifocal stenoses within the right anterior tibial artery, here are multifocal occlusions of the right posterior tibial artery. There is extensive atherosclerotic plaque within the right calf vessels Severe PAD as noted above CT results- appreciate vascular surgery evaluation and assistance - Resume Plavix (will need to discuss when to stop this if ortho surgery is anticipated -- held this morning prior to surgery) - Keep legs up - Doppler with pulse checks q8 (5) MRSA (methicillin resistant staph aureus) culture positive: Plan: HX of in 2020- no other culture details since that time - Continue with MRSA precautions; MRSA swap negative on this admission - Continue Vancomycin (6) Hypercholesterolemia: Plan: continue atorvastatin 40 mg daily (7) HTN (hypertension): Plan: Continue ELIZABETH, BP stable (8) Hyponatremia: Plan: Chronic, typically around 133, was down to 127 -- asymptomatic.TSH wnl 11/23/21 at 3.8 Suspect lows from free water intake/maybe component of SIADH especially post- operatively -- can monitor with sodium tabs Follow BMP -- Also noticed frequent low sodiums on multiple patients - lab issue? repeat improved to 132 today but did not get NaCl tablet 1/2 yesterday as he was in the OR and will monitor in AM (9) S/P femoral-tibial bypass: Plan: as above (10) Sepsis: Plan: 2nd to above tx as outlined (11) Hypomagnesemia: Plan: low 11/26 1.6, no replacement ordered 2gm IV on 11/27, repeat mag 1.9 Monitor in AM for stability Plan: s/p transmetatarsal amputation Cx from OR pending -- NGTD on prelim Per ID, got 11 days abx and could d/c if no residual bone. per ortho, felt no residual bone will discuss with supervising provider but likely dc abx tonight Continue eliquis 2.5mg BID at discharge, f/u ortho and vascular possible d/c tomorrow vs ? Admission and Anticipated Discharge Date Admission Date: November 17, 2021 Supervising Physician Co-Signing Physician Notes PA Supervision Note: I did not personally see or examine the patient today, but I verified all pham points of PILAR Castro's assessment and plan with the following exceptions/additions: Leukocytosis and thrombocytosis likely secondary/reactive to anemia as well as recent surgery Check iron studies in the morning Okay to discontinue antibiotics Follow CBC Subjective Patient evaluated this afternoon Doing well Eating/drinking without issue Moved his bowels this morning Pain still present but states improvement. Discussed home -- he states prior 2 hip replacements, 1 revision and did not need inpatient rehab and had home PT which signed off shortly as he was doing well. Discussed de-escalating pain regimen. He notes hydrocodone works best, will use sliding scale and IV if needed for breakthrough in anticipation for closer to discharge Notes he was up with therapy this morning and walked around. Discussed if recs for home will attempt home with home services Discussed d/c Zosyn and continue Vancomycin for now but may be able to stop tomorrow give improvement but will continue to monitor No fever, chills, chest pain, shortness of breath, abdominal pain, nausea, vomiting or dysuria at this time. Review of Systems Review of Systems: All systems reviewed & are unremarkable except as noted in HPI & below Physical Exam Physical Exam: General: WN/WD male sitting up in chair post-op, NAD HEENT: head normocephalic, atraumatic, pupils equal/reactive, mmm Neck: trachea midline, no JVD Resp: CTAB, no w/c/r, on room air CV: RRR, no m/r/g, no edema/calf tenderness GI: +BS, soft, non-tender MSK/Ext: R foot with elizabeth wrap/boot post-operatively. Prevena wound vac intact with green light on. NVI . Pulses with doppler Neuro/psych: speech clear, follows commands, no focal deficit, alert/oriented x 3 Results & Data Results & Data ([facility]) Vital Signs (Past 12 Hours) Vital Signs Temp Pulse Pulse Resp BP BP Pulse Ox 11/28/21 07:10 36.5 C 64 14 125/64 99 11/28/21 02:00 36.6 C 68 16 137/62 99 11/28/21 00:14 129/68 11/27/21 23:02 36.4 C L 80 18 189/93 H 98 Laboratory Results 11/28/21 11/28/21 Range/Units 05:20 05:20 WBC 15.91 H (4.8-10.8) K/uL RBC 3.04 L (4.7-6.1) M/uL Hgb 9.2 L (14.0-18.0) g/dL Hct 28.7 L (42-52) % MCV 94.4 (80-100) fL MCH 30.3 (25-34) pg MCHC 32.1 (32-36) g/dL RDW Std Deviation 46.2 (36.4-46.3) fL RDW Coeff of Jamila 13.3 (11.5-14.5) % Plt Count 651 H (130-400) K/uL MPV 8.7 (7.4-10.4) fL Immature Gran % (Auto) 0.4 % Neut % (Auto) 85.9 % Lymph % (Auto) 4.3 % Cooke % (Auto) 9.2 % Eos % (Auto) 0.1 % Baso % (Auto) 0.1 % Neut # (Auto) 13.65 H (1.4-6.5) K/uL Lymph # (Auto) 0.69 L (1.2-3.4) K/uL Cooke # (Auto) 1.47 H (0.11-0.59) K/uL Eos # (Auto) 0.02 (0-0.5) K/uL Baso # (Auto) 0.01 (0-0.2) K/uL Immature Gran # (Auto) 0.07 H (0.00-0.02) K/uL Sodium 132 L (136-145) mmol/L Potassium 4.2 (3.5-5.1) mmol/L Chloride 98 (98-107) mmol/L Carbon Dioxide 26 (21-32) mmol/L Anion Gap 8 (3-11) BUN 16 (6-23) mg/dl Creatinine 0.95 (0.6-1.4) mg/dl Est Cr Clr Drug Dosing 86.2 ml/min Est GFR ( Amer) 97.7 ml/min Est GFR (Non-Af Amer) 84.3 ml/min BUN/Creatinine Ratio 16.8 (10-20) Glucose 123 H (70-99(Fasting)) mg/dl Calcium 8.9 (8.5-10.1) mg/dl Magnesium 1.9 (1.7-2.4) mg/dl Total Bilirubin 0.3 (0.2-1.0) mg/dl Direct Bilirubin 0.1 (0-0.2) mg/dl AST 12 L (13-39) U/L ALT 17 (7-52) U/L Alkaline Phosphatase 87 (34-104) U/L C-Reactive Protein 13.02 H (0-0.5) mg/dl Total Protein 6.3 (6.0-8.3) gm/dl Albumin 3.1 L (3.4-5.0) gm/dl PG Care Time/CCT Total # of Minutes Spent Total Time Spent with Patient: Total time spent is greater than 50% in coordination of care (as documented) at patient's floor/unit and/or counseling patient: Coding Level of Care Code 80965 Subseq Hosp Care Lvl 3 Diagnoses Osteomyelitis M86.9 Cellulitis L03.115 Laterality: right Site of cellulitis: extremity Site of cellulitis of extremity: lower extremity Acute blood loss anemia D62 Peripheral arterial disease I73.9 MRSA (methicillin resistant staph aureus) culture positive Z22.322 Hypercholesterolemia E78.00 HTN (hypertension) I10 Hyponatremia E87.1 S/P femoral-tibial bypass Z98.890 Sepsis A41.9 Hypomagnesemia E83.42 (1) Cellulitis Laterality: right Site of cellulitis: extremity Site of cellulitis of extremity: lower extremity Qualified Code(s): L03.115 - Cellulitis of right lower limb
[2021-11-28] MEDS: DOCUSATE SODIUM 100 MG CAP PO SCH ×2 (08:23→20:07)
[2021-11-28] MEDS: CLOTRIMAZOLE/BETAMETHASONE CR 15 GM TUBE EXT SCH ×2 (08:23→20:08)
[2021-11-28] MEDS: SODIUM CHLORIDE 1 GM TABLET PO SCH ×2 (08:24→20:07)
[2021-11-28] MEDS: CLOPIDOGREL BISULFATE 75 MG TAB PO SCH (08:24)
[2021-11-28] MEDS: lisinopril 10 MG TAB PO SCH (08:24)
[2021-11-28] MEDS: APIXABAN 2.5 MG TAB PO SCH ×2 (08:25→20:07)
[2021-11-28] MEDS: GABAPENTIN 600 MG TAB PO SCH ×3 (08:25→20:07)
[2021-11-28] MEDS: VANCOMYCIN HCL 1,500 MG in SODIUM CHLORIDE 0.9% 500 ML IV SCH (08:27)
--- NOTE | 2021-11-28 14:30 | Surgery Progress Note ---
Date of Service November 28, 2021 Assessment & Plan (1) S/P femoral-tibial bypass: Plan: POD#4. Doing well. Excellent perfusion to right foot. Will need d/c on Eliquis 2.5 BID Admission and Anticipated Discharge Date Admission Date: November 17, 2021 Subjective 66 yo m POD # 4 after RLE fem-ant tib prosthetic bpg and femoral artery endarte rectomy, seen in f/u today. Pt underwent RLE great toe ray amp yesterday by orthopedics. Pt admits pain in R foot from recent surgery, but states no new problems. Review of Systems Review of Systems: All systems reviewed & are unremarkable except as noted in HPI & below Physical Exam Constitutional: WD/WN, vitals as above cooperative and comfortable Cardiovascular: Vessels: femoral pulses present, posterior tibial pulses present (dopplerable LLE, excellent doppler RLE), dorsalis pedis pulses present (excellent dopper RLE, +1 LLE) and radial pulses present Results & Data ([facility]) Vital Signs (Past 12 Hours) Vital Signs Temp Pulse Resp BP Pulse Ox 11/28/21 10:33 36.8 C 75 15 109/57 L 99 11/28/21 07:10 36.5 C 64 14 125/64 99
[2021-11-28] MEDS: TAMSULOSIN HCL 0.4 MG CAP PO SCH (15:41)
[2021-11-28] MEDS: HYDROCODONE/ACETAMOPHEN 5/325MG TAB PO PRN ×2 (16:49→21:17)
[2021-11-28] MEDS: MULTIVITAMIN TAB PO SCH (16:50)
[2021-11-28] MEDS: CALCIUM 600MG + VIT D 400 IU TAB PO SCH (16:50)
[2021-11-28] MEDS: VITAMIN B COMPLEX TAB PO SCH (16:50)
[2021-11-28] MEDS: POTASSIUM CHLORIDE CRTAB 20 MEQ TABCR PO SCH (16:54)
[2021-11-28] MEDS: ATORVASTATIN 40 MG TAB PO SCH (20:07)
[2021-11-29] MEDS: HYDROCODONE/ACETAMOPHEN 5/325MG TAB PO PRN ×5 (03:27→21:37)
[2021-11-29] MEDS: SODIUM CHLORIDE 0.9% 1000ML 1,000 ML IV SCH (03:33)
[2021-11-29 06:17] LABS: Hematocrit (blood only) 28.5 % (42-52); Hemoglobin 9.4 g/dL (14.0-18.0); Mean Corpuscular Hemoglobin 30.7 pg (25-34); Mean Corpuscular Volume 93.1 fL (80-100); Mean Platelet Volume 8.4 fL (7.4-10.4); Platelet Count 648 K/uL (130-400); RDW Coefficient of Variation 13.4 % (11.5-14.5); RDW Standard Deviation 45.6 fL (36.4-46.3); Red Blood Count 3.06 M/uL (4.7-6.1); White Blood Count 11.59 K/uL (4.8-10.8)
[2021-11-29 06:50] LABS: BUN Creatinine Ratio 19.6 (10-20); Calcium 8.8 mg/dl (8.5-10.1); Creatinine Clr Calc Pharmacy 76.6 ml/min; Est GFR (African American) 84.6 ml/min; Magnesium 1.6 mg/dl (1.7-2.4); Potassium 3.9 mmol/L (3.5-5.1)
--- NOTE | 2021-11-29 06:56 | Orthopedic Progress Note ---
Date of Service November 29, 2021 Assessment & Plan (1) Status post partial amputation of right foot: Overall is doing fairly well. Is not having much pain in the right foot. He can be weightbearing as tolerated in a hard sole shoe. The nursing staff can do daily dry dressing changes around the foot without compression. He is on Plavix and Eliquis. He is on Zosyn and vancomycin. He can be discharged when medically ready. He will follow-up with orthopedics in 2 weeks for suture removal. Full orthopedic discharge instructions were placed in the discharge summary. Subjective Rubens was seen and examined at bedside this morning. Overall is doing fairly well. Is not any much pain in the right foot. He has been up and ambulating in a hard sole shoe. He has no complaints. Review of Systems All systems reviewed & are unremarkable except as noted in HPI & below. Physical Exam On physical examination of the right leg, the dressing was changed. The incision looks good. I do not see any signs of necrotic tissue at this point. Results & Data Results & Data Laboratory Results . Diagnostic Findings . PG Care Time/CCT Total # of Minutes Spent Total Time Spent with Patient: Total time spent is greater than 50% in coordination of care (as documented) at patient's floor/unit and/or counseling patient: Coding Level of Care Code 99914 Post Operative Follow-Up Diagnoses Status post partial amputation of right foot Z89.431
[2021-11-29 06:57] LABS: Ferritin 222.6 ng/ml (8-388)
[2021-11-29] MEDS: CLOPIDOGREL BISULFATE 75 MG TAB PO SCH (07:45)
[2021-11-29] MEDS: lisinopril 10 MG TAB PO SCH (07:46)
[2021-11-29] MEDS: SODIUM CHLORIDE 1 GM TABLET PO SCH (07:48)
[2021-11-29] MEDS: GABAPENTIN 600 MG TAB PO SCH ×3 (07:49→21:19)
[2021-11-29] MEDS: DOCUSATE SODIUM 100 MG CAP PO SCH ×2 (07:49→21:20)
[2021-11-29] MEDS: APIXABAN 2.5 MG TAB PO SCH ×2 (07:50→21:19)
[2021-11-29] MEDS: CLOTRIMAZOLE/BETAMETHASONE CR 15 GM TUBE EXT SCH ×2 (07:51→21:20)
--- NOTE | 2021-11-29 07:59 | Hospitalist Progress Note ---
Date of Service November 29, 2021 Assessment & Plan (1) Osteomyelitis: Plan: In patient with previous MRI of the right foot in March 2021 showed pathologic marrow edema and cortical destructive changes involving the proximal and middle phalanges of the second toe indicative of osteomyelitis - Right second toe amputation for osteomyelitis [address] Nick Cochran. Presented initially with cellulitis, --> Plantar medial aspect of the right first toe overlying the first metatarsal head. Associated cellulitis. No abscess; uncertain of viability of great toe and suspect ultimately needs amputation-- With sepsis, POA Repeat MRI showing evidence of osteomyelitis. LLE US doppler NEGATIVE for DVT Vascular surgery consulted * S/P R Leg Femoral to Anterior Tibial Prosthetic Bypass Graft, Proximal superficial femoral artery endarterectomy with bovine patch on 11/24 * S/p Right Leg Arteriorgram, Ultrasound Localization of Left Femoral Artery, Moderate Sedation [id number](Left) - Sachin Valencia MD 11/21 * Arteriogram -- viable vessel with adequate size was patient and available for bypass Per Dr Valencia, able to get good perfusion ID consulted (hx MRSA in past, Bcx currently NGTD, procal negative on admit)- ultimately if ortho does choose amputation that would be ultimate source control and without suspect 6 weeks IV Abx and likely would need MRSA coverage given history * OP report pending, but per ID, if no residual bone infection, rec 7-14 days abx for possible residual soft tissue infection. If residual bone, anticipate 4-6 weeks IV abx therapy Orthopedics on consult * POD #2 s/p Right Great Toe, first ray and partial second Metatarsal Amputation(Right) - Dimitry Valerio DO. EBL 100cc. * On eliquis 2.5mg BID for DVT prophylaxis since last evening, Heparin SQ discontinued --> will need eliquis 2.5mg BID at discharge * WBAT with hard boot * Vit D 20.2 --> started caltrate plus -- continue supplementation at discharge * Cx from OR pending --> NO GROWTH ON PRELIM * PT/OT post-op evals. CM following --> recommending home Need f/u 2 weeks for suture removal Zosyn and Vancomycin (day 11) --> discontinued evening 11/28 as no residual bone as discussed with orthopedics WBC trending down, currently 11.5k, afebrile Pain control --> transitioned to PO hydrocodone PO (IV available for breakthrough) from [employer] --> has been controlled with oral currently 1-2 tablets as needed Iron studies added given elevated platelets, ?reactive --> Iron low at 11, trans % sat 10% and will order Venofer IV while inpatient, repeat tomorrow ( last c-scope done ~15 years ago and rec he f/u outpatient) Wheezing on exam, no sob/hypoxia. Mag 1.6 and replacement ordered. Hx of smoking. No volume overload noted. --> Monitor on exam following replacement Monitor labs in AM, but if stable could consider discharge (2) Cellulitis: Plan: presented w/ cellulitis,imaging with evidence for AOM on MRI (3) Acute blood loss anemia: Plan: In setting of vascular surgery which is to be expected EBL from 11/27 surgery 100cc, repeat hgb 9.4 stable Iron studies as above --> Venofer while inpatient, possible PO at d/c CBC in AM (4) Peripheral arterial disease: Plan: A graft within the right superficial femoral artery is noted; There is severe stenosis of the proximal right superficial femoral artery; There is occlusion of the proximal right profunda with distal reconstitution; Additional moderate multifocal stenoses within the right superficial femoral artery are noted; Occlusion of the right popliteal artery is noted with distal reconstitution at the level of the trifurcation; There is occlusion of the proximal right anterior tibial artery with severe multifocal stenoses within the right anterior tibial artery, here are multifocal occlusions of the right posterior tibial artery. There is extensive atherosclerotic plaque within the right calf vessels Severe PAD as noted above CT results- appreciate vascular surgery evaluation and assistance - Continue Plavix - Keep legs up - Doppler with pulse checks q8 (5) MRSA (methicillin resistant staph aureus) culture positive: Plan: HX of in 2020- no other culture details since that time - Continue with MRSA precautions; MRSA swap negative on this admission Discontinued abx as above (6) Hypercholesterolemia: Plan: continue atorvastatin 40 mg daily (7) HTN (hypertension): Plan: Continue ELIZABETH, BP stable (8) Hyponatremia: Plan: Chronic, typically around 133, was down to 127 -- asymptomatic.TSH wnl 11/23/21 at 3.8 Suspect lows from free water intake/maybe component of SIADH especially post- operatively -- Also noticed frequent low sodiums on multiple patients - lab issue? Na 136 on BMP, discontinued NaCl tablets BMP in AM (9) S/P femoral-tibial bypass: Plan: as above (10) Sepsis: Plan: 2nd to above tx as outlined (11) Hypomagnesemia: Plan: low 3/6 1.6, no replacement ordered 2gm IV on 11/27, repeat mag 1.9 but again low 1.6 this morning and ordered additional 2gm IV Monitor in AM for stability Admission and Anticipated Discharge Date Admission Date: November 17, 2021 Supervising Physician Co-Signing Physician Notes PA Supervision Note: I did not personally see or examine the patient today, but I verified all pham points of PILAR Castro's assessment and plan with the following exceptions/additions:none Subjective Patient evaluated this morning. Doing well, pain increased last night but improved and controlled on 2 tablets as needed. Got Venofer this morning, repeating tomorrow. Patient states his goal was home by saturday but feels he would be ready tomorrow. Discussed replacement of mag for mag 1.6. He has some wheezing on examination, admitted to prior hx of smoking, but denied shortness of breath/cough/sputum p roduction and will monitor after magnesium replacement. Discussed ortho felt all bone infected removed and antibiotics discontinued last evening. States he was seen by vascular this morning who was not happy that the ELIZABETH wrap was placed up to his knee, now removed and open to air. Review of Systems Review of Systems: All systems reviewed & are unremarkable except as noted in HPI & below Physical Exam Physical Exam: General: WN/WD male sitting up in bed, NAD HEENT: head normocephalic, atraumatic, pupils equal/reactive, mmm Neck: trachea midline, no JVD Resp: no respiratory distress/tachypnea, no crackles/rales but faint scattered expiratory wheezing posterior lung carter, on room air CV: RRR, no m/r/g, no edema/calf tenderness GI: +BS, soft, non-tender MSK/Ext: R foot with elizabeth wrap now removed, open to air. sutures from bypass intact, no drainage/erythema, sutures to R foot from resection c/d/i with crusting. Prevena wound vac intact with green light on. NVI . +Pulses with doppler Neuro/psych: speech clear, follows commands, no focal deficit, alert/oriented x 3 Results & Data Results & Data ([facility]) Vital Signs (Past 12 Hours) Vital Signs Temp Pulse Resp BP Pulse Ox 11/29/21 07:28 36.7 C 66 18 123/66 100 11/28/21 22:17 36.6 C 74 18 132/67 100 Laboratory Results 11/29/21 11/29/21 11/29/21 Range/Units 05:56 05:56 05:56 WBC 11.59 H (4.8-10.8) K/uL RBC 3.06 L (4.7-6.1) M/uL Hgb 9.4 L (14.0-18.0) g/dL Hct 28.5 L (42-52) % MCV 93.1 (80-100) fL MCH 30.7 (25-34) pg MCHC 33.0 (32-36) g/dL RDW Std Deviation 45.6 (36.4-46.3) fL RDW Coeff of Jamila 13.4 (11.5-14.5) % Plt Count 648 H (130-400) K/uL MPV 8.4 (7.4-10.4) fL Sodium 136 (136-145) mmol/L Potassium 3.9 (3.5-5.1) mmol/L Chloride 101 (98-107) mmol/L Carbon Dioxide 28 (21-32) mmol/L Anion Gap 7 (3-11) BUN 21 (6-23) mg/dl Creatinine 1.07 (0.6-1.4) mg/dl Est Cr Clr Drug Dosing 76.6 ml/min Est GFR ( Amer) 84.6 ml/min Est GFR (Non-Af Amer) 73.0 ml/min BUN/Creatinine Ratio 19.6 (10-20) Glucose 111 H (70-99(Fasting)) mg/dl Calcium 8.8 (8.5-10.1) mg/dl Magnesium 1.6 L (1.7-2.4) mg/dl Iron Cancelled 22 L (35-175) mcg/dl TIBC Cancelled 231 L (250-450) mcg/dl Unsaturated IBC Cancelled 209 (155-355) mcg/dl Transferrin % Sat Cancelled 10 L (20-50) % Ferritin 222.6 (8-388) ng/ml PG Care Time/CCT Total # of Minutes Spent Total Time Spent with Patient: Total time spent is greater than 50% in coordination of care (as documented) at patient's floor/unit and/or counseling patient: Coding Level of Care Code 17556 Subseq Hosp Care Lvl 3 Diagnoses Osteomyelitis M86.9 Cellulitis L03.115 Laterality: right Site of cellulitis: extremity Site of cellulitis of extremity: lower extremity Acute blood loss anemia D62 Peripheral arterial disease I73.9 MRSA (methicillin resistant staph aureus) culture positive Z22.322 Hypercholesterolemia E78.00 HTN (hypertension) I10 Hyponatremia E87.1 S/P femoral-tibial bypass Z98.890 Sepsis A41.9 Hypomagnesemia E83.42 (1) Cellulitis Laterality: right Site of cellulitis: extremity Site of cellulitis of extremity: lower extremity Qualified Code(s): L03.115 - Cellulitis of right lower limb
[2021-11-29] MEDS ORDERED: VANCOMYCIN TROUGH ONE (08:30)
[2021-11-29] MEDS ORDERED: IRON SUCROSE 300 MG in SODIUM CHLORIDE 0.9% 250 ML IV ONE (09:00)
[2021-11-29] MEDS: MAGNESIUM SULFATE / D5W 1 GM/100 ML BAG IV SCH ×2 (09:39→11:42)
[2021-11-29] MEDS: TAMSULOSIN HCL 0.4 MG CAP PO SCH (16:02)
[2021-11-29] MEDS: HYDROmorphone INJ 1 MG/ML SYRINGE IV PRN ×2 (16:51→21:16)
[2021-11-29] MEDS: MULTIVITAMIN TAB PO SCH (18:17)
[2021-11-29] MEDS: CALCIUM 600MG + VIT D 400 IU TAB PO SCH (18:17)
[2021-11-29] MEDS: VITAMIN B COMPLEX TAB PO SCH (18:18)
[2021-11-29] MEDS: POTASSIUM CHLORIDE CRTAB 20 MEQ TABCR PO SCH (18:46)
[2021-11-29] MEDS: ATORVASTATIN 40 MG TAB PO SCH (21:20)
[2021-11-30] MEDS: HYDROCODONE/ACETAMOPHEN 5/325MG TAB PO PRN ×3 (03:42→12:57)
[2021-11-30] MEDS: HYDROmorphone INJ 1 MG/ML SYRINGE IV PRN ×3 (06:22→15:44)
--- NOTE | 2021-11-30 07:49 | Hospitalist Progress Note ---
Date of Service November 30, 2021 Assessment & Plan (1) Osteomyelitis: Plan: In patient with previous MRI of the right foot in March 2021 showed pathologic marrow edema and cortical destructive changes involving the proximal and middle phalanges of the second toe indicative of osteomyelitis - Right second toe amputation for osteomyelitis [address] Nick Cochran. Presented initially with cellulitis, --> Plantar medial aspect of the right first toe overlying the first metatarsal head. Associated cellulitis. No abscess; uncertain of viability of great toe and suspect ultimately needs amputation-- With sepsis, POA Repeat MRI showing evidence of osteomyelitis. LLE US doppler NEGATIVE for DVT Vascular surgery consulted * S/P R Leg Femoral to Anterior Tibial Prosthetic Bypass Graft, Proximal superficial femoral artery endarterectomy with bovine patch on 11/24 * S/p Right Leg Arteriorgram, Ultrasound Localization of Left Femoral Artery, Moderate Sedation [id number](Left) - Sachin Valencia MD 11/21 * Arteriogram -- viable vessel with adequate size was patient and available for bypass Per Dr Valencia, able to get good perfusion ID consulted (hx MRSA in past, Bcx currently NGTD, procal negative on admit)- ultimately if ortho does choose amputation that would be ultimate source control and without suspect 6 weeks IV Abx and likely would need MRSA coverage given history * OP report pending, but per ID, if no residual bone infection, rec 7-14 days abx for possible residual soft tissue infection. If residual bone, anticipate 4-6 weeks IV abx therapy Orthopedics on consult * POD #2 s/p Right Great Toe, first ray and partial second Metatarsal Amputation(Right) - Dimitry Valerio DO. EBL 100cc. * On eliquis 2.5mg BID for DVT prophylaxis since last evening, Heparin SQ discontinued --> will need eliquis 2.5mg BID at discharge * WBAT with hard boot * Vit D 20.2 --> started caltrate plus -- continue supplementation at discharge * Cx from OR pending --> NO GROWTH ON PRELIM * PT/OT post-op evals. CM following --> recommending home Need f/u 2 weeks for suture removal Zosyn and Vancomycin (day 11) --> discontinued evening 11/28 as no residual bone as discussed with orthopedics WBC trending down, currently 11.5k, afebrile Pain control --> transitioned to PO hydrocodone PO (IV available for breakthrough) from [employer] --> has been controlled with oral currently 1-2 tablets as needed Iron studies added given elevated platelets, ?reactive --> Iron low at 11, trans % sat 10% and will order Venofer IV while inpatient --> 300mg on 11/29, repeat 300mg 11/30( last c-scope done ~15 years ago and rec he f/u outpatient) Wheezing on exam, no sob/hypoxia. Mag 1.6 and replacement ordered. Hx of smoking. No volume overload noted. --> Monitor on exam following replacement Monitor labs in AM, but if stable could consider discharge (2) Cellulitis: Plan: presented w/ cellulitis,imaging with evidence for AOM on MRI (3) Acute blood loss anemia: Plan: In setting of vascular surgery which is to be expected EBL from 11/27 surgery 100cc, repeat hgb 9.4 stable Iron studies as above --> Venofer while inpatient, possible PO at d/c as above CBC in AM (4) Peripheral arterial disease: Plan: A graft within the right superficial femoral artery is noted; There is severe stenosis of the proximal right superficial femoral artery; There is occlusion of the proximal right profunda with distal reconstitution; Additional moderate multifocal stenoses within the right superficial femoral artery are noted; Occlusion of the right popliteal artery is noted with distal reconstitution at the level of the trifurcation; There is occlusion of the proximal right anterior tibial artery with severe multifocal stenoses within the right anterior tibial artery, here are multifocal occlusions of the right posterior tibial artery. There is extensive atherosclerotic plaque within the right calf vessels Severe PAD as noted above CT results- appreciate vascular surgery evaluation and assistance - Continue Plavix - Keep legs up - Doppler with pulse checks q8 (5) MRSA (methicillin resistant staph aureus) culture positive: Plan: HX of in 2020- no other culture details since that time - Continue with MRSA precautions; MRSA swap negative on this admission Discontinued abx as above (6) Hypercholesterolemia: Plan: continue atorvastatin 40 mg daily (7) HTN (hypertension): Plan: Continue ELIZABETH, BP stable (8) Hyponatremia: Plan: Chronic, typically around 133, was down to 127 -- asymptomatic.TSH wnl 11/23/21 at 3.8 Suspect lows from free water intake/maybe component of SIADH especially post- operatively -- Also noticed frequent low sodiums on multiple patients - lab issue? Na 136 on BMP, discontinued NaCl tablets BMP in AM (9) S/P femoral-tibial bypass: Plan: as above (10) Sepsis: Plan: 2nd to above tx as outlined (11) Hypomagnesemia: Plan: low /6 1.6, no replacement ordered 2gm IV on 11/27, repeat mag 1.9 but again low 1.6 this morning and ordered additional 2gm IV Monitor in AM for stability Admission and Anticipated Discharge Date Admission Date: November 17, 2021 Results & Data Results & Data ([facility]) Vital Signs (Past 12 Hours) Vital Signs Temp Pulse Resp BP Pulse Ox 11/30/21 07:34 36.7 C 69 16 126/66 100 11/29/21 22:09 36.7 C 65 16 123/64 99 PG Care Time/CCT Total # of Minutes Spent Total Time Spent with Patient: Total time spent is greater than 50% in coordination of care (as documented) at patient's floor/unit and/or counseling patient: Coding Diagnoses Osteomyelitis M86.9 Cellulitis L03.115 Laterality: right Site of cellulitis: extremity Site of cellulitis of extremity: lower extremity Acute blood loss anemia D62 Peripheral arterial disease I73.9 MRSA (methicillin resistant staph aureus) culture positive Z22.322 Hypercholesterolemia E78.00 HTN (hypertension) I10 Hyponatremia E87.1 S/P femoral-tibial bypass Z98.890 Sepsis A41.9 Hypomagnesemia E83.42 (1) Cellulitis Laterality: right Site of cellulitis: extremity Site of cellulitis of extremity: lower extremity Qualified Code(s): L03.115 - Cellulitis of right lower limb
[2021-11-30] MEDS ORDERED: IRON SUCROSE 300 MG in SODIUM CHLORIDE 0.9% 250 ML IV ONE (08:00)
[2021-11-30 08:24] LABS: Hematocrit (blood only) 30.3 % (42-52); Mean Corpuscular Hemoglobin 31.3 pg (25-34); Mean Corpuscular Volume 94.7 fL (80-100); Mean Platelet Volume 8.6 fL (7.4-10.4); Platelet Count 698 K/uL (130-400); RDW Coefficient of Variation 13.4 % (11.5-14.5); RDW Standard Deviation 46.6 fL (36.4-46.3); White Blood Count 10.74 K/uL (4.8-10.8)
[2021-11-30] MEDS: CLOPIDOGREL BISULFATE 75 MG TAB PO SCH (08:24)
[2021-11-30] MEDS: APIXABAN 2.5 MG TAB PO SCH (08:24)
[2021-11-30] MEDS: lisinopril 10 MG TAB PO SCH (08:25)
[2021-11-30] MEDS: GABAPENTIN 600 MG TAB PO SCH ×2 (08:25→14:29)
[2021-11-30] MEDS: DOCUSATE SODIUM 100 MG CAP PO SCH (08:25)
[2021-11-30 08:54] LABS: BUN Creatinine Ratio 20.8 (10-20); Calcium 9.1 mg/dl (8.5-10.1); Creatinine Clr Calc Pharmacy 85.3 ml/min; Est GFR (African American) 96.4 ml/min; Est GFR (Non-African American) 83.2 ml/min; Magnesium 1.7 mg/dl (1.7-2.4); Potassium 3.7 mmol/L (3.5-5.1)
--- NOTE | 2021-11-30 10:35 | Discharge Summary ---
Date of Service November 30, 2021 Admission HPI Per Admitting Provider 66 YOM with past medical history of: HTN, MRSA infection of the foot, osteomyelitis, HLD, PAD, prior smoker. Patient comes into the emergency room today for worsening of his right foot pain. The patient has significant history of PAD and non healing ulceration of his right lower leg including amputation of his 2nd toe on the right side secondary to osteomyelitis. He follows with Vascular surgery and is on Ciprofloxacin as outpatient. He has previous history of right groin and right toe MRSA infection. He has has multiple angioplasty and endarterectomy performed on his right side. Patient does have dependant rubor tho his leg, he notes that he is able to walk 2 blocks on flat ground before he his right leg becomes too painful and is able to go up about 20 steps before he has to rest for the same leg pain. He reports he stopped smoking. In the EMD the patient had CTA of his lower extremity performed that was reviewed by Dr. Cameron (EMD) with Dr. Valencia (Vascular) that was reported as no acute change. Patient had blood cultures drawn in EMD and CTA of the lower extremity as well as venous doppler performed of the right leg. He had routine labs drawn that was noted for elevated WBC count and increase NLR and elevated PCT. He was started on Zosyn and Vancomycin for his foot ulcer. Patient will be admitted to medical surgical floor, continue antibiotics, appreciate Vascular Surgery consultation, and will follow his clinical response. Patient COVID test on admission is: NEGATIVE Admission Exam Per Admitting Provider General: awake, alert, no apparent distress Head: Normocephalic, atraumatic ENT: PERRL, EOMI, no pharyngeal exudate, mucous membranes moist Neuro: AAO x 3, speech clear and appropriate, strength intact bilaterally 5/5, sensation intact and equal all extremities and dermatomes, no pronator drift Chest: equal rise and fall of the chest, no accessory muscle use, no heaves or thrills, Clear to auscultation, on room air, Cardiac: Regular rate and rhythm, telemetry reviewed-NSR, skin warm dry, cap refill <3 seconds, peripheral pulses +2 no JVD, no murmur,+1 edema to right foot, dependant rubor to right lower leg, DP palpable PT dopllerable, femoral and popliteal palpable 2+ and strong. GI: NABS x 4 quadrants, soft, nontender to palpation, no rebound, guarding or tenderness : Spontaneously voiding, no pain, no CVA tenderness, Extremities: Normal inspection, no peripheral edema or erythema, calfs nontender to palpation Psych: Normal mood and affect Skin: no rash or erythema Principal Diagnosis Osteomyelitis, PAD Discharge Exam General: WN/WD male sitting up in bed, NAD HEENT: head normocephalic, atraumatic, pupils equal/reactive, mmm Neck: trachea midline, no JVD Resp: no respiratory distress/tachypnea, no w/c/r, on room air CV: RRR, no m/r/g, no edema/calf tenderness GI: +BS, soft, non-tender MSK/Ext: R foot with elizabeth wrap now removed, open to air. sutures from bypass intact, no drainage/erythema, sutures to R foot from resection, dressing c/d/i with crusting. Prevena wound vac intact with green light on. NVI . +Pulses with doppler, cap refill wnl Neuro/psych: speech clear, follows commands, no focal deficit, alert/oriented x 3 Discharge Data Allergies Allergy/AdvReac Type Severity Reaction Status Date / Time No Known Drug Allergies Allergy Mild Verified 11/13/21 11:14 Consultations 11/17/21 17:23 ED Decision to Admit Stat 11/17/21 21:35 Consult Vascular Surgery Routine 11/26/21 16:25 Consult Infectious Diseases Routine Procedures Performed Operation Date: 11/21/21 11:20 Actual Procedures p Right Leg Arteriorgram, Ultrasound Localization of Left Femoral Artery, Moderate Sedation [id number](Left) - Sachin Valencia MD Operation Date: 11/21/21 12:30 <No data on this case meets the specified criteria> Operation Date: 11/22/21 10:40 <No data on this case meets the specified criteria> Operation Date: 11/24/21 11:55 Actual Procedures p Right Leg Femoral to Anterior Tibial Bypass Graft(Right) - Sachin Valencia MD Operation Date: 11/27/21 09:40 Actual Procedures p Right Great Toe and Second Metatarsal Amputation(Right) - Dimitry Valerio DO Ordered Studies Lower Extremity CTA 11/17/21 14:31 CTA OF THE RIGHT LOWER EXTREMITY CLINICAL HISTORY: Pain. History of peripheral vascular disease. COMPARISON STUDY: CTA with lower extremity runoff and right lower extremity arterial Doppler ultrasound December 31, 2020. MRI of the right foot April 04, 2021. Right foot radiographs October 26, 2020. TECHNIQUE: Helical axial images of the right lower extremity were obtained during arterial phase following intravenous injection 116 cc of Optiray 320 IV. Sagittal and coronal reconstructions were viewed as well as maximal intensity projections on an independent 3-D workstation. Automated exposure control was utilized for the study. A dose lowering technique was utilized adhering to the principles of ALARA. FINDINGS: Images of the pelvis are degraded by streak artifact from bilateral hip arthroplasties. Bladder wall thickening is unchanged since CT of December 31, 2020. Mildly enlarged right inguinal lymph nodes have slightly decreased in size since prior examination. No acute fracture within the right lower extremity is noted. Amputation of the right second toe is noted. Note is made of a wound of the plantar medial aspect of the right first toe at the level of the metatarsal head. There is associated soft tissue thickening. No fluid collection to suggest an abscess is noted. Fragmentation of the sesamoids is unchanged since prior CT. Soft tissue gas adjacent to the right first metatarsal head is noted as well as a small amount of gas within the right first metatarsal head. No definite bony destruction is present. There is moderate calcified plaque within the right common iliac and external iliac arteries. There is mild stenosis of the proximal right external iliac artery. Moderate plaque of the right common femoral artery is noted. Vessels suboptimally assessed due to artifact. A graft within the right superficial femoral artery is noted. There is severe stenosis of the proximal right superficial femoral artery. This has developed since prior CT of December 31, 2020. There is occlusion of the proximal right profunda with distal reconstitution. Additional moderate multifocal stenoses within the right superficial femoral artery are noted. Occlusion of the right popliteal artery is noted with distal reconstitution at the level of the trifurcation. There is occlusion of the proximal right anterior tibial artery with severe multifocal stenoses within the right anterior tibial artery, suboptimally assessed given small vessel size. Right dorsalis pedis is also patent. There are multifocal occlusions of the right posterior tibial artery. There is extensive atherosclerotic plaque within the right calf vessels. These vessels are suboptimally assessed due to their small size. Metallic density of the medial right ankle is noted, unchanged. IMPRESSION: 1. Extensive atherosclerotic plaque within the right lower extremity, as described above. Severe stenosis of the proximal right superficial femoral artery which has developed since prior CT of December 22, 2020. Additional moderate multifocal stenosis within the right superficial femoral artery. 2. Occlusion of the right popliteal artery with reconstitution at the level of the trifurcation, increased in extent since prior exam. 3. Occlusion of the proximal right anterior tibial artery with reconstitution. Multifocal occlusion of the right posterior tibial artery. Right calf vessels s uboptimally assessed on this exam. 4. Wound of the plantar medial aspect of the right first toe overlying the first metatarsal head. Associated cellulitis. No abscess. Gas within the adjacent osseous structures could be degenerative. However, an infectious process cannot be excluded. No clear bony destruction. ACT 112: Negative or not required by law. Electronically signed by: Star Dos Santos M.D. 11/17/2021 4:50 PM Venous Doppler Study 11/17/21 15:22 RIGHT LOWER EXTREMITY VENOUS DOPPLER HISTORY: Right leg swelling eval for dvt COMPARISON STUDY: None. FINDINGS: There is normal compressibility, flow, and augmentation within the right lower extremity deep venous system. IMPRESSION: No DVT within the right lower extremity ACT 112: Negative or not required by law. Electronically signed by: Nilton Del Toro M.D. 11/17/2021 6:22 PM Foot MRI 11/19/21 17:25 MR foot RT wo/w con HISTORY: Right foot wound. Vascular disease of right leg. R/O osteomyelitis TECHNIQUE: Multiplanar multisequence MRI of the right forefoot was performed both before and after the intravenous administration of 7.5 cc of Gadavist contrast. COMPARISON STUDY: Right foot MRI 04/04/2021. FINDINGS: Interval right second toe amputation. Nondisplaced fracture within the head of the fifth metatarsal with mild marrow edema. This may represent a subacute injury. Focal skin ulceration at the plantar surface of the first MTP joint measuring 2 cm. Deep to the skin ulceration there is abnormal marrow signal and enhancement within the medial sesamoid bone at the head of the first metatarsal. Therefore, this is concerning for an osteomyelitis. Small focus of marrow edema at the base of the proximal phalanx of the first toe without abnormal T1 signal or enhancement. This is nonspecific and could be due to an osteitis. This is new from the prior study. No loculated fluid collections to suggest an abscess. Bone infarct again noted within the first metatarsal. 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 Muscle atrophy and edema within the intrinsic musculature of the foot is similar to the prior study. IMPRESSION: 1. There is a 2 cm skin ulceration along the plantar surface of the first MTP joint. Deep to the skin ulceration there is abnormal marrow signal and enhancement within the medial sesamoid bone at the head of the first metatarsal. This is concerning for osteomyelitis. 2. Small focus of marrow edema at the base of the proximal phalanx of the first toe which is nonspecific but may represent an osteitis. This is new from the prior study. 3. Nondisplaced fracture at the head of the fifth metatarsal. This appears to be acute to subacute. ACT 112: Negative or not required by law. Electronically signed by: Nilton Del Toro M.D. 11/19/2021 11:05 AM Extremity Venous Study 11/20/21 12:45 BILATERAL LOWER EXTREMITY VENOUS MAPPING CLINICAL HISTORY: For femoral peroneal bypass. COMPARISON STUDY: No previous studies for comparison. TECHNIQUE: Sonography of the bilateral greater and lesser saphenous veins was performed for venous mapping. FINDINGS: Detailed vessel calibers and depths are located within the PACS system. The right greater saphenous vein is patent. It ranges in caliber from 3 to 4 mm. Depth ranges from 2 to 11 mm. The right lesser saphenous vein is patent. It ranges in caliber from 2 to 4 mm. Depth ranges from 1 to 3 mm. The left greater saphenous vein is patent. It ranges in caliber from 3 mm to 4 mm. The depth ranges from 2 mm to 7 mm. The left lesser saphenous vein is patent. It is 3 mm in caliber. Depth ranges from 2 to 11 mm. IMPRESSION: Patent bilateral greater and lesser saphenous veins, as described above. Detailed vessel calibers and depths within the PACS system. ACT 112: Negative or not required by law. Electronically signed by: Star Dos Santos M.D. 11/20/2021 3:15 PM Hospital Course (1) Osteomyelitis: In patient with previous MRI of the right foot in March 2021 showed pathologic marrow edema and cortical destructive changes involving the proximal and middle phalanges of the second toe indicative of osteomyelitis - Right second toe amputation for osteomyelitis [address] Nick Cochran. Presented initially with cellulitis --> Plantar medial aspect of the right first toe overlying the first metatarsal head. Associated cellulitis. No abscess; uncertain of viability of great toe and suspect ultimately needs amputation-- With sepsis, POA Repeat MRI showing evidence of osteomyelitis. LLE US doppler NEGATIVE for DVT Vascular surgery consulted * S/P R Leg Femoral to Anterior Tibial Prosthetic Bypass Graft, Proximal superficial femoral artery endarterectomy with bovine patch on 11/24 * S/p Right Leg Arteriorgram, Ultrasound Localization of Left Femoral Artery, Moderate Sedation [id number](Left) - Sachin Valencia MD 11/21 * Arteriogram -- viable vessel with adequate size was patient and available for bypass Per Dr Valencia, able to get good perfusion PRevena vac to remain in place until follow up or falls out by itself prior per vascular prior to discharge ID consulted (hx MRSA in past, Bcx currently NGTD, procal negative on admit)- ultimately if ortho does choose amputation that would be ultimate source control and req 7-14 days extended as needed for residual soft tissue/skin, and without rec'd 6 weeks IV Abx with MRSA coverage Orthopedics consulted s/p Right Great Toe, first ray and partial second Metatarsal Amputation(Right) - Dimitry Valerio DO. EBL 100cc. * On eliquis 2.5mg BID for DVT prophylaxis since last evening, Heparin SQ discontinued --> will need eliquis 2.5mg BID at discharge * WBAT with hard boot * Vit D 20.2 -->continue ca supp at discharge * Cx from OR pending --> NO GROWTH ON PRELIM * PT/OT post-op evals. CM following --> recommending home Need f/u 2 weeks for suture removal Zosyn and Vancomycin during admission --> discontinued after 11 days per discussion with ID and Orthopedics with no residual bone WBC trending down prior to discharge after abx discontinued and was wnl prior to d/c Remained afebrile Pain control, antiemetics provided as needed -- sent on oxycodone PO prn as discharge Wheezing on exam 11/29 with low mag, resolved with replacement and normal mag level on repeat Had elevated platelets/anemia--> checked iron studies which were low with iron 11/trans%sat 10 and given 300mg Venofer x 2 while inpatient and sent on oral supplementation at discharge --> Prior C-scope ~15 years ago and should follow up with PCP for continued ref/surveillance (2) Cellulitis: presented w/ cellulitis,imaging with evidence for AOM on MRI (3) Acute blood loss anemia: In setting of vascular surgery which is to be expected EBL from 11/27 surgery 100cc Venofer 300mg on 11/29 for iron def anemia, hgb improved to 10 on am labs and was given additional 300mg dose and sent on PO at discharge No cp/sob/dizziness/bleeding reported (4) Peripheral arterial disease: A graft within the right superficial femoral artery is noted; There is severe stenosis of the proximal right superficial femoral artery; There is occlusion of the proximal right profunda with distal reconstitution; Additional moderate multifocal stenoses within the right superficial femoral artery are noted; Occlusion of the right popliteal artery is noted with distal reconstitution at the level of the trifurcation; There is occlusion of the proximal right anterior tibial artery with severe multifocal stenoses within the right anterior tibial artery, here are multifocal occlusions of the right posterior tibial artery. There is extensive atherosclerotic plaque within the right calf vessels Severe PAD as noted above CT results- Interventions as above Continued plavix, elevation of legs (5) MRSA (methicillin resistant staph aureus) culture positive: HX of in 2020- no other culture details since that time MRSA precautions while inpatient abx as above (6) Hypercholesterolemia: continued atorvastatin 40 mg daily (7) HTN (hypertension): Continued ELIZABETH BP stable (8) Hyponatremia: Chronic, typically around 133, was down to 127 -- asymptomatic. TSH wnl 11/23/21 at 3.8 ?SIADH post-op, d/c'd NaCl tablets Na 135 prior to discharge, asymptomatic (9) S/P femoral-tibial bypass: as above (10) Sepsis: 2nd to above tx as outlined (11) Hypomagnesemia: replaced/resolved normal on repeat prior to discharge Total Time Total Time Spent Total Time Spent (In Minutes): 55 Discharge Plan Discharge Items Patient Disposition: Home - Home Health Services Reason For Visit: FOOT ULCERATION Discharge Diagnosis: Osteomyelitis Goals: You have been hospitalized for an urgent problem which required surgery. During your stay at [facility], we have made an effort to correct the problem that brought you to the hospital while keeping you as comfortable as possible. Surgery and medications were used to bring your condition under control and your discharge instructions will include directions for any medications you should take after leaving the hospital. Please make sure to follow the advice of your surgeon regarding follow up with the surgeon and with your primary care provider. Activity: As commented below Non-emergency contact: Primary Care Provider, Surgeon and Specialist Call non-emergency contact if: you have any medication questions, your symptoms worsen, your pain is not controlled and you have a fever Follow-up/Referrals: Wing Tracey CRNP [Primary Care Provider] - ([facility] AT OFFICE WILL CALL PATIENT TO SCHEDULE HOSPITAL F/U VISIT DUE TO NO AVAILABILITY.) Sachin Valencia MD [Physician] - (1 month Mere Castillo (office) will call patient with hospital f/u visit.) Dimitry Valerio DO [Physician] - 12/13/21 11:30 am (2 weeks) Diet: Heart Healthy Yeny Attending Provider Instructions: You have been hospitalized for foot infection. Vascular surgery was consulted and you underwent bypass surgery, followed by amputation with Dr. Valerio. You were treated with IV antibiotics and per consultation with infectious disease now that infected bone removed, these were discontinued and your white count returned to normal. You will continue eliquis 2.5mg by mouth TWICE daily for prevention of blood clots and to help keep bypass open along with plavix. You will need follow up with Dr. Valerio in 2 weeks for suture removal and outpa tient follow up with Dr Valencia for routine follow up. You were given iron while inpatient and should continue daily/every other day for a month. As noted and discussed, this can cause constipation and if occurs can use over the counter stool softeners. You have been sent a prescription for pain medication to use as needed and can use tylenol for non-severe pain. Please follow up with your PCP in the next 7-10 days for continued follow up after discharge to monitor your status. Return to the emergency department with any increased pain, fever/chills, chest pain or shortness of breath, or for any symptoms concerning for you. It has been a pleasure being a part of the medical team providing for you while you have been in the hospital. Take care! Yeny Tissue Specialist Provider Instructions: ORTHOPEDIC INSTRUCTIONS Activity Recommendations: Weightbearing as tolerated in a hard sole shoe Dressing Care: Daily dry dressing changes. You may leave the sutures open to air when you are not ambulating. Showering: Do not get the foot wet in the shower until follow-up in 2 weeks. Things To Watch For: 1. Drainage from the incision site that occurs more than one week after your surgery. 2. Increased redness at the incision site. 3. Fever above 102 degrees Fahrenheit. 4. Unusual chest pain or shortness of breath. 5. Call [facility] at with any of the above problems Follow-Up Visit: Follow-up with Dr. Valerio's PA (Dimitry Alarcon) 2-3 weeks after your day of surgery. He will remove your sutures and answer any questions. If you have any additional questions or concerns, Dr Valerio is usually in the office at the same time and will be available Please call the office to schedule an appointment for a time that works for you. Medication Instructions: Your condition is typically treated with an anticoagulant. Anticoagulants will thin your blood to help prevent new clots. * You should take her medication exactly as directed. * Never skip a dose. * Never take a double dose. If you miss a dose, take it as soon as you remember. Call your Primary Care doctor if you experience any of the following: * Swelling or Pain in your leg * Sudden, continuous pain deep in a muscle * Pain that worsens when you are active or when you stand still for a long time * Chest Pain * Sudden Shortness of Breath * Rapid or pounding heart beat * Fainting * Dizziness * Cough with blood or bloody sputum * Sweating more than normal * Bruises * Heavy or uncontrolled bleeding * Blood in your urine, stool or vomit * Black or tarry stools Caring for Your Self at Home: * Avoid sitting, standing or lying down for long periods without moving your legs and feet * When traveling by car, stop to get out and move around at least once every 3 hours * On long airplane, train or bus rides, get up and move around when possible * If you can't get up, wiggle your toes and tighten your calves to keep your blood moving Follow Up: It is important for you to keep your follow up appointments with your medical provider. Pending Studies at Discharge: Yes Studies:: OR Toe cx -- NO GROWTH ON PRELIMINARY Stand-Alone Forms: My [facility] [employer], Smoking Cessation Medications and DC Order Prescriptions: New Eliquis 2.5 mg Tablet 2.5 mg PO BID Qty: 60 RF: 1 ferrous sulfate 325 mg (65 mg iron) tablet 325 mg PO Q OTHER DAY Qty: 30 RF: 0 Continued calcium carbonate-vit D3-min 600 mg calcium- 400 unit tablet 1 tab PO QDD RF: 0 clotrimazole-betamethasone 1-0.05 % cream 1 applic topical BID 14 Days Qty: 45 RF: 1 atorvastatin 40 mg tablet 40 mg PO HS Qty: 90 RF: 1 gabapentin 600 mg tablet 600 mg PO TID Qty: 90 RF: 2 lisinopril 10 mg tablet 10 mg PO DAILY Qty: 30 RF: 2 vitamin B complex [B Complex-Vitamin B12] Tablet 1 tab PO QDD RF: 0 Lac-Hydrin Five 5 % lotion 1 applic topical DAILY PRN (Reason: dry skin) Qty: 226 RF: 1 tamsulosin 0.4 mg capsule 0.4 mg PO DAILY RF: 0 clopidogrel 75 mg Tablet 75 mg PO QAM Qty: 30 RF: 1 multivitamin [Daily-Eric] Tablet 1 tab PO QDD RF: 0 potassium chloride 20 mEq tablet,ER particles/crystals 20 meq PO QDD RF: 0 hydrocodone-acetaminophen 5-325 mg tablet 1 tab PO Q8H PRN (Reason: pain) Qty: 30 RF: 0 Discontinued sulfamethoxazole-trimethoprim [Bactrim DS] 800-160 mg tablet 1 tab PO BID 10 Days Qty: 20 RF: 0 ciprofloxacin HCl 500 mg tablet 500 mg PO BID 14 Days Qty: 28 RF: 0 Discharge Orders: Discharge Order (Routine); Ordered 11/30/21 Ordered By: Dorys Leiva/Other Patient Handouts: Amputation Phantom Sensation Pain, Adjusting to Limb Loss Admission Data Admit Date/Time: 11/17/21 17:53 Attending Provider: Gus Winters Admit Provider: Jo Ann Phoenix Primary Care Provider: Wing Tracey Other Providers: Jo Ann Phoenix ; Sachin Valencia ; Live Burnette ; Phylicia Nelson ; Bassem Cochran I. ; Reji Carmen II ; Coleen Rubalcava ; Zain Schofield ; Bo Tabares Other Interventions: Discharge Summary Assessment (RN) Last Done: 11/30/21 15:50 Supervising Physician Co-Signing Physician Notes Attending Attestation & Discharge Note: Pt seen/examined, chart reviewed, discharge care plan d/w PILAR Castro. I agree w/ the hpam components of her discharge documentation. 66yo male with known, severe PAD; prior R 2nd toe amputation due to osteomyelitis; HTN; hyperlipidemia. Presented with worsening right foot pain, right foot erythema, right first toe wound, and right foot edema. Had evidence of cellulitis of the right foot at minimum along with wound of the right great toe (ulcer on the plantar aspect of the right 1st metatarsal head). Underwent CTA of the RLE, then ultimately arteriogram of the RLE by Dr Sachin Valencia. Both studies showed severe PAD of the RLE including R Popliteal art occlusion an d SFA stenosis, as well as distal disease. He underwent R femoral-anterior tibial bypass by Dr Valencia. This was followed by R great toe amputation and R 2nd toe partial metatarsal resection. Throughout the entire stay he received IV antibiotic therapy. Given that the source of infection was resolved (amputation 1st toe and 2nd metatarsal) he will not require antibiotics post-discharge. Discharge exam - gen - NAD, pleasant neck - no JVD heart - RRR, s1 s2, no murmur lungs - CTA b/l abd - soft NT ND BS+ ext - pulses R foot 2+; L foot 1-2+ skin - yovani of RLE (from bypass) intact; clean/dry; no drainage; no erythema musculo - right foot in dressings - first/2nd toes absent; cap refill 3rd/4th/5th toes on right <2 sec He will d/c to home on eliquis 2.5mg BID, plavix, and statin. Gus Winters MD Coding Level of Care Code D/C DAY MANAGEMENT >30 MINS Diagnoses Osteomyelitis M86.9 Cellulitis L03.115 Laterality: right Site of cellulitis: extremity Site of cellulitis of extremity: lower extremity Acute blood loss anemia D62 Peripheral arterial disease I73.9 MRSA (methicillin resistant staph aureus) culture positive Z22.322 Hypercholesterolemia E78.00 HTN (hypertension) I10 Hyponatremia E87.1 S/P femoral-tibial bypass Z98.890 Sepsis A41.9 Hypomagnesemia E83.42
[2021-11-30] MEDS: CLOTRIMAZOLE/BETAMETHASONE CR 15 GM TUBE EXT SCH (12:24)
[2021-11-30] MEDS: TAMSULOSIN HCL 0.4 MG CAP PO SCH (15:40)
== END 2021-11-30 16:17 | disposition home health service (06) | DRG 854 ==
LOC: ED 13:13 → SUATTDRO 17:53 → 3W 17:53 → 1E 11-24 18:45 → 3E 11-25 15:02
DX: A41.9 Sepsis, unspecified organism; M66.9 Spontaneous rupture of unspecified tendon; I70.261 Atherosclerosis of native arteries of extremities with gangrene, right leg; I10 Essential (primary) hypertension; Z96.643 Presence of artificial hip joint, bilateral; L03.115 Cellulitis of right lower limb; E83.42 Hypomagnesemia; E78.00 Pure hypercholesterolemia, unspecified; B95.62 Methicillin resistant Staphylococcus aureus infection as the cause of diseases classified elsewhere; L97.219 Non-pressure chronic ulcer of right calf with unspecified severity; G62.9 Polyneuropathy, unspecified; I74.3 Embolism and thrombosis of arteries of the lower extremities; E87.1 Hypo-osmolality and hyponatremia; M86.9 Osteomyelitis, unspecified; Z79.02 Long term (current) use of antithrombotics/antiplatelets; Z87.891 Personal history of nicotine dependence; L97.919 Non-pressure chronic ulcer of unspecified part of right lower leg with unspecified severity